=== PATIENT | female | born 1945 | race Caucasian/White ===

== ENCOUNTER → 2017-07-23 12:19 | Outpatient (CLI) | payer MEDICARE, SELFPAY ==
[2016-03-10 05:40] VITALS: BP 141/95
== END ==
PROVIDERS: Family Provider Internal Medicine; PCP Internal Medicine; Visit Provider Dermatology Pediatric Dermatology
DX: L80 Vitiligo (principal); L40.8 Other psoriasis; L85.3 Xerosis cutis; L29.8 Other pruritus; L91.8 Other hypertrophic disorders of the skin
CPT/HCPCS: 36415

== ENCOUNTER 2018-06-09 10:23 | Emergency (ER) | payer MEDICARE, SELFPAY ==
[2018-06-09 10:25] VITALS: BP 155/90; PULSE 71; RESP 17; TEMP 36.7; O2SAT 99; BMI 29.6
--- NOTE | 2018-06-09 10:54 | ED.DCSUM_ITS ---
- ER Visit Summary Date of Service: 06/09/18 Chief Complaint: Recent falls complaint lower back and left knee pain History of Present Illness: The patient is a 72 F no significant past medical history. Currently on no medications. Patient states the last 6-8 weeks he has had some falls one time she tripped and the other time she slipped in the mud. She is complaining of some back pain and left knee pain. This is been ongoing for weeks. She denies any prior back or knee surgery. No fever. She does get intermittent swelling to her left knee. Physical Examination: Very well-appearing older female. Looks younger than her stated age. Vital signs are stable and afebrile. H EENT exam unremarkable. Neck nontender full range of motion. Trachea midline. No lymphadenopathy. Lungs clear to auscultation bilaterally. Heart regular rate and rhythm no murmur. Abdomen soft and nontender. Normal bowel sounds no peritoneal signs. Chest wall nontender. Pelvic girdle intact. Patient moving all 4 extremities are neurovascular intact. She has mild swelling to her left knee. However she has full flexion-extension of her left knee. ACL PCL MCL and LCL all are intact. Quadriceps patellar tendon and infrapatellar tendon are intact. She can lift either leg off the bed. She has full range of motion to both shoulders, elbows and wrist. 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 Normal dorsi and plantar flexion. Back itself is nontender she complains of discomfort in the lower spine but is not reproducible. There is no ecchymosis or bruising. Neurologically she is awake alert with no focal motor deficits. Test Results: Left knee x-ray decreased joint space narrowing otherwise no acute abnormality. LS spine x-ray arthritic changes but otherwise no acute process. Both read by myself. Emergency Department Course and Treatment: Repeat exam patient doing well at 1150. Treatment Plan: Tylenol and Motrin for pain. Ice to her knee. Follow-up with Dr. Dinesh Harrison of orthopedics. Disposition: Discharge Impression: Recent falls Left knee pain secondary to degenerative joint disease Low back pain This note was generated with [employer] software. It may contain incorrect words, spelling, and punctuation that were not noted in review of the chart prior to signing ED Disposition - Plan for ED Patient: Chief Complaint: Fall Referrals: Shaun Busch MD [Primary Care Provider] -
--- NOTE | 2018-06-09 11:22 | RAD_ITS ---
STUDY: X-RAY - LEFT KNEE REASON FOR EXAM: Female, 72 years old. Pain following a recent fall. TECHNIQUE: 3 view(s) of the knee. COMPARISON: None. FINDINGS: Normal visualized distal femur. Normal visualized proximal tibia and fibula. Normal proximal tibiofibular articulation. There is moderate degenerative arthrosis of the medial femorotibial compartment with moderate joint space narrowing. Normal lateral femorotibial compartment. Normal patellofemoral articulation. The soft tissue structures are unremarkable. RAD/Knee 3 Views IMPRESSION: Degenerative arthrosis. Electronically Signed: Levy Martinez MD at 12:18 EST Tel [phone], Service support ,
--- NOTE | 2018-06-09 11:42 | RAD_ITS ---
STUDY: X-RAY - LUMBAR SPINE REASON FOR EXAM: Female, 72 years old. Low back pain following a recent fall. TECHNIQUE: 3 view(s) of the lumbar spine were obtained. COMPARISON: None FINDINGS: Normal lumbar lordosis. There is no substantial scoliosis. Minimal anterolisthesis of L4 on L5. There is multilevel endplate spondylosis of the lumbar vertebrae. There is multi-level degenerative disc disease with multi-level disc space narrowing. There is atherosclerotic calcification of the abdominal aorta without a demonstrated aneurysm. Moderate amount of fecal material is seen in the colon. RAD/Lumbar Spine 2 or 3 Views IMPRESSION: Degenerative changes of the spine, as detailed above. Minimal anterior listhesis of L4 on L5. Electronically Signed: Levy Martinez MD at 12:23 EST Tel [phone], Service support ,
--- NOTE | 2018-06-09 12:04 | ED.DEP ---
ED Disposition - Plan for ED Patient: Disposition: Home or Assisted Living Chief Complaint: Fall Instructions: ED Degenerative Joint Disease Referrals: Toan Harrison MD [STAFF PHYSICIAN] - As soon as possible Roland Greenberg MD [STAFF PHYSICIAN] - As soon as possible Additional Instructions: Ice and heat the knee and back. Ice primarily the knee to decrease swelling. Both the pain in her knee and back is most likely from arthritis. Call follow-up with orthopedic surgeon for further evaluation of your knee. Call and follow-up with a local primary care physician.
[2018-06-09 12:22] VITALS: PULSE 83; RESP 16
--- OUTSIDE RECORDS SUMMARY | 2018-09-10 15:28 | XMS RPT_ITS ---
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 VITILIGO [L80] Other specified hypoglycemia [E16.1] 02/01/2015 More... 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 ATRIAL FIBRILLATION [I48.91] Rheumatic fever without mention of heart involv* 02/01/2015 PAIN ABDOMEN GENERALIZED [R10.84] INVALID FOR*09/09/2012 ARTERIAL DISEASE NEC [I77.89] INVALID FOR* Screening for malignant neoplasm of the rectum *INVALID FOR*02/01/2015 Acute gastritis without mention of hemorrhage [*INVALID FOR*02/01/2015 IRRITABLE BOWEL [K58.9] INVALID FOR* Abdominal Pain, Other Specified Site [R10.9] INVALID FOR*09/09/2012 Unspecified Essential Hypertension [I10] INVALID FOR* Abdominal Pain, Unspecified Site [R10.9] INVALID FOR*09/09/2012 Disorder of bone and cartilage, unspecified [M8*INVALID FOR* Family history of malignant neoplasm of gastroi* More... 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 FOR CHEST PAIN. IF NO RELIEF CALL 911 LORAZEPAM 0.5 MG TABLET 30 t* 0 03/26/2018 04/25/2018 Class: Print RX Route: ORAL Sig: Take 1 tablet by mouth twice daily as needed (anxiety) for up to 30 days. Medications Discontinued During This Encounter cefdinir (OMNICEF) 300 mg capsule 10/09/2017 03/26/2018 Class: Historical Med Sig: Disc: Course of therapy completed cholecalciferol, vitamin D3, (VITAMI* 03/26/2018 Class: Historical Med Route: ORAL Sig: Take 1 capsule by mouth once daily. Disc: Discontinued by Patient COMPOUNDED PRESCRIPTION 03/26/2018 Class: Historical Med Route: ORAL Sig: Take 2 tablets by mouth twice daily. [facility] [place]- Clear skin vitamin Disc: Discontinued by Patient nitroglycerin sublingual (NITROQUICK* 25 t* 3 03/29/2014 03/26/2018 Route: SUBLINGUAL Sig: Dissolve 1 tablet under the tongue as needed. FOR CHEST PAIN. IF NO RELIEF CALL 911 Disc: Reason for discontinue is not on file. LORazepam (ATIVAN) 0.5 mg tab 30 t* 0 11/11/2016 03/26/2018 Class: Print RX Route: ORAL Sig: Take 1 tablet by mouth three times daily as needed (anxiety). Disc: Reason for discontinue is not on file. Encounter Status:Closed by GOPI CHILDRESS FORMER HAND on 03/26/18 CNCO Observed: 02/15/2018 Status: COMPLETED Source: [place] 11:30 AM [facility] REPOSITORY [facility] ID: [id number] Author: Mammography Coordinator Service: (none) Author Type: Physician Type: Letter Filed: 02/16/2018 11:33 PM Note Text: February 15, 2018 PID: [id number] Emma Hall [address] [place] [address] Dear Ms. Hall, We are pleased to inform you that the results of your recent breast imaging exam on 02/15/2018 are normal. Early detection of cancer is very important. We also understand recommendations regarding breast cancer screening are controversial. Please discuss with your primary care provider which strategy is best for you and whether a mammogram is right for you. Your imaging studies and report will be kept on file at [facility] as part of your permanent medical record and are available for your continuing care. Thank you for allowing us to help in meeting your health care needs. Sincerely, Dr. Martin Interpreting Radiologist (Normal over 40) [facility] SCREENING Observed: 02/15/2018 Status: F Source: [place] 9:47 AM [facility] REPOSITORY * * *Final Report* * * DATE OF EXAM: Feb 15 2018 9:47AM W 0581 - [facility] SCREENING / PROCEDURE REASON: Encounter for screening mammogram for malignant neoplasm of breast * * * * Physician Interpretation * * * * RESULT: #[id number] - BARBIE SCREENING BILATERAL DIGITAL SCREENING MAMMOGRAM WITH CAD: 02/15/2018 HISTORY: Encounter For Screening Mammogram For Malignant Neoplasm Of Breast. RESULT: TECHNIQUE: The study was acquired using full field digital technology and interpreted from soft copy. Current study was also evaluated with a Computer Aided Detection (CAD). Comparison is made to exams dated: 02/12/2017 mammogram - and 10/17/2015 mammogram - [facility]. There are scattered fibroglandular elements in both breasts. No significant masses, calcifications, or other findings are seen in either breast. There has been no significant interval change. IMPRESSION: NEGATIVE There is no mammographic evidence of malignancy.A 1 year screening mammogram is recommended. The exam was reviewed by a staff physician. Elsa Thomas M.D. pb,[facility]/elli:02/15/2018 11:30:18 Cutting Room Supervisor: Maria LUNA(R)(M), letter sent: Normal over 40 Mammogram BI-RADS: 1 Negative Trend Investigator: Elli Transcribe Date/Time: Feb 15 2018 9:30A Dictated by: AKIN THOMAS MD This examination was interpreted and the report reviewed and electronically signed by: ELSA MARTIN MD on Feb 15 2018 11:30AM EST [id number] PROGRESS Observed: 02/15/2018 Status: COMPLETED Source: [place] 8:59 AM [facility] REPOSITORY [facility] ID: [id number] Author: [place] Service: (none) Author Type: (none) Type: Progress Notes Filed: 02/15/2018 9:00 AM Note Text: Radiology Service Progress Note PATIENT NAME: Emma Hall DATE OF SERVICE: February 15, 2018 TIME: 8:59 AM PATIENT IDENTITY VERIFICATION COMPLETED USING TWO (2) METHODS: Patient confirmed name verbally and Date of . PATIENT GENDER DATA: Female. status: : No status: NO. PATIENT RELEVANT IMPLANT DATA REVIEWED: Not Applicable RADIOLOGY DEPARTMENT: [facility] IV DATA: Not applicable SIGNED BY: [place] February 15, 2018 8:59 AM ACTH STIMULATION, 3 Collected: 12/28/2017 Status: F Source: [facility] SAMPLE [QUEST] 9:00 AM [facility] REPOSITORY TYPE CODE TESTS RESULT OUT OF REFERENCE UNITS RANGE LAB ACTH STIMULATION, 3 SAMPLE [QUEST](LOINC ACTH ) STIMULATION, 3 SAMPLE [QUEST] Result Comment: _ACTH STIMULATION, 3 Specimen_ ACTH STIMULATION, 3 SPECIMENS Reported: 12/30/2017 14:04 Status=F TEST RESULT FLAG RANGE UNITS TIME 1 0900 12/30/17.141.rfl.COMPLETE.AMRR .67326-1 CORTISOL 1 15.8 mcg/dL 12/30/17.1414.rfl.COMPLETE.AMRR .42728-7 TIME 2 0930 12/30/17.141.rfl.COMPLETE.AMRR .51945-3 CORTISOL 2 21.9 >=20.0 mcg/dL 12/30/17.1415.rfl.COMPLETE.AMRR .51334-1 TIME 3 1000 12/30/17.1415.rfl.COMPLETE.AMRR .83677-7 CORTISOL 3 23.3 >=20.0 mcg/dL 12/30/17.1415.rfl.COMPLETE.AMRR .05608-7 Normal Response: Any value > or = 20.0 mcg/dL Test Performed by [facility], [facility], [address] [place] [address] Tye Woody M.D., Ph.D., Director of Laboratories , [place] [id number] Performed By: #### [id number] #### [facility],[address] [place] [address] CBC Collected: 12/17/2017 Status: F Source: [facility] 9:13 AM [facility] REPOSITORY TYPE CODE TESTS RESULT OUT OF RANGE REFERENCE UNITS LAB CBC(LOINC) CBC Result Comment: CBC-COMPLETE BLOOD COUNT LAB WBC(LOINC) 4.5 - 10.8 x 10EE3/UL WBC Low 4.0 LAB RBC(LOINC) 4.10 - x 10EE6/UL 5.30 RBC 4.29 LAB HEMOGLOBIN(LOINC) 12.0 - g/dl 16.0 HEMOGLOBIN 14.2 LAB HEMATOCRIT(LOINC) 34.0 - % 46.0 HEMATOCRIT 41.5 LAB MCV(LOINC) 80 - 99 fl MCV 97 LAB MCH(LOINC) 27 - 33 pg MCH 33 LAB MCHC(LOINC) 32 - 36 X10 3 MCHC 34 LAB RDW/CV(LOINC) 12.0 - % 15.6 RDW/CV 13.2 LAB PLATELET(LOINC) 150 - 450 x10EE3/UL PLATELET 193 LAB MPV(LOINC) 6.6 - 10.5 fl MPV 9.6 Result Comment: AUTOMATED DIFFERENTIAL LAB NEUT %(LOINC) 46.0 - 76.0 % NEUT % 50.0 LAB LYMPH %(LOINC) 20.0 - 45.0 % LYMPH % 36.1 LAB MONOS %(LOINC) 0.0 - 10.0 % MONOS % High 11.5 LAB EO %(LOINC) 0.0 - 7.0 % EO % 1.2 LAB BASO %(LOINC) 0.0 - 2.0 % BASO % 1.2 LAB Lymph #(LOINC) 0.80 - 2.80 x10EE3/U L Lymph # 1.40 LAB Neut #(LOINC) 1.50 - 7.10 x10EE3/U L Neut # 2.00 LAB Cedar #(LOINC) 0.20 - 1.00 x10EE3/U L Cedar # 0.50 LAB EO #(LOINC) 0.00 - 0.50 x10EE3/U L EO # 0.00 LAB Baso #(LOINC) 0.00 - 0.10 x10EE3/U L Baso # 0.00 LAB MANUAL DIFF(LOINC) MANUAL DIFF N/A LAB MORPHOLOGY(LOINC ) MORPHOLOGY N/A Result Comment: {CD] Performed By: #### [id number] #### [place] [id number] LIPID PROFILE Collected: 12/17/2017 Status: F Source: [facility] 9:[address] [facility]ORY TYPE CODE TESTS RESULT OUT OF REFERENCE UNITS RANGE LAB LIPID PROFILE(LOIN C) LIPID PROFILE Result Comment: LIPID PROFILE LAB TRIGLYCERIDE(LOINC) 0 - 150 mg/dl TRIGLYCERIDE 73 LAB CHOLESTEROL(LOINC) 0 - 200 mg/dl CHOLESTEROL High 217 LAB HDL(LOINC) 40 - 60 mg/dl HDL 57 LAB CHOL/HDL(LOINC) 0.0 - 5.0 CHOL/HDL 3.8 LAB LDL(LOINC) 0 - 129 mg/dl LDL High 145 Performed By: #### [id number] #### [place] [id number] CMP WITH EGFR Collected: 12/17/2017 Status: F Source: [facility] 9:[address] [facility] [place] REPOSITORY TYPE CODE TESTS RESULT OUT OF RANGE REFERENCE UNITS LAB CMP with eGFR(LOINC) CMP with eGFR Result Comment: COMPREHENSIVE METABOLIC PANEL LAB SODIUM(LOINC) 136 - 145 mmol/l SODIUM 137 LAB POTASSIUM(LOINC) 3.5 - 5.1 mmol/L POTASSIUM 3.7 LAB CHLORIDE(LOINC) 98 - 107 mmol/L CHLORIDE 107 LAB CO2(LOINC) 21.0 - mmol/L 31.0 CO2 28.9 LAB GLUCOSE(LOINC) 74 - 106 mg/dl GLUCOSE 100 LAB BUN(LOINC) 6 - 20 mg/dl BUN 13 LAB CREATININE(LOINC) 0.6 - 1.2 mg/dl CREATININE 0.7 LAB AST/SGOT(LOINC) 13 - 39 U/L AST/SGOT 18 LAB ALK PHOS(LOINC) 38 - 126 U/L ALK PHOS 57 LAB CALCIUM(LOINC) 8.6 - mg/dl 10.2 CALCIUM 9.2 LAB TOTAL 6.4 - 8.3 g/dl PROTEIN(LOINC) TOTAL PROTEIN 6.8 LAB ALBUMIN(LOINC) 3.4 - 4.8 g/dL ALBUMIN 4.3 LAB GLOBULIN(LOINC) 1.5 - 3.8 G/DL GLOBULIN 2.5 LAB A/G RATIO(LOINC) 0.9 - 1.6 A/G High RATIO 1.7 LAB TOTAL BILI(LOINC) 0.0 - 1.5 mg/dl TOTAL BILI 0.5 LAB B/C RATIO(LOINC) 0 - 30 ratio B/C RATIO 19 LAB ALT/SGPT(LOINC) 8 - 35 U/L ALT/SGPT 17 LAB ANION GAP(LOINC) 10 - 20 mmol/L ANION Low GAP 5 LAB AGE(LOINC) years AGE 72 LAB eGFR(LOINC) 60 - 999 ML/MINUTE eGFR >60 LAB eGFR(AA)(LOINC) 60 - 999 ML/MINUTE eGFR(AA) >60 Result Comment: ACCORDING TO THE NATIONAL KIDNEY DISEASE EDUCATION PROGRAM(NKDE), A NORMAL eGFR IS A VALUE GREATER THAN OR EQUAL TO 60 ML/MIN/1.73 SQ METERS. CHRONIC KIDNEY DISEASE: <60mL/MIN/1.73 SQ METERS KIDNEY FAILURE: <15mL/MIN/1.73 SQ METERS THIS TEST SHOULD ONLY BE USED FOR PATIENTS 18 YEARS OF AGE AND OLDER. Performed By: #### [id number] #### [facility],[address] [place] [address] T4 (THYROXINE) TOTAL Collected: 12/17/2017 Status: F Source: [facility] 9:13 AM [facility] REPOSITORY TYPE CODE TESTS RESULT OUT OF RANGE REFERENCE UNITS LAB T4 (THYROXINE) TOTAL(LOINC ) T4 (THYROXINE) TOTAL Result Comment: THYROXINE(T4) LAB T4(LOINC) 6.0 - 12.2 ug/dl T4 7.4 Performed By: #### [id number] #### [facility],[address] [place], [place] [id number] T3, FREE Collected: 12/17/2017 Status: F Source: [facility] 9:13 AM [facility] REPOSITORY TYPE CODE TESTS RESULT OUT OF RANGE REFERENCE UNITS LAB T3, FREE(LOINC) T3, FREE Result Comment: _T3, FREE_ T3, FREE Reported: 12/19/2017 20:31 Status=F TEST RESULT FLAG RANGE UNITS T3, FREE 3.3 2.3-4.2 pg/mL 12/19/17.2044.rfl.COMPLETE.AMRR .3051-0 Test Performed by [facility], [facility], [address] [place] [id number] Tye Woody M.D., Ph.D., Director of Laboratories , [place] [id number] Performed By: #### [id number] #### [facility],[address] [place] [address] CORTISOL, SERUM Collected: 12/17/2017 Status: F Source: [facility] [QUEST] 9:13 AM [facility] REPOSITORY TYPE CODE TESTS RESULT OUT OF REFERENCE UNITS RANGE LAB CORTISOL, SERUM [QUEST](LOIN C) CORTISOL, SERUM [QUEST] Result Comment: _CORTISOL, SERUM_ CORTISOL, A.M. Reported: 12/19/2017 21:00 Status=F TEST RESULT FLAG RANGE UNITS CORTISOL, A.M. 8.9 4.0-22.0 mcg/dL 12/19/17.2111.Librado.AMRR .9813-7 8 a.m. (7-9 a.m.) Specimen Test Performed by [facility], [facility], [address] [place] [id number] Tye Woody M.D., Ph.D., Director of Laboratories , [facility] [id number] Performed By: #### [id number] #### [facility],[address] [place] [address] PROGRESS Observed: 12/02/2017 Status: COMPLETED Source: [place] 10:01 AM [facility] REPOSITORY O ID: [id number] Author: Baylee Ahn Service: (none) Author Type: Nurse Practitioner Type: Progress Notes Filed: 12/02/2017 10:28 AM Note Text: 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 Emma Hall is a 72 year old female who presents for vaginal pruritis and burning for 1 month(s). Vaginal discharge: none. Itching: YES Dyspareunia: N/A Fever/chills: No Abdominal pain: No Bladder: dysuria Bowel: No blood in stool, pain with BM, tarry stool, persistent diarrhea or constipation Any new sexual partners or concern for STD exposure: No Any history of STDs: None Are you currently taking any medications to treat vaginitis: No Do you use feminine sprays, douches or deodorants: No Menstrual cycle: no menses - postmenopausal Past medical, surgical, social history, medications and allergies reviewed and updated. OBJECTIVE: BP 122/72 Wt 143 lb (64.9kg) GENERAL: Well developed, well nourished in no apparent distress PELVIC: external genitalia normal, normal Bartholin's glands, urethra, [place]'s glands, no vulvar lesions, no cervical lesions, physiologic discharge present, normal appearing perineal body and perianal region BIMANUAL: deferred. RECTOVAGINAL: deferred. ASSESSMENT/PLAN: irritant dermatitis Office Visit on 12/02/17 -UA DIP B/O -BACT/TRACI VAG GRAM STAIN STD screening: Declined STD check. BV and yeast culture sent- call with results. Vaginal Hygiene discussed. Baylee Ahn APRN.CNP CNOV Observed: 12/02/2017 Status: COMPLETED Source: [place] 10:00 AM [facility] REPOSITORY Office Visit (WOOB) EMMA HALL ([id number]) 1945 F NFR Date Time Provider Department 12/02/17 10:00 AM BAYLEE AHN (KATHRYN) WOOB During your visit today, we recorded the following information about you: Blood pressure Weight 122/72 64.9 kg Baylee Ahn APRN.CNP 12/02/2017 10:28 AM Signed 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 Emmasoren Hall is a 72 year old female who presents for vaginal pruritis and burning for 1 month(s). Vaginal discharge: none. Itching: YES Dyspareunia: N/A Fever/chills: No Abdominal pain: No Bladder: dysuria Bowel: No blood in stool, pain with BM, tarry stool, persistent diarrhea or constipation Any new sexual partners or concern for STD exposure: No Any history of STDs: None Are you currently taking any medications to treat vaginitis: No Do you use feminine sprays, douches or deodorants: No Menstrual cycle: no menses - postmenopausal Past medical, surgical, social history, medications and allergies reviewed and updated. OBJECTIVE: BP 122/72 Wt 143 lb (64.9kg) GENERAL: Well developed, well nourished in no apparent distress PELVIC: external genitalia normal, normal [place]tholin's glands, urethra, [place]'s glands, no vulvar lesions, no cervical lesions, physiologic discharge present, normal appearing perineal body and perianal region BIMANUAL: deferred. RECTOVAGINAL: deferred. ASSESSMENT/PLAN: irritant dermatitis Office Visit on 12/02/17 -UA DIP B/O -BACT/TRACI VAG GRAM STAIN STD screening: Declined STD check. BV and yeast culture sent- call with results. Vaginal Hygiene discussed. Baylee Ahn APRN.FORMER HAND Referring Provider: BAYLEE AHN ([facility]) [[id number]] Allergies As of Date: 12/02/2017 Noted Allergy Reaction DEMEROL (MEPERIDINE HCL) 12/26/2004 7 - Swelling 12 - Shortness of Breath IVP DYE (IODINE) 12/26/2004 9 - Itching Comments: itching, and faint PRIMATENE MIST (EPINEPHRINE BASE) 12/26/2004 7 - Swelling 12 - Shortness of Breath BIAXIN (CLARITHROMYCIN) 04/26/2016 2 - Rash CEFDINIR 03/09/2017 2 - Rash FOOD COLOR GREEN (GREEN FOOD COLO*10/26/2012 5 - Intolerance LEVAQUIN (LEVOFLOXACIN) 06/26/2005 7 - Swelling MAPLE TREES (TREES) 12/26/2004 Comments: sneezing, nasal congestion MOLD 12/26/2004 Comments: sneezing, nasal congestion PENICILLINS 12/26/2004 4 - Hives PREMARIN (CONJUGATED ESTROGENS) 12/26/2004 7 - Swelling RAGWEED 12/26/2004 Comments: sneezing, nasal congestion SULFA (SULFONAMIDE ANTIBIOTICS) 12/26/2004 4 - Hives Date Reviewed: 12/02/2017 Reviewed by: Baylee Sullivan) Anabelle - Fully Assessed Primary Visit Diagnosis:Vaginal irritation [N89.8] Other Visit Diagnosis:Dysuria [R30.0] Order(s):UA DIP B/O [[id number]] Order #: [id number] BACT/TRACI VAG GRAM STAIN [SQBVCNSM] Order #: [id number] FUTURE Prescriptions as of 12/02/2017 Sig: CLOBETASOL 0.05 % TOPICAL OIN* Apply 1 application to affect* CHOLECALCIFEROL (VITAMIN D3) * Take 1 capsule by mouth once * LORAZEPAM 0.5 MG TABLET Take 1 tablet by mouth three * CEFDINIR 300 MG CAPSULE COMPOUNDED PRESCRIPTION Take 2 tablets by mouth twice* NITROGLYCERIN 0.4 MG SUBLINGU* Dissolve 1 tablet under the t* Problem List As Of Date 12/02/2017 Noted Resolved Hyperlipidemia [E78.5] More... VITILIGO [L80] Other specified hypoglycemia [E16.1] 02/01/2015 More... 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 ATRIAL FIBRILLATION [I48.91] Rheumatic fever without mention of heart involv* 02/01/2015 PAIN ABDOMEN GENERALIZED [R10.84] INVALID FOR*09/09/2012 ARTERIAL DISEASE NEC [I77.89] INVALID FOR* Screening for malignant neoplasm of the rectum *INVALID FOR*02/01/2015 Acute gastritis without mention of hemorrhage [*INVALID FOR*02/01/2015 IRRITABLE BOWEL [K58.9] INVALID FOR* Abdominal Pain, Other Specified Site [R10.9] INVALID FOR*09/09/2012 Unspecified Essential Hypertension [I10] INVALID FOR* Abdominal Pain, Unspecified Site [R10.9] INVALID FOR*09/09/2012 Disorder of bone and cartilage, unspecified [M8*INVALID FOR* Family history of malignant neoplasm of gastroi* More... Diverticulosis of colon (without mention of hem* Unspecified constipation [K59.00] Vitamin D deficiency [E55.9] INVALID FOR* Urethral stenosis [N35.9] INVALID FOR* Occlusion of right carotid artery [I65.21] INVALID FOR* HTN (hypertension) [I10] INVALID FOR* Anxiety neurosis [F41.1] INVALID FOR* PAF (paroxysmal atrial fibrillation) (HCC) [I48*INVALID FOR* Encounter Status:Closed by BAYLEE AHN on 12/02/17 Observed: 12/02/2017 Status: F Source: [place] BACT/CAND VAG [facility] 10:00 AM [facility] REPOSITORY Smear Result - BACTERIAL VAGINOSIS RESULT: Stain results indicate mixed morphotypes consistent with transition from normal vaginal nemesio. No Yeast observed Rare Polymorphonuclear leukocytes Rare Mononuclear cells Many Epithelial cells Performed By: #### BVCNSM #### [facility] [address] [place], [place] [address] PROGRESS Observed: 11/30/2017 Status: COMPLETED Source: [place] 9:18 AM [facility] REPOSITORY HNO ID: [id number] Author: Renzo Alas Service: (none) Author Type: Physician Type: Progress Notes Filed: 11/30/2017 2:19 PM Note Text: PERTINENT CARDIAC HISTORY Atrial fib - declined AAD, coumadin HTN HL - declined statins Carotid disease ADHERENCE TO GUIDELINES GERALD-I or ARB for HF with prior LVEF<40 (NQF 0081) - N/A ASA or Plavix for ASHD (NQF 0067) - declines Beta stephen for ASHD with prior NC or prior LVEF<40 (NQF 0070) - N/A Beta stephen for HF with prior LVEF<40 (NQF 0083) - N/A GERALD-I or ARB for ASHD with DM or prior LVEF<40 (NQF 0066) - N/A Statin therapy for ASHD or FHL or DM - declines BMI documented and plan if >25 (NQF 0421) - lifestyle recommendation form Tobacco use screening and referral (NQF 0028) - lifestyle recommendation form Recommendation for whole food, plant based diet - lifestyle recommendation form CLINICAL IMPRESSION/PLAN: Emma Hall is doing reasonably well. She voices understanding that she is at risk of stroke by virtue of her atrial fibrillation and lack of anticoagulation. She also voices understanding that she is not taking best medical therapy as she continues to decline statins. I reminded her to have a carotid study done later this fall. At her request, her care will be transferred to the [facility]. I will be available to her until the time of her first visit there. Written and verbal health teaching given to patient, patient verbalizes understanding and agrees with treatment plan. DIAGNOSIS FOR VISIT: ASHD HISTORY OF PRESENT ILLNESS Emma Hall returns for follow-up of her atrial fibrillation, hypertension and chest pain syndrome. She reports stable exercise tolerance. She has used no nitroglycerin. She is now established in [place] with Dr. Ng. She would like a referral to the [facility] for ongoing care. She's had no orthopnea. She's had minimal edema. She denies syncope, TIAs, amaurosis and claudication. She's had no recent palpitations. She confirms that she is not interested in antiarrhythmic therapy, statins or warfarin. ALLERGIES: ALLERGIES Allergen Reactions - Demerol [Meperidine* Swelling, Shortness of Breath - Ivp Dye [Iodine] Itching itching, and faint - Primatene Mist [Epi* Swelling, Shortness of Breath - Biaxin [Clarithromy* Rash - Cefdinir Rash - Food Color Green [G* Intolerance - Levaquin [Levofloxa* Swelling - Maple Trees [Trees] sneezing, nasal congestion - Mold sneezing, nasal congestion - Penicillins Hives - Premarin [Conjugate* Swelling - Ragweed sneezing, nasal congestion - Sulfa (Sulfonamide * Hives CURRENT OUTPATIENT MEDICATIONS: clobetasol (TEMOVATE) 0.05 % ointment Apply 1 application to affected area twice daily. TO AFFECTED AREA. cholecalciferol, vitamin D3, (VITAMIN D3) 4,000 unit cap Take 1 capsule by mouth once daily. LORazepam (ATIVAN) 0.5 mg tab Take 1 tablet by mouth three times daily as needed (anxiety). nitroglycerin sublingual (NITROQUICK) 0.4 mg SL tablet Dissolve 1 tablet under the tongue as needed. FOR CHEST PAIN. IF NO RELIEF CALL 911 cefdinir (OMNICEF) 300 mg capsule COMPOUNDED PRESCRIPTION Take 2 tablets by mouth twice daily. [facility] [place]-Clear skin vitamin PHYSICAL EXAMINATION: VITAL SIGNS: BP 110/70 Pulse 70 Ht 4' 10.5 (1.49m) Wt 149 lb 3.2 oz (67.7kg) BMI 30.65 kg/(m2). Chest: Clear to percussion and auscultation. Trachea is midline. Air entry is equal. Cardiac: Regular rhythm. S1 and S2 are normal. PMI is nondisplaced. There is a soft systolic ejection murmur. Carotids are brisk soft bilateral bruits. JVP is less than 10 cm. Abdomen: Soft and nontender. There are no pulsatile masses or bruits. No liver enlargement. Bowel sounds are active. Extremities: No edema. Pulses are intact and symmetrical. Recent labs show normal renal function. LDL was 136. TSH is normal. Recent carotid examination shows stable bilateral disease. This is scheduled to be done again later this fall. Electronically Signed: Renzo Alas MD November 30, 2017 9:18 AM CC: Justin Zuniag Observed: 11/30/2017 Status: COMPLETED Source: [place] 9:00 AM [facility] REPOSITORY Office Visit (CAWSTR) MARIA ELENAEMMA BAIG ([id number]) 1945 F NFR Date Time Provider Department 11/30/17 9:00 AM RENZO ALAS CAWSTR During your visit today, we recorded the following information about you: Pulse Blood pressure Weight Height 70/minute 110/70 67.7 kg 1.486 m Renzo Alas MD 11/30/2017 2:19 PM Signed PERTINENT CARDIAC HISTORY Atrial fib - declined AAD, coumadin HTN HL - declined statins Carotid disease ADHERENCE TO GUIDELINES GERALD-I or ARB for HF with prior LVEF<40 (NQF 0081) - N/A ASA or Plavix for ASHD (NQF 0067) - declines Beta stephen for ASHD with prior NC or prior LVEF<40 (NQF 0070) - N/A Beta stephen for HF with prior LVEF<40 (NQF 0083) - N/A GERALD-I or ARB for ASHD with DM or prior LVEF<40 (NQF 0066) - N/A Statin therapy for ASHD or FHL or DM - declines BMI documented and plan if >25 (NQF 0421) - lifestyle recommendation form Tobacco use screening and referral (NQF 0028) - lifestyle recommendation form Recommendation for whole food, plant based diet - lifestyle recommendation form CLINICAL IMPRESSION/PLAN: Emma Griffithser is doing reasonably well. She voices understanding that she is at risk of stroke by virtue of her atrial fibrillation and lack of anticoagulation. She also voices understanding that she is not taking best medical therapy as she continues to decline statins. I reminded her to have a carotid study done later this fall. At her request, her care will be transferred to the [facility]. I will be available to her until the time of her first visit there. Written and verbal health teaching given to patient, patient verbalizes understanding and agrees with treatment plan. DIAGNOSIS FOR VISIT: ASHD HISTORY OF PRESENT ILLNESS Emma Hall returns for follow-up of her atrial fibrillation, hypertension and chest pain syndrome. She reports stable exercise tolerance. She has used no nitroglycerin. She is now established in [place] with Dr. Ng. She would like a referral to the [facility] for ongoing care.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 (irritable bowel syndrome) (Chronic) GERD (gastroesophageal reflux disease) (Chronic) Fibromyalgia (Chronic) Anxiety (Chronic) History of atrial fibrillation without current medication (Chronic) Surgical History H/O hernia repair (Acute) S/P hysterectomy (Acute) Social History Smoking Status: Never smoker alcohol intake: current HPI HPI HPI: EMMA HALL, is a 71 F who presents to the office today for for a second opinion. Patient was recently seen by my partner Dr. Segundo Frey and this was his assessment of her. EMMA HALL, is a 71 F who presents to the office today for a multitude of concerns and complaints. This is a patient who from past surgical treatment and postoperative concerns I know well. In 2001 I performed a ventral herniorrhaphy with mesh. Over the years ensuing she has had problems with abdominal pain. CT scan has demonstrated some curling of the edge of the mesh with some bowel involvement but no evidence of bowel and obstruction or fistulization. Multiple CTs have previously been obtained demonstrating no change. I have been asked by Dr. Vee Ng to the service with her surgical evaluation and a written copy of my surgical consult and recommendations will be returned to him The patient presents today with a rather scattered primary complaint. She initially stated that Dr. Monge 2 years prior had performed a colonoscopy and that she has had trouble ever since. My records demonstrate that February 08, 2014 Dr. Delroy Lou performed a upper endoscopy showing a normal esophagus slightly erythematous mucosa of the antrum. On that same day he performed a colonoscopy. That demonstrated diverticulosis the sigmoid colon and descending colon. No acute findings. It is of additional note that March 14, 2011 Dr. Tito Heck had performed a colonoscopy on the patient. A tortuous colon was identified. Diverticulosis of the descending colon. Hemorrhoids. No acute findings identified. I then further try to discuss with the patient why she was presenting to a surgeon today she then after initially stating that she has never felt well since her colonoscopy 2 years ago which actually ends up being 4 years ago she now states that she is having new onset constipation. This was not part of her original concern. She states that 2 weeks ago she had a dark stool On September 16, 2006 the patient had yet another colonoscopy. This demonstrated no acute abnormalities. It is of note that the patient was felt to have tolerated colonoscopy poorly secondary to hyper pain response. 1 of her current concerns is constipation. Ongoing apparently for 2 years but difficult to decipher. She times times uses magnesium citrate. Sometimes uses a suppository. She states that she feels very cold. She states that that has been ongoing for multiple years as well. She states that perhaps 2 weeks ago she had dark stool. She has not noticed it since. She has not had any weight loss. Or any weight loss that she may have has she rapidly regains. She is interested as to whether the mesh that had been placed in 2001 could be causing her current problems. I was able to obtain previous records from the [facility] and a note from Dr. De La Cruz.. The patient most recently has seen Dr. Ng in [place]. It is of note that the patient has a chronic anxiety syndrome as a diagnosis. Previous records demonstrate multiple various physician and extended caregiver appointments with a variety of concerns. There is previous documentation that the patient has a family history of colon cancer I believe in her mother. Her main concerns with me today were #1 feeling tired and cold, #2 her bowels have been having a coffee-ground appearance to them however her ability to have a bowel movement has improved since she has used magnesium citrate, #3 epigastric abdominal discomfort at times. The patient has undergone esophageal manometry which was completed at [facility] [place] [place] on July 28, 2016. This was read as an overall normal study with a sliding hiatal hernia. She states that she was told that she needed to take nitroglycerin if she has this type of pain in the past. I have instructed her that nitroglycerin may help with any chest related pressures but with regards to her esophagus is functioning entirely normally. And she has no esophageal spasms noted on her manometry study. Exam Const General: well developed, no acute distress, well hydrated Orientation: oriented to person, oriented to place, oriented to time [facility] Head: normocephalic, atraumatic Ears: external ears normal Mouth: moist mucous membranes Eyes Sclera: sclerae normal Pupils: normal by confrontation Neck Neck: no lymphadenopathy noted Neck mass: No Thyroid: symmetrical, thyroid normal Chest Chest palpation AND inspection: normal inspection of the chest Resp Effort AND Inspection: normal respiratory effort Auscultation: clear to auscultation bilaterally Percussion: percussion normal Cardio Rate: regular rate Rhythm: regular rhythm GI Palpation: soft, no masses, no hepatosplenomegaly, nontender Rectal Exam: other Other: Rectal exam deferred. Extrem General: no clubbing, cyanosis or edema, normal to inspection Assessment AND Plan Problems 1. Irritable bowel syndrome without diarrhea K58.9 2. Gastroesophageal reflux disease without esophagitis K21.9 3. Left lower quadrant abdominal pain of unknown etiology R10.32 Plan With regards to her problems that she presented with me today I told her that fluctuation in temperatures probably something that she is going to have to sit back down with her primary care physician to try to make some sort of assessment on whether medications could be actually causing this problem. I think her esophagus is functioning entirely normal. She has a normal manometry study and her upper scope really did not reveal anything it would make sense that she undergo another repeat upper endoscopy in 2019. I concur with the recommendations of Dr. Frey no colonoscopic intervention is needed at this time. Her next high-risk colonoscopy should be done in one year. In pursuing to a barium enema in concordance with Dr. Frey said I believe is appropriate. Coding Level of Care Code Off vis,est,level 3 Diagnoses Irritable bowel syndrome without diarrhea K58.9 Irritable bowel syndrome type: without diarrhea Gastroesophageal reflux disease without esophagitis K21.9 Esophagitis presence: without esophagitis Left lower quadrant abdominal pain of unknown etiology R10.32 10/16/17 1104 <Electronically signed by Taqueria Samson MD> Date Taqueria Arevalo Signature: Date (if applicable) CC: Vee Ng MD SURGERY VISIT REPORT Observed: 09/29/2017 Status: F Source: [place] 6:33 PM [facility] [address] [place] [address] OFFICE VISIT Date of Service: 09/29/17 MR#: [id number] Acct: [id number] Name: EMMA HALL Rep #: [id number] : 1945 Provider: Segundo Frey MD Age/Sex: 71/F Location: [facility] Status: Signed Intake Vital Signs09/29/17 Height 4 ft 11 in 09/29/17 Weight: 149 lb 09/29/17 Body Mass Index (BMI) 30.1 Intake Visit Reasons: EPIGASTRIC PAIN Otr Flatbed Driver Required: No Is patient in pain?: Yes (abdomen) Allergies epinephrine [From Primatene Mist] Allergy (Severe, Verified 09/29/17 15:18) Shortness of breath epinephrine bitartrate [From Primatene Mist] Allergy (Severe, Verified 09/29/17 15:18) Shortness of breath doxycycline Allergy (Intermediate, Verified 09/29/17 15:18) Swelling levofloxacin [From Levaquin] Allergy (Intermediate, Verified 09/29/17 15:18) Swelling estrogens, conjugated [From Premarin] Allergy (Mild, Verified 09/29/17 15:18) Swelling meperidine HCl [From Demerol] Allergy (Mild, Verified 09/29/17 15:18) Other Penicillins Allergy (Mild, Verified 09/29/17 15:18) Unknown Sulfa (Sulfonamide Antibiotics) Allergy (Mild, Verified 09/29/17 15:18) Unknown digoxin [From Digitek] Allergy (Verified 09/29/17 15:18) Swelling FOOD COLOR GREEN Allergy (Intermediate, Uncoded 03/10/16 03:57) Swelling IVP DYE Allergy (Intermediate, Uncoded 03/10/16 03:57) Other MAPLE TREE MOLD Allergy (Mild, Uncoded 03/10/16 03:57) Other RAGWEED Allergy (Mild, Uncoded 03/10/16 03:57) Other Medications Albuterol Inhaler [Ventolin Hfa] 1 - 2 puff INHALATION Q4H PRN PRN #1 inhaler 06/20/15 [Rx Confirmed 09/29/17] DiphenhydrAMINE [Benadryl] 25 mg PO QHS PRN PRN 03/10/16 [History Confirmed 09/29/17] clobetasol 0.025 % topical cream 1 applic TOPICAL BID 09/29/17 [History Confirmed 09/29/17] estradiol 1 mg tablet 1 mg PO QDAY 09/29/17 [History Confirmed 09/29/17] nitroglycerin 0.4 mg sublingual tablet 0.4 mg SUBLINGUAL Q5M PRN 09/29/17 [History Confirmed 09/29/17] PFSH Medical History Asthma (Chronic) IBS (irritable bowel syndrome) (Chronic) GERD (gastroesophageal reflux disease) (Chronic) Fibromyalgia (Chronic) Anxiety (Chronic) History of atrial fibrillation without current medication (Chronic) Surgical History H/O hernia repair (Acute) S/P hysterectomy (Acute) Social History Smoking Status: Never smoker alcohol intake: current HPI HPI HPI: EMMA HALL, is a 71 F who presents to the office today for a multitude of concerns and complaints. This is a patient who from past surgical treatment and postoperative concerns I know well. In 2001 I performed a ventral herniorrhaphy with mesh. Over the years ensuing she has had problems with abdominal pain. CT scan has demonstrated some curling of the edge of the mesh with some bowel involvement but no evidence of bowel and obstruction or fistulization. Multiple CTs have previously been obtained demonstrating no change. I have been asked by Dr. Vee Ng to the service with her surgical evaluation and a written copy of my surgical consult and recommendations will be returned to him The patient presents today with a rather scattered primary complaint. She initially stated that Dr. Monge 2 years prior had performed a colonoscopy and that she has had trouble ever since. My records demonstrate that February 08, 2014 Dr. Delroy Lou performed a upper endoscopy showing a normal esophagus slightly erythematous mucosa of the antrum. On that same day he performed a colonoscopy. That demonstrated diverticulosis the sigmoid colon and descending colon. No acute findings. It is of additional note that March 14, 2011 Dr. Tito Heck had performed a colonoscopy on the patient. A tortuous colon was identified. Diverticulosis of the descending colon. Hemorrhoids. No acute findings identified. I then further try to discuss with the patient why she was presenting to a surgeon today she then after initially stating that she has never felt well since her colonoscopy 2 years ago which actually ends up being 4 years ago she now states that she is having new onset constipation. This was not part of her original concern. She states that 2 weeks ago she had a dark stool On September 16, 2006 the patient had yet another colonoscopy. This demonstrated no acute abnormalities. It is of note that the patient was felt to have tolerated colonoscopy poorly secondary to hyper pain response. 1 of her current concerns is constipation. Ongoing apparently for 2 years but difficult to decipher. She times times uses magnesium citrate. Sometimes uses a suppository. She states that she feels very cold. She states that that has been ongoing for multiple years as well. She states that perhaps 2 weeks ago she had dark stool. She has not noticed it since. She has not had any weight loss. Or any weight loss that she may have has she rapidly regains. She is interested as to whether the mesh that had been placed in 2001 could be causing her current problems. I was able to obtain previous records from the [facility] and a note from Dr. De La Cruz.. The patient most recently has seen Dr. Ng in [place]. It is of note that the patient has a chronic anxiety syndrome as a diagnosis. Previous records demonstrate multiple various physician and extended caregiver appointments with a variety of concerns. There is previous documentation that the patient has a family history of colon cancer I believe in her mother. ROS General General: Yes weight change and appetite; no fatigue, colon cancer, breast cancer or weakness HEENT HEENT: Yes swollen glands; no difficulty swallowing, eye injury, eye surgery or hoarseness Endo Endocrine: No thyroid disease, diabetes mellitus, thyroid cancer, Hair loss, heat intolerance or cold intolerance Skin Skin: No rash or changing moles Breast Breast: No left breast lump, right breast lump, nipple discharge, breast pain, abnormal mammogram, abnormal US or breast enlargement Musc Musculoskeletal: Yes back problems and arthritis; no rheumatoid arthritis, gout or joint pain Cardio Cardiovascular: Yes atrial fibrillation; no murmur, pacemaker, heart disease, high blood pressure, heart attack, heart stent, palpitations, shortness of breat with exertion or chest pain Psych Psychiatric: No depression, anxiety or hearing voices Resp Respiratory: Yes asthma, No shortness of breath, No sleep apnea, No cough, No COPD, No emphysema, No wheezing Gastro Gastrointestinal: Yes abdominal pain, Yes constipation, Yes acid reflux, Yes hemorrhoids, Yes black,tarry stools, No nausea or vomiting, No diarrhea, No blood in stool, No ulcers, No gallbladder problem Joe Hematologic: No blood thinners, No blood disorders, No bleeding, No anemia, No blood clots Neuro Neurologic: No system reviewed and no additional complaints, except as docu, No as per HPI, No abnormal walking, No abnormal hearing, No abnormal movements, No abnormal speech, No behavioral changes, No burning sensations, No confusion, No seizure-like activity, No unsteadiness, No dizziness, No localized weakness, No frequent falls, No headache(s), No lack of coordination, No loss of vision, No memory loss, No numbness, No other visual disturbances, No radiating pain, No restless legs, No sensory deficit, No fainting, No tingling, No tremor(s), No weakness, No other Exam Const General: cooperative, anxious (The patient demonstrates almost a flight of concern) Nutritional Appearance: average body habitus Orientation: alert, awake [facility] Head: normal to inspection Chest Breast Palpation: No nipple discharge Resp Effort AND Inspection: normal respiratory effort Auscultation: clear to auscultation bilaterally Cardio Rate: regular rate Rhythm: regular rhythm Heart Sounds: no murmurs GI Inspection: normal to inspection Palpation: soft, no hepatosplenomegaly Auscultation: normal bowel sounds Rectal Exam: visual inspection normal, normal sphincter tone, hemorrhoids (Mild internal hemorrhoids) Other: Rectovaginal septum appears solid. No particular tenderness on digital examination. Normal brown stool no evidence of blood or mucus or melena Assessment AND Plan 1. Constipation, unspecified constipation type K59.00 Plan After careful clinical exam I am not detecting an acute surgical illness for this patient. The patient clearly demonstrated a severe anxiety complex with a multitude of concerns today. By the end of the appointment her primary concern was her feeling of coldness all over and particularly her cold hands. She states that when she takes her temperature it is 96.6 F As noted previously we have placed this patient through a multitude of investigations. Fortunately no account have we found active disease or findings. I have not proposing a surgical intervention for her at this time. She has 1 more additional year to go prior to her next high-risk screening colonoscopy. Certainly if she were to demonstrate recurrent symptoms or acute surgical findings I would be more than pleased to see her in return. I appreciate the opportunity of assisting with her surgical care. If she continues to complain of bowel type issues then perhaps it that might not be unreasonable to pursue a barium enema. She has had at least 3 previous colonoscopies with difficulty incurred in no acute findings identified. Cc: Dr. Vee Frey M.D., F.A.C.S. Coding Level of Care Code Detailed, Low Diagnoses Constipation, unspecified constipation type K59.00 Constipation type: unspecified constipation type 09/29/17 1833 <Electronically signed by Segundo Frey MD> Date Segundo Frey MD Cosign Signature: Date (if applicable) CC: Vee Ng MD MISCELLANEOUS LAB Collected: 07/23/2017 Status: F Source: MIIM PROCEDURE 2 12:31 PM [facility] REPOSITORY Order Comment: Comments: [id number] AND [id number] TIGER/RT List Test(s) Ordered by Physician: [id number] TIGER/ RT TYPE CODE TESTS RESULT OUT OF RANGE REFERENCE UNITS LAB L801.1543 Normal [facility] LAB TEST 2 Result Comment: TEST RESULT LIMITS Antiproteinase 3 (OK-3) Abs <3.5 U/mL 0.0 - 3.5 TESTING PERFORMED AT [facility]. ORIGINAL REPORT ON FILE IN LAB CONTAINS ADDITIONAL TEST SITE INFORMATION. Performed By: #### L801.1543 #### [facility] [address] [place], [address] MISCELLANEOUS LAB Collected: 07/23/2017 Status: F Source: [place] PROCEDURE 12:31 PM [facility] REPOSITORY Order Comment: Comments: [id number] AND [id number] TIGER/RT Test(s) Ordered: MPO [id number] TIGER/RT TYPE CODE TESTS RESULT OUT OF RANGE REFERENCE UNITS LAB L801.1541 Normal [facility] LAB TEST Result Comment: TEST RESULT LIMITS Antimyeloperoxidase (MPO) Abs <9.0 U/mL 0.0 - 9.0 TESTING PERFORMED AT [facility]. ORIGINAL REPORT ON FILE IN LAB CONTAINS ADDITIONAL TEST SITE INFORMATION. Performed By: #### L801.1541 #### [facility] [address] [place], [address] ALLERGIES ALLERGIES DATE TYPE / CODE NAME / CODE REACTION SEVERITY SOURCE Drug meperidine Other [place] [facility] 8 Allergy/328858801 HCl/[id number](RXN [facility] (SNOMED CT) ORM) Hospital Repository Drug epinephrine Shortness of SV [place] 8 Allergy/632035332 bitartrate/E815060 breath [facility] (SNOMED CT) 776(RXNORM) Hospital Repository Drug Penicillins/O39546 Unknown [place] Allergy/892412212 0476(RXNORM) [facility] (SNOMED CT) Hospital Repository Drug Sulfa (Sulfonamide Unknown [place] 8 Allergy/698076734 Antibiotics)/F0010 [facility] (SNOMED CT) [address]9628(RXNORM) Hospital Repository Drug digoxin/[id number] Swelling Unknown [place] 8 Allergy/658727898 (RXNORM) [facility] (SNOMED CT) Hospital Repository Drug estrogens, Swelling [place] 8 Allergy/153864663 conjugated/Z114853 [facility] (SNOMED CT) 272(RXNORM) Hospital Repository Drug epinephrine/C52997 Shortness of SV [place] 8 Allergy/714322836 1774(RXNORM) breath [facility] (SNOMED CT) Hospital Repository Drug doxycycline/B68422 Swelling [place] 8 Allergy/951324794 2748(RXNORM) [facility] (SNOMED CT) Hospital Repository Drug levofloxacin/F0060 Swelling [place] 8 Allergy/486572636 34372(RXNORM) [facility] (SNOMED CT) Hospital Repository Miscellaneous FOOD COLOR GREEN Swelling [place] 8 Allergy/139811484 [facility] (SNOMED CT) Hospital Repository Miscellaneous IVP DYE Other [place] 8 Allergy/314117940 [facility] (SNOMED CT) Hospital Repository Miscellaneous MAPLE TREE MOLD Other [place] 8 Allergy/963164397 [facility] (SNOMED CT) Hospital Repository Miscellaneous RAGWEED Other [place] 8 Allergy/910150364 [facility] (SNOMED CT) Hospital Repository DRUG CEFDINIR RASH [place] 7 INGREDI/064146515 [facility] (SNOMED CT) [place] Repository DRUG CLARITHROMYCIN RASH [place] 6 INGREDI/524604928 [facility] (SNOMED CT) [place] Rep[facility] DRUG/028050832(SN GREEN FOOD COLOR INTOLERANCE [place] [address]) (BULK) [facility] [place] Repository DRUG LEVOFLOXACIN SWELLING [place] INGREDI/036392119 [facility] (SNOMED CT) [place] Repository DRUG MEPERIDINE HCL SWELLING [place] 5 INGREDI/285574025 [facility] (SNOMED CT) [place] Repository DRUG IODINE ITCHING [place] 5 INGREDI/014326211 [facility] (SNOMED CT) [place] Repository DRUG/781141186(SN EPINEPHRINE BASE SWELLING [place] [address]) [facility] [place] Repository Environ/548903232 TREES [place] 5 (SNOM[address]) [facility] [place] Repository DRUG MOLD [place] 5 INGREDI/237886818 [facility] (SNOMED CT) [place] Repository Drug PENICILLINS HIVES [place] Class/670978003(S [facility] NOMED CT) [place] Repository DRUG/185928752(SN CONJUGATED SWELLING [place] [address]) ESTROGENS [facility] [place] Repository Environ/312832008 RAGWEED [place] 5 (SNOM[address] CT) [facility] [place] Repository Drug SULFA (SULFONAMIDE HIVES [place] 5 Class/631855864(S ANTIBIOTICS) [facility] NOMED CT) [place] Repository Drug SULFA Moderate [place] Allergy/258946948 (sulfonamide)/0000 ([facility] (SNOMED CT) 0022(RXNORM) Modifier) Hospital (Qualifier Repository Value) Drug CODEINE/40369965(R Moderate [place] Allergy/974850638 XNORM) ([facility] (SNOMED CT) Modifier) [facility] (Qualifier Repository Value) Drug DOXYCYCLINE/134284 Moderate [place] Allergy/733140158 40(RXNORM) ([facility] (SNOMED CT) Modifier) Hospital (Qualifier Repository Value) Drug CLARITHROMYCIN/000 Moderate [place] Allergy/857980955 11358(RXNORM) ([facility] (SNOMED [facility]) Modifier) Hospital (Qualifier Repository Value) Drug DEMEROL/92581101(R Moderate [facility] [place] Allergy/870571169 XNORM) ([facility] (SNOMED CT) Modifier) [facility] (Qualifier Repository Value) Drug PENICILLIN/8101033 Moderate [place] Allergy/650773128 3(RXNORM) ([facility] (SNOMED CT) Modifier) [facility] (Qualifier Repository Value) NG/447326270(SNOM MEPERIDINE HCL [facility] Repository NG/094176297(SNOM IODINE [facility] Repository NG/006686415(SNOM EPINEPHRINE BASE [facility] Repository NG/776044791(SNOM CLARITHROMYCIN [facility] Repository NG/091606732(SNOM CEFDINIR [facility] Repository NG/310789423(SNOM GREEN FOOD COLOR [facility]) (BULK) [facility] Repository NG/050687768(SNOM LEVOFLOXACIN [facility]) [facility] Repository NG/676092322(SNOM TREES [facility] Repository NG/936666809(SNOM MOLD [facility] Repository NG/766347078(SNOM PENICILLINS [facility]) [facility] Repository NG/599989059(SNOM CONJUGATED [facility]) ESTROGENS [facility] Repository NG/348777498(SNOM RAGWEED [facility]) [facility] Repository NG/062324649(SNOM SULFA (SULFONAMIDE [facility]) ANTIBIOTICS) [facility] System Repository ENCOUNTERS ENCOUNTERS ADMIT/DISCHARGE ACCOUNT NUMBER ADMITTING ENCOUNTER LOCATION SOURCE CLASS 07/06/2018 [id number] Ambulatory [facility] ding:CT Repository 06/18/2018/06/18/20 [id number] Ambulatory [address] Repository 06/09/2018/06/09/20 [id number] Emergency [address] ding:ED Repository 05/25/2018/05/26/20 [id number] Ambulatory [address] Repository 04/23/2018/04/23/20 [id number] Ambulatory [address] Repository 04/23/2018/04/26/20 [id number] Ambulatory [address] Repository 03/26/2018/03/29/20 [id number] Ambulatory [address] [place] Repository 02/15/2018/02/16/20 [id number] Ambulatory [address] Repository 12/28/2017/12/29/19 [id number] HAIDER, Daylin Buildin[address] [place] [address] WELLNESS Room: [address] Repository 12/17/2017/12/18/19 [id number] [place] NG [address] Repository 12/02/2017/12/08/19 [id number] Ambulatory [address] Repository 11/30/2017/12/01/19 [id number] Ambulatory [address] Repository 11/30/2017 [id number] Ambulatory [facility] MEDICAL Repository CENTERBuildi ng:CAGWS 10/19/2017/10/22/19 [id number] Ambulatory [address] Repository 10/16/2017/10/17/19 [id number] Ambulatory BMSBuilding: [place] [facility] Repository 09/29/2017/09/30/19 [id number] Ambulatory BMSBuilding: [place] [address] [facility] Repository 07/23/2017 [id number] Ambulatory [facility] ding:MTLAB Repository PAYERS PAYERS ENCOUNTER GUARANTOR PAYER SUBSCRIBER SOURCE 07/06/2018 EMMA L Primary EMMA L [place] [id number] TR Insurance:MEDICARE SPENCERDOB: [address] PART A BPolicy [id number] Hospital [address]Fls: (330) Number: Repository [phone] ) [id number] Date:2018-07-01 07/06/2018 Secondary EMMA L [place] Insurance:TRANSAMERIC SPENCERDOB: Community APolicy Number: [id number] Hospital [id number] Repository Date:6526-12-94ZY [address] [address]RK: 07/06/2018 Tertiary NOT GIVENUNK [place] Insurance:SELF PAY [facility] Number: Effective Repository Date:2018-07-01 06/09/2018 EMMA L Primary EMMA L [place] [id number] TR Insurance:ELISA SPENCERDOB: [address] [facility] 2011-04-[birth year]ALH Hospital [address]Yst: [phone]) [facility] Number: Repository [phone] () [id number] e Date:5623-82-64KX [address] [place] [address]VZ: 06/09/2018 Secondary NOT GIVENUNK [place] Insurance:SELF PAY [facility] Number: Effective Repository Date:2018-06-09 12/28/2017 EMMA L Primary EMMA L [place] [facility] SPENCERDOB: Insurance:AULTCARE - SPENCERDOB: [facility] [id number] [facility] [id number] Number: [address] [id number] [facility] [address]Vnl: [phone]) e Date:Plan Name:[facility] [phone] () 12/17/2017 EMMA L Primary EMMA L [place] Marinellierene SPENCERDOB: Insurance:AULTCARE - SPENCERDOB: [facility] [id number] [facility] [id number] Number: [address] [id number] [facility] [address]Xdn: [phone]) e Date:Plan Name:[facility] [phone] () 11/30/2017 EMMA L Primary EMMA L [facility] SPENCERDOB: Insurance:AULTCAREPol SPENCERDOB: Health System [id number] y Number: [id number] [address] [id number] [address] [place] [address] e Date: 285[address]Vqq: () 10/16/2017 EMMA L Primary EMMA L [place] [id number] TR Insurance:ELISA SPENCERDOB: [address] [id number] Hospital [address]Bqx: (330) OPolicy Number: Repository [phone] () [id number] e Date:8910-50-80RJ [facility] [address] [place] [address]PP: 10/16/2017 Secondary NOT GIVENUNK [place] Insurance:SELF PAY [facility] Number: Effective Repository Date:2017-10-13 09/29/2017 EMMA L Primary EMMA L [place] [id number] TR Insurance:ELISA SPENCERDOB: Community [address] [place] [address] [facility] [id number] Hospital [address]Zck: (330) [facility] [phone] () [id number] e Date:9830-30-40XE [facility] [address] [place] [address]VZ: 09/29/2017 Secondary NOT GIVENUNK [place] Insurance:SELF PAY [facility] Number: Effective Repository Date:2017-09-29 07/23/2017 MEMA L Primary EMMA L [place] [id number] TR Insurance:ELISA SPENCERDOB: [address] [facility] [id number] Hospital [address]Tuv: [phone]) [facility]ository [phone] () [id number] e Date:5259-71-85QP [facility] [place] [address]JD: 07/23/2017 Secondary NOT GIVENUNK [place] Insurance:SELF PAY [facility] Number: Effective Repository Date:2017-07-23
== END 2018-06-09 12:26 | disposition home or self-care (01) ==
PROVIDERS: Emergency Provider Emergency Medicine; Family Provider Family Medicine; PCP Family Medicine
DX: M54.5 Low back pain (principal); M25.562 Pain in left knee; M17.12 Unilateral primary osteoarthritis, left knee; R29.6 Repeated falls
CPT/HCPCS: 72100; 73562; 99282

== ENCOUNTER → 2018-07-06 13:28 | Outpatient (CLI) | payer MEDICARE, OTHER, SELFPAY ==
[2018-06-09 10:25] VITALS: BMI 29.6
--- NOTE | 2018-07-06 13:33 | CT_ITS ---
STUDY: CT MAXILLOFACIAL SINUSES REASON FOR EXAM: Female, 72 years old. Sinusitis RADIATION DOSAGE (If Supplied By Facility): CTDIvol = ( 33.06 ) mGy, DLP = ( 804.92 ) mGycm TECHNIQUE: The patient was scanned in a multi detector CT scanner. High resolution axial imaging was performed without the administration of intravenous contrast material. Sagittal and coronal images were reconstructed. Individualized dose optimization techniques were used for this CT. COMPARISON: None. FINDINGS: : NASAL SEPTUM: Mild S-shaped configuration. CRIBRIFORM PLATE AND FATOUMATA ISABELLE: The fovea ethmoidalis, lateral lamella and lamina cribrosa are normal. The anterior ethmoidal notch is normal with no supraorbital pneumatization. The olfactory fossa is symmetric with a Keros type II. No skull base dehiscence LAMINA PAPYRACEA: No remote orbital fracture and no orbital prolapse into the ethmoidal sinus . BONY SCHMIDT: No dehiscence, demineralization or thickness TURBINATES: Normal thickness and no paradoxical orientation. No esau bullosa . No turbinectomy OSTIOMEATAL UNITS: Patent with no ethmoidectomy, maxillary antrostomy, uncinectomy or turbinoplasty SPHENOETHMOIDAL RECESS: Patent FRONTAL SINUSES: Well developed and pneumatized with no abnormal soft tissue attenuations in them ETHMOID AIR CELLS: Aggar Nasi air cells are noted. No Deshaun air cells. Both the anterior and posterior ethmoidal air cells are clear of abnormal soft tissue attenuations MAXILLARY SINUSES: Normal with no arrested pneumatization or hyperpneumatization and no abnormal soft tissue attenuations SPHENOID SINUSES: Normal with conchal, presellar or sellar type pneumatization. No dehiscence into carotid canal and no optic nerve dehiscence within the sphenoid sinus. No Onodi air cells ORBITS: Negative SKULL BASE/CRANIOVERTEBRAL JUNCTION/UPPER CERVICAL SPINE.: Normal IMPRESSION: Negative examination with no maxillo-infundibular, nasofrontal, ostiomeatal unit or sphenoethmoidal pattern of obstructive disease. There is also no evidence of sinonasal polyposis. . Electronically Signed: Isai Vergara MD at 7:39 EST Tel , Service support , CT/Sinus/Facial Bone
== END ==
PROVIDERS: Family Provider Family Medicine; PCP Family Medicine; Referring Provider Otolaryngology; Visit Provider Otolaryngology
DX: J32.9 Chronic sinusitis, unspecified (principal)
CPT/HCPCS: 70486

== ENCOUNTER → 2018-10-08 09:26 | Outpatient (CLI) | payer MEDICARE, OTHER, SELFPAY ==
[2018-09-15 08:18] VITALS: BMI 30.2
--- NOTE | 2018-10-08 10:00 | ECHOD_ITS ---
Reason For Study: AFIB Procedure This was a 2D Doppler, Color Flow transthoracic echocardiogram. Exam performed in department. Left Ventricle Normal LV size. Left ventricular systolic function is normal. The estimated ejection fraction is 63 %. Stage 2 diastolic dysfunction. No regional wall motion abnormalities noted. Right Ventricle Normal RV size. Normal systolic function. Atria Normal left atrium. Normal right atrium. Mitral Valve Normal mitral valve. Mild (1+) eccentric mitral valve insufficiency. Tricuspid Valve Normal tricuspid valve. Mild tricuspid valve insufficiency. Pulmonary artery systolic pressure is 30 mmHg. Aortic Valve Normal aortic valve. Trisinus/trileaflet aortic valve. Pulmonic Valve Normal pulmonic valve. Great Vessels Normal aortic root. The pulmonary artery is normal size. Normal inferior vena cava. Pericardium/Pleural No pericardial effusion. MMode/2D Measurements & Calculations LVIDd: 4.1 cm IVSd: 0.75 cm Ao root diam: 2.5 cm LVIDs: 2.5 cm LVPWd: 0.82 cm RVDd: 3.1 cm FS: 39.0 % LAV(MOD-bp): 48.1 ml LA A4 area: 17.2 cm2 LA dimension(2D): 3.4 cm LAV(MOD-bp) Indexed: 30.2 ml/m2 LAV(MOD-sp2): 49.4 ml LAV(MOD-sp4): 46.5 ml RA A4 area: 14.3 cm2 Time Measurements MV dec time: 0.21 sec Doppler Measurements & Calculations MV E max biju: 77.5 cm/sec Lat Peak E' Biju: 8.4 cm/sec Med Peak E' Biju: 6.3 cm/sec MV A max biju: 95.6 cm/sec E/E' lat: 9.2 E/E' med: 12.4 MV E/A: 0.81 Ao V2 max: 164.9 cm/sec LV V1 max: 102.0 cm/sec TR max biju: 250.7 cm/sec Ao max P.9 mmHg LV V1 max P.2 mmHg TR max P.2 mmHg Interpretation Summary Normal LV size. Left ventricular systolic function is normal. The estimated ejection fraction is 63 %. Stage 2 diastolic dysfunction. Mild (1+) eccentric mitral valve insufficiency. Pulmonary artery systolic pressure is 30 mmHg. Ordering Physician: Saturnino Deng Referring Physician: PAUL DE LA CRUZ Performed By: Char Xavier, SANAMCS, RVT
== END ==
PROVIDERS: Family Provider Family Medicine; PCP Family Medicine; Referring Provider Internal Medicine Cardiovascular Disease; Visit Provider Internal Medicine Cardiovascular Disease
DX: Z98.890 Other specified postprocedural states (principal); Z87.19 Personal history of other diseases of the digestive system
CPT/HCPCS: 93306

== ENCOUNTER → 2018-11-08 | Outpatient (CLI) | payer MEDICARE, OTHER, SELFPAY ==
[2018-09-15 08:18] VITALS: BMI 30.2
== END | disposition home or self-care (01) ==
PROVIDERS: Family Provider Family Medicine; PCP Family Medicine; Referring Provider Nurse Practitioner Adult Health; Visit Provider Nurse Practitioner Adult Health
DX: R30.0 Dysuria (principal)
CPT/HCPCS: 87086; 87088

== ENCOUNTER → 2018-12-03 | Outpatient (CLI) | payer MEDICARE, OTHER, SELFPAY ==
[2018-11-26 14:09] VITALS: BMI 30.1
[2018-12-03 10:14] LABS: Absolute Lymphocyte Count 1.54 X10^3/ul (0.83-4.51); Absolute Neutrophil Count 1.2 X10^3/uL (2.0-7.7); Basophil# 0.03 X10^3/uL; Basophil% 0.9 % (0-1); Eosinophil# 0.06 X10^3/uL; Eosinophils% 1.8 % (0-5); Hemoglobin 14.1 g/dl (12.0-15.0); Lymphocyte # 1.54 X10^3/ul (4.0); Lymphocyte % 47.1 % (19-41); Mean Corp Hgb Conc 33.6 g/gl (32-36); Mean Corpuscular Volume 95.2 fL (81-99); Mean Platelet Vol. 11.4 fl (6.2-12.0); Monocyte# 0.42 X10^3/uL; Monocyte% 12.8 % (0-10); Neutrophil # 1.22 X10^3/uL (2.7-7.7); Neutrophil % 37.4 % (47-70); Platelet Count 173 K/mm3 (150-450); RBC Distribution Width CV 13.2 % (11.6-14.6); RBC Distribution Width SD 45.9 fl (35.1-43.9); Red Blood Count 4.41 M/mm3 (4.2-5.4); White Blood Count 3.3 K/mm3 (4.4-11.0)
[2018-12-03 10:15] LABS: POSITIVE COUNT NO; POSITIVE DIFFERENTIAL NO; POSITIVE MORPHOLOGY NO
[2018-12-03 10:35] LABS: Anion Gap 6 (5-15); BUN 14 mg/dL (7-18); BUN/Creat Ratio 20.1 RATIO (10-20); Calcium,Total 9.1 mg/dL (8.5-10.1); Chloride 107 mmol/L (98-107); Cholesterol 189 mg/dL (200); EST Glomerular Filtration Rate 88 mL/min (>60); Est Glom Filt Rate - Afr Amer 106 mL/min (>60); Glucose 95 mg/dL (74-106); High Density Lipoprotein 54 mg/dL; Potassium 4.1 mmol/L (3.5-5.1); Sodium Level 143 mmol/L (136-145); Thyroid Stim Hormone (TSH) 1.48 uIU/mL (0.358-3.74); Triglycerides 72 mg/dL; Very Low Density Lipoprotein 14 mg/dL (5-40)
== END | disposition home or self-care (01) ==
LOC: MTLAB 08:38
PROVIDERS: Family Provider Internal Medicine; PCP Internal Medicine; Referring Provider Internal Medicine; Visit Provider Internal Medicine
DX: K21.9 Gastro-esophageal reflux disease without esophagitis (principal); E03.9 Hypothyroidism, unspecified; Z13.29 Encounter for screening for other suspected endocrine disorder; E78.00 Pure hypercholesterolemia, unspecified
CPT/HCPCS: 80048; 80061; 84439; 84443; 85025

== ENCOUNTER → 2019-02-19 | Outpatient (CLI) | payer MEDICARE, OTHER, SELFPAY ==
[2019-02-11 11:22] VITALS: BMI 28.0
--- NOTE | 2019-02-19 07:43 | US_ITS ---
HISTORY: abd pain TECHNIQUE: Ultrasound of the abdomen was performed with grayscale and color Doppler imaging. Number of images including paperwork: 170 COMPARISON: CT 02/06/2016 FINDINGS: LIVER: Unremarkable. Right lobe 12.6 cm. GALLBLADDER: No gallstones, significant wall thickening, or pericholecystic fluid. SONOGRAPHIC BOOKER'S SIGN: Not elicited per the pole tester. BILE DUCTS: No significant biliary dilatation. CBD 4.6 mm. PANCREAS: Unremarkable imaged portions. Tail obscured by bowel gas. RIGHT KIDNEY: Unremarkable measuring 9.7 cm LEFT KIDNEY: Unremarkable measuring 9.9 cm SPLEEN: Unremarkable measuring 8 cm IVC: Unremarkable imaged portions. AORTA: Unremarkable imaged portions. FREE FLUID: None. US/Abdomen Complete IMPRESSION: No acute abdominal abnormality is sonographically apparent. at 0249 Reported and signed by: Odalis Beltre MD Electronically Signed: Odalis Beltre MD at 2:49 EDT Tel , Service support ,
== END | disposition home or self-care (01) ==
LOC: US 07:40
PROVIDERS: Family Provider Internal Medicine; PCP Internal Medicine; Referring Provider Internal Medicine; Visit Provider Internal Medicine
DX: R10.9 Unspecified abdominal pain (principal)
CPT/HCPCS: 76700

== ENCOUNTER → 2019-05-10 16:30 | Outpatient (CLI) | payer MEDICARE, OTHER, SELFPAY ==
[2019-04-29 12:46] VITALS: BMI 28.0
== END ==
PROVIDERS: Family Provider Internal Medicine; PCP Internal Medicine; Referring Provider Urology; Visit Provider Urology
DX: R82.998 Other abnormal findings in urine (principal)
CPT/HCPCS: 87086

== ENCOUNTER → 2019-06-08 14:52 | Outpatient (CLI) | payer MEDICARE, OTHER, SELFPAY ==
[2019-05-17 10:02] VITALS: BMI 28.0
--- NOTE | 2019-06-08 15:00 | RAD_ITS ---
STUDY: X-RAY - CERVICAL SPINE REASON FOR EXAM: Female, 73 years old. Chronic pain TECHNIQUE: 7 view(s) of the cervical spine were obtained. COMPARISON: 03/10/2016 FINDINGS: Normal anterior atlantoaxial articulation. Normal odontoid process. Normal cervical lordosis. There is multi-level endplate spondylosis. There is multi-level degenerative disc disease with multilevel disc space narrowing. No subluxation on flexion, extension or neutral views. There is foraminal narrowing at multiple bilateral levels including bilateral C3-C4, C4 and C5 and right C5-C6, C6-C7. The soft tissue structures are unremarkable. RAD/Cerv Spine Obl/Flex/Ext Comp IMPRESSION: Degenerative disc disease, spondylosis and foraminal stenosis, as above. Similar since 2015. Electronically Signed: Darryl Raza MD ([place]) at 20:26 EST , Service support ,
[2019-06-10 12:07] LABS: Anti-Scleroderma-70 AB <0.2 AI (0.0-0.9); SJOGREN'S Anti-SS-A test < 0.2 AI (0.0-0.9); SJOGREN'S Anti-SS-B test < 0.2 AI (0.0-0.9)
[2019-06-10 16:31] LABS: ANTINUCLEAR ANTIBODIES DIRECT Negative (Negative); Anti-dsDNA Ab <1 IU/mL (0-9)
== END ==
PROVIDERS: Family Provider Internal Medicine; PCP Internal Medicine; Referring Provider Psychiatry & Neurology Neurology; Visit Provider Psychiatry & Neurology Neurology
DX: M54.2 Cervicalgia (principal); H16.223 Keratoconjunctivitis sicca, not specified as Sjogren's, bilateral
CPT/HCPCS: 36415; 72052; 86038; 86225; 86235

== ENCOUNTER 2019-08-26 12:30 | Outpatient (RCR) | payer MEDICARE, OTHER, SELFPAY ==
[2019-06-24 09:52] VITALS: BMI 28.2
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
--- NOTE | 2019-08-26 13:24 | HP.PTREVAL_ITS ---
Ramez Monson MD, It has been my pleasure to treat UMBERTO ARREDONDO over the last 10 visits for CERVICALALGIA. Please see the progress note below for an update on the physical therapy plan of care! Subjective: Occiput pain ,burning Sinus pressure inttermitant Objective/Function: POSTURE: rounded shoulders head foward. PALPATION: tender occiput paraspinals. NEURO: denies parathesia/tingling ,burning pain head. CERVICAL ROM: flexion min loss ,,lateral flexion/rotation min/mod loss,ext mod loss. MMT: grossly 4/5 shoulder 4-/5 Plan Plan: cont with poc 2xweek for 4weksPT INTERVENTION WITH MNAUAL THERAPY- STM/MYOFASCIAL TRACTION,MODLATIES , Goals Goal 1:: Independant with HEP Goal Time Frame: 4-6 Weeks Goal Progress: Progressing Goal 2:: Improve cervical ROM for function of recovery Goal Time Frame: 4-6 Weeks Goal Progress: Progressing Goal 3:: Decrease pain by 50% or > to improve function and QOL. Goal Time Frame: 4-6 Weeks Goal Progress: Progressing Goal 4:: Patient to improve ability with ADLS' and housework tasks with less symptomolgy Goal Time Frame: 4-6 Weeks Goal Progress: Progressing Goal 5:: Patient to improve neck owstrey by 5 points or > to improve QOL. Goal Time Frame: 4-6 Weeks Goal Progress: Progressing Anticipated Interventions Patient/Client Instruction: Educate patient on: Condition, Plan of Care For the Purpose of:: To decrease pain, To increase ROM, To improve muscle performance and motor function, To improve ability to perform ADL's, To increase tolerance to activity/condition/position, To improve performance and independence with ADL's, To improve ability of physical actions for home/ community/work/leisure, To improve health of tissue, To decrease soft tissue restriction, To increase flexibility/ROM, To improve ability to perform tasks related to life management Therapeutic Exercise to Include: Strength training, Postural training, Flexibilty training, Active ROM For the Purpose of:: To decrease pain, To increase ROM, To improve nutrient delivery to tissue, To increase oxygenation perfusion, To improve muscle performance and motor function, To improve ability to perform ADL's, To improve ability of physical actions for home/community/work/leisure, To improve health of tissue, To decrease soft tissue restriction, To increase flexibility/ROM, To improve ability to perform tasks related to life management Manual Therapy Techniques to Include: Mobilization, Soft tissue mobilization Comment: CERVICAL TRACTION For the Purpose of:: To decrease pain, To increase ROM, To improve nutrient delivery to tissue, To increase oxygenation perfusion, To improve health of tissue, To decrease soft tissue restriction TENS: Yes IF ES: Yes Cryotherapy (ice pack, ice massage): Yes Thermo therapy (hot pack): Yes Ultrasound (thermal/non thermal): Yes For the Purpose of:: To decrease pain, To increase ROM, To improve nutrient delivery to tissue, To increase oxygenation perfusion, To improve health of tissue, To decrease soft tissue restriction Please do not hesitate to contact me at [phone] by phone or if you have questions or concerns regarding this new plan of care! Sincerely, Ramez Asif, PT, Cert MDT, OCS
--- NOTE | 2019-09-20 10:50 | HP.PT.NRP ---
UMBERTO ARREDONDO was seen in my office for initial evaluation on 06/28/19. The following Plan of Care was established for this patient: Initial Frequency: 2x /Week Initial Duration: 4 Weeks Patient/Client Instruction: Educate patient on: Condition, Plan of Care For the Purpose of:: To decrease pain, To increase ROM, To improve muscle performance and motor function, To improve ability to perform ADL's, To increase tolerance to activity/condition/position, To improve performance and independence with ADL's, To improve ability of physical actions for home/community/work/leisure, To improve health of tissue, To decrease soft tissue restriction, To increase flexibility/ROM, To improve ability to perform tasks related to life management Therapeutic Exercise to Include: Strength training, Postural training, Flexibilty training, Active ROM For the Purpose of:: To decrease pain, To increase ROM, To improve nutrient delivery to tissue, To increase oxygenation perfusion, To improve muscle performance and motor function, To improve ability to perform ADL's, To improve ability of physical actions for home/community/work/leisure, To improve health of tissue, To decrease soft tissue restriction, To increase flexibility/ROM, To improve ability to perform tasks related to life management Manual Therapy Techniques to Include: Mobilization, Soft tissue mobilization Comment: CERVICAL TRACTION For the Purpose of:: To decrease pain, To increase ROM, To improve nutrient delivery to tissue, To increase oxygenation perfusion, To improve health of tissue, To decrease soft tissue restriction TENS: Yes IF ES: Yes Cryotherapy (ice pack, ice massage): Yes Thermo therapy (hot pack): Yes Ultrasound (thermal/non thermal): Yes For the Purpose of:: To decrease pain, To increase ROM, To improve nutrient delivery to tissue, To increase oxygenation perfusion, To improve health of tissue, To decrease soft tissue restriction This patient was last seen in our office 07/20/19. Pertinent comments regarding their Physical therapy will appear below: Patient was seen for PT focusing on manual therapy ,modalities but patient d/c due to corovirus concerns. At this point I will be discontinuing this patient from physical therapy. I would be happy to see this patient again in the future if found appropriate by the physician. Thank you! Ramez Asif, PT, Cert MDT, OCS
== END 2019-08-26 19:00 | disposition home or self-care (01) ==
LOC: PT 12:30
PROVIDERS: Family Provider Internal Medicine; PCP Internal Medicine; Referring Provider Psychiatry & Neurology Neurology; Visit Provider Psychiatry & Neurology Neurology
DX: M54.2 Cervicalgia (principal)
CPT/HCPCS: 97014; 97035; 97140; 97162; G0283

== ENCOUNTER → 2020-01-20 08:35 | Outpatient (CLI) | payer MEDICARE, OTHER, SELFPAY ==
[2020-01-20 08:11] VITALS: BMI 28.3
[2020-01-20 12:14] LABS: Absolute Lymphocyte Count 1.73 X10^3/uL (0.83-4.51); Absolute Neutrophil Count 1.4 X10^3/uL (2.0-7.7); Basophil# 0.05 X10^3/uL; Basophil% 1.3 % (0-1); Eosinophil# 0.11 X10^3/uL; Eosinophils% 2.9 % (0-5); Hematocrit 43.1 % (37-47); Hemoglobin 13.8 g/dL (12.0-15.0); Lymphocyte # 1.73 X10^3/ul (4.0); Mean Corpuscular Hgb 31.9 pg (27.0-32.0); Mean Corpuscular Volume 99.8 fL (81-99); Mean Platelet Vol. 10.8 fl (6.2-12.0); Monocyte# 0.47 X10^3/uL; Monocyte% 12.5 % (0-10); NRBC Flagged by Analyzer 0 % (0-5); Neutrophil % 37.3 % (47-70); Platelet Count 193 K/mm3 (150-450); RBC Distribution Width CV 13.2 % (11.6-14.6); RBC Distribution Width SD 48.4 fl (35.1-43.9); Red Blood Count 4.32 M/mm3 (4.2-5.4); White Blood Count 3.8 K/mm3 (4.4-11.0)
[2020-01-20 12:30] LABS: Vitamin B12 1046 pg/mL (211-911); Vitamin D,25 Hydroxy 65.4 ng/mL
[2020-01-20 12:50] LABS: ALB/GLOB Ratio 1.1 RATIO (0.9-2.4); AST(SGOT) 21 U/L (15-37); Alanine Aminotransfer ALT/SGPT 28 U/L (13-56); Albumin, Serum 3.9 g/dL (3.2-5.0); Alkaline Phosphatase 76 U/L (45-117); Anion Gap 3 (5-15); BUN 17 mg/dL (7-18); BUN/Creat Ratio 26.2 RATIO (10-20); Chloride 106 mmol/L (98-107); Cholesterol 254 mg/dL (200); Creatinine, Serum 0.65 mg/dL (0.55-1.02); EST Glomerular Filtration Rate 95 mL/min (>60); Est Glom Filt Rate - Afr Amer 114 mL/min (>60); Globulin 3.4 g/dL (2.2-4.2); Glucose 90 mg/dL (74-106); High Density Lipoprotein 59 mg/dL; Potassium 3.6 mmol/L (3.5-5.1); Protein, Total 7.3 g/dL (6.4-8.2); Sodium Level 139 mmol/L (136-145); Thyroid Stim Hormone (TSH) 1.92 uIU/mL (0.358-3.74); Triglycerides 78 mg/dL; Very Low Density Lipoprotein 16 mg/dL (5-40)
== END ==
PROVIDERS: PCP Internal Medicine; Referring Provider Nurse Practitioner Family; Visit Provider Nurse Practitioner Family
DX: R07.9 Chest pain, unspecified (principal); I48.0 Paroxysmal atrial fibrillation; I10 Essential (primary) hypertension; E78.5 Hyperlipidemia, unspecified; R53.83 Other fatigue; E55.9 Vitamin D deficiency, unspecified; E53.8 Deficiency of other specified B group vitamins
CPT/HCPCS: 36415; 80053; 80061; 82306; 82607; 84443; 85025

== ENCOUNTER 2020-04-13 09:52 | Emergency (ER) | payer MEDICARE, OTHER, SELFPAY ==
[2020-03-27 09:04] VITALS: BMI 28.8
[2020-04-13 09:53] VITALS: BP 105/69; PULSE 89; RESP 18; TEMP 36.1; O2SAT 100; BMI 28.1
--- NOTE | 2020-04-13 10:11 | EKG12_ITS ---
Test Reason : CP Blood Pressure : / mmHG Vent. Rate : 076 BPM Atrial Rate : 076 BPM P-R Int : 160 ms QRS Dur : 084 ms QT Int : 390 ms P-R-T Axes : 058 035 039 degrees QTc Int : 438 ms Normal sinus rhythm Nonspecific ST abnormality Abnormal ECG Confirmed by CADEN BHATTI, TRISHA ([id number]), health editor SMITHA JACKSON ([id number]) on 04/16/2020 11:29:17 AM Referred By: ROCIO Confirmed By:TRISHA NEGRETE MD
--- NOTE | 2020-04-13 10:11 | RAD_ITS ---
STUDY: X-RAY CHEST REASON FOR EXAM: Female, 74 years old. CHEST DISCOMFORT TECHNIQUE: Single AP portable view of the chest. COMPARISON: Comparison is made with prior study dated 03/10/2016. FINDINGS: EKG electrodes are seen. The lungs are clear and expanded. There is no demonstrated pleural abnormality. Normal size heart. Normal mediastinum and mono. Normal visualized pulmonary arteries. There is atherosclerotic calcification of the aortic arch with tortuosity. There are diffuse degenerative changes of the visualized thoracic spine. Normal visualized ribs, clavicles, and shoulders. There is no demonstrated abnormality of the visualized soft tissue structures of the upper abdomen. RAD/Chest 1 View (Portable) IMPRESSION: No acute abnormality is present. Electronically Signed: Levy Martinez, at 11:25 EDT , Service support ,
[2020-04-13 10:33] VITALS: BP 119/76; PULSE 70; RESP 14; O2SAT 95
[2020-04-13 10:43] LABS: Absolute Lymphocyte Count 0.88 X10^3/uL (0.83-4.51); Absolute Neutrophil Count 1.4 X10^3/uL (2.0-7.7); Basophil# 0.02 X10^3/uL; Basophil% 0.7 % (0-1); Eosinophil# 0.01 X10^3/uL; Eosinophils% 0.3 % (0-5); Hematocrit 43.6 % (37-47); Hemoglobin 14.6 g/dL (12.0-15.0); Lymphocyte # 0.88 X10^3/ul (4.0); Lymphocyte % 29.2 % (19-41); Mean Corp Hgb Conc 33.5 g/dL (32-36); Mean Corpuscular Hgb 32.3 pg (27.0-32.0); Mean Corpuscular Volume 96.5 fL (81-99); Mean Platelet Vol. 10.4 fl (6.2-12.0); Monocyte# 0.73 X10^3/uL; Monocyte% 24.3 % (0-10); NRBC Flagged by Analyzer 0 % (0-5); Neutrophil # 1.37 X10^3/uL (2.7-7.7); Neutrophil % 45.5 % (47-70); Platelet Count 157 K/mm3 (150-450); RBC Distribution Width CV 12.7 % (11.6-14.6); RBC Distribution Width SD 45.6 fl (35.1-43.9); Red Blood Count 4.52 M/mm3 (4.2-5.4)
[2020-04-13 11:01] LABS: Anion Gap 6 (5-15); BUN 10 mg/dL (7-18); BUN/Creat Ratio 13.5 RATIO (10-20); Calcium,Total 8.8 mg/dL (8.5-10.1); Chloride 103 mmol/L (98-107); Creatinine, Serum 0.74 mg/dL (0.55-1.02); EST Glomerular Filtration Rate 81 mL/min (>60); Est Glom Filt Rate - Afr Amer 98 mL/min (>60); Estimated Creatinine Clearance 48.57 ml/min; Glucose 103 mg/dL (74-106); Potassium 3.6 mmol/L (3.5-5.1); Sodium Level 137 mmol/L (136-145)
[2020-04-13 11:15] VITALS: BP 118/71; PULSE 64; RESP 25; O2SAT 96
--- NOTE | 2020-04-13 12:35 | ED.VIS.GEN ---
History of Present Illness Chief Complaint: Chest Pain Informant: Patient Narrative: 74-year-old female presents with concerns for myalgias flulike illness over the past 2 to 3 days. States she has had a slight cough. Denies any nausea, vomiting, chest pain, dyspnea, urinary symptoms. Patient states that she was seen here 3 weeks ago for chest pain. States that the pain is more in her back. Denies any headache, numbness or tingling, vision change. Denies any sick contacts. Past Medical History - Allergies and Home Meds Allergies/Adverse Reactions: Allergies epinephrine [From Primatene Mist] Allergy (Severe, Verified 04/13/20 09:56) Shortness of breath epinephrine bitartrate [From Primatene Mist] Allergy (Severe, Verified 04/13/20 09:56) Shortness of breath levofloxacin [From Levaquin] Allergy (Intermediate, Verified 04/13/20 09:56) Swelling estrogens, conjugated [From Premarin] Allergy (Mild, Verified 04/13/20 09:56) Swelling meperidine HCl [From Demerol] Allergy (Mild, Verified 04/13/20 09:56) Other Penicillins Allergy (Mild, Verified 04/13/20 09:56) Unknown Sulfa (Sulfonamide Antibiotics) Allergy (Mild, Verified 04/13/20 09:56) Unknown clarithromycin [From Biaxin] Allergy (Unknown, Verified 04/13/20 09:56) Rash digoxin [From Digitek] Allergy (Verified 04/13/20 09:56) Swelling FOOD COLOR GREEN Allergy (Intermediate, Uncoded 04/13/20 09:56) Swelling IVP DYE Allergy (Intermediate, Uncoded 04/13/20 09:56) Other Iodine dyes [place] MOLD Allergy (Mild, Uncoded 04/13/20 09:56) Other RAGWEED Allergy (Mild, Uncoded 04/13/20 09:56) Other Primary Care Physician: Sandy Acevedo MD [Primary Care Provider] - Prior records reviewed: Yes Past Medical History: - - HTN, PAF Surgical History: appendectomy, hysterectomy, - - BL carpal tunnel surgery Lives: Spouse/ Significant Other Smoking Status: Never smoker Alcohol: None Drugs: None Review of Systems General: Reports: Malaise. Denies: Chills, Fever, Sweats Eyes: Denies: Visual changes - bilaterally, Diplopia ENT: Denies: Rhinorrhea, Sore throat Cardiovascular: Denies: Chest pain, Palpitations Respiratory: Denies: Dyspnea, Cough, Dyspnea on exertion Gastrointestinal: Denies: Abdominal pain, Nausea, Vomiting, Diarrhea, Melena, Hematochezia Genitourinary: Denies: Dysuria, Hematuria, Frequency Musculoskeletal: Reports: Myalgias. Denies: Back pain, Extremity Pain Skin: Denies: Rash, Wounds Neurological: Denies: Headache, Weakness, Numbness Physical Exam Vital Signs/Narrative: Vital Signs Temp Pulse Resp BP Pulse Ox 04/13/20 11:15 64 25 H 118/71 96 04/13/20 10:33 70 14 119/76 95 04/13/20 09:53 97 F L 89 18 105/69 100 Inital Vital Signs reviewed: Yes General: Well nourished, Well developed, No Acute Distress Head: Normocephalic, Atraumatic Eyes: Perrl, EOMI ENT: Moist mucous membranes, No rhinorrhea Neck: Supple, Nontender Cardiovascular: Regular rate, Regular rhythm, No murmurs Respiratory: No distress, CTA bilaterally, Chest nontender Abdomen: Soft, Nontender, Nondistended, Normal bowel sounds Back: Nontender, Normal Inspection Extremities: Nontender, No edema Skin: Normal color, No rash Neurological: Alert, Oriented x3, Cranial nerves II-XII grossly intact, Normal Strength, Normal Sensation Psychological: Normal affect, Normal Mood Diagnostic/Tx/Re-eval Chest X-Ray - ED: 1 View, Normal Clinical Impression(s) from Imaging Studies Chest X-Ray 04/13/20 10:11 IMPRESSION: No acute abnormality is present. Electronically Signed: Levy Martinez, at 11:25 EDT , Service support , Laboratory Data 04/13/20 04/13/20 10:30 10:30 WBC 3.0 L RBC 4.52 Hgb 14.6 Hct 43.6 MCV 96.5 MCH 32.3 H MCHC 33.5 RDW Std Deviation 45.6 H RDW Coeff of Nay 12.7 Plt Count 157 MPV 10.4 Immature Gran % (Auto) 0.000 Neut % (Auto) 45.5 L Lymph % (Auto) 29.2 [place] % (Auto) 24.3 H Eos % (Auto) 0.3 Baso % (Auto) 0.7 Absolute Neuts (auto) 1.4 L Absolute Lymphs (auto) 0.88 Nucleated RBC % 0 Sodium 137 Potassium 3.6 Chloride 103 Carbon Dioxide 28.0 Anion Gap 6 BUN 10 Creatinine 0.74 Estim Creat Clear Calc 48.57 Est GFR (MDRD) Af Amer 98 Est GFR (MDRD) Non-Af 81 BUN/Creatinine Ratio 13.5 Glucose 103 Calcium 8.8 Troponin I < 0.015 - Rhythm Strip Rhythm Strip: Sinus Rhythm Rate: 76 Ectopy: None - EKG Initial EKG Interpretation: Sinus Rhythm - Normal sinus rhythm at 76 bpm. MD interval 160 ms. QTC of 438 ms. Unchanged from previous EKG done on 03/07/2019. - Medical Decision Making Appears well nontoxic. Vital signs within normal limits. Lungs clear. Chest x-ray negative. Troponin EKG negative. Other lab work within normal limits other than a chronic leukopenia. Rapid influenza negative. Patient will receive coronavirus testing and advised to return for increasing shortness of breath. Patient agreeable and discharged home in stable condition. Impression: 1. URI ED Disposition - Plan for ED Patient: Disposition: Home or Assisted Living Instructions: ED Upper Resp Infec No Abx Tx Referrals: Sandy Acevedo MD [Primary Care Provider] - 2 Days
[2020-04-13 13:05] VITALS: BP 117/84; PULSE 68; RESP 21; O2SAT 98
== END 2020-04-13 13:10 | disposition home or self-care (01) ==
PROVIDERS: Emergency Provider Emergency Medicine; PCP Internal Medicine
DX: U07.1 COVID-19 (principal); I48.0 Paroxysmal atrial fibrillation; I10 Essential (primary) hypertension
CPT/HCPCS: 71045; 80048; 84484; 85025; 87635; 87804; 93005; 99283; U0003

== ENCOUNTER → 2020-06-07 11:03 | Outpatient (CLI) | payer MEDICARE, OTHER, SELFPAY ==
--- NOTE | 2020-06-07 11:14 | RAD_ITS ---
STUDY: X-RAY CHEST REASON FOR EXAM: Female, 74 years old. Recent chest pain x 2 months -- cough, bronchitis and flu recently also, per pt TECHNIQUE: PA and lateral views of the chest. COMPARISON: Comparison is made with prior study dated 04/13/2020. FINDINGS: Hyperinflation. Scattered calcified granulomas. The lungs are clear. There is no demonstrated pleural abnormality. Normal size heart. Normal mediastinum and mono. Normal visualized pulmonary arteries. There is atherosclerotic calcification of the aortic arch with tortuosity. There are diffuse degenerative changes of the visualized thoracic spine. Normal visualized ribs, clavicles, and shoulders. There is no demonstrated abnormality of the visualized soft tissue structures of the upper abdomen. RAD/Chest PA and Lateral IMPRESSION: Hyperinflation. The lungs are clear. Electronically Signed: Levy Martinez, at 12:44 EST , Service support ,
== END ==
PROVIDERS: PCP Internal Medicine; Referring Provider Otolaryngology; Visit Provider Otolaryngology
DX: R05 Cough (principal)
CPT/HCPCS: 71046

== ENCOUNTER → 2020-07-16 08:11 | Outpatient (CLI) | payer MEDICARE, OTHER, SELFPAY ==
[2020-06-29 13:41] VITALS: BMI 29.5
--- NOTE | 2020-07-16 08:17 | RAD_ITS ---
REASON FOR EXAM: Female, 74 years old. DYSPHAGIA OCCASIONALLY, PAIN W/SWALLOWING MID ESOPHAGUS TECHNIQUE: 16 view(s) of the esophagus were obtained following swallowing of barium. FLUOROSCOPY TIME (if supplied): (0:34) minutes/seconds COMPARISON: None. FINDINGS: There is no demonstrated esophageal foreign body. There is no demonstrated stricture or mucosal abnormality. Normal gastroesophageal junction, without a demonstrated hiatal hernia. The patient ingested a 12 mm tablet of barium without any difficulty. There is atherosclerotic calcification of the aortic arch with tortuosity of the descending aorta. Normal visualized pulmonary parenchyma. Normal visualized osseous structures of the thorax. RAD/Esophagus Dual Contrast IMPRESSION: Normal plain film x-ray examination (barium swallow) of the esophagus. Electronically Signed: Levy Martinez MD at 11:48 EST , Service support ,
== END ==
PROVIDERS: PCP Internal Medicine; Referring Provider Internal Medicine Gastroenterology; Visit Provider Internal Medicine Gastroenterology
DX: R13.10 Dysphagia, unspecified (principal)
CPT/HCPCS: 74221

== ENCOUNTER → 2020-08-02 13:51 | Outpatient (CLI) | payer MEDICARE, OTHER, SELFPAY ==
[2020-06-29 13:41] VITALS: BMI 29.5
--- NOTE | 2020-08-02 13:54 | RAD_ITS ---
STUDY: X-RAY - ABDOMEN/PELVIS REASON FOR EXAM: Female, 74 years old. constipation since having Covid-19 in April TECHNIQUE: 2 views COMPARISON: None. FINDINGS: Nondistended stomach. Increased intestinal bowel gas which is primarily present in the colon with diffuse short fluid levels. Negative for a substantial amount of well-formed stool. Grossly negative for organomegaly, abdominal or pelvic calcifications. Phleboliths of the pelvis. Mild degenerative changes of the hips and lumbar spine. RAD/Abd Inc Decub and/or Erect IMPRESSION: Diffuse increase intestinal bowel gas mostly in the colon with liquid stool. Negative for a substantial amount of solid well-formed stool. Negative for evidence of bowel obstruction or perforation. Negative for gross organomegaly, free air or significant abdominal or pelvic calcifications. Electronically Signed: Isabel Renee MD at 19:32 EST , Service support ,
== END ==
PROVIDERS: PCP Internal Medicine; Referring Provider Internal Medicine Gastroenterology; Visit Provider Internal Medicine Gastroenterology
DX: K59.00 Constipation, unspecified (principal)
CPT/HCPCS: 74019

== ENCOUNTER → 2020-08-09 12:37 | Outpatient (CLI) | payer MEDICARE, OTHER, SELFPAY ==
[2020-06-29 13:41] VITALS: BMI 29.5
--- NOTE | 2020-08-09 13:44 | SP.MBSS_ITS ---
Modified Barium Swallow - Patient Information Study Date: 08/09/20 Study Time: 13:00 Direct Billable Minutes: 105 Total Minutes procedure & reportin Diagnosis: dysphagia, unspecified (R13.10) Referring Physician: Jose Price Reason for Referral: The patient reported that pills and solids get stuck on back of tongue when attempting to swallow. Medical History: The patient is a 74/F with past medical history including paroxysmal atrial fibrillation, essential (primary) hypertension, hyperlipidemia, Sinusitis, Vitamin D deficiency, Chronic bronchitis, Seasonal allergies, Asthma, GERD (gastroesophageal reflux disease), Fibromyalgia, Anxiety, Arthritis, Carpal tunnel syndrome, Cataracts, both eyes, Hemorrhoids, Hormone deficiency, IBS (irritable bowel syndrome), and Vitiligo. Current Diet Ordered: regular textures/thin liquids Dentition: Upper Dentures, Lower Dentures Mental Status: WNL Respiratory Status: Oxygenating on Room Air - Study Findings Consistencies: Thin Liquid, [place] Thick Liquid, Honey Thick Liquid, Pudding, Cookie, Barium Tablet - Penetration-Aspiration Scale Penetration-Aspiration Scale: OBJECTIVE ASSESSMENT OF SWALLOW FUNCTION (QUANTITATIVE ? PER TRIAL): PENETRATION / ASPIRATION SCALE (MCADAMS): 1 = does not enter airway 2 = enters airway/above vocal folds/ejected 3 = enters airway/above vocal folds/not ejected 4 = enters airway/contacts vocal folds/ejected 5 = enters airway/contacts vocal folds/not ejected 6 = enters airway/below vocal folds/ejected 7 = enters airway/below vocal folds/not ejected despite effort 8 = enters airway/below vocal folds/no effort - Penetration-Aspiration Scale Score Thin Liquid Result: 1= does not enter airway Thin Liquid via teaspoon Trial 2 Result: 1= does not enter airway Thin Liquid via small single sip from cup Result: 1= does not enter airway Barium Tablet via sequential sips from cup Comment: Patient able to clear barium tablet with second swallow and then took several other swallows of thin liquid to clear residue. Thin Liquid via sequential sips from cup Result: 1= does not enter airway [place] Thick Liquid via large single sip from cup Result: 1= does not enter airway Honey Thick Liquid via large single sip from cup Result: 1= does not enter airway Pudding Result: 1= does not enter airway Cookie Result: 1= does not enter airway Thin Liquid via sequential sips from straw Result: 1= does not enter airway Other Result: 1= does not enter airway - clear water to clear residue in vallecula effective - Oral Phase Labial Seal: No Labial Escape Tongue Control During Bolus Hold: Posterior escape of less than half of bolus Bolus Preparation/Mastication: Slow prolonged chewing/mashing with complete recollection Bolus Transport/Lingual Motion: Delayed initiation of tongue motion Oral Residue: Trace residue lining oral structures - Pharyngeal Phase Initiation of Pharyngeal Swallow: Bolus head in valleculae Soft Palate Elevation: No bolus between soft palate and pharyngeal wall Laryngeal Elevation: Partial superior movement thyroid cart/partial apprx aryt- epig petiole Anterior Hyoid Excursion: Partial anterior movement Epiglottic Movement: Partial inversion Laryngeal Vestibule Closure at Height of Swallow: Incomplete; narrow column of air/contrast in laryngeal vestibule Pharyngeal Stripping Wave: Present - diminished Pharyngoesophageal Segment Opening: Complete distension and complete duration; no obstruction of flow Tongue Base Retraction: Trace column of contrast between tongue base & post. pharyngeal wall Pharyngeal Residue: Trace residue within or on pharyngeal structures - Diagnosis/Impression Diagnosis: mild oropharyngeal dysphagia (R13.12) Impression: Patient trialed thin liquid via cup and via straw with no aspiration present. Patient has reported particular difficulty with with pills getting stuck on back of tongue. Patient trialed barium tablet with the tablet getting stuck in valleculae upon initial swallow with second swallow and liquid chaser patient able to clear tablet. Liquid or tablet never entered airway. The patient presented with delayed initiation of tongue movement and partial epiglottic inversion likely contributing to patients frequent feeling of bolus getting stuck on back of tongue. Aspiration and penetration were not found with any consistencies trialed this date. - Recommendations Diet: Regular Textures, Thin Liquids Compensatory Strategies: Small Bites, Small Sips, Alternate bites/solids and sips/liquids - Pt to take several sips of liquids following each bite; meds to be taken with several sips of liquids or purees, Sitting upright, Remain sitting upright for 30 minutes after PO intake Recommend Repeat Modified Barium Swallow: No Need for Skilled Speech Therapy Services: No Education Completed: 1. Described result of evaluation., 2. Pt understands evaluation & agrees with goals and treatment plan. - Status Active ST Patient: Active - Contact Information [facility]:: Demetria Walden MA, CCC-MICROPHONE BOOM OPERATOR [address] [address] [email or web address]
== END ==
PROVIDERS: PCP Internal Medicine; Referring Provider Internal Medicine Gastroenterology; Visit Provider Internal Medicine Gastroenterology
DX: R13.10 Dysphagia, unspecified (principal)
CPT/HCPCS: 74230; 92611

== ENCOUNTER → 2020-08-27 07:30 | Outpatient (CLI) | payer MEDICARE, OTHER, SELFPAY ==
[2020-06-29 13:41] VITALS: BMI 29.5
--- NOTE | 2020-08-27 16:32 | STRESSREP ---
Stress Test Report Exercise myocardial perfusion stress test. 74-year-old lady with a history of chest pain. Stress protocol: Resting EKG demonstrates sinus bradycardia with a rate of 55 bpm normal intervals are noted resting blood pressure is 122/72 mmHg. The patient exercised according to regular Emanuel protocol for a total duration of 7 minutes. The maximum heart rate attained was 137 bpm which was 94% of maximum predicted heart rate the maximum workload was 8.5 metabolic equivalents. At rest there were no ST or T wave changes noted suggest ischemia at peak exercise upsloping ST changes only were noted with no meet the criteria for ischemia. The peak blood pressure was 150/78 mmHg which was a good blood pressure response to exercise. No clinical angina was noted the test was terminated due to the target heart rate being achieved. Myocardial perfusion protocol. 12.0 mCi of technetium 99m sestamibi was injected at rest. Patient exercised according to regular Emanuel protocol for total duration of 7 minutes and at peak exercise 33.4 mCi of technetium 99m sestamibi was injected stress images were obtained stress and rest images were reconstructed and compared in the short axis vertical and horizontal long axis. Gated images were also obtained Perfusion SPECT analysis: Review of the stress images demonstrate normal uptake of tracer noted in all areas of myocardium the resting images similar demonstrated normal uptake of tracer noted in all areas of the myocardium. The resting images similar demonstrate normal uptake of tracer noted in all areas of the myocardium. No reversibility is noted suggest ischemia no previous infarct is noted. Gated SPECT analysis: The gated ejection fraction is 79%. Conclusion: Normal exercise myocardial perfusion stress test at a moderate workload. Preserved ejection fraction.
== END ==
PROVIDERS: PCP Internal Medicine; Referring Provider Physician Assistant Medical; Visit Provider Physician Assistant Medical
DX: R07.9 Chest pain, unspecified (principal)
CPT/HCPCS: 78452; 93017; A9500; A4216

== ENCOUNTER 2020-09-12 00:57 | Emergency (ER) | payer MEDICARE, OTHER, SELFPAY ==
[2020-06-29 13:41] VITALS: BMI 29.5
[2020-09-12 00:59] VITALS: BP 125/88; PULSE 61; RESP 16; TEMP 36.6; O2SAT 98; BMI 29.4
--- NOTE | 2020-09-12 01:25 | CT_ITS ---
STUDY: CT ABDOMEN AND PELVIS WITHOUT CONTRAST REASON FOR EXAM: Female, 74 years old. Pain RADIATION DOSAGE (If Supplied By Facility): CTDIvol = ( 9.17 ) mGy, DLP = ( 439.73 ) mGycm TECHNIQUE: Transaxial images were obtained from the dome of the diaphragm to the symphysis pubis without oral contrast, and without intravenous contrast. Sagittal and coronal images were reconstructed. Individualized dose optimization techniques were used for this CT. COMPARISON: None. FINDINGS: The visualized lung bases are unremarkable. : Cardiomegaly with coronary artery calcifications. Normal liver. Normal gallbladder and extrahepatic biliary system. Normal spleen. Normal pancreas. Normal bilateral adrenal glands. Normal right kidney. Normal left kidney. Normal visualized stomach. Normal small intestine. Nonspecific fecal debris within the colon. Distinct appendix not seen with no inflammation in the region of the cecum. Mild diverticulosis of the sigmoid with no signs of diverticulitis. There is diffuse atherosclerotic calcification of the abdominal aorta, without a demonstrated aneurysm. Normal inferior vena cava. Normal retroperitoneum. Normal urinary bladder. Nonvisualized uterus suggestive of previous hysterectomy. Sequela of lower abdominal anterior hernia repair. The location is unchanged compared to previous exam. There are diffuse degenerative changes of the visualized lumbar spine. Mild anterolisthesis of L4 on L5 with no pars defect. CT/Abdomen/Pelvis without Cont IMPRESSION: Mild diverticulosis with no signs of diverticulitis. Moderate fecal debris within the colon otherwise no focal inflammatory process throughout the gastrointestinal tract. No bowel obstruction. Unremarkable abdominal viscera. Electronically Signed: Zoila Rodriguez MD at 1:59 EDT , Service support ,
--- NOTE | 2020-09-12 01:26 | ED.VIS.GEN ---
History of Present Illness Chief Complaint: Constipation Informant: Patient Narrative: She stated she has difficulties with constipation since March. She did move her bowels some yesterday after taking a laxative rectal. She has a hernia repair with screen that she is concerned about. She was told 6 years ago that the screen seem to have wrapped around her colon. She is concerned this may be causing her constipation. She had abdominal x-ray last month as she had been having constipation. She had been taking MiraLAX. She sees Dr. Price. Comes in for further evaluation of her abdomen. Denies any abdominal pain nausea vomiting or diarrhea at this time. - Past Medical History (1) Acute bronchitis Status: Acute (2) Chest pain Status: Acute (3) Fatigue Status: Acute (4) Anxiety Status: Chronic (5) Asthma Status: Chronic (6) Chronic bronchitis Status: Chronic (7) Essential (primary) hypertension Status: Chronic (8) Fibromyalgia Status: Chronic (9) GERD (gastroesophageal reflux disease) Status: Chronic (10) Hyperlipidemia Status: Chronic (11) Paroxysmal atrial fibrillation Status: Chronic (12) Seasonal allergies Status: Chronic (13) Sinusitis Status: Chronic (14) Vitamin D deficiency Status: Chronic Past Medical History - Allergies and Home Meds Allergies/Adverse Reactions: Allergies epinephrine [From Primatene Mist] Allergy (Severe, Verified 09/12/20 00:58) Shortness of breath epinephrine bitartrate [From Primatene Mist] Allergy (Severe, Verified 09/12/20 00:58) Shortness of breath levofloxacin [From Levaquin] Allergy (Intermediate, Verified 09/12/20 00:58) Swelling estrogens, conjugated [From Premarin] Allergy (Mild, Verified 09/12/20 00:58) Swelling meperidine HCl [From Demerol] Allergy (Mild, Verified 09/12/20 00:58) Other Penicillins Allergy (Mild, Verified 09/12/20 00:58) Unknown Sulfa (Sulfonamide Antibiotics) Allergy (Mild, Verified 09/12/20 00:58) Unknown clarithromycin [From Biaxin] Allergy (Unknown, Verified 09/12/20 00:58) Rash digoxin [From Digitek] Allergy (Verified 09/12/20 00:58) Swelling FOOD COLOR GREEN Allergy (Intermediate, Uncoded 09/12/20 00:58) Swelling IVP DYE Allergy (Intermediate, Uncoded 09/12/20 00:58) Other Iodine dyes MAPLE TREE MOLD Allergy (Mild, Uncoded 09/12/20 00:58) Other RAGWEED Allergy (Mild, Uncoded 09/12/20 00:58) Other Primary Care Physician: Sandy Acevedo MD [Primary Care Provider] - Prior records reviewed: Yes Past Medical History: - - See problem list Surgical History: appendectomy, hysterectomy, - - BL carpal tunnel surgery Lives: With Family Smoking Status: Never smoker Alcohol: None Drugs: None Review of Systems General: Denies: Chills, Fever, Sweats Eyes: Denies: Visual changes - bilaterally, Diplopia ENT: Denies: Rhinorrhea, Sore throat Cardiovascular: Denies: Chest pain, Palpitations Respiratory: Denies: Dyspnea, Cough, Dyspnea on exertion Gastrointestinal: Reports: Constipation. Denies: Abdominal pain, Nausea, Vomiting, Diarrhea, Melena, Hematochezia Genitourinary: Denies: Dysuria, Hematuria, Frequency Musculoskeletal: Denies: Back pain, Extremity Pain Skin: Denies: Rash, Wounds Neurological: Denies: Headache, Weakness, Numbness Physical Exam Vital Signs/Narrative: Vital Signs Temp Pulse Resp BP Pulse Ox 09/12/20 00:59 98 F 61 16 125/88 H 98 General: Well nourished, Well developed, No Acute Distress Head: Normocephalic, Atraumatic Eyes: Perrl, EOMI ENT: Moist mucous membranes, No rhinorrhea Neck: Supple, Nontender Cardiovascular: Regular rate, Regular rhythm, No murmurs Respiratory: No distress, CTA bilaterally, Chest nontender Abdomen: Soft, Nontender, Nondistended, Normal bowel sounds Back: Nontender, Normal Inspection Extremities: Nontender, No edema Skin: Normal color, No rash Neurological: Alert, Oriented x3, Cranial nerves II-XII grossly intact, Normal Strength, Normal Sensation Psychological: Normal affect, Normal Mood Diagnostic/Tx/Re-eval - Medical Decision Making Discussed imaging with the patient. She is requesting a CT abdomen pelvis to evaluate her screening colon. CT abdomen pelvis was obtained. CT abdomen pelvis shows nothing acute. Moderate moderate feces in the colon otherwise nothing acute. Surgical site appears normal. Patient reassured. We will follow-up as an outpatient continue [id number] stool softeners ED Disposition - Plan for ED Patient: Disposition: Home or Assisted Living Diagnosis: Constipation Instructions: ED Constipation (Adult) Referrals: Sandy Aceveod MD [Primary Care Provider] -
== END 2020-09-12 02:15 | disposition home or self-care (01) ==
PROVIDERS: Emergency Provider Emergency Medicine; PCP Internal Medicine
DX: K59.00 Constipation, unspecified (principal); I48.0 Paroxysmal atrial fibrillation; I10 Essential (primary) hypertension; J45.909 Unspecified asthma, uncomplicated; E78.5 Hyperlipidemia, unspecified; M79.7 Fibromyalgia; E55.9 Vitamin D deficiency, unspecified; K21.9 Gastro-esophageal reflux disease without esophagitis; Z79.899 Other long term (current) drug therapy
CPT/HCPCS: 74176; 99282

== ENCOUNTER → 2020-10-23 07:22 | Outpatient (CLI) | payer MEDICARE, OTHER, SELFPAY ==
[2020-10-22 15:19] VITALS: BMI 30.7
[2020-10-23 10:03] LABS: Absolute Lymphocyte Count 1.57 X10^3/uL (0.83-4.51); Absolute Neutrophil Count 1.4 X10^3/uL (2.0-7.7); Basophil# 0.05 X10^3/uL; Basophil% 1.4 % (0-1); Eosinophil# 0.07 X10^3/uL; Hematocrit 40.3 % (37-47); Hemoglobin 13.4 g/dL (12.0-15.0); Lymphocyte # 1.57 X10^3/ul (0.83-4.51); Mean Corp Hgb Conc 33.3 g/dL (32-36); Mean Corpuscular Hgb 32.2 pg (27.0-32.0); Mean Corpuscular Volume 96.9 fL (81-99); Mean Platelet Vol. 10.8 fl (6.2-12.0); Monocyte# 0.44 X10^3/uL; Monocyte% 12.6 % (0-10); NRBC Flagged by Analyzer 0 % (0-5); Neutrophil # 1.36 X10^3/uL (2.7-7.7); Platelet Count 193 K/mm3 (150-450); RBC Distribution Width CV 13.1 % (11.6-14.6); RBC Distribution Width SD 46.9 fl (35.1-43.9); Red Blood Count 4.16 M/mm3 (4.2-5.4); White Blood Count 3.5 K/mm3 (4.4-11.0)
[2020-10-23 10:16] LABS: Erythrocyte Sedimentation Rate 6 mm/hr (0-30)
[2020-10-23 10:43] LABS: ALB/GLOB Ratio 1.2 RATIO (0.9-2.4); AST(SGOT) 17 U/L (15-37); Alanine Aminotransfer ALT/SGPT 24 U/L (13-56); Albumin, Serum 3.7 g/dL (3.2-5.0); Alkaline Phosphatase 79 U/L (45-117); Anion Gap 4 (5-15); BUN 15 mg/dL (7-18); BUN/Creat Ratio 21.6 RATIO (10-20); Calcium,Total 8.9 mg/dL (8.5-10.1); Chloride 107 mmol/L (98-107); EST Glomerular Filtration Rate 87 mL/min (>60); Est Glom Filt Rate - Afr Amer 106 mL/min (>60); Globulin 3.1 g/dL (2.2-4.2); Glucose 88 mg/dL (74-106); Potassium 3.7 mmol/L (3.5-5.1); Protein, Total 6.8 g/dL (6.4-8.2); Sodium Level 141 mmol/L (136-145)
[2020-10-23 10:50] LABS: T4 Free Direct 1.05 ng/dL (0.76-1.46); Thyroid Stim Hormone (TSH) 1.59 uIU/mL (0.358-3.74)
[2020-10-23 11:59] LABS: Vitamin D,25 Hydroxy 63.8 ng/mL
[2020-10-24 09:56] LABS: Thyroid Peroxidase AB < 9 IU/mL (0-34)
== END ==
PROVIDERS: Nurse Practitioner Family; Psychiatry & Neurology Neurology; PCP Internal Medicine; Referring Provider Internal Medicine Endocrinology, Diabetes & Metabolism; Visit Provider Internal Medicine Endocrinology, Diabetes & Metabolism
DX: R07.9 Chest pain, unspecified (principal); R05 Cough; R51.9 Headache, unspecified; E04.9 Nontoxic goiter, unspecified; R53.83 Other fatigue; F41.9 Anxiety disorder, unspecified; E55.9 Vitamin D deficiency, unspecified
CPT/HCPCS: 36415; 80053; 82306; 84439; 84443; 85025; 85652; 86376

== ENCOUNTER 2021-01-17 13:30 | Outpatient (RCR) | payer MEDICARE, OTHER, SELFPAY ==
[2020-10-22 15:19] VITALS: BMI 30.7
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
[2020-12-20 12:43] VITALS: BMI 29.0
== END 2021-01-17 19:00 | disposition home or self-care (01) ==
LOC: PT 13:30
PROVIDERS: PCP Internal Medicine; Referring Provider Psychiatry & Neurology Neurology; Visit Provider Psychiatry & Neurology Neurology
DX: M54.81 Occipital neuralgia (principal); M54.2 Cervicalgia
CPT/HCPCS: 97110; 97140; 97161; 97164

== ENCOUNTER → 2021-01-23 13:55 | Outpatient (CLI) | payer MEDICARE, OTHER, SELFPAY ==
[2020-12-20 12:43] VITALS: BMI 29.0
[2021-01-23 09:29] VITALS: BMI 29.2
--- NOTE | 2021-01-23 13:58 | MRI_ITS ---
STUDY: MRI CERVICAL SPINE WITHOUT CONTRAST REASON FOR EXAM: Female, 75 years old. Occipital Neuralgia, Neck Pain TECHNIQUE: Standardized fat and water weighted pulse sequences were obtained in the sagittal and axial planes. COMPARISON: 06/29/2007 FINDINGS: Normal foramen magnum and brainstem-cervical cord junction. Normal craniovertebral junction. Normal anterior atlantoaxial articulation. Normal odontoid process. Normal cervical lordosis. Normal vertebral bodies and posterior osseous elements. C2-3: Normal endplates. Normal disc height, signal and morphology. Normal central canal and intervertebral neural foramina. C3-4: Moderate left facet hypertrophy. Interval of a mild broad disc osteophyte complex produces mild spinal stenosis and mild bilateral neural foraminal stenosis. C4-5: Moderate left facet hypertrophy. No change in the mild broad disc osteophyte complex which produces mild spinal stenosis and mild bilateral neural foraminal stenosis. C5-6: No change in the moderate broad disc osteophyte complex asymmetric to the left produces moderate spinal stenosis with effacement of the left hemicord and mild bilateral neural foraminal stenosis. C6-7: No change in the mild broad disc osteophyte complex which produces mild spinal stenosis and mild bilateral neural foraminal stenosis. C7-T1: Normal endplates. Normal disc height, signal and morphology. Normal central canal and intervertebral neural foramina. Normal cervical cord. Normal visualized soft tissue structures. MRI/Spine Cervical (Routine) IMPRESSION: Worsening degenerative disc disease as described above. Electronically Signed: Nolan Lundberg MD at 10:43 EDT Tel , Service support ,
== END ==
PROVIDERS: PCP Internal Medicine; Referring Provider Psychiatry & Neurology Neurology; Visit Provider Psychiatry & Neurology Neurology
DX: M54.81 Occipital neuralgia (principal); M54.2 Cervicalgia
CPT/HCPCS: 72141

== ENCOUNTER → 2021-03-20 10:56 | Outpatient (CLI) | payer MEDICARE, OTHER, SELFPAY ==
--- NOTE | 2021-03-20 10:58 | EKG12_ITS ---
Test Reason : CP Blood Pressure : / mmHG Vent. Rate : 059 BPM Atrial Rate : 059 BPM P-R Int : 170 ms QRS Dur : 082 ms QT Int : 428 ms P-R-T Axes : 063 038 037 degrees QTc Int : 423 ms Sinus bradycardia Otherwise normal ECG Confirmed by SHAMA BHATTI, KITA ([id number]), research editor SMITHA JACKSON ([id number]) on 03/21/2021 12:35:49 PM Referred By: LEIGH ANN Confirmed By:KITA SESAY MD
== END ==
PROVIDERS: PCP Internal Medicine; Visit Provider Psychiatry & Neurology Neurology
DX: R07.89 Other chest pain (principal)
CPT/HCPCS: 93005

== ENCOUNTER → 2021-03-21 15:32 | Outpatient (CLI) | payer MEDICARE, OTHER, SELFPAY ==
[2021-03-21 17:31] LABS: Absolute Lymphocyte Count 1.73 X10^3/uL (0.83-4.51); Absolute Neutrophil Count 2.5 X10^3/uL (2.0-7.7); Basophil# 0.04 X10^3/uL; Basophil% 0.8 % (0-1); Eosinophil# 0.06 X10^3/uL; Eosinophils% 1.2 % (0-5); Hematocrit 40.6 % (37-47); Hemoglobin 13.7 g/dL (12.0-15.0); Lymphocyte # 1.73 X10^3/ul (0.83-4.51); Lymphocyte % 35.4 % (19-41); Mean Corp Hgb Conc 33.7 g/dL (32-36); Mean Corpuscular Hgb 32.7 pg (27.0-32.0); Mean Corpuscular Volume 96.9 fL (81-99); Mean Platelet Vol. 11.5 fl (6.2-12.0); Monocyte# 0.55 X10^3/uL; Monocyte% 11.2 % (0-10); NRBC Flagged by Analyzer 0 % (0-5); Neutrophil # 2.51 X10^3/uL (2.7-7.7); Neutrophil % 51.4 % (47-70); Platelet Count 200 K/mm3 (150-450); RBC Distribution Width SD 46.3 fl (35.1-43.9); Red Blood Count 4.19 M/mm3 (4.2-5.4); White Blood Count 4.9 K/mm3 (4.4-11.0)
[2021-03-21 17:46] LABS: Erythrocyte Sedimentation Rate 6 mm/hr (0-30)
[2021-03-21 17:51] LABS: CRP < 2.90 mg/L (0.0-3.0)
== END ==
PROVIDERS: PCP Internal Medicine; Referring Provider Ophthalmology; Visit Provider Ophthalmology
DX: H53.121 Transient visual loss, right eye (principal)
CPT/HCPCS: 36415; 85025; 85652; 86140

== ENCOUNTER → 2021-03-28 09:54 | Outpatient (CLI) | payer MEDICARE, OTHER, SELFPAY ==
--- NOTE | 2021-03-28 09:55 | CDU_ITS ---
Reason For Study: Amaurosis fugax Rt. Velocities/BP Lt. Velocities/BP Prox CCA 107.3/16 cm/sec. Prox CCA 111.1/26.3 cm/sec. Mid CCA 93/16 cm/sec. Mid CCA 79.7/16 cm/sec. Dist CCA 85.2/17.3 cm/sec. Dist CCA 97.2/20.4 cm/sec. Prox ICA 240.1/68.8 cm/sec. Prox ICA 102.3/26.2 cm/sec. Mid ICA 86.4/17 cm/sec. Mid ICA 71.6/23.7 cm/sec. Dist ICA 46.5/16.8 cm/sec. Dist ICA 60.5/20 cm/sec. Rt. ICA/CCA = 2.58. Lt. ICA/CCA = 1.05. Prox ECA 96.9/10.8 cm/sec. Prox ECA 87.6/9 cm/sec. Rt. Vert. 42.1/11.3 cm/sec. Lt. Vert. 38.1/12.6 cm/sec. Right Extracranial There is intimal thickening but no significant atherosclerotic plaque noted in the right common carotid artery. There is heterogeneous, irregular atherosclerotic plaque noted in the right internal carotid artery. There is intimal thickening but no significant atherosclerotic plaque noted in the right external carotid artery. Antegrade flow is noted in the right vertebral artery. Left Extracranial There is homogeneous, smooth atherosclerotic plaque noted in the left common carotid artery. There is heterogeneous, irregular atherosclerotic plaque noted in the left internal carotid artery. There is heterogeneous, irregular atherosclerotic plaque noted in the left external carotid artery. Antegrade flow is noted in the left vertebral artery. Procedure Carotid Duplex 39161. This is a Carotid Duplex examination using B-mode, color flow and specral Doppler. Exam performed in department. VL/Carotid Duplex Ultrasound Interpretation Summary Irregular calcific plaque at the proximal right internal carotid artery with gr eater than 70% stenosis. Less than 50% stenosis right external carotid artery Irregular calcific plaque in the proximal left internal carotid artery with les s than 50% stenosis Less than 50% stenosis left external carotid artery Patent and antegrade vertebral arteries bilaterally Mild progression of disease involving the right internal carotid artery from a previous screening examination of December 18, 2009 Ordering Physician: Rosendo Pathak Referring Physician: Sandy Acevedo Performed By: Purvi Brooks RVT
[2021-03-28 18:18] LABS: Rheumatoid Factor < 10.0 IU/mL (<15)
[2021-04-01 14:09] LABS: SJOGREN'S Anti-SS-A test < 0.2 AI (0.0-0.9); SJOGREN'S Anti-SS-B test < 0.2 AI (0.0-0.9)
[2021-04-01 14:18] LABS: Anti-Nuclear Antibody Test Negative (.)
== END ==
PROVIDERS: Otolaryngology; PCP Internal Medicine; Referring Provider Psychiatry & Neurology Neurology; Visit Provider Psychiatry & Neurology Neurology
DX: G45.3 Amaurosis fugax (principal); K11.7 Disturbances of salivary secretion
CPT/HCPCS: 36415; 86038; 86235; 86431; 93880

== ENCOUNTER → 2021-04-12 14:48 | Outpatient (CLI) | payer MEDICARE, OTHER, SELFPAY ==
--- NOTE | 2021-04-12 14:50 | CT_ITS ---
STUDY: CTA NECK WITH CONTRAST REASON FOR EXAM: Female, 75 years old. bilateral carotid stenosis RADIATION DOSAGE (If Supplied By Facility): CTDIvol = ( 18.85 ) mGy, DLP = ( 469.27 ) mGycm TECHNIQUE: CT angiography with multi-detector data acquisition was performed from the aortic arch to the skull base following intravenous administration of IV 100mL Isovue-370. MIP images were reconstructed from the axial data set. Post-processing of the angiographic images was performed, with multiplanar reformation and 3D reconstruction. Degree of stenosis (when present) measured utilizing NASCET criteria. Individualized dose optimization techniques were used for this CT. COMPARISON: None. FINDINGS: AORTIC ARCH: There is atherosclerotic calcific plaque formation of the aortic arch and great vessels arising from the aortic arch, without a hemodynamically significant stenosis. There is a bovine origin of the great vessels with a common origin of the brachiocephalic and left common carotid artery. Normal origin of the left subclavian artery. Normal origins of the brachiocephalic, left common carotid, and left subclavian arteries. RIGHT CAROTID ARTERIES: There is atherosclerotic tortuous elongation of the right common carotid artery. Short segment atherosclerosis of the proximal ICA causing 65% stenosis. There is atherosclerotic tortuous elongation of the cervical portion of the right internal carotid artery. Normal origin of the right external carotid artery (ECA). LEFT CAROTID ARTERIES: There is atherosclerotic tortuous elongation of the left common carotid artery. There is mild atherosclerotic plaque formation of the origin of the left internal carotid artery with less than 50% cross sectional diameter stenosis. There is atherosclerotic tortuous elongation of the cervical portion of the left internal carotid artery. There is moderate atherosclerotic plaque formation of the origin of the left external carotid artery with an estimated stenosis of 50-69% stenosis. VERTEBRAL ARTERIES: Normal bilateral vertebral arteries. Degenerative changes of the cervical spine with acquired canal stenosis most noted at C5-C6. Degenerative anterolisthesis of C3-C4 and C4-C5 due to facet arthropathy. Multilevel foraminal stenosis, most evident at C5-C6. CT/CTA Neck W/WO Contrast IMPRESSION: 1. Right worse than left carotid atherosclerosis. 2. 65% stenosis of the proximal right ICA. 3. Less than 50% stenosis of left ICA. 4. Moderate stenosis of the left external carotid artery. 5. Multilevel degenerative disc disease with canal and foraminal stenosis. Electronically Signed: Darryl Raza MD (Brooks) at 20:18 EDT , Service support ,
[2021-04-12 16:11] LABS: CREATININE FINGERSTICK 0.7 mg/dL (0.55-1.02); EGFR FINGERSTICK > 60.0000 mL/min (>60)
== END ==
PROVIDERS: PCP Internal Medicine; Referring Provider Surgery; Visit Provider Surgery
DX: I65.23 Occlusion and stenosis of bilateral carotid arteries (principal)
CPT/HCPCS: 70498; Q9967

== ENCOUNTER → 2021-04-15 10:54 | Outpatient (CLI) | payer MEDICARE, OTHER, SELFPAY ==
[2021-04-15 12:08] LABS: Absolute Lymphocyte Count 1.95 X10^3/uL (0.83-4.51); Absolute Neutrophil Count 2.2 X10^3/uL (2.0-7.7); Basophil# 0.06 X10^3/uL; Basophil% 1.3 % (0-1); Eosinophil# 0.08 X10^3/uL; Eosinophils% 1.7 % (0-5); Hematocrit 41.1 % (37-47); Hemoglobin 13.6 g/dL (12.0-15.0); Lymphocyte # 1.95 X10^3/ul (0.83-4.51); Mean Corp Hgb Conc 33.1 g/dL (32-36); Mean Corpuscular Hgb 32.6 pg (27.0-32.0); Mean Corpuscular Volume 98.6 fL (81-99); Monocyte# 0.49 X10^3/uL; Monocyte% 10.3 % (0-10); NRBC Flagged by Analyzer 0 % (0-5); Neutrophil # 2.18 X10^3/uL (2.7-7.7); Neutrophil % 45.7 % (47-70); Platelet Count 184 K/mm3 (150-450); RBC Distribution Width CV 13.1 % (11.6-14.6); RBC Distribution Width SD 47.1 fl (35.1-43.9); Red Blood Count 4.17 M/mm3 (4.2-5.4); White Blood Count 4.8 K/mm3 (4.4-11.0)
[2021-04-15 12:43] LABS: ALB/GLOB Ratio 1.1 RATIO (0.9-2.4); AST(SGOT) 17 U/L (15-37); Alanine Aminotransfer ALT/SGPT 25 U/L (13-56); Albumin, Serum 3.6 g/dL (3.2-5.0); Alkaline Phosphatase 75 U/L (45-117); Anion Gap 4 (5-15); BUN 18 mg/dL (7-18); BUN/Creat Ratio 25.1 RATIO (10-20); Chloride 106 mmol/L (98-107); Creatinine, Serum 0.72 mg/dL (0.55-1.02); EST Glomerular Filtration Rate 84 mL/min (>60); Est Glom Filt Rate - Afr Amer 102 mL/min (>60); Globulin 3.3 g/dL (2.2-4.2); Glucose 93 mg/dL (74-106); Protein, Total 6.9 g/dL (6.4-8.2); Sodium Level 141 mmol/L (136-145)
== END ==
PROVIDERS: PCP Internal Medicine; Visit Provider Internal Medicine
DX: T78.40XA Allergy, unspecified, initial encounter (principal); T50.8X5A Adverse effect of diagnostic agents, initial encounter; Y92.9 Unspecified place or not applicable
CPT/HCPCS: 80053; 85025

== ENCOUNTER → 2021-04-17 09:44 | Outpatient (CLI) | payer MEDICARE, OTHER, SELFPAY ==
[2020-10-22 15:19] VITALS: BMI 30.7
--- NOTE | 2021-04-17 10:02 | MRI_ITS ---
STUDY: MRI BRAIN WITH AND WITHOUT CONTRAST REASON FOR EXAM: Female, 75 years old. Occipital Neuralgia TECHNIQUE: Standardized multiplanar fat and water weighted pulse sequences were obtained. IV 13mL Dotarem was administered for the contrast portion of the examination. COMPARISON: CT of the head dated 02/10/2012 FINDINGS: Normal size of the ventricles and extra-axial spaces for the patient''s age. There are multiple white matter hyperintensities, distributed throughout the deep white matter tracts of the cerebral hemispheres, consistent with moderate chronic white matter ischemic changes. Normal bilateral basal ganglia. Normal thalami. There is no extra-axial fluid accumulation. There is no enhancing intra-axial or extra-axial abnormality. There is enlargement of the sella turcica with increased CSF within the sella and flattening of the pituitary gland consistent with an empty sellar syndrome. Normal infundibular stalk, hypothalamus, and optic chiasm. Normal tectal plate and pineal gland. There are chronic white matter ischemic changes of the lisseth. The midbrain and medulla are otherwise normal. Normal cerebellum. MRI/Brain W/WO Contrast IMPRESSION: No acute intracranial abnormality or masses. Moderate chronic microvascular ischemic changes. Electronically Signed: Sue Castillo MD at 9:04 EDT Tel , Service support ,
== END ==
PROVIDERS: PCP Internal Medicine; Referring Provider Psychiatry & Neurology Neurology; Visit Provider Psychiatry & Neurology Neurology
DX: M54.81 Occipital neuralgia (principal)
CPT/HCPCS: 70553; A9575

== ENCOUNTER 2021-04-21 09:09 | Emergency (ER) | payer MEDICARE, OTHER, SELFPAY ==
[2021-04-21 09:10] VITALS: BP 143/97; PULSE 71; RESP 16; TEMP 35.8; O2SAT 98; BMI 26.9
--- NOTE | 2021-04-21 09:40 | EDS_ITS ---
HPI History of Present Illness Chief Complaint: Abd Pain Informant: patient Narrative Narrative: 75-year-old female presenting to the emergency department with left back and abdominal pain. Patient states that on she had significant amount of diarrhea in the evening hours. She developed some pain over the left side of her abdomen and also in the left back. She states her bowel movements are soft but she is not having the diarrhea. She notes her back pain is worse with movements and bending over seems to radiate down her leg and makes her knee swell. She states that she has a screen in her abdomen and I believe by this she is talking about a mesh repair for a prior hernia. She states she supposed to have a colonoscopy soon because she has had bowel changes in the past 6 years. She denies any fever. She took Aleve p.m. last night but tries not to take anything during the day because I do not do well with medicine. Patient is concerned that her?is causing a pouch to build up and store a gallon or more fluid because she has been experiencing some bloating and that went down after she had her diarrhea [facility] Medical History Acute bronchitis, unspecified Acute maxillary sinusitis, unspecified Acute otitis media, left Allergic reaction to contrast dye Amaurosis fugax, right eye Anxiety Arthritis Asthma Carotid stenosis, right Carpal tunnel syndrome Cataracts, both eyes Chronic bronchitis Constant exophthalmos Constipation Dysphagia Essential (primary) hypertension Fatigue Fibromyalgia GERD (gastroesophageal reflux disease) Hay fever Hemorrhoids History of COVID-19 Hormone deficiency Hyperlipidemia Hypoglycemia IBS (irritable bowel syndrome) Knee pain Paroxysmal atrial fibrillation Pneumonia Seasonal allergies Sinusitis UTI (urinary tract infection) Vitamin D deficiency Vitiligo Home Medications B-complex with vitamin C 1 cap PO DAILY 11/18/19 [History Last Taken Unknown] cholecalciferol (vitamin D3) 350 mcg (14,000 unit) capsule 350 mcg PO ONCE 01/20/20 [History Last Taken Unknown] hydrocortisone 2.5 % topical cream 1 applic TOPICAL TID PRN #30 g 01/20/20 [Rx Last Taken Unknown] niacin 250 mg tablet 250 mg PO DAILY 01/20/20 [History Last Taken Unknown] psyllium husk 0.4 gram capsule 0.4 g PO DAILY 01/20/20 [History Last Taken Unknown] meloxicam 7.5 mg tablet 7.5 mg PO BID PRN #60 tab 01/10/21 [Rx Last Taken Unknown] tizanidine 4 mg tablet 4 mg PO QHS PRN #30 tab 01/10/21 [Rx Last Taken Unknown] folic acid 1 mg tablet 1 mg PO DAILY #30 tab 03/18/21 [Rx Last Taken Unknown] omeprazole 20 mg capsule,delayed release 20 mg PO DAILY #30 cap 03/18/21 [Rx Last Taken Unknown] apixaban 5 mg tablet 5 mg PO BID #60 tab 03/22/21 [Rx Last Taken Unknown] aspirin 81 mg tablet,delayed release 81 mg PO DAILY 03/22/21 [History Last Taken Unknown] rosuvastatin 5 mg tablet 5 mg PO DAILY #30 tab 03/28/21 [Rx Last Taken Unknown] diphenhydramine HCl 25 mg capsule 50 mg PO DIRECTED #1 cap 04/10/21 [Rx Last Taken Unknown] prednisone 50 mg tablet 50 mg PO DIRECTED #3 tab 04/10/21 [Rx Last Taken Unknown] Allergy/AdvReac Type Severity Reaction Status Date / Time doxycycline Allergy Severe Chest Verified 04/21/21 09:13 Congestion/Couldn't Breathe epinephrine Allergy Severe Shortness Verified 04/21/21 09:13 [From Primatene Mist] of breath epinephrine bitartrate Allergy Severe Shortness Verified 04/21/21 09:13 [From Primatene Mist] of breath iodine Allergy Severe rash, Verified 04/21/21 09:13 swelling levofloxacin [From Levaquin] Allergy Intermediate Swelling Verified 04/21/21 09:13 estrogens, conjugated Allergy Mild Swelling Verified 04/21/21 09:13 [From Premarin] meperidine HCl [From Demerol] Allergy Mild Other Verified 04/21/21 09:13 Penicillins Allergy Mild Unknown Verified 04/21/21 09:13 Sulfa (Sulfonamide Allergy Mild Unknown Verified 04/21/21 09:13 Antibiotics) clarithromycin [From Biaxin] Allergy Unknown Rash Verified 04/21/21 09:13 digoxin [From Digitek] Allergy Swelling Verified 04/21/21 09:13 FOOD COLOR GREEN Allergy Intermediate Swelling Uncoded 04/21/21 09:13 IVP DYE Allergy Intermediate Swelling Uncoded 04/21/21 09:13 MAPLE TREE MOLD Allergy Mild Other Uncoded 04/21/21 09:13 RAGWEED Allergy Mild Other Uncoded 04/21/21 09:13 Family History Mother Cancer Aunt Cancer Brother Cancer Father Vitiligo Surgical History H/O hernia repair History of colonoscopy History of tonsillectomy S/P hysterectomy Social History Smoking Status: Never smoker Electronic Cigarette Use: not used second hand exposure: No alcohol intake: current alcohol intake frequency: holidays/special occasions only substance use type: does not use what type of physical activity do you participate in: walking ROS ROS ED Constitutional Constitutional ED: Denies chills or weight loss Eyes Eyes: Denies change in vision or diplopia ENT ENT ED: Denies ear pain, rhinorrhea or sore throat Cardiovascular Cardiovascular: Denies chest pain, orthopnea, palpitations or racing heartbeat Respiratory/Chest Respiratory/Chest: Denies cough, dyspnea or orthopnea Gastrointestinal Gastrointestinal: Reports abdominal pain and diarrhea; Denies nausea or vomiting Genitourinary Genitourinary ED: Denies dysuria, hematuria or urinary frequency Musculoskeletal Musculoskeletal: Reports back pain; Denies arthralgias or myalgias Integumentary Denies abscess or rash Neurologic Neurologic: Denies headache(s) or weakness Psychiatric Psychiatric: Denies anxiety, depression, suicidal ideation or suicidal thoughts Endocrine Endocrinology: Denies polydipsia, polyphagia or polyuria Allergic/Immunologic Allergic/Immunologic ED: Denies mouth swelling, tongue swelling or urticaria EXAM Physical Exam Const Vital Signs: 04/21/21 09:10 Temperature 96.4 F L Temperature Source Temporal Pulse Rate 71 Respiratory Rate 16 Blood Pressure 143/97 H Blood Pressure Mean 112 Pulse Ox 98 Oxygen Delivery Method Room Air Positive well nourished and well developed General Appearance ED: well developed HEENT Reports normocephalic, head/scalp atraumatic, TM's clear and moist mucous membranes Negative for trauma Tympanic Membrane ED: Yes TM's clear Eyes PERRL and EOMs intact bilaterally Neck no lymphadenopathy, supple and no JVD Resp normal respiratory effort and clear to auscultation bilaterally Cardio regular rate, regular rhythm and no murmurs GI non-tender and non-distended Auscultation: normoactive bowel sounds Palpation: soft and tender LLQ Back/Spine no CVA tenderness and normal ROM Thoracic Spine / Upper Back: Negative for paraspinal muscle tenderness Lumbar Spine / Lower Back: Negative for lumbar spinal tenderness Extremity normal to inspection General Extremety ED: Negative for edema General Extremity: Negative for edema Neuro oriented x3 and CN's II-XII intact bilaterally Sensorium / Orientation: alert Motor Exam: strength 5/5 throughout Psych mental status grossly normal Mood & Affect: Negative for depressed or tearful Skin no rashes or lesions noted and no wounds MDM MDM MDM Narrative Medical decision making narrative: Patient expressed some concern and had actually talked to her urologist recently because her urine has been brunner. Urinalysis here is negative. CBC negative and a BMP negative. CT of the abdomen pelvis was obtained without contrast due to allergy and is essentially negative. Patient states she does not understand how her body can store all t his fluid in a pouch and then release it. I tried to explain to her that there is no pouch full of fluid inside her abdomen other than her colon and that she probably just had diarrhea. Patient seems very focused on her hernia mesh. I explained to her I do not see an obstructive pattern. She may have scar tissue but I do not see that this is causing an emergent issue for her. Lab Data Attestation: I reviewed the patient's lab results. Labs: Laboratory Results - last 24 hr 04/21/21 04/21/21 04/21/21 09:14 09:50 09:50 WBC 4.7 RBC 4.53 Hgb 14.7 Hct 44.1 MCV 97.4 MCH 32.5 H MCHC 33.3 RDW Std Deviation 46.4 H RDW Coeff of Nay 12.8 Plt Count 187 MPV 10.3 Immature Gran % (Auto) 0.200 Neut % (Auto) 57.9 Lymph % (Auto) 28.4 [place] % (Auto) 10.7 H Eos % (Auto) 1.7 Baso % (Auto) 1.1 H Absolute Neuts (auto) 2.7 Absolute Lymphs (auto) 1.33 Nucleated RBC % 0 Sodium 141 Potassium 4.0 Chloride 108 H Carbon Dioxide 28.0 Anion Gap 5 BUN 13 Creatinine 0.74 Estim Creat Clear Calc 45.58 Est GFR (MDRD) Af Amer 98 Est GFR (MDRD) Non-Af 81 BUN/Creatinine Ratio 17.6 Glucose 103 Calcium 9.1 Urine Color Yellow Urine Clarity Clear Urine pH 7.0 Ur Specific [place] 1.010 Urine Protein Negative Urine Glucose (UA) Normal Urine Ketones Negative Urine Occult Blood Negative Urine Nitrite Negative Urine Bilirubin Negative Urine Urobilinogen Normal Ur Leukocyte Esterase 25 H Urine RBC 0 SEEN Urine WBC 0-5 SEEN Ur Squamous Epith Cells 0-5 SEEN Urine Bacteria 0 SEEN Urine Mucus 0 SEEN Radiography Diagnostic Testing: Clinical Impression(s) from Imaging Studies Abdomen/Pelvis CT 04/21/21 09:40 IMPRESSION: No renal or ureteral stone. Electronically Signed: Nolan Lundberg MD at 10:41 EDT Tel , Service support , Discharge Plan Triage Chief Complaint: Abd Pain ED Provider: Taqueria Gibson Dx/Rx/DC Orders Clinical Impression: Back pain, Diarrhea Prescriptions: No Action B-complex with vitamin C Capsule 1 cap PO DAILY RF: 0 niacin 250 mg tablet 250 mg PO DAILY RF: 0 cholecalciferol (vitamin D3) 350 mcg (14,000 unit) capsule 350 mcg PO ONCE RF: 0 psyllium husk [Fiber (psyllium husk)] 0.4 gram capsule 0.4 g PO DAILY RF: 0 hydrocortisone 2.5 % cream 1 applic TOPICAL TID PRN (Reason: rash) Qty: 30 RF: 2 tizanidine 4 mg tablet 4 mg PO QHS PRN (Reason: muscle pain) Qty: 30 RF: 2 meloxicam 7.5 mg tablet 7.5 mg PO BID PRN (Reason: pain or headache) Qty: 60 RF: 2 folic acid 1 mg tablet 1 mg PO DAILY Qty: 30 RF: 3 omeprazole 20 mg capsule,delayed release(DR/EC) 20 mg PO DAILY Qty: 30 RF: 0 rosuvastatin [Crestor] 5 mg tablet 5 mg PO DAILY Qty: 30 RF: 11 aspirin [Adult Low Dose Aspirin] 81 mg tablet,delayed release (DR/EC) 81 mg PO DAILY RF: 0 Eliquis 5 mg tablet 5 mg PO BID Qty: 60 RF: 11 prednisone 50 mg tablet 50 mg PO DIRECTED Qty: 3 RF: 0 diphenhydramine HCl [Benadryl] 25 mg capsule 50 mg PO DIRECTED Qty: 1 RF: 0 Primary Care Provider: Sandy Acevedo Referrals: Sandy Acevedo MD [Primary Care Provider] - As Needed Disposition Disposition: Home, Self Care
--- NOTE | 2021-04-21 09:40 | CT_ITS ---
STUDY: CT ABDOMEN AND PELVIS WITHOUT CONTRAST REASON FOR EXAM: Female, 75 years old. flank pain RADIATION DOSAGE (If Supplied By Facility): CTDIvol = ( 8.41 ) mGy, DLP = ( 390.59 ) mGycm TECHNIQUE: Transaxial images were obtained from the dome of the diaphragm to the symphysis pubis without oral contrast, and without intravenous contrast. Sagittal and coronal images were reconstructed. Individualized dose optimization techniques were used for this CT. COMPARISON: 09/12/2020 FINDINGS: The visualized lung bases are unremarkable. The visualized portions of the heart are within normal limits. Normal liver. Normal gallbladder and extrahepatic biliary system. Normal spleen. Normal pancreas. Normal bilateral adrenal glands. Normal right kidney. Normal left kidney. Normal visualized stomach. Normal small intestine. Normal colon. There is non-visualization of the appendix. Normal abdominal aorta. Normal inferior vena cava. Normal retroperitoneum. Normal urinary bladder. Status post repair of hernia the midline in the anterior abdominal wall in the pelvis with mesh. No residual recurrent hernia Mild levoscoliosis of the thoracic lumbar spine with degenerative disc disease. CT/Abdomen/Pelvis without Cont IMPRESSION: No renal or ureteral stone. Electronically Signed: Nolan Lundberg MD at 10:41 EDT Tel , Service support ,
[2021-04-21 09:52] LABS: Bacteria 0 SEEN /hpf (None Seen); Mucous, Urine 0 SEEN /hpf (<or=2+); Red Blood Cells-Urine 0 SEEN /hpf (0-5)
[2021-04-21 10:05] LABS: Absolute Lymphocyte Count 1.33 X10^3/uL (0.83-4.51); Absolute Neutrophil Count 2.7 X10^3/uL (2.0-7.7); Basophil# 0.05 X10^3/uL; Basophil% 1.1 % (0-1); Eosinophil# 0.08 X10^3/uL; Eosinophils% 1.7 % (0-5); Hematocrit 44.1 % (37-47); Hemoglobin 14.7 g/dL (12.0-15.0); Lymphocyte # 1.33 X10^3/ul (0.83-4.51); Lymphocyte % 28.4 % (19-41); Mean Corp Hgb Conc 33.3 g/dL (32-36); Mean Corpuscular Hgb 32.5 pg (27.0-32.0); Mean Corpuscular Volume 97.4 fL (81-99); Mean Platelet Vol. 10.3 fl (6.2-12.0); Monocyte% 10.7 % (0-10); NRBC Flagged by Analyzer 0 % (0-5); Neutrophil # 2.72 X10^3/uL (2.7-7.7); Neutrophil % 57.9 % (47-70); Platelet Count 187 K/mm3 (150-450); RBC Distribution Width CV 12.8 % (11.6-14.6); RBC Distribution Width SD 46.4 fl (35.1-43.9); Red Blood Count 4.53 M/mm3 (4.2-5.4); White Blood Count 4.7 K/mm3 (4.4-11.0)
[2021-04-21 10:09] LABS: Anion Gap 5 (5-15); BUN 13 mg/dL (7-18); BUN/Creat Ratio 17.6 RATIO (10-20); Calcium,Total 9.1 mg/dL (8.5-10.1); Chloride 108 mmol/L (98-107); Creatinine, Serum 0.74 mg/dL (0.55-1.02); EST Glomerular Filtration Rate 81 mL/min (>60); Est Glom Filt Rate - Afr Amer 98 mL/min (>60); Estimated Creatinine Clearance 45.58 ml/min; Glucose 103 mg/dL (74-106); Sodium Level 141 mmol/L (136-145)
[2021-04-21 10:11] LABS: Color, Urine Yellow (Yellow); Glucose, Dipstick Normal (Normal); Ketone-Dipstick Negative (Negative); Leukocyte Esterase-Dipstick 25 /ul (Negative); Nitrite-Dipstick Negative (Negative); Occult Blood-Urine Negative /ul (Negative); Protein-Dipstick Negative (Negative); Urine Bilirubin Dipstick Negative (Negative); Urine Clarity Clear (Clear); Urine Urobilinogen Normal (Normal)
[2021-04-21 10:24] LABS: Squamous Epithelial Cells - UA 0-5 SEEN /hpf (5-10); White Blood Cells 0-5 SEEN /hpf (0-5)
[2021-04-21 11:13] VITALS: BP 140/67; PULSE 57
== END 2021-04-21 11:14 | disposition home or self-care (01) ==
PROVIDERS: Emergency Provider Emergency Medicine; PCP Internal Medicine
DX: M54.9 Dorsalgia, unspecified (principal); R19.7 Diarrhea, unspecified; I48.0 Paroxysmal atrial fibrillation; J44.9 Chronic obstructive pulmonary disease, unspecified; I10 Essential (primary) hypertension; E78.5 Hyperlipidemia, unspecified; R13.10 Dysphagia, unspecified; M19.90 Unspecified osteoarthritis, unspecified site; M79.7 Fibromyalgia; K58.9 Irritable bowel syndrome, unspecified; K21.9 Gastro-esophageal reflux disease without esophagitis; F41.9 Anxiety disorder, unspecified; Z79.52 Long term (current) use of systemic steroids; Z79.899 Other long term (current) drug therapy; Z79.01 Long term (current) use of anticoagulants; Z79.82 Long term (current) use of aspirin; Z86.16 Personal history of COVID-19
CPT/HCPCS: 74176; 80048; 81001; 85025; 99283; A4216

== ENCOUNTER 2021-06-04 05:02 | Inpatient (IN) | payer MEDICARE, OTHER, SELFPAY ==
--- NOTE | 2021-05-28 12:35 | EKG12_ITS ---
Test Reason : PRE OP Blood Pressure : / mmHG Vent. Rate : 073 BPM Atrial Rate : 073 BPM P-R Int : 160 ms QRS Dur : 074 ms QT Int : 382 ms P-R-T Axes : 046 023 028 degrees QTc Int : 420 ms Normal sinus rhythm Normal ECG Confirmed by CADEN BHATTI, TRISHA ([id number]), loan expeditor SMITHA JACKSON ([id number]) on 05/29/2021 10:58:44 AM Referred By: SHUKRI Confirmed By:TRISHA NEGRETE MD
[2021-05-29 11:34] LABS: Hemoglobin 13.8 g/dL (12.0-15.0); Mean Corp Hgb Conc 33.7 g/dL (32-36); Mean Corpuscular Hgb 32.5 pg (27.0-32.0); Mean Corpuscular Volume 96.5 fL (81-99); Mean Platelet Vol. 10.6 fl (6.2-12.0); Platelet Count 175 K/mm3 (150-450); RBC Distribution Width CV 12.7 % (11.6-14.6); RBC Distribution Width SD 45.8 fl (35.1-43.9); Red Blood Count 4.25 M/mm3 (4.2-5.4); White Blood Count 3.5 K/mm3 (4.4-11.0)
[2021-05-29 11:49] LABS: International Normalized Ratio 1.4
[2021-05-29 11:50] LABS: Partial Thromboplast Time 34.4 Seconds (24.1-36.2)
[2021-05-29 12:01] LABS: AST(SGOT) 15 U/L (15-37); Alanine Aminotransfer ALT/SGPT 25 U/L (13-56); Albumin, Serum 3.8 g/dL (3.2-5.0); Alkaline Phosphatase 72 U/L (45-117); Bilirubin, Direct 0.09 mg/dL (0.00-0.30); Globulin 3.3 g/dL (2.2-4.2); Protein, Total 7.1 g/dL (6.4-8.2)
[2021-05-29 12:03] LABS: Anion Gap 7 (5-15); BUN 13 mg/dL (7-18); Calcium,Total 9.3 mg/dL (8.5-10.1); Chloride 105 mmol/L (98-107); Creatinine, Serum 0.76 mg/dL (0.55-1.02); EST Glomerular Filtration Rate 78 mL/min (>60); Est Glom Filt Rate - Afr Amer 94 mL/min (>60); Glucose 104 mg/dL (74-106); Potassium 3.7 mmol/L (3.5-5.1); Sodium Level 142 mmol/L (136-145)
[2021-06-04] VITALS (20 sets, daily range): BP systolic 92–157; BP diastolic 42–87; PULSE 49–75; RESP 12–16; TEMP 35.7–36.8; O2SAT 92–100; BMI 29.4
--- NOTE | 2021-06-04 | PLAQ_PTH ---
PATIENT: UMBERTO ARREDONDO LOC: [facility] U#:[id number] AGE/SX: 75/F ROOM: [facility] RE06/04/[address]: Dr. Segundo Frey MD : 1945 BED: 5 DIS: 06/05/2021 SPEC #: [id number] RECD: 06/04/21 13:07 STATUS: DYLAN DEAN #: [id number] JOHN: 06/04/21 00:[address]: Segundo Frey DEPT: SURGICAL PATHOLOGY RECD BY: Tyler Gastelum ENTERED: 06/04/21 13:07 SP TYPE: PLAQUE OTHR DR: MD Dr. Sandy Engel MD Tissues: PLAQUE Procedures: Decalcification bone/plaque Surgery Specimen Level III HEADER OPERATION: Carotid endarterectomy with patch angioplasty PRE-OP DIAGNOSIS: Acute carotid stenosis, right; acute amaurosis fugax, right eye TISSUE SUBMITTED: Right carotid plaque MICROSCOPIC DIAGNOSIS Right carotid plaque, endarterectomy: Calcified atheromatous plaque consistent with moderate to severe stenosis. AM:ghulam 06/07/2021 GROSS DESCRIPTION Received in fixative is one container labeled with the patient's name and designated right carotid plaque. The specimen consists of an irregular fragment of yellow-ayala plaque material measuring 1.5 x 1 x 1 cm. The specimen is serially sectioned totally submitted in one cassette after decalcification. / AM:ghulam 06/04/21 TC:5 CPT: 36454, 33293
[2021-06-04] MEDS: Lactated Ringers 1,000 ML 15 ML IV ×2 (05:30→12:11)
--- NOTE | 2021-06-04 06:32 | HP.PCM_ITS ---
History and Physical Date of Admission: 06/04/21 Intake Visit Reasons: F/U Testing R Carotid Stenosis Chief Complaint: discuss CTA Maori Liaison Adviser Required: No Is patient in pain?: No Allergies doxycycline Allergy (Severe, Verified 04/24/21 14:41) Chest Congestion/Couldn't Breathe epinephrine [From Primatene Mist] Allergy (Severe, Verified 04/24/21 14:41) Shortness of breath epinephrine bitartrate [From Primatene Mist] Allergy (Severe, Verified 04/24/21 14:41) Shortness of breath iodine Allergy (Severe, Verified 04/24/21 14:41) rash, swelling levofloxacin [From Levaquin] Allergy (Intermediate, Verified 04/24/21 14:41) Swelling estrogens, conjugated [From Premarin] Allergy (Mild, Verified 04/24/21 14:41) Swelling meperidine HCl [From Demerol] Allergy (Mild, Verified 04/24/21 14:41) Other Penicillins Allergy (Mild, Verified 04/24/21 14:41) Unknown Sulfa (Sulfonamide Antibiotics) Allergy (Mild, Verified 04/24/21 14:41) Unknown clarithromycin [From Biaxin] Allergy (Unknown, Verified 04/24/21 14:41) Rash digoxin [From Digitek] Allergy (Verified 04/24/21 14:41) Swelling FOOD COLOR GREEN Allergy (Intermediate, Uncoded 04/21/21 09:13) Swelling IVP DYE Allergy (Intermediate, Uncoded 04/21/21 09:13) Swelling MAPLE TREE MOLD Allergy (Mild, Uncoded 04/21/21 09:13) Other RAGWEED Allergy (Mild, Uncoded 04/21/21 09:13) Other Is last menstrual period known: No Post menopausal: Yes Patient : No PFSH Medical History Acute bronchitis, unspecified Acute maxillary sinusitis, unspecified Acute otitis media, left Allergic reaction to contrast dye Amaurosis fugax, right eye Anxiety Arthritis Asthma Carotid stenosis, right Carpal tunnel syndrome Cataracts, both eyes Chronic bronchitis Constant exophthalmos Constipation Dysphagia Essential (primary) hypertension Fatigue Fibromyalgia GERD (gastroesophageal reflux disease) Hay fever Hemorrhoids History of COVID-19 Hormone deficiency Hyperlipidemia Hypoglycemia IBS (irritable bowel syndrome) Knee pain Paroxysmal atrial fibrillation Pneumonia Seasonal allergies Sinusitis UTI (urinary tract infection) Vitamin D deficiency Vitiligo Surgical History H/O hernia repair History of colonoscopy History of tonsillectomy S/P hysterectomy Family History Mother Cancer Aunt Cancer Brother Cancer Father Vitiligo Social History Smoking Status: Never smoker Electronic Cigarette Use: not used second hand exposure: No alcohol intake: current alcohol intake frequency: holidays/special occasions only substance use type: does not use what type of physical activity do you participate in: walking HPI HPI HPI: UMBERTO ARREDONDO, is a 75 F who presents to the office today for surgical follow-up of 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 It is pertinent that on April 21, 2020 when she presented to the emergency room with complaint of abdominal pain. White blood cell count was 4.7 with a hemoglobin 14.7 hematocrit 44.1 platelet count 187,000. No shift. BUN is 13 creatinine 0.74. Urinalysis had 25 leukocyte Estrace with 0-5 white cells no bacteria. A CT was obtained of the abdomen and pelvis and is noted below. There are no acute findings. The patient was scheduled return today to follow-up regarding CTA of her carotids which were obtained April 12, 2021. There is a focal area of 65% stenosis of the origin of the right internal carotid artery. This would correlate with her carotid duplex imaging. It is possible that it could correlate with her amaurosis fugax on the right. Per Dr. Pathak on April 17, 2021 she had a brain MRI with and without contrast. No acute intracranial abnormality or masses. Moderate chronic microvascular ischemic changes. Empty sella syndrome It is of note that the patient presented to Dr. Sandy Acevedo complaining of an IV contrast reactions subsequent to her CTA of the carotids. She was premedicated with prednisone and Benadryl. The patient suggested that she felt swollen. However on clinical examination there is no edema noted of her face or peripheral exam. She was instructed to cease taking Benadryl and was permitted to take nondrowsy antihistamines. No clinical concerns were felt to be present at that evaluation. She has had only one vision episode on the right like a blind coming down in front of her right eye which then resolved. She complains of some funny tingling sensations of the apex of the scalp. She states that after eating some different foods she has urgency of the bowels and that is in part why she went to the emergency room. April 12, 2021 [facility] Imaging Services [address] [place] [address] CTA Neck W/WO Contrast MR#: [id number] Acct: [id number] Name: UMBERTO ARREDONDO Rep #: [id number] : 1945 F 75 From: Darryl Raza MD PCP: Dr. Sandy Acevedo MD Status: REG CLI Study: CTA Neck W/WO Contrast Date of Exam: 04/12/21 Exam# [id number] Ordering Dr: Segundo Frey MD STUDY: CTA NECK WITH CONTRAST REASON FOR EXAM: Female, 75 years old. bilateral carotid stenosis RADIATION DOSAGE (If Supplied By Facility): CTDIvol = ( 18.85 ) mGy, DLP = ( 469.27 ) mGycm TECHNIQUE: CT angiography with multi-detector data acquisition was performed from the aortic arch to the skull base following intravenous administration of IV 100mL [id number]-370. MIP images were reconstructed from the axial data set. Post-processing of the angiographic images was performed, with multiplanar reformation and 3D reconstruction. Degree of stenosis (when present) measured utilizing NASCET criteria. Individualized dose optimization techniques were used for this CT. COMPARISON: None. FINDINGS: AORTIC ARCH: There is atherosclerotic calcific plaque formation of the aortic arch and great vessels arising from the aortic arch, without a hemodynamically significant stenosis. There is a bovine origin of the great vessels with a common origin of the brachiocephalic and left common carotid artery. Normal origin of the left subclavian artery. Normal origins of the brachiocephalic, left common carotid, and left subclavian arteries. RIGHT CAROTID ARTERIES: There is atherosclerotic tortuous elongation of the right common carotid artery. Short segment atherosclerosis of the proximal ICA causing 65% stenosis. There is atherosclerotic tortuous elongation of the cervical portion of the right internal carotid artery. Normal origin of the right external carotid artery (ECA). LEFT CAROTID ARTERIES: There is atherosclerotic tortuous elongation of the left common carotid artery. There is mild atherosclerotic plaque formation of the origin of the left internal carotid artery with less than 50% cross sectional diameter stenosis. There is atherosclerotic tortuous elongation of the cervical portion of the left internal carotid artery. There is moderate atherosclerotic plaque formation of the origin of the left external carotid artery with an estimated stenosis of 50-69% stenosis. VERTEBRAL ARTERIES: Normal bilateral vertebral arteries. Degenerative changes of the cervical spine with acquired canal stenosis most noted at C5-C6. Degenerative anterolisthesis of C3-C4 and C4-C5 due to facet arthropathy. Multilevel foraminal stenosis, most evident at C5-C6. CT/CTA Neck W/WO Contrast IMPRESSION: 1. Right worse than left carotid atherosclerosis. 2. 65% stenosis of the proximal right ICA. 3. Less than 50% stenosis of left ICA. 4. Moderate stenosis of the left external carotid artery. 5. Multilevel degenerative disc disease with canal and foraminal stenosis. Electronically Signed: Darryl Raza MD (Brooks) at 20:18 EDT , Service support , April 21, 2021 emergency room visit STUDY: CT ABDOMEN AND PELVIS WITHOUT CONTRAST REASON FOR EXAM: Female, 75 years old. flank pain RADIATION DOSAGE (If Supplied By Facility): CTDIvol = ( 8.41 ) mGy, DLP = ( 390.59 ) mGycm TECHNIQUE: Transaxial images were obtained from the dome of the diaphragm to the symphysis pubis without oral contrast, and without intravenous contrast. Sagittal and coronal images were reconstructed. Individualized dose optimization techniques were used for this CT. COMPARISON: 09/12/2020 FINDINGS: The visualized lung bases are unremarkable. The visualized portions of the heart are within normal limits. Normal liver. Normal gallbladder and extrahepatic biliary system. Normal spleen. Normal pancreas. Normal bilateral adrenal glands. Normal right kidney. Normal left kidney. Normal visualized stomach. Normal small intestine. Normal colon. There is non-visualization of the appendix. Normal abdominal aorta. Normal inferior vena cava. Normal retroperitoneum. Normal urinary bladder. Status post repair of hernia the midline in the anterior abdominal wall in the pelvis with mesh. No residual recurrent hernia Mild levoscoliosis of the thoracic lumbar spine with degenerative disc disease. CT/Abdomen/Pelvis without Cont IMPRESSION: No renal or ureteral stone. Electronically Signed: Nolan Lundberg MD at 10:41 EDT Tel , Service support , My recent office notes of April 09 reflect the following Intake Visit Reasons: CAROTID US Chief Complaint: carotid US f/u Maori Liaison Adviser Required: No Is patient in pain?: No Allergies doxycycline Allergy (Severe, Verified 04/09/21 14:39) Chest Congestion/Couldn't Breathe epinephrine [From Primatene Mist] Allergy (Severe, Verified 04/09/21 14:39) Shortness of breath epinephrine bitartrate [From Primatene Mist] Allergy (Severe, Verified 04/09/21 14:39) Shortness of breath iodine Allergy (Severe, Verified 04/09/21 14:39) PASS OUT levofloxacin [From Levaquin] Allergy (Intermediate, Verified 04/09/21 14:39) Swelling estrogens, conjugated [From Premarin] Allergy (Mild, Verified 04/09/21 14:39) Swelling meperidine HCl [From Demerol] Allergy (Mild, Verified 04/09/21 14:39) Other Penicillins Allergy (Mild, Verified 04/09/21 14:39) Unknown Sulfa (Sulfonamide Antibiotics) Allergy (Mild, Verified 04/09/21 14:39) Unknown clarithromycin [From Biaxin] Allergy (Unknown, Verified 04/09/21 14:39) Rash digoxin [From Digitek] Allergy (Verified 04/09/21 14:39) Swelling FOOD COLOR GREEN Allergy (Intermediate, Uncoded 04/09/21 14:39) Swelling IVP DYE Allergy (Intermediate, Uncoded 04/09/21 14:39) Other MAPLE TREE MOLD Allergy (Mild, Uncoded 04/09/21 14:39) Other RAGWEED Allergy (Mild, Uncoded 04/09/21 14:39) Other Medications B-complex with vitamin C 1 cap PO DAILY 11/18/19 [History Confirmed 04/09/21] cholecalciferol (vitamin D3) 350 mcg (14,000 unit) capsule 350 mcg PO ONCE 01/20/20 [History Confirmed 04/09/21] hydrocortisone 2.5 % topical cream 1 applic TOPICAL TID PRN #30 g 01/20/20 [Rx Confirmed 04/09/21] niacin 250 mg tablet 250 mg PO DAILY 01/20/20 [History Confirmed 04/09/21] psyllium husk 0.4 gram capsule 0.4 g PO DAILY 01/20/20 [History Confirmed 04/09/21] meloxicam 7.5 mg tablet 7.5 mg PO BID PRN #60 tab 01/10/21 [Rx Confirmed 04/09/21] tizanidine 4 mg tablet 4 mg PO QHS PRN #30 tab 01/10/21 [Rx Confirmed 04/09/21] folic acid 1 mg tablet 1 mg PO DAILY #30 tab 03/18/21 [Rx Confirmed 04/09/21] omeprazole 20 mg capsule,delayed release 20 mg PO DAILY #30 cap 03/18/21 [Rx Confirmed 04/09/21] apixaban 5 mg tablet 5 mg PO BID #60 tab 03/22/21 [Rx Confirmed 04/09/21] aspirin 81 mg tablet,delayed release 81 mg PO DAILY 03/22/21 [History Confirmed 04/09/21] rosuvastatin 5 mg tablet 5 mg PO DAILY #30 tab 03/28/21 [Rx Confirmed 04/09/21] [facility] Medical History Acute bronchitis, unspecified Acute maxillary sinusitis, unspecified Acute otitis media, left Amaurosis fugax, right eye Anxiety Arthritis Asthma Carotid stenosis, right Carpal tunnel syndrome Cataracts, both eyes Chronic bronchitis Essential (primary) hypertension Fatigue Fibromyalgia GERD (gastroesophageal reflux disease) Hay fever Hemorrhoids History of COVID-19 Hormone deficiency Hyperlipidemia Hypoglycemia IBS (irritable bowel syndrome) Knee pain Paroxysmal atrial fibrillation Pneumonia Seasonal allergies Sinusitis UTI (urinary tract infection) Vitamin D deficiency Vitiligo Surgical History H/O hernia repair History of colonoscopy History of tonsillectomy S/P hysterectomy Family History Mother Cancer Aunt Cancer Brother Cancer Father Vitiligo Social History Smoking Status: Never smoker Electronic Cigarette Use: not used second hand exposure: No alcohol intake: current alcohol intake frequency: holidays/special occasions only substance use type: does not use what type of physical activity do you participate in: walking HPI HPI HPI: UMBERTO ARREDONDO, is a 75 F who presents to the office today for surgical consultation regarding extracranial carotid artery occlusion to disease. The patient is referred by Roland Marin CNP and a written copy of my surgical consult will be returned to him. The patient apparently contacted her neurology office complaining of a vision change. They were concerned it might be related to atrial fibrillation. A 30-day Holter monitor was recommended. She has been placed on Eliquis therapy. Her blood pressure is felt to be well controlled. She has hyperlipidemia with abnormal laboratory dating back to December 2019. She had a previous carotid duplex exam March 2017 suggesting 60 to 79% stenosis of her right internal carotid and 20 to 39% stenosis of the left. As of March 28, 2021 peak systolic velocity within the right internal carotid artery is 240 cm/s flow with end-diastolic velocity of 66. This is felt to be consistent with greater than 70% stenosis. The left internal carotid artery has a peak systolic velocity of 102 cm second peak static flow consistent with a less than 50% stenosis. The patient states that she had an episode when she was sitting of a vision cely ud in her right eye that seem to move from the top to the bottom of the vision then from the bottom of the vision up to the top. She [facility] and subsequently was referred to cardiology. She has been placed on apixaban therapy. She has not had any recurrence. A previous office note of October 16, 2017 reflects the following for Dr. Mali ARREDONDO, is a 71 F who presents to the office today for a multitude of concerns and complaints. This is a patient who from past surgical treatment and postoperative concerns I know well. In 2001 I performed a ventral herniorrhaphy with mesh. Over the years ensuing she has had problems with abdominal pain. CT scan has demonstrated some curling of the edge of the mesh with some bowel involvement but no evidence of bowel and obstruction or fistulization. Multiple CTs have previously been obtained demonstrating no change. I have been asked by Dr. Mercedes Maloney to the service with her surgical evaluation and a written copy of my surgical consult and recommendations will be returned to him The patient presents today with a rather scattered primary complaint. She initially stated that Dr. Monge 2 years prior had performed a colonoscopy and that she has had trouble ever since. My records demonstrate that February 08, 2014 Dr. Delroy Lou performed a upper endoscopy showing a normal esophagus slightly erythematous mucosa of the antrum. On that same day he performed a colonoscopy. That demonstrated diverticulosis the sigmoid colon and descending colon. No acute findings. It is of additional note that March 14, 2011 Dr. Tito Heck had performed a colonoscopy on the patient. A tortuous colon was identified. Diverticulosis of the descending colon. Hemorrhoids. No acute findings identified. I then further try to discuss with the patient why she was presenting to a surgeon today she then after initially stating that she has never felt well since her colonoscopy 2 years ago which actually ends up being 4 years ago she now states that she is having new onset constipation. This was not part of her original concern. She states that 2 weeks ago she had a dark stool On September 16, 2006 the patient had yet another colonoscopy. This demonstrated no acute abnormalities. It is of note that the patient was felt to have tolerated colonoscopy poorly secondary to hyper pain response. 1 of her current concerns is constipation. Ongoing apparently for 2 years but difficult to decipher. She times times uses magnesium citrate. Sometimes uses a suppository. She states that she feels very cold. She states that that has been ongoing for multiple years as well. She states that perhaps 2 weeks ago she had dark stool. She has not noticed it since. She has not had any weight loss. Or any weight loss that she may have has she rapidly regains. She is interested as to whether the mesh that had been placed in 2001 could be causing her current problems. I was able to obtain previous records from the [facility] and a note from Dr. Busch.. The patient most recently has seen Dr. Maloney in [place]. It is of note that the patient has a chronic anxiety syndrome as a diagnosis. Previous records demonstrate multiple various physician and extended caregiver appointments with a variety of concerns. There is previous documentation that the patient has a family history of colon cancer I believe in her mother. Her main concerns with me today were #1 feeling tired and cold, #2 her bowels have been having a coffee-ground appearance to them however her ability to have a bowel movement has improved since she has used magnesium citrate, #3 epigastric abdominal discomfort at times. The patient has undergone esophageal manometry which was completed at [facility] on July 28, 2016. This was read as an overall normal study with a sliding hiatal hernia. She states that she was told that she needed to take nitroglycerin if she has this type of pain in the past. I have instructed her that nitroglycerin may help with any chest related pressures but with regards to her esophagus is functioning entirely normally. And she has no esophageal spasms noted on her manometry study. My previous note of September 29, 2017 reflects the following and actually included the above summary. My conclusion was the following. 1. Constipation, unspecified constipation type K59.00 Plan After careful clinical exam I am not detecting an acute surgical illness for this patient. The patient clearly demonstrated a severe anxiety complex with a multitude of concerns today. By the end of the appointment her primary concern was her feeling of coldness all over and particularly her cold hands. She states that when she takes her temperature it is 96.6?F As noted previously we have placed this patient through a multitude of investigations. Fortunately no account have we found active disease or findings. I have not proposing a surgical intervention for her at this time. She has 1 more additional year to go prior to her next high-risk screening colonoscopy. Certainly if she were to demonstrate recurrent symptoms or acute surgical findings I would be more than pleased to see her in return. I appreciate the opportunity of assisting with her surgical care. If she continues to complain of bowel type issues then perhaps it that might not be unreasonable to pursue a barium enema. She has had at least 3 previous colonoscopies with difficulty incurred in no acute findings identified. Cc: Dr. Mercedes Frey M.D., F.A.C.S. March 28, 2021 Reason For Study: Amaurosis fugax Rt. Velocities/BP Lt. Velocities/BP Prox CCA 107.3/16 cm/sec. Prox CCA 111.1/26.3 cm/sec. Mid CCA 93/16 cm/sec. Mid CCA 79.7/16 cm/sec. Dist CCA 85.2/17.3 cm/sec. Dist CCA 97.2/20.4 cm/sec. Prox ICA 240.1/68.8 cm/sec. Prox ICA 102.3/26.2 cm/sec. Mid ICA 86.4/17 cm/sec. Mid ICA 71.6/23.7 cm/sec. Dist ICA 46.5/16.8 cm/sec. Dist ICA 60.5/20 cm/sec. Rt. ICA/CCA = 2.58. Lt. ICA/CCA = 1.05. Prox ECA 96.9/10.8 cm/sec. Prox ECA 87.6/9 cm/sec. Rt. Vert. 42.1/11.3 cm/sec. Lt. Vert. 38.1/12.6 cm/sec. Right Extracranial There is intimal thickening but no significant atherosclerotic plaque noted in the right common carotid artery. There is heterogeneous, irregular atherosclerotic plaque noted in the right internal carotid artery. There is intimal thickening but no significant atherosclerotic plaque noted in the right external carotid artery. Antegrade flow is noted in the right vertebral artery. Left Extracranial There is homogeneous, smooth atherosclerotic plaque noted in the left common carotid artery. There is heterogeneous, irregular atherosclerotic plaque noted in the left internal carotid artery. There is heterogeneous, irregular atherosclerotic plaque noted in the left external carotid artery. Antegrade flow is noted in the left vertebral artery. Procedure Carotid Duplex 46521. This is a Carotid Duplex examination using B-mode, color flow and specral Doppler. Exam performed in department. VL/Carotid Duplex Ultrasound Interpretation Summary Irregular calcific plaque at the proximal right internal carotid artery with greater than 70% stenosis. Less than 50% stenosis right external carotid artery Irregular calcific plaque in the proximal left internal carotid artery with less than 50% stenosis Less than 50% stenosis left external carotid artery Patent and antegrade vertebral arteries bilaterally Mild progression of disease involving the right internal carotid artery from a previous screening examination of December 18, 2009 Ordering Physician: Rosendo Pathak Referring Physician: Sandy Acevedo Performed By: Purvi Brooks RVT General General: Yes weight change and fatigue; No appetite, colon cancer, breast cancer or weakness HEENT HEENT: Yes swollen glands; No difficulty swallowing, eye injury, eye surgery or hoarseness Endo Endocrine: No thyroid disease, diabetes mellitus, thyroid cancer, Hair loss, heat intolerance or cold intolerance Skin Skin: No rash or changing moles Breast Breast: No left breast lump, right breast lump, nipple discharge, breast pain, abnormal mammogram, abnormal US or breast enlargement Musc Musculoskeletal: Yes back problems and arthritis; No rheumatoid arthritis, gout or joint pain Cardio Cardiovascular: Yes heart disease, atrial fibrillation and high blood pressure; No murmur, pacemaker, heart attack, heart stent, palpitations, shortness of breat with exertion or chest pain Psych Psychiatric: No depression, anxiety or hearing voices Resp Respiratory: Yes shortness of breath, No sleep apnea, No cough, No COPD, Yes asthma, No emphysema and No wheezing Gastro Gastrointestinal: Yes abdominal pain, No nausea or vomiting, No diarrhea, Yes constipation, No blood in stool, Yes acid reflux, No hemorrhoids, No ulcers, No gallbladder problem and No black,tarry stools Joe Hematologic: Yes blood thinners, No blood disorders, No bleeding and Yes anemia Neuro Neurologic: No system reviewed and no additional complaints, except as documented, No as per HPI, No abnormal gait, No abnormal hearing, No abnormal movements, No abnormal speech, No behavioral changes, No burning sensations, No confusion, No convulsions, No disequilibrium, No dizziness, No localized weakness, No frequent falls, No headache(s), No lack of coordination, No loss of vision, No memory loss, Yes numbness, No other visual disturbances, No radicular pain, No restless legs, No sensory deficit, No syncope, Yes tingling, No tremor(s), No weakness and No other Exam Const General: cooperative, comfortable and no acute distress Nutritional Appearance: average body habitus Orientation: awake [facility] Head: normal to inspection Eyes General: appearance normal, both eyes and all related structures Neck Other: Neck is supple, nontender, no masses, carotid pulses difficult to feel it 2+, no bruits noted Resp Effort & Inspection: normal respiratory effort Auscultation: clear to auscultation bilaterally Cardio Rate: regular rate Rhythm: regular rhythm GI Palpation: soft Neuro General: patient alert, patient awake and patient oriented x3 Extrem General: no calf tenderness Psych Appearance: grossly normal Assessment and Plan Assessment and Plan (1) Amaurosis fugax, right eye: Status: Acute (2) Bilateral carotid artery stenosis: Status: Acute Orders: Orders: CTA Neck W/WO Contrast Today I65.23 Plan - Dr. Segundo Frey MD: The patient notes that she is scheduled to have a brain MRI ordered by Dr. Zapien. I recommend that we obtain a carotid CTA and have her return after both studies. I do not recommend any other medical changes at this time. I cannot exclude the right carotid is etiologic to her amaurosis fugax right eye. Her right eye symptoms certainly sound suspicious. We will also get copies of information from her ophthalmologic examination. She is a highly complex patient with multifocal symptomatology. This may be difficult to decipher her symptoms and etiology. I will try to assist with her surgical care. Appreciate the opportunity of assisting with the surgical management Copy: Dr. Roland Marin and Dr. Sandy Frey M.D., F.A.C.S. The patient saw expansion envelope maker hand Dr. Cody Orozco on March 21, 2021. Impression was transient visual loss right eye. Laboratory was requested to exclude giant cell arteritis. It was noted that Dr. Chaparro had already ordered a carotid duplex exam. Segundo Frey M.D., F.A.C.S. ROS General General: Yes weight change and fatigue; No appetite, colon cancer, breast cancer or weakness HEENT HEENT: Yes swollen glands; No difficulty swallowing, eye injury, eye surgery or hoarseness Endo Endocrine: No thyroid disease, diabetes mellitus, thyroid cancer, Hair loss, heat intolerance or cold intolerance Skin Skin: No rash or changing moles Breast Breast: No left breast lump, right breast lump, nipple discharge, breast pain, abnormal mammogram, abnormal US or breast enlargement Musc Musculoskeletal: Yes back problems and arthritis; No rheumatoid arthritis, gout or joint pain Cardio Cardiovascular: Yes heart disease, atrial fibrillation and high blood pressure; No murmur, pacemaker, heart attack, heart stent, palpitations, shortness of breat with exertion or chest pain Psych Psychiatric: No depression, anxiety or hearing voices Resp Respiratory: Yes shortness of breath, No sleep apnea, No cough, No COPD, Yes asthma, No emphysema and No wheezing Gastro Gastrointestinal: Yes abdominal pain, No nausea or vomiting, No diarrhea, Yes constipation, No blood in stool, Yes acid reflux, No hemorrhoids, No ulcers, No gallbladder problem and No black,tarry stools Joe Hematologic: Yes blood thinners, No blood disorders, No bleeding and Yes anemia Neuro Neurologic: No system reviewed and no additional complaints, except as documented, No as per HPI, No abnormal gait, No abnormal hearing, No abnormal movements, No abnormal speech, No behavioral changes, No burning sensations, No confusion, No convulsions, No disequilibrium, No dizziness, No localized weakness, No frequent falls, No headache(s), No lack of coordination, No loss of vision, No memory loss, Yes numbness, No other visual disturbances, No radicular pain, No restless legs, No sensory deficit, No syncope, Yes tingling, No tremor(s), No weakness and No other Assessment and Plan Assessment and Plan (1) Carotid stenosis, right: Status: Acute (2) Amaurosis fugax, right eye: Status: Acute Plan - Dr. Segundo Frey MD: I have been very straightforward with this patient. I have suggested to her that I am suspicious that the right carotid stenosis is etiologic to her symptoms which appear to correlate with amaurosis fugax right eye. In extensive detail I have discussed with her benefits risk complications and alternatives of a right carotid enterectomy with bovine patch angioplasty and carotid shunting compared and contrasted to carotid artery stenting. I have made her very aware that I do not perform carotid artery stenting. I have offered her referral to a tertiary institution for second opinion consultation. I have explained to her the risk of surgical intervention and I have also explained to her the risk of nonintervention. Her medication list has her both on apixaban and aspirin but she states she is only taking the apixaban. I will recommend that she hold the apixaban 2 days preoperatively and that she initiate low-dose aspirin 81 mg 5 days preoperatively. I propose for her right carotid enterectomy with bovine patch angioplasty and arterial line monitoring. Benefits risk complications alternatives have been discussed. No guarantees of success have been offered. I have explained to her that this will not resolve her funny feeling in her head. This is an attempt to stop an additional episode of suspected embolization to her right eye. Regarding her abdominal complaints. These abdominal complaints have been ongoing for many many years. I do not recommend that any additional testing or interventions regarding her colon be pursued until she decides whether she wants her carotid treated and has that accomplished. She has had an opportunity to ask and have questions answered. At this point she clearly states that she would like to stay locally and have me perform right carotid enterectomy. She declines tertiary referral. She declines consideration for carotid artery stenting. Please note that after her CTA of her carotid she complained of facial swelling and that she was evaluated by Dr. Sandy Acevedo and no acute clinical findings were confirmed at that time. Copy: Dr. Sandy Acevedo and Dr. Rosendo Pathak and Dr. Watson Friend Segundo Frey M.D., F.A.C.S. The patient states that she is not had any further episodes of amaurosis fugax right eye. She has no specific complaints or concerns today. Although she states that she previously had COVID-19 she has not been vaccinated. She denies any acute shortness of breath or chest pain. She had some concerns previously that aspirin might cause tachycardia but we obtained a preoperative EKG with rhythm strip demonstrating a normal sinus rhythm and no tachycardia. She stopped her Xarelto 48 hours ago. She continued her low-dose aspirin yesterday. Propose for her a right carotid endarterectomy with bovine patch angioplasty. I have reinspected her CTA and there clearly is proximal internal carotid artery stenosis with post stenotic dilatation. I believe that this is a likely source for her on embolization. We we will place an arterial line to assist with monitoring. She has had an opportunity to ask and have questions answered. We will proceed as noted. Her history and physical has been reviewed Segundo Frey M.D., F.A.C.S.
--- NOTE | 2021-06-04 06:34 | PCM.DC ---
Discharge Instructions Diet Discharge Diet: Light diet - advance as tolerated Activity Discharge Activity: May Not Drive (For 5 to 7 days), May Not Shower (For 3 days) and May Take a Tub Bath Weight Bearing Status: Full weight bearing Additional Activity Instructions:: May shower on Thursday Dressing / Incision Call your doctor if your incision/area has: Continuous Slow Oozing, Sudden Increased Bleeding and Increased Pain/ Swelling Call your doctor if you observe: Fever of 101 or Higher Suture Line Care: Avoid Pulling/Pushing Change Dressing in: 1 day (You may apply a dry gauze cover dressing to your incision as needed to protect from clothing irritation. Change as needed) Remove Dressing in: 1 week (Leave your Steri-Strips in place for 1 week then you may remove) Follow Up Care Please Follow Up With: Segundo Frey MD When: Approximately 10 days. Please call [phone] to arrange for an appointment Test Results: Continue yearly low-dose 81 mg aspirin starting now. You may resume Xarelto on 06/06/2021 barring any difficulties prior to that Discharge Plan Admission Admit Date/Time: 06/04/21 05:02 Attending Provider: Segundo Frey Primary Care Provider: Sandy Acevedo Consulting Providers: Jr Tobias Discharge Orders/Prescriptions Prescriptions: No Action B-complex with vitamin C Capsule 1 cap PO DAILY RF: 0 cholecalciferol (vitamin D3) 350 mcg (14,000 unit) capsule 10,000 unit PO DAILY RF: 0 psyllium husk [Fiber (psyllium husk)] 0.4 gram capsule 0.4 g PO DAILY RF: 0 diphenhydramine HCl [Benadryl] 25 mg capsule 50 mg PO PRN PRN (Reason: ALLERGIES) RF: 0 Xarelto 20 mg tablet 20 mg PO DAILY RF: 0 rosuvastatin [Crestor] 5 mg tablet 5 mg PO DAILY RF: 0 Probiotic 3 billion cell Capsule 3,000 mmu cells PO DAILY RF: 0
--- NOTE | 2021-06-04 06:36 | OP.PCM_ITS ---
Problems Associated Problem List Diagnoses (1) Amaurosis fugax: (2) Carotid stenosis, right: Report of Operation Date of Procedure: 06/04/21 Pre-Operative Diagnosis: Amaurosis fugax, symptomatic right internal carotid artery stenosis Post-Operative Diagnosis: Same Surgery/Procedure Performed:: Left radial arterial line placement Right carotid endarterectomy with bovine patch angioplasty [facility] reference [id number], PN #[id number], lot number [id number] Description of Surgical Findings:: At the bedside timeout informed consent was obtained. Gio test performed demonstrating adequate left ulnar flow. The left wrist was gently extended prepped with chlorhexidine. Under ultrasound guidance 1% lidocaine was instilled as local anesthetic. 1 cc was used. Under ultrasound guidance a 20-gauge Angiocath was advanced into the radial artery and with Seldinger wire technique was easily advanced. It was secured the skin with 3-0 silk. Was connected to pressure tubing OpSite dressing applied followed by Key wrap. Patient tolerated procedure well no apparent complication blood loss was minimal and viable at the completion. She was subsequently taken to the operating room. She was placed supine on the table and underwent general endotracheal intubation anesthesia. Clindamycin 900 g were given intravenously preoperatively. The right neck was sterilely prepped and draped. An oblique incision was made along the border of the anterior sternocleidomastoid. Sharp dissection was carried down through the subcutaneous tissue. The platysma was incised. The sternocleidomastoid was reflected laterally. Crossing facial vein secured with hemoclips and 3-0 Vicryl ligatures were indicated. Sharp and blunt dissection performed directly down upon the carotid bulb common carotid internal and external carotid. Sequentially the internal carotid common carotid and external carotid arteries were dissected free. Dacron tape and Pranav tourniquet placed on the internal carotid with which was quite tortuous. Vesseloops placed around the external carotid and the proximal Dacron tape around the common carotid. The patient received 6000 units of heparin after adequate circulating time peripheral vascular clamps were placed on the internal carotid common carotid and external carotid. 11 blade was used to make an arteriotomy which was extended with Barker scissors. The plaque appeared to be more fibrotic was not ulcerated but was stenotic at the origin of the internal carotid artery. The plaque was sharply transected to the common carotid and then carefully elevated with a Victor. A inversion endarterectomy was performed of the external carotid. The plaque was carefully feathered at the internal carotid and then sharply transected using Barker s cissors. Further debris was carefully removed. A single apical tacking suture of 7-0 Prolene was placed at the internal carotid. The 8 cm x 0.8 cm bovine patch was shaped to form and a patch angioplasty was created with a running 6-0 Prolene. Prior to completion there was good retrograde and antegrade flow. It is of note that I did not utilize a shunt during the procedure because of the tortuosity of the vessel and the good maintenance of the cerebral oximeter flow and the good retrograde flow from the internal carotid. Hemostasis was intact. The patient did receive 20 mg of protamine as reversal. To help undo some of the kinking I did place a retaining suture into the internal carotid artery of 6-0 Prolene and attached that to the posterior aspect of the sternocleidomastoid and attempt to help straighten that vessel to a degree. It actually worked quite well. Patient had remained stable throughout. The platysma was approximated running 3-0 Vicryl. Skin edges proximal and r unning subicular 5-0 Vicryl. The periincisional was incised with 10 cc of 0.5% Marcaine. Steri-Strips Telfa tape dressings applied. Sponge and instrument and needle counts were reported the surgeon to be correct. Specimen plaque. Drains none. Blood loss 100 cc. The patient was taken to the recovery area in satisfactory addition without apparent complication Segundo Frey M.D., F.A.C.S. Surgeon: Segundo Frey Type of Anesthesia: General and Local Anesthesiologist: Artie Reed
[2021-06-04] MEDS: Heparin Injection (Vial) 5,000 UNIT/ML VIAL 5000 UNIT (09:01)
[2021-06-04] MEDS: Bupivacaine Mpf 0.5% 30 ML VIAL (09:04)
[2021-06-04] MEDS: Nitro/D5w 25MG/250ML Bottle 25 MG (09:18)
[2021-06-04 11:35] LABS: ACT Activated Clotting Time 124 sec (74-137)
[2021-06-04 11:36] LABS: ACT Activated Clotting Time 238 sec (74-137)
--- NOTE | 2021-06-04 19:50 | PCS.PANDOC ---
PANDEMIC DOCUMENTATION INITIATED: Date: 02/04/2021 Time: 1900 Patient brought to [place] [id number] for overflow admission. please refer to shrimp pond laborer end of case report for vitals and assement info.
[2021-06-04] MEDS: Aspirin 81 MG TAB.CHEW PO (20:44)
[2021-06-04] MEDS: HYDROcodone Bitartrate/Apap 5/325 Tablet PO (20:44)
[2021-06-05 05:30] VITALS: O2SAT 96
--- NOTE | 2021-06-05 05:57 | PCM.PN.SRG ---
Subjective Subjective Patient has been stable postoperatively. Neurologic status is remained intact. She has a very slightly sore throat. Objective Data Objective Data Vital Signs: Vital Signs Temp Pulse Resp BP Pulse Ox 98.3 F 57 L 16 135/87 H 96 06/04/21 16:40 06/04/21 16:40 06/04/21 16:40 06/04/21 16:40 06/05/21 05:30 Oxygen Flow Rate (L/min) 2 Oxygen Delivery Method Room Air Weight: 145 lb 11.609 oz Body Mass Index (BMI) 29.4 Intake & Output: Intake and Output for Last 24 Hours 06/03/21 06/04/21 06/05/21 23:59 23:59 23:59 Intake Total 1106 / 1106 Output Total 300 / 300 Balance 806 / 806 Lab / Micro Data Result Diagrams: 05/29/21 10:39 05/29/21 10:39 Labs: Laboratory Results - last 24 hr 06/04/21 07:00: Activated Clotting Time 124 06/04/21 08:51: Activated Clotting Time 238 H Micro: Microbiology 06/03/21 09:37 Interface Orders SARS-CoV-2 Antigen (Rapid) - Final Physical Exam Narrative Right neck is supple, dressing removed, incision clean and dry, minimal swelling, Const no apparent distress Resp normal respiratory effort Cardio regular rate and regular rhythm Extremity Extremity Narrative: Neurologic status grossly intact Assessment & Plan Assessment/Plan (1) Amaurosis fugax: (2) Carotid stenosis, right: PLAN: Right carotid stenosis resolved. Good postoperative course. Plan discharge. Plan follow-up carotid duplex as a outpatient. The patient has been given explicit instructions regarding her medications. Hopefully this will resolve any further episodes of amaurosis fugax right eye. Segundo Frey M.D., F.A.C.S.
[2021-06-05] MEDS: Aspirin 81 MG TAB.CHEW PO (08:19)
--- NOTE | 2021-06-05 09:35 | CASEMGMT ---
RNCM Progress Note This technical document writer went to patient bedside to complete initial RNCM assessment and patient was DC'd home prior to completion. Admitted 06/04/2021 for Symptomatic severe stenosis Rt Carotid artery. LW on file, completed 08/11/1995, GAGE Hall. Per [facility]- continue Kranthi. MITCHELL Pryor
== END 2021-06-05 09:28 | disposition home or self-care (01) | DRG 38 ==
LOC: ACINP 09:12 → PCU 06-05 06:04
PROVIDERS: Anesthesiology; Admitting Provider Surgery; PCP Internal Medicine; Referring Provider Surgery; Visit Provider Surgery
PROC: 03CH0ZZ Extirpation of Matter from Right Common Carotid Artery, Open Approach (ICD-10-PCS; CPT 35301; principal; 2021-06-04 07:10)
DX: I65.23 Occlusion and stenosis of bilateral carotid arteries (principal); G45.3 Amaurosis fugax; Z20.822 Contact with and (suspected) exposure to COVID-19; I48.0 Paroxysmal atrial fibrillation; I10 Essential (primary) hypertension; E78.5 Hyperlipidemia, unspecified; K58.9 Irritable bowel syndrome, unspecified; M79.7 Fibromyalgia; J45.909 Unspecified asthma, uncomplicated; M19.90 Unspecified osteoarthritis, unspecified site; F41.9 Anxiety disorder, unspecified; K21.9 Gastro-esophageal reflux disease without esophagitis; Z78.0 Asymptomatic menopausal state; Z79.01 Long term (current) use of anticoagulants; Z79.899 Other long term (current) drug therapy; Z86.16 Personal history of COVID-19
CPT/HCPCS: 36415; 80048; 80076; 85027; 85347; 85610; 85730; 87426; 88304; 88311; 93005; 99251; C9803; J7030; J7040; J7120; A4216; G0463; J2405

== ENCOUNTER → 2021-06-19 09:39 | Outpatient (CLI) | payer MEDICARE, OTHER, SELFPAY ==
[2021-06-19 10:33] LABS: AST(SGOT) 15 U/L (15-37); Alanine Aminotransfer ALT/SGPT 29 U/L (13-56); Albumin, Serum 3.5 g/dL (3.2-5.0); Alkaline Phosphatase 69 U/L (45-117); Bilirubin, Direct 0.12 mg/dL (0.00-0.30); Cholesterol 193 mg/dL (200); Globulin 3.4 g/dL (2.2-4.2); High Density Lipoprotein 60 mg/dL; Protein, Total 6.9 g/dL (6.4-8.2); Triglycerides 132 mg/dL; Very Low Density Lipoprotein 26 mg/dL (5-40)
== END ==
PROVIDERS: PCP Internal Medicine; Referring Provider Nurse Practitioner Family; Visit Provider Nurse Practitioner Family
DX: E78.5 Hyperlipidemia, unspecified (principal)
CPT/HCPCS: 36415; 80061; 80076

== ENCOUNTER 2021-06-28 09:26 | Outpatient (CLI) | payer MEDICARE, OTHER, SELFPAY ==
--- NOTE | 2021-06-28 09:29 | CDUL_ITS ---
Reason For Study: STENOSIS Rt. Velocities/BP Prox CCA 120.4/33.0 cm/sec. Mid CCA 104.7/20.0 cm/sec. Dist CCA 124.3/18.6 cm/sec. Prox ICA 90.4/33.3 cm/sec. Mid ICA 71.8/28.9 cm/sec. Dist ICA 67.4/25.6 cm/sec. Prox ECA 122.9/17.0 cm/sec. Rt. Vert. 45.7/17.1 cm/sec. Right Extracranial There is intimal thickening but no significant atherosclerotic plaque noted in the right common carotid artery. There is heterogeneous, irregular atherosclerotic plaque noted in the right internal carotid artery. S/P ENDARTERECTOMY. There is intimal thickening but no significant atherosclerotic plaque noted in the right external carotid artery. Antegrade flow is noted in the right vertebral artery. Procedure Carotid Duplex 02024. UNILATERAL ONLY-S/P RCE. Exam performed in department. VL/Carotid Unilateral Interpretation Summary Postoperative changes of the right carotid bulb and proximal internal carotid a rtery with less than 50% stenosis of the right internal carotid artery Less than 50% stenosis right external carotid artery Patent antegrade right vertebral Ordering Physician: Rosita Odom Referring Physician: Sandy Acevedo Performed By: Char Xavier, RDCS, RVT
== END 2021-06-28 23:59 | disposition short-term general hospital (02) ==
LOC: CVS 09:28
PROVIDERS: PCP Internal Medicine; Referring Provider Physician Assistant; Visit Provider Physician Assistant
DX: G45.3 Amaurosis fugax (principal)
CPT/HCPCS: 93882

== ENCOUNTER 2021-07-01 12:10 | Outpatient (CLI) | payer MEDICARE, OTHER, SELFPAY ==
[2021-07-01 13:03] LABS: Absolute Lymphocyte Count 1.39 X10^3/uL (0.83-4.51); Absolute Neutrophil Count 2.5 X10^3/uL (2.0-7.7); Basophil# 0.05 X10^3/uL; Basophil% 1.1 % (0-1); Eosinophil# 0.06 X10^3/uL; Eosinophils% 1.3 % (0-5); Hematocrit 44.6 % (37-47); Hemoglobin 14.5 g/dL (12.0-15.0); Lymphocyte # 1.39 X10^3/ul (0.83-4.51); Mean Corp Hgb Conc 32.5 g/dL (32-36); Mean Corpuscular Volume 98.5 fL (81-99); Mean Platelet Vol. 10.8 fl (6.2-12.0); Monocyte# 0.43 X10^3/uL; Monocyte% 9.6 % (0-10); NRBC Flagged by Analyzer 0 % (0-5); Neutrophil # 2.54 X10^3/uL (2.7-7.7); Neutrophil % 56.8 % (47-70); Platelet Count 202 K/mm3 (150-450); RBC Distribution Width CV 13.1 % (11.6-14.6); RBC Distribution Width SD 47.8 fl (35.1-43.9); Red Blood Count 4.53 M/mm3 (4.2-5.4); White Blood Count 4.5 K/mm3 (4.4-11.0)
[2021-07-01 13:23] LABS: International Normalized Ratio 1.1; Prothrombin Time (Protime)PT. 13.3 SECONDS (11.7-14.9)
[2021-07-01 13:57] LABS: ALB/GLOB Ratio 1.1 RATIO (0.9-2.4); AST(SGOT) 15 U/L (15-37); Alanine Aminotransfer ALT/SGPT 24 U/L (13-56); Albumin, Serum 3.9 g/dL (3.2-5.0); Alkaline Phosphatase 79 U/L (45-117); Anion Gap 6 (5-15); BUN 12 mg/dL (7-18); BUN/Creat Ratio 17.2 RATIO (10-20); Calcium,Total 9.5 mg/dL (8.5-10.1); Chloride 105 mmol/L (98-107); EST Glomerular Filtration Rate 87 mL/min (>60); Est Glom Filt Rate - Afr Amer 105 mL/min (>60); Globulin 3.7 g/dL (2.2-4.2); Glucose 128 mg/dL (74-106); Potassium 3.6 mmol/L (3.5-5.1); Protein, Total 7.6 g/dL (6.4-8.2); Sodium Level 141 mmol/L (136-145)
== END 2021-07-01 23:59 | disposition short-term general hospital (02) ==
LOC: LAB 12:12
PROVIDERS: PCP Internal Medicine; Referring Provider Nurse Practitioner Family; Visit Provider Nurse Practitioner Family
DX: R53.83 Other fatigue (principal); I48.0 Paroxysmal atrial fibrillation; Z79.01 Long term (current) use of anticoagulants
CPT/HCPCS: 36415; 80053; 85025; 85610; 93271

== ENCOUNTER 2021-07-18 13:43 | Outpatient (RCR) | payer MEDICARE, OTHER, SELFPAY ==
[2021-07-03 09:55] LABS: INR Fingerstick 1.1; Prothrombin Time Fingerstick 14.1 SEC (11.9-14.4)
[2021-07-11 12:40] LABS: International Normalized Ratio 1.8; Prothrombin Time (Protime)PT. 19.8 SECONDS (11.7-14.9)
[2021-07-18 13:56] LABS: INR Fingerstick 1.9; Prothrombin Time Fingerstick 22.1 SEC (11.9-14.4)
[2021-07-29 18:10] LABS: International Normalized Ratio 1.8; Prothrombin Time (Protime)PT. 20.2 SECONDS (11.7-14.9)
== END 2021-07-22 18:00 | disposition home or self-care (01) ==
LOC: MTLAB 13:43
PROVIDERS: PCP Internal Medicine; Referring Provider Nurse Practitioner Family; Visit Provider Nurse Practitioner Family
DX: I48.0 Paroxysmal atrial fibrillation (principal); Z79.01 Long term (current) use of anticoagulants
CPT/HCPCS: 36415; 36416; 85610

== ENCOUNTER 2021-08-07 17:15 | Emergency (ER) | payer MEDICARE, OTHER, SELFPAY ==
[2021-08-07 17:16] VITALS: BP 175/100; PULSE 74; RESP 18; TEMP 36.1; O2SAT 100; BMI 28.6
--- NOTE | 2021-08-07 17:22 | EKG12_ITS ---
Test Reason : CP Blood Pressure : / mmHG Vent. Rate : 148 BPM Atrial Rate : 277 BPM P-R Int : 000 ms QRS Dur : 082 ms QT Int : 268 ms P-R-T Axes : 000 015 -61 degrees QTc Int : 420 ms Atrial fibrillation Marked ST abnormality, possible inferior subendocardial injury Abnormal ECG Confirmed by CANDELARIO BHATTI, SARAH ([id number]), story editor SMITHA JACKSON ([id number]) on 08/08/2021 10:23:35 A M Referred By: CHAZ Confirmed By:ROSALINDA PALOMINO MD
--- NOTE | 2021-08-07 17:38 | RAD_ITS ---
STUDY: X-RAY CHEST REASON FOR EXAM: Female, 75 years old. chest pain TECHNIQUE: AP portable COMPARISON: 11/20/2020 FINDINGS: The lungs are clear and expanded. Tiny spiculated density in the right upper lobe measuring approximately 3 to 4 mm in size unchanged since previous exam There is no demonstrated pleural abnormality. Normal size heart. Normal mediastinum and mono. Normal visualized pulmonary arteries. Mildly calcified aortic arch and descending thoracic aorta. Dorsal spine demonstrates mild degenerative change. Normal visualized ribs, clavicles, and shoulders. There is no demonstrated abnormality of the visualized soft tissue structures of the upper abdomen. RAD/Chest 1 View (Portable) IMPRESSION: Stable appearance to right upper lobe spiculated density. Recommend follow-up imaging utilizing FLEISCHNER Society criteria if clinically warranted No acute cardiopulmonary pathology Electronically Signed: Je Almonte MD at 18:30 EST ,
[2021-08-07 17:43] LABS: Absolute Lymphocyte Count 2.23 X10^3/uL (0.83-4.51); Absolute Neutrophil Count 3.4 X10^3/uL (2.0-7.7); Basophil# 0.04 X10^3/uL; Basophil% 0.6 % (0-1); Eosinophil# 0.09 X10^3/uL; Eosinophils% 1.4 % (0-5); Hematocrit 40.8 % (37-47); Hemoglobin 13.8 g/dL (12.0-15.0); Lymphocyte # 2.23 X10^3/ul (0.83-4.51); Lymphocyte % 35.3 % (19-41); Mean Corp Hgb Conc 33.8 g/dL (32-36); Mean Corpuscular Hgb 32.7 pg (27.0-32.0); Mean Corpuscular Volume 96.7 fL (81-99); Mean Platelet Vol. 11.1 fl (6.2-12.0); Monocyte# 0.59 X10^3/uL; Monocyte% 9.3 % (0-10); NRBC Flagged by Analyzer 0 % (0-5); Neutrophil # 3.35 X10^3/uL (2.7-7.7); Neutrophil % 53.1 % (47-70); Platelet Count 183 K/mm3 (150-450); RBC Distribution Width CV 12.8 % (11.6-14.6); RBC Distribution Width SD 45.6 fl (35.1-43.9); Red Blood Count 4.22 M/mm3 (4.2-5.4); White Blood Count 6.3 K/mm3 (4.4-11.0)
[2021-08-07 18:02] LABS: Anion Gap 6 (5-15); BUN 11 mg/dL (7-18); BUN/Creat Ratio 15.1 RATIO (10-20); Calcium,Total 8.7 mg/dL (8.5-10.1); Chloride 106 mmol/L (98-107); Creatinine, Serum 0.73 mg/dL (0.55-1.02); EST Glomerular Filtration Rate 83 mL/min (>60); Est Glom Filt Rate - Afr Amer 100 mL/min (>60); Estimated Creatinine Clearance 48.67 ml/min; Glucose 155 mg/dL (74-106); Potassium 3.4 mmol/L (3.5-5.1); Sodium Level 144 mmol/L (136-145); Troponin-I HS 6 pg/mL (3.0-54.0)
--- NOTE | 2021-08-07 18:33 | EDS_ITS ---
HPI History of Present Illness Chief Complaint: Chest Pain Detail of Chief Complaint: Accelerated heart rate. Informant: patient Onset/Context/Timing Onset: Weeks Activity at onset: gradual Timing: Intermittent Quality: Positive for Dull Location: Substernal Current Severity: Mild Maximum Severity: Mild Worsened By: Nothing Relieved By: Nothing Associated Symptoms: Positive for Palpitations; Negative for Nausea, Diaphoresis, Dyspnea, Cough, Fever, Lightheadedness and Acid Reflux Narrative Narrative: 75-year-old female history of prior A. fib she was taken off her medication in the past. Has been having palpitations and saw a heart rate for a month. 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 Sees cardiology. And today came in because she had accelerated heart rate. She also gets intermittent chest pain with currently she is on metoprolol for A. fib and Coumadin. She denies any vomiting or diarrhea. No fever. No significant shortness of breath. Prior Similar Symptoms: Yes Recent Illness/Hospitalization: No CVD Risk Factors: Negative for Hypertension, Diabetes and Hypercholesterolemia PE Risk Factors: Negative for Recent Travel/Surgery, Recent Immobilization, Prior DVT or PE, Cancer and OCP + Smoking + >/=35 TAD Risk Factors: Negative for Marfan's Syndrome and Hypertension [facility] Medical History Abdominal distension, gaseous Acute bronchitis, unspecified Acute maxillary sinusitis, unspecified Acute otitis media, left Allergic reaction to contrast dye Amaurosis fugax, right eye Anxiety Arthritis Asthma Back pain Carotid stenosis, right Carpal tunnel syndrome Cataracts, both eyes Chronic bronchitis Constant exophthalmos Constipation Dysphagia Easy bruising Essential (primary) hypertension Fibromyalgia GERD (gastroesophageal reflux disease) Hay fever Heartburn Hemorrhoids History of atrial fibrillation History of COVID-19 History of COVID-19 History of echocardiogram History of IBS History of rheumatic fever History of stress test Hormone deficiency Hyperlipidemia Hypoglycemia IBS (irritable bowel syndrome) Injury of head and neck Knee pain Low iron Neck pain Non-smoker Paroxysmal atrial fibrillation Pneumonia Seasonal allergies Shortness of breath on exertion Sinusitis Syncope UTI (urinary tract infection) Vitamin D deficiency Vitiligo Wears dentures Home Medications B-complex with vitamin C 1 cap PO DAILY 11/18/19 [History Last Taken 3 Days Ago ~08/04/21] cholecalciferol (vitamin D3) 350 mcg (14,000 unit) capsule 10,000 unit PO DAILY 01/20/20 [History Last Taken 08/07/21] psyllium husk 0.4 gram capsule 0.4 g PO DAILY 01/20/20 [History Last Taken 08/06/21] Probiotic 3,000 mmu cells PO DAILY 05/29/21 [History Last Taken 1 Week Ago ~07/31/21] diphenhydramine HCl [Benadryl] 50 mg PO PRN PRN 05/29/21 [History Last Taken 08/03/21] rosuvastatin [Crestor] 5 mg PO DAILY 05/29/21 [History Last Taken 08/06/21] warfarin 4 mg tablet 4 mg PO DAILY #90 tab 07/01/21 [Rx Last Taken 08/06/21] metoprolol succinate 50 mg tablet,extended release 24 hr 50 mg PO DAILY #90 tab 07/29/21 [Rx Last Taken 08/04/21] Allergy/AdvReac Type Severity Reaction Status Date / Time doxycycline Allergy Severe Chest Verified 08/07/21 17:16 Congestion/Couldn't Breathe epinephrine Allergy Severe Shortness Verified 08/07/21 17:16 [From Primatene Mist] of breath epinephrine bitartrate Allergy Severe Shortness Verified 08/07/21 17:16 [From Primatene Mist] of breath iodine Allergy Severe rash, Verified 08/07/21 17:16 swelling levofloxacin [From Levaquin] Allergy Intermediate Swelling Verified 08/07/21 17:16 estrogens, conjugated Allergy Mild Swelling Verified 08/07/21 17:16 [From Premarin] Iodine and Iodide Containing Allergy Mild Other Verified 08/07/21 17:16 Produc meperidine HCl [From Demerol] Allergy Mild Other Verified 08/07/21 17:16 Penicillins Allergy Mild Unknown Verified 08/07/21 17:16 Sulfa (Sulfonamide Allergy Mild Unknown Verified 08/07/21 17:16 Antibiotics) clarithromycin [From Biaxin] Allergy Unknown Rash Verified 08/07/21 17:16 digoxin [From Digitek] Allergy Swelling Verified 08/07/21 17:16 aspirin AdvReac Intermediate makes my Verified 08/07/21 17:16 heart race FOOD COLOR GREEN Allergy Intermediate Swelling Uncoded 08/07/21 17:16 IVP DYE Allergy Intermediate Swelling Uncoded 08/07/21 17:16 MAPLE TREE MOLD Allergy Mild Other Uncoded 08/07/21 17:16 RAGWEED Allergy Mild Other Uncoded 08/07/21 17:16 Family History Mother Cancer Aunt Cancer Brother Cancer Father Vitiligo Surgical History H/O hernia repair History of angioplasty History of colonoscopy History of endarterectomy History of hysterectomy History of tonsillectomy Social History Smoking Status: Never smoker Electronic Cigarette Use: not used second hand exposure: No alcohol intake: current alcohol intake frequency: holidays/special occasions only substance use type: does not use what type of physical activity do you participate in: walking ROS ROS ED ROS Narrative Palpitations. I saw her heart rate. Chest pain. Review of Systems ROS Unobtainable: Denies due to encephalopathy Constitutional Constitutional ED: Denies fever(s) Eyes Eyes: Denies none or change in vision ENT ENT ED: Denies ear pain Cardiovascular Cardiovascular: Reports as per HPI, chest pain, palpitations and racing heartbeat Respiratory/Chest Respiratory/Chest: Denies cough or dyspnea Gastrointestinal Gastrointestinal: Denies abdominal pain, diarrhea, nausea or vomiting Genitourinary Genitourinary ED: Denies dysuria Integumentary Denies rash Neurologic Neurologic: Denies headache(s) Psychiatric Psychiatric: Denies depression Endocrine Endocrinology: Denies polyuria Hematologic/Lymphatic Hematologic/Lymphatic: Denies easy bruising Allergic/Immunologic Allergic/Immunologic ED: Denies urticaria EXAM Physical Exam Narrative Exam Narrative: 75-year-old female vital signs stable blood pressure 175/100 she is tachycardic at 148 on my exam. H EENT exam unremarkable neck nontender. Recent right carotid endarterectomy. Well-healing. Heart A. fib rate 140s. Irregular. No murmur. Chest wall nontender. Lungs clear to auscultation. Abdomen soft nontender. Moving all 4 extremities. Calves nontender without edema. Neurologically awake and alert with no focal motor deficits. Const Vital Signs: 08/07/21 17:16 08/07/21 18:49 08/07/21 18:51 Temperature 96.9 F L Temperature Source Temporal Pulse Rate 74 120 H Respiratory Rate 18 18 Blood Pressure 175/100 H 137/118 H Blood Pressure Mean 125 124 Pulse Ox 100 92 Oxygen Delivery Method Room Air Nasal Cannula Nasal Cannula Oxygen Flow Rate (L/min) 2 2 08/07/21 19:09 08/07/21 20:11 Temperature Temperature Source Pulse Rate 71 91 Respiratory Rate 19 H 21 H Blood Pressure 103/77 Blood Pressure Mean 85 Pulse Ox 100 96 Oxygen Delivery Method Room Air Room Air Oxygen Flow Rate (L/min) Positive well nourished and well developed; Negative for obese, cachectic, contractures or unkempt General Appearance ED: well developed and NAD; Negative for unkempt, cachectic, contractures or pallor Nutritional Appearance: Negative for cachectic or obese HEENT Reports moist mucous membranes normocephalic and atraumatic; Negative for trauma or tenderness Eyes PERRL and EOMs intact bilaterally General Eye ED: Negative for pale conjunctiva or scleral icterus Neck no lymphadenopathy, supple and no JVD General: Negative for tenderness Chest Wall inspection of chest normal and palpation of chest normal Chest: Negative for tenderness Resp normal respiratory effort and clear to auscultation bilaterally Effort and Inspection: respiratory distress Auscultation: Negative for rales or rhonchi Cardio S1 normal heart sound, S2 normal heart sound and no murmurs; Negative for regular rate or regular rhythm Rate: tachycardic GI normal to inspection, nondistended, normoactive bowel sounds, soft to palpation, non-tender, non-distended and no masses; Negative for hepatosplenomegaly Auscultation: Negative for hyperactive bowel sounds Palpation: Negative for splenomegaly or mass Back/Spine no CVA tenderness and no thoracic nor lumbar tenderness General Back: Negative for CVA tenderness Cervical Spine: Negative for cervical spine tenderness Extremity normal to inspection General Extremety ED: Negative for edema or tenderness General Extremity: Negative for edema Neuro oriented x3 Sensorium / Orientation: awake, alert, oriented to person, oriented to place and oriented to time Motor Exam: strength 5/5 throughout Psych mental status grossly normal Appearance: Negative for unkempt Attitude: No agitated Mood & Affect: Negative for depressed or tearful Skin no rashes or lesions noted and no wounds General Skin Exam: Negative for jaundice or pallor MDM MDM MDM Narrative Medical decision making narrative: 75-year-old female prior history of A. fib currently in A. fib RVR. She is anticoagulated on Coumadin and she is on metoprolol at home. She undergo cardiac work-up due to her chest pain. She will be given Cardizem to try to control her heart rate currently slowing down. Repeat exam patient is doing well at 8 PM. She was given 1 dose of Cardizem her heart rates between 80 and 100 currently she remains in A. fib but is comfortable her other labs are unremarkable. She will be giving a dose of her metoprolol watch for now or if her heart rate stays controlled she is comfortable being discharged home. Repeat exam patient is doing well at 9:10 PM. She was given a dose of oral metoprolol. Her heart rates been between 80 and 100. She feels comfortable being discharged home with outpatient follow-up with her herbarium curator. She will keep taking her beta-stephen. Continue her Coumadin. And call and follow-up with her herbarium curator. She knows return if she is feeling worse or if her heart rate continues to be elevated. Lab Data Attestation: I reviewed the patient's lab results. Lab results narrative: CBC shows a white count 6. H&H 13 and 40. Platelets 183. Electrolytes shows a potassium of 3.4 gap is 6 normal BUN and creatinine. Glucose 155 troponin 6. Chest x-ray unremarkable except a spiculated density that is stable in appearance per the radiologist. INR is 1.9. Labs: Laboratory Results - last 24 hr 08/07/21 08/07/21 08/07/21 17:30 17:30 17:30 WBC 6.3 RBC 4.22 Hgb 13.8 Hct 40.8 MCV 96.7 MCH 32.7 H MCHC 33.8 RDW Std Deviation 45.6 H RDW Coeff of Nay 12.8 Plt Count 183 MPV 11.1 Immature Gran % (Auto) 0.300 Neut % (Auto) 53.1 Lymph % (Auto) 35.3 Archer % (Auto) 9.3 Eos % (Auto) 1.4 Baso % (Auto) 0.6 Absolute Neuts (auto) 3.4 Absolute Lymphs (auto) 2.23 Nucleated RBC % 0 PT 21.4 H INR 1.9 Sodium 144 Potassium 3.4 L Chloride 106 Carbon Dioxide 32.0 Anion Gap 6 BUN 11 Creatinine 0.73 Estim Creat Clear Calc 48.67 Est GFR (MDRD) Af Amer 100 Est GFR (MDRD) Non-Af 83 BUN/Creatinine Ratio 15.1 Glucose 155 H Calcium 8.7 Troponin I High Sens 6 Radiography Chest X-Ray - ED: 1 View, Read by ED Physician, Read by Radiologist, Heart, Mediastinum, Bony Structures, No Acute Disease and Chronic Changes Diagnostic Testing: Clinical Impression(s) from Imaging Studies Chest X-Ray 08/07/21 17:38 IMPRESSION: Stable appearance to right upper lobe spiculated density. Recommend follow-up imaging utilizing FLEISCHNER Society criteria if clinically warranted No acute cardiopulmonary pathology Electronically Signed: Je Almonte MD at 18:30 EST Reading Location ID and State: [address] [place] [address] , Service support , Rhythm Strip Rhythm Strip: A-fib Rate: 148 Ectopy: None EKG Initial EKG: Attestation: I personally reviewed and interpreted this EKG as follows: Interpretation: Atrial Fibrillation Comments: Atrial fibrillation rate of 148. Prior EKG tracings: not available for review Discharge Plan Triage Chief Complaint: Chest Pain ED Provider: Riky Zarate Dx/Rx/DC Orders Clinical Impression: Atrial fibrillation with rapid ventricular response, Chronic anticoagulation, History of atrial fibrillation Instructions: ED AFIB Prescriptions: No Action B-complex with vitamin C Capsule 1 cap PO DAILY RF: 0 cholecalciferol (vitamin D3) 350 mcg (14,000 unit) capsule 10,000 unit PO DAILY RF: 0 psyllium husk [Fiber (psyllium husk)] 0.4 gram capsule 0.4 g PO DAILY RF: 0 diphenhydramine HCl [Benadryl] 25 mg capsule 50 mg PO PRN PRN (Reason: ALLERGIES) RF: 0 rosuvastatin [Crestor] 5 mg tablet 5 mg PO DAILY RF: 0 Probiotic 3 billion cell Capsule 3,000 mmu cells PO DAILY RF: 0 warfarin 4 mg tablet 4 mg PO DAILY Qty: 90 RF: 3 metoprolol succinate 50 mg tablet extended release 24 hr 50 mg PO DAILY Qty: 90 RF: 3 Primary Care Provider: Sandy Acevedo Referrals: Saturnino Deng MD [STAFF PHYSICIAN] - As soon as possible Sandy Acevedo MD [Primary Care Provider] - Activity Restrictions/Additional Instructions: Continue normal medications as prescribed. Call and follow-up with Dr. Deng's office to be re-evaluated. If your heart rate is consistently 110 or higher you need to return to the emergency department to possibly be admitted. Disposition Disposition: Home, Self Care
[2021-08-07 18:49] VITALS: BP 137/118; PULSE 120; RESP 18; O2SAT 92
[2021-08-07] MEDS: dilTIAZem 25 MG/5 ML Vial IV BOLUS (18:54)
[2021-08-07 18:59] LABS: International Normalized Ratio 1.9; Prothrombin Time (Protime)PT. 21.4 SECONDS (11.7-14.9)
[2021-08-07 19:09] VITALS: BP 103/77; PULSE 71; RESP 19; O2SAT 100
[2021-08-07 20:11] VITALS: PULSE 91; RESP 21; O2SAT 96
[2021-08-07] MEDS: Metoprolol Tartrate 25 MG Tablet PO (20:33)
[2021-08-07 21:21] VITALS: PULSE 89; RESP 18; O2SAT 98
== END 2021-08-07 23:59 | disposition home or self-care (01) ==
PROVIDERS: Emergency Provider Emergency Medicine; PCP Internal Medicine; Visit Provider Emergency Medicine
DX: I48.0 Paroxysmal atrial fibrillation (principal); J42 Unspecified chronic bronchitis; R00.2 Palpitations; R00.0 Tachycardia, unspecified; I10 Essential (primary) hypertension; E78.5 Hyperlipidemia, unspecified; M19.90 Unspecified osteoarthritis, unspecified site; J45.909 Unspecified asthma, uncomplicated; M79.7 Fibromyalgia; K21.9 Gastro-esophageal reflux disease without esophagitis; F41.9 Anxiety disorder, unspecified; Z79.01 Long term (current) use of anticoagulants
CPT/HCPCS: 71045; 80048; 84484; 85025; 85610; 93005; 96374; 99285; A4216

== ENCOUNTER 2021-08-13 13:28 | Outpatient (RCR) | payer MEDICARE, OTHER, SELFPAY ==
[2021-08-05 09:56] LABS: INR Fingerstick 1.6; Prothrombin Time Fingerstick 19.6 SEC (11.9-14.4)
[2021-08-13 18:07] LABS: INR Fingerstick 2.4; Prothrombin Time Fingerstick 27.5 SEC (11.9-14.4)
== END 2021-08-13 18:00 | disposition home or self-care (01) ==
LOC: MTLAB 13:28
PROVIDERS: PCP Internal Medicine; Referring Provider Nurse Practitioner Family; Visit Provider Nurse Practitioner Family
DX: I48.0 Paroxysmal atrial fibrillation (principal); Z79.01 Long term (current) use of anticoagulants
CPT/HCPCS: 36416; 85610

== ENCOUNTER 2021-08-21 10:19 | Outpatient (RCR) | payer MEDICARE, OTHER, SELFPAY ==
[2021-08-21 10:31] LABS: INR Fingerstick 1.9; Prothrombin Time Fingerstick 22.3 SEC (11.7-14.9)
[2021-08-21 13:33] LABS: Anion Gap 4 (5-15); BUN 9 mg/dL (7-18); BUN/Creat Ratio 12.3 RATIO (10-20); Calcium,Total 9.5 mg/dL (8.5-10.1); Chloride 106 mmol/L (98-107); Creatinine, Serum 0.73 mg/dL (0.55-1.02); EST Glomerular Filtration Rate 82 mL/min (>60); Est Glom Filt Rate - Afr Amer 99 mL/min (>60); Glucose 104 mg/dL (74-106); Potassium 4.4 mmol/L (3.5-5.1); Sodium Level 142 mmol/L (136-145)
== END 2021-09-19 18:00 | disposition home or self-care (01) ==
LOC: LAB 10:19
PROVIDERS: Physician Assistant Medical; PCP Internal Medicine; Referring Provider Nurse Practitioner Family; Visit Provider Nurse Practitioner Family
DX: I48.0 Paroxysmal atrial fibrillation (principal); Z79.01 Long term (current) use of anticoagulants
CPT/HCPCS: 36415; 36416; 80048; 85610

== ENCOUNTER 2021-08-23 04:50 | Emergency (ER) | payer MEDICARE, OTHER, SELFPAY ==
[2021-08-23 04:50] VITALS: BP 157/76; PULSE 74; RESP 18; TEMP 36.5; O2SAT 100; BMI 30.5
--- NOTE | 2021-08-23 04:59 | EKG12_ITS ---
Test Reason : ALLERGIC REACTION Blood Pressure : / mmHG Vent. Rate : 057 BPM Atrial Rate : 057 BPM P-R Int : 178 ms QRS Dur : 084 ms QT Int : 472 ms P-R-T Axes : 059 011 008 degrees QTc Int : 459 ms Sinus bradycardia Otherwise normal ECG Confirmed by SHAMA BHATTI, KITA ([id number]), editorial intern SMITHA JACKSON ([id number]) on 08/23/2021 9:27:15 AM Referred By: PALMER Confirmed By:KITA SESAY MD
--- NOTE | 2021-08-23 05:00 | EX.ED.DYSGE1 ---
HPI History of Present Illness Chief Complaint: Allergic Reaction Narrative Narrative: Patient presents with what she thinks is an allergic reaction to diltiazem. She states that she was supposed to be on metoprolol for atrial fibrillation. However, she was here Thursday and her medication was changed to diltiazem. She took her second dose of it yesterday at 1 PM. She then took her warfarin at 5 PM. She states that she did not feel right and she felt shaky. She has been able to sleep. She thinks her lips were swollen. She denies any chest pain or shortness of breath. She does state that she has multiple allergies to various medications. She does not like the way that the diltiazem is making her feel. She states her lips feel swollen to her. [facility] Medical History Abdominal distension, gaseous Acute bronchitis, unspecified Acute maxillary sinusitis, unspecified Acute otitis media, left Allergic reaction to contrast dye Amaurosis fugax, right eye Anxiety Arthritis Asthma Back pain Carotid stenosis, right Carpal tunnel syndrome Cataracts, both eyes Chronic bronchitis Constant exophthalmos Constipation Dysphagia Easy bruising Essential (primary) hypertension Fibromyalgia GERD (gastroesophageal reflux disease) Hay fever Heartburn Hemorrhoids History of atrial fibrillation History of COVID-19 History of COVID-19 History of echocardiogram History of IBS History of rheumatic fever History of stress test Hormone deficiency Hyperlipidemia Hypoglycemia IBS (irritable bowel syndrome) Injury of head and neck Knee pain Low iron Neck pain Non-smoker Paroxysmal atrial fibrillation Pneumonia Seasonal allergies Shortness of breath on exertion Sinusitis Syncope UTI (urinary tract infection) Vitamin D deficiency Vitiligo Wears dentures Home Medications B-complex with vitamin C 1 cap PO DAILY 11/18/19 [History Last Taken 3 Days Ago ~08/04/21] cholecalciferol (vitamin D3) 350 mcg (14,000 unit) capsule 10,000 unit PO DAILY 01/20/20 [History Last Taken 08/07/21] psyllium husk 0.4 gram capsule 0.4 g PO DAILY 01/20/20 [History Last Taken 08/06/21] Probiotic 3,000 mmu cells PO DAILY 05/29/21 [History Last Taken 1 Week Ago ~07/31/21] diphenhydramine HCl [Benadryl] 50 mg PO PRN PRN 05/29/21 [History Last Taken 08/03/21] rosuvastatin [Crestor] 5 mg PO DAILY 05/29/21 [History Last Taken 08/06/21] warfarin 4 mg tablet 4 mg PO DAILY #90 tab 07/01/21 [Rx Last Taken 08/06/21] metoprolol succinate 50 mg tablet,extended release 24 hr 50 mg PO DAILY #90 tab 07/29/21 [Rx Last Taken 08/04/21] diltiazem HCl 120 mg capsule,extended release 24 hr 120 mg PO DAILY #30 cap 08/21/21 [Rx Last Taken Unknown] Allergy/AdvReac Type Severity Reaction Status Date / Time doxycycline Allergy Severe Chest Verified 08/23/21 04:55 Congestion/Couldn't Breathe epinephrine Allergy Severe Shortness Verified 08/23/21 04:55 [From Primatene Mist] of breath epinephrine bitartrate Allergy Severe Shortness Verified 08/23/21 04:55 [From Primatene Mist] of breath iodine Allergy Severe rash, Verified 08/23/21 04:55 swelling levofloxacin [From Levaquin] Allergy Intermediate Swelling Verified 08/23/21 04:55 estrogens, conjugated Allergy Mild Swelling Verified 08/23/21 04:55 [From Premarin] Iodine and Iodide Containing Allergy Mild Other Verified 08/23/21 04:55 Produc meperidine HCl [From Demerol] Allergy Mild Other Verified 08/23/21 04:55 Penicillins Allergy Mild Unknown Verified 08/23/21 04:55 Sulfa (Sulfonamide Allergy Mild Unknown Verified 08/23/21 04:55 Antibiotics) clarithromycin [From Biaxin] Allergy Unknown Rash Verified 08/23/21 04:55 digoxin [From Digitek] Allergy Swelling Verified 08/23/21 04:55 aspirin AdvReac Intermediate makes my Verified 08/23/21 04:55 heart race FOOD COLOR GREEN Allergy Intermediate Swelling Uncoded 08/23/21 04:55 IVP DYE Allergy Intermediate Swelling Uncoded 08/23/21 04:55 MAPLE TREE MOLD Allergy Mild Other Uncoded 08/23/21 04:55 RAGWEED Allergy Mild Other Uncoded 08/23/21 04:55 Family History Mother Cancer Aunt Cancer Brother Cancer Father Vitiligo Surgical History H/O hernia repair History of angioplasty History of colonoscopy History of endarterectomy History of hysterectomy History of tonsillectomy Social History Smoking Status: Never smoker Electronic Cigarette Use: not used second hand exposure: No alcohol intake: current alcohol intake frequency: holidays/special occasions only substance use type: does not use what type of physical activity do you participate in: walking ROS ROS ED ROS Narrative Constitutional: No fever, no chills. HEENT: No sore throat. No neck pain. No loss of vision. No rhinorrhea. Swollen lips. No difficulty swallowing. States throat felt thick earlier last evening. Cardiovascular: No chest pain. No palpitations. No pedal edema. Respiratory: No cough, no shortness of breath. Abdominal: No abdominal pain. No nausea. No vomiting. Genitourinary: No dysuria. No hematuria. Musculoskeletal: No myalgias. No arthralgias. Neurologic: No headaches. No dizziness. No lightheadedness. Shaky Skin: No rash. No change in color. Psychiatric: No depression. No anxiety. EXAM Physical Exam Narrative Exam Narrative: Afebrile. Vital signs noted. HEENT: Normocephalic. Atraumatic. PERRL, EOMI. Neck soft and supple. No point tenderness or step off. No obvious swelling of lips. No angioedema of tongue. Airway patent. No drooling or trismus. Cardiovascular: Regular rate and rhythm. No murmurs, rubs, or gallops appreciated. Respiratory: No tachypnea. Lungs clear to auscultation bilaterally. Gastrointestinal: Abdomen soft, nontender, with normoactive bowel sounds. No rebound or guarding. Neurological: Awake. Alert. Nonfocal, nonlateralizing. Skin: No rash. Normal color. No pallor. Musculoskeletal: No pedal edema. Full range of motion extremities. Const Vital Signs: 08/23/21 04:50 Temperature 97.7 F L Temperature Source Temporal Pulse Rate 74 Respiratory Rate 18 Blood Pressure 157/76 H Blood Pressure Mean 103 Pulse Ox 100 Oxygen Delivery Method Room Air MDM MDM MDM Narrative Medical decision making narrative: Patient states that she did not want to take her metoprolol and was changed because it was making her tired all the time. We will check an EKG and her CBC and basic electrolyte panel. I will also check her INR. 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 I do not feel that she is having an allergic reaction. She may be having more of a side effect of the diltiazem. CBC is grossly normal with a normal white count and a hemoglobin normal at 13.8. Her electrolyte panel/basic metabolic panel is grossly normal. EKG demonstrates sinus bradycardia at 57 bpm. No ectopy or acute ST changes/no STEMI. No evidence of atrial fibrillation. INR is therapeutic at 2.1. She states when she was here the other day it was 1.9. She will continue her warfarin. She feels as though she is having side effects from the diltiazem. While she was told that she could change back to her metoprolol, she was told to be wary of bradycardia with this as her heart rate is in the 50s here. At this point in time, she states she is feeling better. I feel she be discharged safely home with follow-up. Return instructions were reviewed. Disposition is discharged home in stable condition. Lab Data Labs: Laboratory Results - last 24 hr 08/23/21 08/23/21 08/23/21 05:07 05:07 05:07 WBC 4.6 RBC 4.25 Hgb 13.8 Hct 40.8 MCV 96.0 MCH 32.5 H MCHC 33.8 RDW Std Deviation 46.8 H RDW Coeff of Nay 13.2 Plt Count 171 MPV 10.8 PT 23.0 H INR 2.1 Sodium 140 Potassium 3.7 Chloride 106 Carbon Dioxide 29.0 Anion Gap 5 BUN 12 Creatinine 0.64 Estim Creat Clear Calc 51.83 Est GFR (MDRD) Af Amer 116 Est GFR (MDRD) Non-Af 96 BUN/Creatinine Ratio 18.8 Glucose 101 Calcium 9.4 Discharge Plan Triage Chief Complaint: Allergic Reaction ED Provider: Reji Mai Dx/Rx/DC Orders Clinical Impression: Shakiness, Paroxysmal atrial fibrillation, Drug reaction Instructions: Calcium Channel Blockers Dc, ED Drug Reaction, Other Prescriptions: No Action B-complex with vitamin C Capsule 1 cap PO DAILY RF: 0 cholecalciferol (vitamin D3) 350 mcg (14,000 unit) capsule 10,000 unit PO DAILY RF: 0 psyllium husk [Fiber (psyllium husk)] 0.4 gram capsule 0.4 g PO DAILY RF: 0 diltiazem HCl [Cardizem CD] 120 mg capsule,extended release 24hr 120 mg PO DAILY Qty: 30 RF: 3 diphenhydramine HCl [Benadryl] 25 mg capsule 50 mg PO PRN PRN (Reason: ALLERGIES) RF: 0 rosuvastatin [Crestor] 5 mg tablet 5 mg PO DAILY RF: 0 Probiotic 3 billion cell Capsule 3,000 mmu cells PO DAILY RF: 0 warfarin 4 mg tablet 4 mg PO DAILY Qty: 90 RF: 3 metoprolol succinate 50 mg tablet extended release 24 hr 50 mg PO DAILY Qty: 90 RF: 3 Hold Instructions: fatigue Primary Care Provider: Sandy Acevedo Referrals: Sandy Acevedo MD [Primary Care Provider] - As soon as possible Disposition Disposition: Home, Self Care
[2021-08-23 05:15] LABS: Hematocrit 40.8 % (37-47); Hemoglobin 13.8 g/dL (12.0-15.0); Mean Corp Hgb Conc 33.8 g/dL (32-36); Mean Corpuscular Hgb 32.5 pg (27.0-32.0); Mean Platelet Vol. 10.8 fl (6.2-12.0); Platelet Count 171 K/mm3 (150-450); RBC Distribution Width CV 13.2 % (11.6-14.6); RBC Distribution Width SD 46.8 fl (35.1-43.9); Red Blood Count 4.25 M/mm3 (4.2-5.4); White Blood Count 4.6 K/mm3 (4.4-11.0)
[2021-08-23 05:27] LABS: Anion Gap 5 (5-15); BUN 12 mg/dL (7-18); BUN/Creat Ratio 18.8 RATIO (10-20); Calcium,Total 9.4 mg/dL (8.5-10.1); Chloride 106 mmol/L (98-107); Creatinine, Serum 0.64 mg/dL (0.55-1.02); EST Glomerular Filtration Rate 96 mL/min (>60); Est Glom Filt Rate - Afr Amer 116 mL/min (>60); Estimated Creatinine Clearance 51.83 ml/min; Glucose 101 mg/dL (74-106); Potassium 3.7 mmol/L (3.5-5.1); Sodium Level 140 mmol/L (136-145)
[2021-08-23 05:31] LABS: International Normalized Ratio 2.1
[2021-08-23 05:46] VITALS: BP 156/70; PULSE 79; RESP 16
== END 2021-08-23 05:47 | disposition home or self-care (01) ==
PROVIDERS: Emergency Provider Emergency Medicine; PCP Internal Medicine; Visit Provider Emergency Medicine
DX: I48.0 Paroxysmal atrial fibrillation (principal); R00.1 Bradycardia, unspecified; T46.1X5A Adverse effect of calcium-channel blockers, initial encounter; I10 Essential (primary) hypertension; E78.5 Hyperlipidemia, unspecified; M79.7 Fibromyalgia; M19.90 Unspecified osteoarthritis, unspecified site; K21.9 Gastro-esophageal reflux disease without esophagitis; Z79.01 Long term (current) use of anticoagulants; Z79.899 Other long term (current) drug therapy
CPT/HCPCS: 80048; 85027; 85610; 93005; 99282; A4216

== ENCOUNTER 2021-09-10 10:30 | Day surgery (SDC) | payer MEDICARE, OTHER, SELFPAY ==
[2021-09-10] VITALS (7 sets, daily range): BP systolic 129–148; BP diastolic 67–84; PULSE 50–62; RESP 14–16; TEMP 36–36.8; O2SAT 96–100; BMI 29.6
[2021-09-10 10:55] LABS: INR Fingerstick 1.2; Prothrombin Time Fingerstick 15.2 SEC (11.7-14.9)
[2021-09-10 11:06] LABS: Bedside Glucose 103 mg/dL (74-106)
[2021-09-10] MEDS: Lactated Ringers 1,000 ML 15 ML IV (11:13)
--- NOTE | 2021-09-10 12:00 | COLBX_PTH ---
PATIENT: UMBERTO ARREDONDO LOC: EN U#:[id number] AGE/SX: 75/F ROOM: RE09/10/[address]: Dr. Walter Cavanaugh DO : 1945 BED: DIS: 09/10/2021 SPEC #: [id number] RECD: 09/10/21 15:54 STATUS: DYLAN REMarty #: [id number] JOHN: 09/10/21 12:[address]: Walter Cavanaugh DEPT: SURGICAL PATHOLOGY RECD BY: Chetna Richmond ENTERED: 09/11/21 09:46 SP TYPE: COLON BX OTHR DR: Dr. Sandy Acevedo MD Tissues: A - Duodenum, NOS B - Esophagus, NOS C - Ileum, NOS D - COLON BIOPSY Procedures: Special Stain Group II Surgery Specimen Level IV Alcian Blue/PAS (control) HEADER OPERATION: Colonoscopy, EGD with dilation, biopsies ([facility]) PRE-OP DIAGNOSIS: GERD, dysphagia, constipation TISSUE SUBMITTED: A ? Duodenum biopsy, B ? Distal esophagus biopsy, C ? Terminal ileum biopsy, D ? Random colon biopsy MICROSCOPIC DIAGNOSIS A. Duodenum, biopsy: A fragment of duodenal mucosa with mild Mike gland hyperplasia. B. Distal esophagus, biopsy: Fragments of gastroesophageal mucosa with mild chronic inflammation. Intestinal metaplasia (goblet cell metaplasia) not identified. See comment. C. Terminal ileum, biopsy: Fragments of small intestinal mucosa, no pathologic diagnosis. D. Colon, random biopsy: Fragments of colonic mucosa with pigment laden macrophages, consistent with melanosis coli. SJ:rg 09/12/2021 COMMENT B. Alcian blue/PAS stain with matched control is used in the evaluation of the specimen. MICROSCOPIC DESCRIPTION Slides are reviewed. GROSS DESCRIPTION A - Received in fixative is one container labeled with the patient's name and designated duodenum biopsy. The specimen consists of one irregular fragment of light ayala soft tissue that measures 0.3 x 0.3 x 0.1 cm. The specimen is totally submitted in one cassette. B - Received in fixative is one container labeled with the patient's name and designated distal esophagus biopsy. The specimen consists of two irregular fragments of light ayala soft tissue that in aggregate measure 1 x 0.4 x 0.1 cm. The specimen is totally submitted in one cassette. C - Received in fixative is one container labeled with the patient's name and designated terminal ileum biopsy. The specimen consists of two irregular fragments of light ayala soft tissue that in aggregate measure 0.6 x 0.3 x 0.1 cm. The specimen is totally submitted in one cassette. D - Received in fixative is one container labeled with the patient's name and designated random colon biopsy. The specimen consists of multiple irregular fragments of light ayala soft tissue that in aggregate measure 2.5 x 0.6 x 0.1 cm. The specimen is totally submitted in one cassette. / SJ:rg 09/11/2021 TC:3 CPT: 24912 x4, 37625
--- NOTE | 2021-09-10 12:15 | PCM.HP.BLA ---
History and Physical Date of Admission: 09/10/21 UMBERTO ARREDONDO, is a 75 F who presents to the office today for the evaluation of esophageal dysphagia and constipation. She did undergo barium esophagram that showed decreased motility with gastroesophageal reflux. She does not take any medicines for reflux disease but she does not like the side effect profile. She denies any chest pain or shortness of breath. She has struggled with constipation recently. She can go to the bathroom if she uses rectal suppositories. Otherwise it is very difficult for her to go to the bathroom. States she had COVID in 2019 and due to being in and out of the hospital she was constipated and trying to pass something of a large diameter. States there is something has moved and feels there is something 4-5 inches into her rectum. Last EGD 3-[address] Tanner. Colonoscopy performed ambulatory surgery center at an unknown time. ROS Const Constitutional: Positive for fatigue Eyes Eyes: Positive for blurry vision, irritation and vision loss ENT ENT: Positive for difficulty swallowing Gastro GI: Positive for abdominal pain, bloating, change in bowel habits, constipation, heartburn and difficulty swallowing Genitourinary-Female: Positive for urinary frequency and urinary urgency Skin Skin: Positive for dry skin Endo Endocrine: Positive for cold intolerance, fatigue and heat intolerance Joe/Lymp Hematologic/Lymphatic: Positive for easy bleeding and easy bruising Exam Const General: cooperative and comfortable Nutritional Appearance: average body habitus and well nourished [facility] Head: normal to inspection Ears: hearing grossly normal bilaterally Nose: external nose normal Face and sinus: normal facial exam Mouth: oral mucosae normal Throat: posterior oropharynx normal Eyes General: appearance normal, both eyes and all related structures Neck Neck: normal visual inspection Chest Chest palpation & inspection: normal inspection of the chest and normal palpation of entire chest wall Resp Effort & Inspection: normal respiratory effort Auscultation: Bilateral: Clear to Auscultation Cardio Palpation: normal PMI Rate: regular rate Rhythm: regular rhythm GI Inspection: normal to inspection Auscultation: normal bowel sounds Percussion: normal to percussion Palpation: no hepatosplenomegaly Skin General: no rashes or lesions noted Neuro General: patient alert Extrem General: normal to inspection Psych Affect: normal affect Quality Reporting Tobacco Screening ([facility] 138) Smoking Status: Never smoker Assessment and Plan Assessment and Plan (1) GERD (gastroesophageal reflux disease): Status: Acute Qualifiers: Esophagitis presence: without esophagitis Qualified Code(s): K21.9 - Gastro-esophageal reflux disease without esophagitis Plan - Dr. Watson Friend, DO: We will perform upper endoscopy to evaluate her upper GI tract. She was explained alternatives, risk, medicines including not withstanding bleeding, infection, sepsis, perforation, need for emergency or . She will have an ASA 1. (2) Dysphagia: Status: Acute Plan - Dr. Watson Friend, DO: We will evaluate her upper esophagus for esophageal ring, esophageal stricture, erosive esophagitis and eosinophilic. (3) Constipation: Status: Acute Plan - Dr. Watson Friend, DO: We will evaluate her lower GI tract including her rectum. If this study is negative she may need a double contrast barium enema or anorectal manometry. I have re-examined the patient. There are no clinical changes since date of exam.
--- NOTE | 2021-09-10 13:11 | OP.EGD_ITS ---
Patient Name: Emma Hall Procedure Date: 09/10/2021 12:15 PM Date of : 1945 Age: 75 Procedure: Upper GI endoscopy Indications: Dysphagia Providers: Walter Cavanaugh DO Medicines: See the Anesthesia note for documentation of the administered medications Patient Profile: This is a 75 year old female. Refer to note in patient chart for documentation of history and physical. Patient has symptoms of acute epigastric abdominal pain and dysphagia with solids. Complications: No immediate complications. Procedure: Pre-Anesthesia Assessment: - Prior to the procedure, a History and Physical was performed, and patient medications and allergies were reviewed. The risks and benefits of the procedure and the sedation options and risks were discussed with the patient. All questions were answered and informed consent was obtained. Patient identification and proposed procedure were verified by the physician in the pre-procedure area. Mental Status Examination: alert and oriented. Airway Examination: normal oropharyngeal airway and neck mobility. Respiratory Examination: clear to auscultation. CV Examination: normal. Prophylactic Antibiotics: The patient does not require prophylactic antibiotics. Prior Anticoagulants: The patient has taken no previous anticoagulant or antiplatelet agents. ASA Grade Assessment: II - A patient with mild systemic disease. After reviewing the risks and benefits, the patient was deemed in satisfactory condition to undergo the procedure. The anesthesia plan was to use moderate sedation / analgesia (conscious sedation). Immediately prior to administration of medications, the patient was re-assessed for adequacy to receive sedatives. The heart rate, respiratory rate, oxygen saturations, blood pressure, adequacy of pulmonary ventilation, and response to care were monitored throughout the procedure. The physical status of the patient was re-assessed after the procedure. After obtaining informed consent, the endoscope was passed under direct vision. Throughout the procedure, the patient's blood pressure, pulse, and oxygen saturations were monitored continuously. The colonoscope was introduced through the mouth, and advanced to the second part of duodenum. The upper GI endoscopy was accomplished without difficulty. The patient tolerated the procedure well. Moderate Sedation: Moderate (conscious) sedation was administered by the endoscopy nurse and supervised by the endoscopist. The patient's oxygen saturation, heart rate, blood pressure and response to care were monitored. Total physician intraservice time was 15 minutes. Scope In: 12:27:39 PM Scope Out: 12:35:54 PM Total Procedure Duration Time 0 hours 8 minutes 15 seconds Findings: LA Grade A (one or more mucosal breaks less than 5 mm, not extending between tops of 2 mucosal folds) esophagitis with no bleeding was found 37 to 39 cm from the incisors. Biopsies were taken with a cold forceps for histology. Verification of patient identification for the specimen was done. Estimated blood loss was minimal. Two benign-appearing, intrinsic stenoses were found 34 to 37 cm from the incisors. These stenoses were moderately severe and the narrowest stenosis measured 1 mm (inner diameter) x 3 cm (in length). The stenoses were traversed. A guidewire was placed and the scope was withdrawn. Dilation was performed with a Savary dilator with no resistance at 54 Fr. The dilation site was examined and showed moderate improvement in luminal narrowing. Estimated blood loss was minimal. The gastric body was normal. The entire examined stomach was normal. Three localized erosions without bleeding were found in the duodenal bulb. Biopsies were taken with a cold forceps for histology. Verification of patient identification for the specimen was done. Estimated blood loss was minimal. Impression: - LA Grade A reflux esophagitis. Biopsied. - Benign-appearing esophageal stenoses. Dilated. - Normal gastric body. - Normal stomach. - Duodenal erosions without bleeding. Biopsied. Recommendation: - Written discharge instructions were provided to the patient. - The signs and symptoms of potential delayed complications were discussed with the patient. - Patient has a contact number available for emergencies. - Return to normal activities tomorrow. - Resume previous diet. - Continue present medications. - Await pathology results. Procedure Code(s): --- Professional --- 35088, Esophagogastroduodenoscopy, flexible, transoral; with insertion of guide wire followed by passage of dilator(s) through esophagus over guide wire 59505, 59, Esophagogastroduodenoscopy, flexible, transoral; with biopsy, single or multiple 69170, 59, Moderate sedation services provided by the same physician or other qualified health direct care provider performing the diagnostic or therapeutic service that the sedation supports, requiring the presence of an independent trained observer to assist in the monitoring of the patient's level of consciousness and physiological status; initial 15 minutes of intraservice time, patient age 5 years or older CPT copyright 2017 [employer]. All rights reserved. The codes documented in this report are preliminary and upon careers counsellor review may be revised to meet current compliance requirements. Walter Cavanaugh DO 09/10/2021 1:10:57 PM This report has been signed electronically. Number of Addenda: 1 Note Initiated On: 09/10/2021 12:15 PM Addendum Number: 1 Addendum Date: 03/19/2022 6:22:23 AM MAC was used as sedation for this procedure. Walter Cavanaugh DO 03/19/2022 6:22:29 AM This report has been signed electronically.
--- NOTE | 2021-09-10 13:12 | OP.CCLET_ITS ---
03/19/2022 Sandy Acevedo MD [address] [place] [address] [place] [address] Re : Upper GI endoscopy procedure for Emma Hall Dear Dr. Acevedo This procedure was performed on Friday, September 10, 2021. My impressions and recommendations are as follows: Impressions : - LA Grade A reflux esophagitis. Biopsied. - Benign-appearing esophageal stenoses. Dilated. - Normal gastric body. - Normal stomach. - Duodenal erosions without bleeding. Biopsied. Recommendations : - Written discharge instructions were provided to the patient. - The signs and symptoms of potential delayed complications were discussed with the patient. - Patient has a contact number available for emergencies. - Return to normal activities tomorrow. - Resume previous diet. - Continue present medications. - Await pathology results. My findings are described in the full procedure note, which is enclosed. If I can be of further assistance, please feel free to contact me at . Sincerely, Walter Cavanaugh DO 09/10/2021 1:10:57 PM This report has been signed electronically.
--- NOTE | 2021-09-10 13:18 | OP.COLON_ITS ---
Patient Name: Emma Hall Procedure Date: 09/10/2021 12:37 PM Date of : 1945 Age: 75 Procedure: Colonoscopy Indications: Abdominal pain in the left lower quadrant Providers: Walter Cavanaugh DO Medicines: See the Anesthesia note for documentation of the administered medications Patient Profile: This is a 75 year old female. Refer to note in patient chart for documentation of history and physical. Patient has symptoms of acute epigastric abdominal pain and dysphagia with solids. Last Colonoscopy: 5 years ago. Complications: No immediate complications. Procedure: Pre-Anesthesia Assessment: - Prior to the procedure, a History and Physical was performed, and patient medications and allergies were reviewed. The risks and benefits of the procedure and the sedation options and risks were discussed with the patient. All questions were answered and informed consent was obtained. Patient identification and proposed procedure were verified by the physician in the pre-procedure area. Mental Status Examination: alert and oriented. Airway Examination: normal oropharyngeal airway and neck mobility. Respiratory Examination: clear to auscultation. CV Examination: normal. Prophylactic Antibiotics: The patient does not require prophylactic antibiotics. Prior Anticoagulants: The patient has taken no previous anticoagulant or antiplatelet agents. ASA Grade Assessment: II - A patient with mild systemic disease. After reviewing the risks and benefits, the patient was deemed in satisfactory condition to undergo the procedure. The anesthesia plan was to use moderate sedation / analgesia (conscious sedation). Immediately prior to administration of medications, the patient was re-assessed for adequacy to receive sedatives. The heart rate, respiratory rate, oxygen saturations, blood pressure, adequacy of pulmonary ventilation, and response to care were monitored throughout the procedure. The physical status of the patient was re-assessed after the procedure. After I obtained informed consent, the scope was passed under direct vision. Throughout the procedure, the patient's blood pressure, pulse, and oxygen saturations were monitored continuously. The colonoscope was introduced through the anus and advanced to the terminal ileum. The colonoscopy was performed without difficulty. The patient tolerated the procedure well. The quality of the bowel preparation was good. Moderate Sedation: Moderate (conscious) sedation was administered by the endoscopy nurse and supervised by the endoscopist. The patient's oxygen saturation, heart rate, blood pressure and response to care were monitored. Total physician intraservice time was 15 minutes. Scope In: 12:40:31 PM Scope Withdrawal Time 0 hours 9 minutes 22 seconds Scope Out: 1:03:06 PM Total Procedure Duration Time 0 hours 22 minutes 35 seconds Findings: Hemorrhoids were found on perianal exam. Non-bleeding hemorrhoids were found during retroflexion. The hemorrhoids were Grade I (internal hemorrhoids that do not prolapse). A benign-appearing, intrinsic moderate stenosis measuring 2 cm (in length) x 3 mm (inner diameter) was found in the sigmoid colon and was traversed. A diffuse area of severe melanosis was found in the entire colon. Biopsies were taken with a cold forceps for histology. Verification of patient identification for the specimen was done. Estimated blood loss was minimal. A patchy area of the terminal ileum was congested. Biopsies were taken with a cold forceps for histology. Verification of patient identification for the specimen was done. Estimated blood loss was minimal. Impression: - Hemorrhoids found on perianal exam. - Non-bleeding hemorrhoids. - Stricture in the sigmoid colon. - Melanosis in the colon. Biopsied. - Congested mucosa in the terminal ileum. Biopsied. Recommendation: - Discharge patient to home. - Resume previous diet. - Continue present medications. - Await pathology results. - No repeat colonoscopy due to age. Procedure Code(s): --- Professional --- 14626, Colonoscopy, flexible; with biopsy, single or multiple 14946, 59, Moderate sedation services provided by the same physician or other qualified health primary care nurse practitioner performing the diagnostic or therapeutic service that the sedation supports, requiring the presence of an independent trained observer to assist in the monitoring of the patient's level of consciousness and physiological status; initial 15 minutes of intraservice time, patient age 5 years or older CPT copyright 2017 [employer]. All rights reserved. The codes documented in this report are preliminary and upon gas pumping station helper review may be revised to meet current compliance requirements. Walter Cavanaugh DO 09/10/2021 1:17:12 PM This report has been signed electronically. Number of Addenda: 1 Note Initiated On: 09/10/2021 12:37 PM Addendum Number: 1 Addendum Date: 03/19/2022 6:22:37 AM MAC was used as sedation for this procedure. Walter Cavanaugh DO 03/19/2022 6:22:41 AM This report has been signed electronically.
--- NOTE | 2021-09-10 13:18 | OP.CCLET_ITS ---
03/19/2022 Sandy Acevedo MD [address] [place] [address] [place] [address] Re : Colonoscopy procedure for Emma Hall Dear Dr. Acevedo This procedure was performed on Friday, September 10, 2021. My impressions and recommendations are as follows: Impressions : - Hemorrhoids found on perianal exam. - Non-bleeding hemorrhoids. - Stricture in the sigmoid colon. - Melanosis in the colon. Biopsied. - Congested mucosa in the terminal ileum. Biopsied. Recommendations : - Discharge patient to home. - Resume previous diet. - Continue present medications. - Await pathology results. - No repeat colonoscopy due to age. My findings are described in the full procedure note, which is enclosed. If I can be of further assistance, please feel free to contact me at . Sincerely, Walter Cavanaugh, 09/10/2021 1:17:12 PM This report has been signed electronically.
== END 2021-09-10 23:59 | disposition home or self-care (01) ==
LOC: EN 10:33 → AC 10:34
PROVIDERS: PCP Internal Medicine; Referring Provider Internal Medicine; Visit Provider Internal Medicine Gastroenterology
PROC: 0DJD8ZZ Inspection of Lower Intestinal Tract, Via Natural or Artificial Opening Endoscopic (ICD-10-PCS; CPT 45378; principal; 2021-09-10 11:55)
DX: K63.89 Other specified diseases of intestine (principal); I48.0 Paroxysmal atrial fibrillation; K56.699 Other intestinal obstruction unspecified as to partial versus complete obstruction; K22.2 Esophageal obstruction; K64.0 First degree hemorrhoids; K21.00 Gastro-esophageal reflux disease with esophagitis, without bleeding; R13.19 Other dysphagia; K59.00 Constipation, unspecified; I10 Essential (primary) hypertension; E78.5 Hyperlipidemia, unspecified; Z79.01 Long term (current) use of anticoagulants; Z79.899 Other long term (current) drug therapy; Z86.16 Personal history of COVID-19
CPT/HCPCS: 45380; 43248; 43239; 36416; 82962; 85610; 88305; 88313; J7120; C1769; J2405

== ENCOUNTER 2021-10-16 10:11 | Outpatient (RCR) | payer MEDICARE, OTHER, SELFPAY ==
[2021-09-24 12:50] LABS: INR Fingerstick 1.1; Prothrombin Time Fingerstick 14.1 SEC (11.7-14.9)
[2021-10-16 16:45] LABS: INR Fingerstick 1.3; Prothrombin Time Fingerstick 16.4 SEC (11.7-14.9)
== END 2021-10-16 18:00 | disposition home or self-care (01) ==
LOC: LAB 10:11
PROVIDERS: PCP Internal Medicine; Referring Provider Nurse Practitioner Family; Visit Provider Nurse Practitioner Family
DX: I48.0 Paroxysmal atrial fibrillation (principal); Z79.01 Long term (current) use of anticoagulants
CPT/HCPCS: 36416; 85610

== ENCOUNTER → 2021-10-18 | Outpatient (CLI) | payer MEDICARE, OTHER, SELFPAY ==
--- NOTE | 2021-10-18 14:22 | CT_ITS ---
STUDY: CT CHEST CONTRAST REASON FOR EXAM: Female, 75 years old. Nodule on CXR RADIATION DOSAGE (If Supplied By Facility): CTDIvol = ( 9.39 ) mGy, DLP = ( 279.81 ) mGycm TECHNIQUE: Transaxial imaging was performed without the administration of intravenous contrast material. Individualized dose optimization techniques were used for this CT. COMPARISON: Comparison is made with prior chest radiograph dated 08/07/2021. FINDINGS: CHEST There is prominence of the right first costochondral junction. No pulmonary nodule is seen. There is no demonstrated pleural abnormality. There are calcifications of the coronary arteries. There are multiple small lymph nodes within the mediastinum, which are normal in size and morphology most compatible with reactive lymph hyperplasia. Normal hilar regions. Normal unenhanced pulmonary arteries. There is atherosclerotic calcification of the aortic arch with tortuosity and elongation of the aortic arch and descending thoracic aorta. There are multi-level degenerative changes of the thoracic spine. There is no demonstrated abnormality of the visualized upper abdomen. CT/Chest without Contrast IMPRESSION: Promise of the first right costochondral junction. No nodular density is seen. Electronically Signed: Levy Martinez MD at 15:35 EDT ,
== END | disposition home or self-care (01) ==
LOC: CT 14:20
PROVIDERS: PCP Internal Medicine; Referring Provider Internal Medicine Critical Care Medicine; Visit Provider Internal Medicine Critical Care Medicine
DX: R93.89 Abnormal findings on diagnostic imaging of other specified body structures (principal); R91.1 Solitary pulmonary nodule
CPT/HCPCS: 71250

== ENCOUNTER 2021-11-19 14:18 | Outpatient (RCR) | payer MEDICARE, OTHER, SELFPAY ==
[2021-11-21 13:40] LABS: INR Fingerstick 1.5
== END 2021-11-19 18:00 | disposition home or self-care (01) ==
LOC: LAB 14:18
PROVIDERS: PCP Internal Medicine; Referring Provider Nurse Practitioner Family; Visit Provider Nurse Practitioner Family
DX: I48.0 Paroxysmal atrial fibrillation (principal); Z79.01 Long term (current) use of anticoagulants
CPT/HCPCS: 36416; 85610

== ENCOUNTER 2022-04-01 09:31 | Outpatient (CLI) | payer MEDICARE, OTHER, SELFPAY ==
[2022-04-01 12:25] LABS: Absolute Neutrophil Count 1.6 X10^3/uL (2.0-7.7); Basophil# 0.03 X10^3/uL; Basophil% 0.9 % (0-1); Eosinophil# 0.06 X10^3/uL; Eosinophils% 1.7 % (0-5); Hematocrit 42.2 % (37-47); Hemoglobin 14.4 g/dL (12.0-15.0); Lymphocyte % 40.6 % (19-41); Mean Corp Hgb Conc 34.1 g/dL (32-36); Mean Corpuscular Hgb 33.4 pg (27.0-32.0); Mean Corpuscular Volume 97.9 fL (81-99); Mean Platelet Vol. 10.7 fl (6.2-12.0); Monocyte% 11.6 % (0-10); NRBC Flagged by Analyzer 0 % (0-5); Neutrophil # 1.56 X10^3/uL (2.7-7.7); Neutrophil % 45.2 % (47-70); Platelet Count 192 K/mm3 (150-450); RBC Distribution Width SD 47.1 fl (35.1-43.9); Red Blood Count 4.31 M/mm3 (4.2-5.4); White Blood Count 3.5 K/mm3 (4.4-11.0)
[2022-04-01 12:44] LABS: Vitamin D,25 Hydroxy 41.4 ng/mL
[2022-04-01 13:18] LABS: AST(SGOT) 19 U/L (15-37); Alanine Aminotransfer ALT/SGPT 26 U/L (13-56); Albumin, Serum 3.6 g/dL (3.2-5.0); Alkaline Phosphatase 69 U/L (45-117); Anion Gap 6 (5-15); BUN 11 mg/dL (7-18); BUN/Creat Ratio 15.4 RATIO (10-20); Calcium,Total 8.9 mg/dL (8.5-10.1); Chloride 104 mmol/L (98-107); Creatinine, Serum 0.71 mg/dL (0.55-1.02); EST Glomerular Filtration Rate 85 mL/min (>60); Est Glom Filt Rate - Afr Amer 102 mL/min (>60); Globulin 3.5 g/dL (2.2-4.2); Glucose 97 mg/dL (74-106); Protein, Total 7.1 g/dL (6.4-8.2); Sodium Level 138 mmol/L (136-145); T4 Free Direct 0.98 ng/dL (0.76-1.46); Thyroid Stim Hormone (TSH) 2.02 uIU/mL (0.358-3.74)
== END 2022-04-01 23:59 | disposition home or self-care (01) ==
LOC: EPLAB 09:34 → BIMLAB 09:44
PROVIDERS: PCP Internal Medicine; Visit Provider Internal Medicine
DX: I10 Essential (primary) hypertension (principal); I48.0 Paroxysmal atrial fibrillation; E21.3 Hyperparathyroidism, unspecified; E78.5 Hyperlipidemia, unspecified; E55.9 Vitamin D deficiency, unspecified; Z13.29 Encounter for screening for other suspected endocrine disorder
CPT/HCPCS: 36415; 80053; 82306; 84439; 84443; 85025; 85610

== ENCOUNTER → 2022-04-15 | Outpatient (CLI) | payer MEDICARE, OTHER, SELFPAY ==
--- NOTE | 2022-04-15 08:59 | BD_ITS ---
STUDY: DUAL ENERGY X-RAY ABSORPTIOMETRY / DXA REASON FOR EXAM: Female, 76 years old. Post - Menopausal TECHNIQUE: Bone Mineral Density (BMD) measurements of lumbar spine and bilateral hips were obtained. COMPARISON: None. FINDINGS: Lumbar Spine (L1-L4): g/cm2 (0.939) / T-score (-1.0) / Z-score (1.6) Findings are suggestive of normal bone density with a low fracture risk. Left Femur Total: g/cm2 (0.616) / T-score (-2.7) / Z-score (-0.8) Left Femoral Neck: g/cm2 (0.536) / T-score (-2.8) / Z-score (-0.6) Right Femur Total: g/cm2 (0.694) / T-score (-2.0) / Z-score (-0.1) Right Femoral Neck: g/cm2 (0.673) / T-score (-1.6) / Z-score (0.6) BD/Dexa Bone Density Study IMPRESSION: The patient is considered osteoporotic as outlined below according to World N[employer]di Organization (WHO) criteria with a high fracture risk. Reference Information: The T-score is the number of standard deviations above or below the standard which is normal for young adults at their peak bone mineral density. The World Health Organization (WHO) interprets the T-scores as follows: Above -1 Normal bone density Between -1 and -2.5 Osteopenia Equal to / or below -2.5 Osteoporosis As a practical clinical guideline, osteopenia may be graded as follows: Mild -1 through -1.5 Moderate -1.6 through -2.0 Severe -2.1 through -2.4 The Z-score is the number of standard deviations above or below age-matched controls. A Z-score of less than -1.5 would be considered abnormal. References: 1. NIH Osteoporosis and Related Bone Diseases www osteo.org 2. International Society for Clinical Densitometry www iscd.org 3. National Osteoporosis Foundation www nof.org Electronically Signed: Levy Martinez MD at 8:14 EDT ,
== END | disposition home or self-care (01) ==
LOC: OPBD 08:46
PROVIDERS: PCP Internal Medicine; Referring Provider Internal Medicine; Visit Provider Internal Medicine
DX: M81.0 Age-related osteoporosis without current pathological fracture (principal); M85.80 Other specified disorders of bone density and structure, unspecified site; Z78.0 Asymptomatic menopausal state
CPT/HCPCS: 77080

== ENCOUNTER → 2022-04-28 | Outpatient (CLI) | payer MEDICARE, OTHER, SELFPAY ==
--- NOTE | 2022-04-28 11:06 | VDLE_ITS ---
Reason For Study: BLE swelling/pain RIGHT LEFT GSV is normal. GSV is normal. CFV is compressible, spontaneous, phasic, CFV is compressible, spontaneous, phasic, competent and demonstrates normal competent, and demonstrates normal augmentation. augmentation. FV is compressible, spontaneous, phasic, FV is compressible, spontaneous, phasic, competent and demonstrates normal competent and demonstrates normal augmentation. augmentation. POP V is compressible, spontaneous, phasic, POP V is compressible, spontaneous, phasic, competent and demonstrates normal competent and demonstrates normal augmentation. augmentation. T/P Trunk is compressible. T/P Trunk is compressible. PTV is compressible. PTV is compressible. RT PerV is compressible. LT PerV is compressible. Procedure This is a venous duplex using B-mode, color flow and spectral Doppler. Exam performed in department. The exam was diagnostic. Zhane MORTON @ [facility] @ 11:30 am. VL/Venous Duplex US - [place] Extrem Interpretation Summary Deep veins of the bilateral lower extremities are patent and compressible segme ntally. There is no evidence of bilateral lower extremity deep vein thrombosis. The bilateral great saphenous veins appear patent and compressible segmentally. Ordering Physician: Saturnino Deng Referring Physician: Sandy Acevedo Performed By: Giovana Hurley, SAÚL, RVT
== END | disposition home or self-care (01) ==
LOC: CVS 11:05
PROVIDERS: PCP Internal Medicine; Referring Provider Internal Medicine Cardiovascular Disease; Visit Provider Internal Medicine Cardiovascular Disease
DX: I48.0 Paroxysmal atrial fibrillation (principal); Z79.01 Long term (current) use of anticoagulants; R60.0 Localized edema; M79.89 Other specified soft tissue disorders; M79.661 Pain in right lower leg; M79.662 Pain in left lower leg
CPT/HCPCS: 36416; 85610; 93970

== ENCOUNTER 2022-05-19 10:35 | Outpatient (RCR) | payer MEDICARE, OTHER, SELFPAY ==
[2022-04-28 11:40] LABS: Prothrombin Time Fingerstick 13.1 SEC (11.7-14.9)
[2022-05-05 10:30] LABS: INR Fingerstick 1.2; Prothrombin Time Fingerstick 14.7 SEC (11.7-14.9)
[2022-05-19 11:31] LABS: INR Fingerstick 1.2; Prothrombin Time Fingerstick 14.9 SEC (11.7-14.9)
== END 2022-05-21 18:00 | disposition home or self-care (01) ==
LOC: LAB 10:35
PROVIDERS: PCP Internal Medicine; Referring Provider Nurse Practitioner Family; Visit Provider Nurse Practitioner Family
DX: I48.0 Paroxysmal atrial fibrillation (principal); Z79.01 Long term (current) use of anticoagulants
CPT/HCPCS: 36416; 85610

== ENCOUNTER 2022-06-05 09:51 | Outpatient (RCR) | payer MEDICARE, OTHER, SELFPAY ==
[2022-06-05 10:05] LABS: INR Fingerstick 1.2; Prothrombin Time Fingerstick 14.8 SEC (11.7-14.9)
== END 2022-06-05 18:00 | disposition home or self-care (01) ==
LOC: LAB 09:51
PROVIDERS: PCP Internal Medicine; Referring Provider Nurse Practitioner Family; Visit Provider Nurse Practitioner Family
DX: I48.0 Paroxysmal atrial fibrillation (principal); Z79.01 Long term (current) use of anticoagulants; R31.9 Hematuria, unspecified
CPT/HCPCS: 36416; 85610; 87086; 87088; 87186

== ENCOUNTER → 2022-06-12 | Outpatient (CLI) | payer MEDICARE, OTHER, SELFPAY ==
--- NOTE | 2022-06-12 10:57 | US_ITS ---
STUDY: RENAL ULTRASOUND - COMPLETE REASON FOR EXAM: Female, 76 years old. Microscopic hematuria. TECHNIQUE: Ultrasound evaluation of the kidneys was performed with real-time and static oneal-scale imaging. COMPARISON: None. FINDINGS: RIGHT KIDNEY: Normal location of the right kidney, which is normal in size. The right kidney measures 9.4 cm x 5.2 cm x 4.8 cm. There is a normal cortex of the right kidney. The renal cortex measures 1.1 cm. There is no right renal mass or cyst. There are no right renal calculi. There is no right hydronephrosis. DISTAL RIGHT URETER: There is non-visualization of the distal right ureter. There is no demonstrated right ureterovesical junction calculus. There is a visualized right ureteral jet. LEFT KIDNEY: Normal location of the left kidney, which is normal in size. The left kidney measures 9.3 cm x 4.5 cm x 5.1 cm. There is a normal cortex of the left kidney. The renal cortex measures 1.2 cm. There is no left renal mass or cyst. There are no left renal calculi. There is no left hydronephrosis. DISTAL LEFT URETER: There is non-visualization of the distal left ureter. There is no demonstrated left ureterovesical junction calculus. There is a visualized left ureteral jet. BLADDER: The distended urinary bladder has a volume of 232 ml. The empty urinary bladder has a volume of 73.5 ml. There is a normal wall thickness of the distended urinary bladder. There is no demonstrated mass within the urinary bladder. There are no demonstrated bladder calculi. US/Kidney and Bladder IMPRESSION: Normal ultrasound of the kidneys and urinary bladder. Electronically Signed: Levy Martinez MD at 15:02 EST ,
== END | disposition home or self-care (01) ==
LOC: US 10:55
PROVIDERS: PCP Internal Medicine; Referring Provider Urology; Visit Provider Urology
DX: R31.21 Asymptomatic microscopic hematuria (principal); M54.50 Low back pain, unspecified
CPT/HCPCS: 76770

== ENCOUNTER → 2022-06-18 | Outpatient (CLI) | payer MEDICARE, OTHER, SELFPAY ==
--- NOTE | 2022-06-18 09:46 | CDU_ITS ---
Reason For Study: Carotid Stenosis Rt. Velocities/BP Lt. Velocities/BP Prox CCA 114/21 cm/sec. Prox CCA 73/13 cm/sec. Mid CCA 99/12 cm/sec. Mid CCA 86/16 cm/sec. Dist CCA 86/15 cm/sec. Dist CCA 77/17 cm/sec. Prox ICA 57/12 cm/sec. Prox ICA 76/19 cm/sec. Mid ICA 71/19 cm/sec. Mid ICA 73/22 cm/sec. Dist ICA 45/17 cm/sec. Dist ICA 73/25 cm/sec. Rt. ICA/CCA = 0.7. Lt. ICA/CCA = 0.84. Prox ECA 89/10 cm/sec. Prox ECA 88/7 cm/sec. Rt. Vert. 35/11 cm/sec. Lt. Vert. 43/10 cm/sec. Right Extracranial There is heterogeneous, irregular atherosclerotic plaque noted in the right common carotid artery. There is heterogeneous, smooth atherosclerotic plaque noted in the right internal carotid artery. There is intimal thickening but no significant atherosclerotic plaque noted in the right external carotid artery. Antegrade flow is noted in the right vertebral artery. Left Extracranial There is heterogeneous, smooth atherosclerotic plaque noted in the left common carotid artery. There is heterogeneous, irregular atherosclerotic plaque noted in the left internal carotid artery. There is heterogeneous, smooth atherosclerotic plaque noted in the left external carotid artery. Antegrade flow is noted in the left vertebral artery. Procedure Carotid Duplex [id number]. This is a Carotid Duplex examination using B-mode, color flow and specral Doppler. Exam performed in department. VL/Carotid Duplex Ultrasound Interpretation Summary Post operative changes of the right carotid bulb and proximal internal carotid artery with less than 50% stenosis of the internal carotid artery Less than 50% stenosis right external carotid artery Irregular plaque at the proximal left internal carotid artery with a less than 50% stenosis Less than 50% stenosis left external carotid artery Patent and antegrade vertebral arteries bilaterally Ordering Physician: Segundo Frey Referring Physician: Sandy Acevedo Performed By: Libby Marin, SAÚL, RVT
[2022-06-18 15:18] LABS: Mucous, Urine 0 SEEN /hpf (<or=2+); Red Blood Cells-Urine 0 SEEN /hpf (0-5)
[2022-06-18 15:25] LABS: Color, Urine Yellow (Yellow); Glucose, Dipstick Normal (Normal); Ketone-Dipstick 5 mg/dl (Negative); Leukocyte Esterase-Dipstick 25 /ul (Negative); Nitrite-Dipstick Negative (Negative); Occult Blood-Urine Negative /ul (Negative); Protein-Dipstick 15 mg/dl (Negative); Urine Bilirubin Dipstick Negative (Negative); Urine Clarity Sl. Cloudy (Clear); Urine Urobilinogen Normal (Normal)
[2022-06-18 16:29] LABS: Amorphous Sediment 3+; Squamous Epithelial Cells - UA 0-5 SEEN /hpf (5-10); White Blood Cells 0-5 SEEN /hpf (0-5)
[2022-06-18 16:30] LABS: Bacteria 1+ /hpf (None Seen)
== END | disposition home or self-care (01) ==
PROVIDERS: Physician Assistant Surgical; PCP Internal Medicine; Referring Provider Surgery; Visit Provider Surgery
DX: I65.23 Occlusion and stenosis of bilateral carotid arteries (principal); N39.0 Urinary tract infection, site not specified
CPT/HCPCS: 81001; 87086; 87088; 93880

== ENCOUNTER → 2022-06-26 | Outpatient (CLI) | payer MEDICARE, OTHER, SELFPAY | END | disposition home or self-care (01) | PROVIDERS: PCP Internal Medicine; Referring Provider Urology; Visit Provider Urology | DX: M54.50 Low back pain, unspecified (principal) | CPT/HCPCS: 87086; 87088 ==

== ENCOUNTER 2022-10-12 06:41 | Emergency (ER) | payer MEDICARE, OTHER, SELFPAY ==
[2022-10-12 06:43] VITALS: BP 158/85; PULSE 77; RESP 16; TEMP 36.6; O2SAT 95; BMI 29.0
--- NOTE | 2022-10-12 07:01 | CT_ITS ---
INDICATION: flank pain, hematuria EXAMINATION: CT ABDOMEN AND PELVIS WITHOUT CONTRAST - CT Abdomen And Pelvis W/O Contrast Injection TECHNIQUE: Helically acquired images were obtained of the abdomen and pelvis without oral or IV contrast. A radiation dose optimization technique was used for this scan. IV Contrast dosage and agent: None. Oral contrast: None. RADIATION DOSAGE (If Supplied By Facility): CTDIvol = ( 8.62 ) mGy, DLP = ( 363.71 ) mGycm COMPARISON: July 22, 2020 FINDINGS: LOWER CHEST: Lung bases are clear. No cardiomegaly or pericardial effusion. The lack of intravenous contrast limits evaluation of solid visceral organs. LIVER: Homogeneous. No focal mass. GALLBLADDER AND BILIARY TREE: No calcified gallstones. No gallbladder distension or wall edema. No intra- or extrahepatic biliary ductal dilation. PANCREAS: No focal cystic or solid mass. SPLEEN: Normal size without focal cystic or solid mass. ADRENAL GLANDS: No nodules. KIDNEYS AND URETERS: Normal renal size and position. No hydronephrosis. PERITONEUM: No ascites or free air. No other fluid collection. BOWEL: No evidence of acute appendicitis. No stomach or bowel distension. There are diverticula arising from the colon. There is a moderate amount of stool throughout the colon No focal inflammatory change. LYMPH NODES: No enlarged mesenteric or retroperitoneal lymph nodes. VESSELS: Aorta is non-dilated. There are peripheral calcifications of the abdominal aorta. URINARY BLADDER: Unremarkable. REPRODUCTIVE ORGANS: No pelvic masses. ABDOMINAL WALL: No discrete abdominal or pelvic wall hernia. There are postsurgical changes of the anterior abdominal wall. BONES: No there are degenerative changes of the visualized thoracic and lumbar spine. There is a stable grade 1 anterior spondylolisthesis of L4 on L5. CT/Abdomen/Pelvis without Cont IMPRESSION: Moderate amount of stool throughout the colon. Colonic diverticulosis. Atherosclerosis. Electronically Signed: Nieves Willams MD at 8:16 EDT ,
--- NOTE | 2022-10-12 07:02 | EDS_ITS ---
HPI History of Present Illness Chief Complaint: Complaint Detail of Chief Complaint: Hematuria Informant: patient Narrative Narrative: Patient presents secondary to hematuria. She noted her around 5 PM last evening. She has been having urinary frequency and mild dysuria. She was on Keflex earlier this month for presumed UTI. She states her symptoms improved somewhat while she was on the antibiotic but then worsened after stopping it. No fever or chills in the last 2 to 3 days. She does report one night of fever earlier this month. [facility] Medical History Abdominal distension, gaseous Acute bronchitis, unspecified Acute maxillary sinusitis, unspecified Acute otitis media, left Allergic reaction to contrast dye Amaurosis fugax, right eye Anxiety Arthritis Asthma Back pain Carotid stenosis, right Carpal tunnel syndrome Cataracts, both eyes Chronic bronchitis Constant exophthalmos Constipation Diabetes Dysphagia Easy bruising Esophageal stenosis Essential (primary) hypertension Fibromyalgia GERD (gastroesophageal reflux disease) Hay fever Heartburn Hemorrhoids History of atrial fibrillation History of COVID-19 History of echocardiogram History of edema History of IBS History of pain when walking History of rheumatic fever History of stress test Hormone deficiency Hyperlipidemia Hypoglycemia IBS (irritable bowel syndrome) Immunization declined Injury of head and neck Knee pain Low iron Neck pain Non-smoker Osteoporosis Paroxysmal atrial fibrillation Post-menopausal Screening for thyroid disorder Seasonal allergies Shortness of breath on exertion Sinusitis Syncope UTI (urinary tract infection) Vitamin D deficiency Vitiligo Wears dentures Home Medications B-complex with vitamin C 1 cap PO DAILY SUPPLEMENT 11/18/19 [History Last Taken 3 Days Ago ~08/04/21] diphenhydramine HCl 25 mg capsule (Benadryl) 50 mg PO PRN PRN ALLERGIES 05/29/21 [History Last Taken 08/03/21] lactobacillus combination no.4 3 billion cell capsule (Probiotic) 3,000 mmu cells PO QODAY SUPPLEMENT 05/29/21 [History Last Taken 1 Week Ago ~07/31/21] benzonatate 100 mg capsule 200 mg PO TID PRN cough #30 caps 12/16/21 [Rx Last Taken Unknown] verapamil 120 mg 24 hr capsule,extended release 120 mg PO DAILY #90 caps 04/15/22 [Rx Last Taken Unknown] cholecalciferol (vitamin D3) 50 mcg (2,000 unit) capsule 50 mcg PO DAILY #90 caps 04/23/22 [Rx Last Taken Unknown] denosumab 60 mg/mL subcutaneous syringe (Prolia) 60 mg subcut [id number] #1 mL 07/15/22 [Rx Last Taken Unknown] rivaroxaban 20 mg tablet (Xarelto) 20 mg PO QPM #30 tabs 10/01/22 [Rx Last Taken Unknown] nitrofurantoin monohydrate/macrocrystals 100 mg capsule (Macrobid) 100 mg PO Q12H 7 days #14 caps 10/12/22 [Rx Last Taken Unknown] omeprazole 40 mg capsule,delayed release 40 mg PO DAILY 10/12/22 [History Last Taken Unknown] Allergy/AdvReac Type Severity Reaction Status Date / Time doxycycline Allergy Severe Chest Verified 09/15/22 12:55 Congestion/Couldn't Breathe epinephrine Allergy Severe Shortness Verified 09/15/22 12:55 [From Primatene Mist] of breath epinephrine bitartrate Allergy Severe Shortness Verified 09/15/22 12:55 [From Primatene Mist] of breath iodine Allergy Severe rash, Verified 09/15/22 12:55 swelling rosuvastatin Allergy Severe Eyes and Verified 09/15/22 12:55 face swelled Iodinated Contrast Media Allergy Intermediate Swelling Verified 09/15/22 12:55 levofloxacin [From Levaquin] Allergy Intermediate Swelling Verified 09/15/22 12:55 metoprolol Allergy Intermediate Nasal Verified 09/15/22 12:55 congestion, throat congestion estrogens, conjugated Allergy Mild Swelling Verified 09/15/22 12:55 [From Premarin] Iodine and Iodide Containing Allergy Mild Other Verified 09/15/22 12:55 Produc meperidine HCl [From Demerol] Allergy Mild Other Verified 09/15/22 12:55 mold Allergy Mild Other Verified 09/15/22 12:55 Penicillins Allergy Mild Unknown Verified 09/15/22 12:55 Sulfa (Sulfonamide Allergy Mild Unknown Verified 09/15/22 12:55 Antibiotics) clarithromycin [From Biaxin] Allergy Unknown Rash Verified 09/15/22 12:55 digoxin [From Digitek] Allergy Swelling Verified 09/15/22 12:55 Food Allergies: Uncoded Allergy Swelling Verified 10/06/22 11:46 ragweed pollen Allergy NEEDS Verified 09/15/22 12:55 FOLLOW-UP aspirin AdvReac Intermediate makes my Verified 09/15/22 12:55 heart race Family History Mother Cancer Aunt Cancer Brother Cancer Father Vitiligo Surgical History H/O hernia repair History of angioplasty History of colonoscopy History of hysterectomy History of right-sided carotid endarterectomy (05/2021) History of tonsillectomy Social History Smoking Status: Never smoker Electronic Cigarette Use: not used second hand exposure: No alcohol intake: current alcohol intake frequency: holidays/special occasions only substance use type: does not use what type of physical activity do you participate in: walking myron/sikhism: Denominational seatbelt use: always ROS ROS ED Constitutional Constitutional ED: Denies chills or fever(s) Eyes Eyes: Denies change in vision or discharge from eye(s) ENT ENT ED: Denies discharge from eye(s), rhinorrhea or sore throat Cardiovascular Cardiovascular: Denies chest pain or palpitations Respiratory/Chest Respiratory/Chest: Denies cough or dyspnea Gastrointestinal Gastrointestinal: Denies abdominal pain, diarrhea, nausea or vomiting Genitourinary Genitourinary ED: Reports dysuria, hematuria and urinary frequency Musculoskeletal Musculoskeletal: Denies back pain or extremity pain Integumentary Denies Abrasions or rash Neurologic Neurologic: Denies headache(s) or weakness Psychiatric Psychiatric: Denies anxiety or depression Allergic/Immunologic Allergic/Immunologic ED: Denies lip swelling or urticaria EXAM Physical Exam Const Vital Signs: 10/12/22 06:43 Temperature 97.9 F Temperature Source Oral Pulse Rate 77 Respiratory Rate 16 Blood Pressure 158/85 H Blood Pressure Mean 109 Pulse Ox 95 Oxygen Delivery Method Room Air Positive well nourished and well developed General Appearance ED: well developed HEENT Reports normocephalic and head/scalp atraumatic Eyes PERRL and EOMs intact bilaterally Neck supple Chest Wall inspection of chest normal and palpation of chest normal Resp normal respiratory effort and clear to auscultation bilaterally Cardio regular rate and regular rhythm GI normal to inspection, nondistended, normoactive bowel sounds Palpation: soft Back/Spine no CVA tenderness Extremity normal to inspection Neuro oriented x3 and no sensory deficits noted Sensorium / Orientation: alert Motor Exam: strength 5/5 throughout Psych mental status grossly normal Skin no rashes or lesions noted MDM MDM MDM Narrative Medical decision making narrative: Urinalysis obtained to evaluate for infection/hematuria. CT flank obtained to evaluate for possible kidney stone given that she does report increased left- sided pain. Lab Data Attestation: I reviewed the patient's lab results. Labs: Laboratory Results - last 24 hr 10/12/22 06:50 Urine Color Brown Urine Clarity Turbid Urine pH 8.0 Ur Specific [place] 1.015 Urine Protein 100 H Urine Glucose (UA) Normal Urine Ketones Negative Urine Occult Blood 250 H Urine Nitrite Negative Urine Bilirubin Negative Urine Urobilinogen Normal Ur Leukocyte Esterase 500 H Urine RBC > 100 SEEN Urine WBC 10-25 SEEN Ur Squamous Epith Cells 0 SEEN Urine Bacteria 1+ Urine Mucus 0 SEEN Treatment and Re-Evaluation :: Urinalysis does reveal infection with 1+ bacteria, 10-25 white cells, 500 leukocyte esterase. Greater than 100 RBCs are noted. This is likely because the patient is on Xarelto. I did review the patient's CT images. Do not see any obvious renal stones. Patient does have oral contrast noted on her scan. In light of this I pulled her chart up on [employer] and she did have a CT scan with oral contrast on the of this month. At that time there was no evidence of renal stone or ureteral stone. Patient be discharged to home at this time with Macrobid. Urine culture has been sent and she was advised that she will be called if we need to change her antibiotic. Discharge Plan Triage Chief Complaint: Complaint ED Provider: Debby Figueroa Dx/Rx/DC Orders Clinical Impression: Cystitis Instructions: ED Cystitis Female Adult Prescriptions: New nitrofurantoin monohyd/m-cryst [Macrobid] 100 mg capsule 100 mg PO Q12H 7 Days Qty: 14 0RF Rx Instructions: must administer with a meal/food No Action B-complex with vitamin C Capsule 1 cap PO DAILY benzonatate 100 mg capsule 200 mg PO TID PRN (Reason: cough) Qty: 30 0RF verapamil 120 mg capsule,ext rel. pellets 24 hr 120 mg PO DAILY Qty: 90 3RF cholecalciferol (vitamin D3) 50 mcg (2,000 unit) capsule 50 mcg PO DAILY Qty: 90 3RF diphenhydramine HCl [Benadryl] 25 mg capsule 50 mg PO PRN PRN (Reason: ALLERGIES) Rx Instructions: Take 1 cap PO [address] scan Probiotic 3 billion cell Capsule 3,000 mmu cells PO QODAY omeprazole 40 mg capsule,delayed release(DR/EC) 40 mg PO DAILY Label Comments: TAKE 1 CAPSULE BY MOUTH ONCE DAILY Prolia 60 mg/mL syringe 60 mg subcut [id number] Qty: 1 2RF Xarelto 20 mg tablet 20 mg PO QPM Qty: 30 11RF Rx Instructions: must administer with evening meal Primary Care Provider: Ana Paula Lorenzana Referrals: Sandy Acevedo MD [Med Staff - Active Staff] - Galen Gomez MD [Med Staff - Active Staff] - 1-2 Weeks Disposition Disposition: Home, Self Care
[2022-10-12 07:11] LABS: Mucous, Urine 0 SEEN /hpf (<or=2+); Squamous Epithelial Cells - UA 0 SEEN /hpf (5-10)
[2022-10-12 07:14] LABS: Color, Urine Brown (Yellow); Glucose, Dipstick Normal (Normal); Ketone-Dipstick Negative (Negative); Leukocyte Esterase-Dipstick 500 /ul (Negative); Nitrite-Dipstick Negative (Negative); Occult Blood-Urine 250 /ul (Negative); Protein-Dipstick 100 mg/dl (Negative); Specific Gravity, Urine 1.015 (1.002-1.030); Urine Bilirubin Dipstick Negative (Negative); Urine Clarity Turbid (Clear); Urine Urobilinogen Normal (Normal)
[2022-10-12 07:37] LABS: Bacteria 1+ /hpf (None Seen); Red Blood Cells-Urine > 100 SEEN /hpf (0-5); White Blood Cells 10-25 SEEN /hpf (0-5)
[2022-10-12] MEDS: Nitrofurantoin Macrocrystals 100 MG Capsule PO (08:05)
[2022-10-12] MEDS: Fluconazole 100 MG Tablet PO (08:16)
== END 2022-10-12 08:18 | disposition home or self-care (01) ==
PROVIDERS: Emergency Provider Emergency Medicine; PCP Internal Medicine; Visit Provider Emergency Medicine
DX: N30.91 Cystitis, unspecified with hematuria (principal); E11.9 Type 2 diabetes mellitus without complications; I10 Essential (primary) hypertension; E78.5 Hyperlipidemia, unspecified; R30.0 Dysuria; R35.0 Frequency of micturition
CPT/HCPCS: 74176; 81001; 87086; 87088; 87186; 99283

== ENCOUNTER → 2022-10-16 | Outpatient (CLI) | payer MEDICARE, OTHER, SELFPAY ==
[2022-10-16 10:41] LABS: AST(SGOT) 19 U/L (15-37); Alanine Aminotransfer ALT/SGPT 29 U/L (13-56); Albumin, Serum 3.7 g/dL (3.2-5.0); Alkaline Phosphatase 72 U/L (45-117); Bilirubin, Direct 0.13 mg/dL (0.00-0.30); Cholesterol 235 mg/dL (200); Globulin 3.2 g/dL (2.2-4.2); High Density Lipoprotein 67 mg/dL; Protein, Total 6.9 g/dL (6.4-8.2); Triglycerides 108 mg/dL; Very Low Density Lipoprotein 22 mg/dL (5-40)
== END | disposition home or self-care (01) ==
LOC: LAB 09:17
PROVIDERS: Nurse Practitioner Family; PCP Internal Medicine; Referring Provider Nurse Practitioner Gerontology; Visit Provider Nurse Practitioner Gerontology
DX: E78.00 Pure hypercholesterolemia, unspecified (principal)
CPT/HCPCS: 36415; 80061; 80076

== ENCOUNTER → 2022-11-03 | Outpatient (CLI) | payer MEDICARE, OTHER, SELFPAY | END | disposition home or self-care (01) | LOC: PSN 07:46 | PROVIDERS: PCP Internal Medicine; Referring Provider Nurse Practitioner Family; Visit Provider Nurse Practitioner Family | DX: I48.0 Paroxysmal atrial fibrillation (principal) | CPT/HCPCS: 93225; 93226 ==

== ENCOUNTER 2023-04-17 06:39 | Emergency (ER) | payer MEDICARE, OTHER, SELFPAY ==
[2023-04-17 06:42] VITALS: BP 146/125; PULSE 73; RESP 18; TEMP 37.1; O2SAT 98; BMI 30.4
--- NOTE | 2023-04-17 06:50 | RAD_ITS ---
STUDY: X-RAY - SOFT TISSUE NECK REASON FOR EXAM: Female, 77 years old. Pain and swelling TECHNIQUE: 2 view(s) of the neck were obtained. COMPARISON: None. FINDINGS: Normal visualized nasopharynx, oropharynx, hypopharynx. Normal epiglottis. Normal visualized subglottic tracheal air column. There are no radiodense foreign bodies. The visualized soft tissues are unremarkable. There are degenerative changes noted in the spine. RAD/Neck for Soft Tissue IMPRESSION: Normal x-ray soft tissue neck. Electronically Signed: Toan Prescott MD at 8:01 EDT ,
--- NOTE | 2023-04-17 06:50 | EX.ED.DYSGE1 ---
HPI History of Present Illness Chief Complaint: Edema Detail of Chief Complaint: Problems with the left side of her face and neck Informant: patient Onset/Context/Timing Onset: Month(s) (Initial symptom started approximately 1 month ago) Context: Sudden Onset Timing: Intermittent Quality: Left ear itching, left-sided facial pain, vertigo, now complaining of left- Location: Left side of face and neck Current Severity: Mild Maximum Severity: Moderate Worsened by: Palpation Relieved by: Uncertain Associated Symptoms Associated Symptoms: No constitutional symptoms, reports change in voice, denies drooling or dif Narrative Narrative: Patient is a 77-year-old woman who presents because of problems involving the left side of her head, face and neck that started approximately 1 month ago. She states she initially had itching of her ear. She was told she had dry skin. She was told the apply oil to the area. She then developed intermittent vertigo. She states the vertigo got better with Benadryl. She had no visual symptoms and specifically diplopia. She now reports change in voice, swelling left side of her neck with sensitivity. She denies recent fever, chills night sweats. She denies rhinorrhea, congestion or sore throat. She denies drooling. She is able to swallow liquids and solids. She has not noted a rash other than the dry skin left ear. She was recently admitted for burning in her forearms and gross hematuria. She apparently stopped all her medication. She states her doctor is Dr. Lorenzana. She has not seen her in a while. She is normally seen by a nurse practitioner. As well as walking around of the room she informed that she has a lot of allergies. Prior similar symptoms: Yes Recent Illness/Hospitalization: Yes [facility] Medical History Abdominal distension, gaseous Acute bronchitis, unspecified Acute maxillary sinusitis, unspecified Acute otitis media, left Allergic reaction to contrast dye Amaurosis fugax, right eye Anxiety Arthritis Asthma Back pain Carotid stenosis, right Carpal tunnel syndrome Cataracts, both eyes Chronic bronchitis Constant exophthalmos Constipation Diabetes Dysphagia Easy bruising Esophageal stenosis Essential (primary) hypertension Fibromyalgia GERD (gastroesophageal reflux disease) Hay fever Heartburn Hemorrhoids History of atrial fibrillation History of COVID-19 History of echocardiogram History of edema History of IBS History of pain when walking History of rheumatic fever History of stress test Hormone deficiency Hyperlipidemia Hypoglycemia IBS (irritable bowel syndrome) Immunization declined Injury of head and neck Knee pain Low iron Neck pain Non-smoker Osteoporosis Paroxysmal atrial fibrillation Post-menopausal Screening for thyroid disorder Seasonal allergies Shortness of breath on exertion Sinusitis Syncope UTI (urinary tract infection) Vitamin D deficiency Vitiligo Wears dentures Home Medications diphenhydramine HCl 25 mg capsule (Benadryl) 50 mg PO PRN PRN ALLERGIES 05/29/21 [History Last Taken 08/03/21] benzonatate 100 mg capsule 200 mg (2 x 100 mg) PO TID PRN cough #30 caps 12/16/21 [Rx Last Taken Unknown] verapamil 120 mg 24 hr capsule,extended release 120 mg PO DAILY #90 caps 04/15/22 [Rx Last Taken Unknown] rivaroxaban 20 mg tablet (Xarelto) 20 mg PO QPM #30 tabs 10/01/22 [Rx Last Taken Unknown] nitrofurantoin monohydrate/macrocrystals 100 mg capsule (Macrobid) 100 mg PO Q12H 7 days #14 caps 10/12/22 [Rx Last Taken Unknown] omeprazole 40 mg capsule,delayed release 40 mg PO DAILY 10/12/22 [History Last Taken Unknown] B-complex with vitamin C 1 cap PO DAILY PRN SUPPLEMENT 10/16/22 [History Last Taken Unknown] cholecalciferol (vitamin D3) 50 mcg (2,000 unit) capsule 50 mcg PO DAILY PRN 10/16/22 [History Last Taken Unknown] lactobacillus combination no.4 3 billion cell capsule (Probiotic) 3,000 mmu cells PO QODAY PRN SUPPLEMENT 10/16/22 [History Last Taken Unknown] denosumab 60 mg/mL subcutaneous syringe (Prolia) 60 mg subcut [id number] #1 mL 10/23/22 [Rx Last Taken Unknown] Allergy/AdvReac Type Severity Reaction Status Date / Time epinephrine Allergy Severe Shortness Verified 04/17/23 06:42 [From Primatene Mist] of breath epinephrine bitartrate Allergy Severe Shortness Verified 04/17/23 06:42 [From Primatene Mist] of breath iodine Allergy Severe rash, Verified 04/17/23 06:42 swelling rosuvastatin Allergy Severe Eyes and Verified 04/17/23 06:42 face swelled Iodinated Contrast Media Allergy Intermediate Swelling Verified 04/17/23 06:42 levofloxacin [From Levaquin] Allergy Intermediate Swelling Verified 04/17/23 06:42 metoprolol Allergy Intermediate Nasal Verified 04/17/23 06:42 congestion, throat congestion estrogens, conjugated Allergy Mild Swelling Verified 04/17/23 06:42 [From Premarin] Iodine and Iodide Containing Allergy Mild Other Verified 04/17/23 06:42 Produc meperidine HCl [From Demerol] Allergy Mild Other Verified 04/17/23 06:42 mold Allergy Mild Other Verified 04/17/23 06:42 Penicillins Allergy Mild Unknown Verified 04/17/23 06:42 Sulfa (Sulfonamide Allergy Mild Unknown Verified 04/17/23 06:42 Antibiotics) clarithromycin [From Biaxin] Allergy Unknown Rash Verified 04/17/23 06:42 digoxin [From Digitek] Allergy Swelling Verified 04/17/23 06:42 Food Allergies: Uncoded Allergy Swelling Verified 04/17/23 06:42 ragweed pollen Allergy NEEDS Verified 04/17/23 06:42 FOLLOW-UP aspirin AdvReac Intermediate makes my Verified 04/17/23 06:42 heart race rivaroxaban [From Xarelto] AdvReac Intermediate Blood in Verified 04/17/23 06:42 urine, dry skin, dry mouth, can't sleep, petecchiae Family History Mother Cancer Aunt Cancer Brother Cancer Father Vitiligo Surgical History H/O hernia repair History of angioplasty History of colonoscopy History of hysterectomy History of right-sided carotid endarterectomy (05/2021) History of tonsillectomy Social History (Updated 04/17/23 @ 06:[address] 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 use: always ROS ROS ED Constitutional Constitutional ED: Denies chills, fever(s), subjective, sweats or weight loss Eyes Eyes: Denies blurry vision, change in vision or diplopia ENT ENT ED: Reports ear pain left (Itching and soreness) Cardiovascular Cardiovascular: Denies chest pain or palpitations Respiratory/Chest Respiratory/Chest: Denies cough, dyspnea or dyspnea on exertion Gastrointestinal Gastrointestinal: Denies nausea or vomiting Musculoskeletal Musculoskeletal: Reports neck pain Integumentary Reports rash; Denies abscess or Abrasions Neurologic Neurologic: Denies headache(s), paresthesias or weakness Allergic/Immunologic Allergic/Immunologic ED: Denies mouth swelling or tongue swelling EXAM Physical Exam Const Vital Signs: 04/17/23 06:42 04/17/23 06:45 Temperature 98.8 F Temperature Source Temporal Pulse Rate 73 Respiratory Rate 18 Respiratory Effort Normal Non-Labored Respiratory Pattern Normal Blood Pressure 146/125 H Blood Pressure Mean 132 Pulse Ox 98 Oxygen Delivery Method Room Air Positive well nourished and well developed Constitutional Narrative: Vital signs are remarkable for elevated systolic and diastolic. Blood pressure does not make sense. We will have nurse repeat. General Appearance ED: well developed and NAD; Negative for cyanotic, diaphoretic or pallor HEENT Reports moist mucous membranes HEENT Narrative: Uvula is midline. There is no deviation of the tongue with protrusion. There is no dysphonia. There is no drooling. Trachea is midline. There is no discomfort with movement of the trachea. There is no anterior or posterior cervical lymphadenopathy. There is no inspiratory or expiratory stridor. Patient reported sensitivity and discomfort with light palpation to the neck and with auscultation to assess for stridor and bruits. There were no bruits. There is no change in the color of the skin. There is no evidence of edema. And specifically there is no evidence of angioedema. Patient does have dry skin involving the left ear. The external auditory canal is normal. The TM is normal. The ear exam on the right is normal. There are no facial lesions to suggest herpes varicella-zoster. Eyes PERRL and EOMs intact bilaterally General Eye ED: Negative for pale conjunctiva or scleral icterus Neck no lymphadenopathy, supple and no JVD Resp normal respiratory effort Cardio regular rate and regular rhythm Extremity normal to inspection Extremity Narrative: Upper extremity reveals no swelling, asymmetry, discoloration. Radial pulses palpable. Neuro oriented x3, CN's II-XII intact bilaterally and no sensory deficits noted Sensorium / Orientation: alert Motor Exam: strength 5/5 throughout Psych Mood & Affect: anxious Skin no rashes or lesions noted, no wounds and skin turgor normal General Skin Exam: Negative for jaundice or pallor MDM MDM MDM Narrative Medical decision making narrative: Patient with a constellation of symptoms over period of 1 month. No objective abnormality noted. However in light of patient's complaints will obtain soft tissue of the neck to see if there is any evidence of narrowing of the airway, epiglottitis, retropharyngeal abscess, parapharyngeal edema/abscess. CBC was obtained to assess white count differential. History & Record Review Additional record(s) reviewed:: Prior outpatient record (Patient had work-up for dysphagia with negative work-up in October. Patient had urgency and was seen by Dr. Gomez. He placed her on oxybutynin. She also is referred to GI.) and Prior ED visit (Records indicate patient was seen for hemorrhagic cystitis in September. There is no evidence of recent admission as she reported.) Lab Data Attestation: I reviewed the patient's lab results. Lab results narrative: CBC is essentially patient's baseline. She is neutropenic. She has a predominance of lymphocytes. Labs: Laboratory Results - last 24 hr 04/17/23 07:20 WBC 3.5 L RBC 4.05 L Hgb 13.1 Hct 39.7 MCV 98.0 MCH 32.3 H MCHC 33.0 RDW Std Deviation 45.2 H RDW Coeff of Nay 12.5 Plt Count 162 MPV 10.7 Immature Gran % (Auto) 0.000 Neut % (Auto) 41.2 L Lymph % (Auto) 42.6 H [place] % (Auto) 13.1 H Eos % (Auto) 2.0 Baso % (Auto) 1.1 H Absolute Neuts (auto) 1.5 L Absolute Lymphs (auto) 1.50 Nucleated RBC % 0 Radiography Chest X-Ray - ED: 2 View (2 view soft tissue x-ray reveals degenerative changes of the cervical spine with asymmetric disc space. The epiglottis is normal. Retropharyngeal space is normal. Patient is noted to have dental implants. There is no acute abnormality noted.) Treatment and Re-Evaluation :: Patient was informed of her laboratory results and x-rays. She was discharged home to follow-up with her doctor as needed. Discharge Plan Triage Chief Complaint: Edema ED Provider: Moura,Brad Dx/Rx/DC Orders Clinical Impression: Anterior neck pain, Eczema of left external ear Instructions: ED Atopic Dermatitis (Adult), ED Pain, Acute, Uncertain Cause Prescriptions: No Action B-complex with vitamin C Capsule 1 cap PO DAILY PRN (Reason: SUPPLEMENT) benzonatate 100 mg capsule 200 mg PO TID PRN (Reason: cough) Qty: 30 0RF verapamil 120 mg capsule,ext rel. pellets 24 hr 120 mg PO DAILY Qty: 90 3RF Hold Instructions: ? side effects cholecalciferol (vitamin D3) 50 mcg (2,000 unit) capsule 50 mcg PO DAILY PRN diphenhydramine HCl [Benadryl] 25 mg capsule 50 mg PO PRN PRN (Reason: ALLERGIES) Rx Instructions: Take 1 cap PO [address] scan Probiotic 3 billion cell capsule 3,000 mmu cells PO QODAY PRN (Reason: SUPPLEMENT) omeprazole 40 mg capsule,delayed release(DR/EC) 40 mg PO DAILY Patient Comments: TAKE 1 CAPSULE BY MOUTH ONCE DAILY nitrofurantoin monohyd/m-cryst [Macrobid] 100 mg capsule 100 mg PO Q12H 7 Days Qty: 14 0RF Rx Instructions: must administer with a meal/food Xarelto 20 mg tablet 20 mg PO QPM Qty: 30 11RF Hold Instructions: ? side effects Rx Instructions: must administer with evening meal Prolia 60 mg/mL syringe 60 mg subcut [id number] Qty: 1 0RF Primary Care Provider: Ana Paula Lorenzana Referrals: Ana Paula Lorenzana MD [Primary Care Provider] - 1 Week if not improving Activity Restrictions/Additional Instructions: You can take either Tylenol or ibuprofen for your pain. Recommend applying Eucerin cream to your left ear 2-3 times a day. Disposition Disposition: Home, Self Care
[2023-04-17 07:42] LABS: Absolute Neutrophil Count 1.5 X10^3/uL (2.0-7.7); Basophil# 0.04 X10^3/uL; Basophil% 1.1 % (0-1); Eosinophil# 0.07 X10^3/uL; Hematocrit 39.7 % (37-47); Hemoglobin 13.1 g/dL (12.0-15.0); Lymphocyte % 42.6 % (19-41); Mean Corpuscular Hgb 32.3 pg (27.0-32.0); Mean Platelet Vol. 10.7 fl (6.2-12.0); Monocyte# 0.46 X10^3/uL; Monocyte% 13.1 % (0-10); NRBC Flagged by Analyzer 0 % (0-5); Neutrophil # 1.45 X10^3/uL (2.7-7.7); Neutrophil % 41.2 % (47-70); Platelet Count 162 K/mm3 (150-450); RBC Distribution Width CV 12.5 % (11.6-14.6); RBC Distribution Width SD 45.2 fl (35.1-43.9); Red Blood Count 4.05 M/mm3 (4.2-5.4); White Blood Count 3.5 K/mm3 (4.4-11.0)
[2023-04-17 08:11] VITALS: BP 140/72; RESP 16
== END 2023-04-17 08:12 | disposition home or self-care (01) ==
PROVIDERS: Emergency Provider Emergency Medicine; PCP Internal Medicine; Visit Provider Emergency Medicine
DX: M54.2 Cervicalgia (principal); I48.0 Paroxysmal atrial fibrillation; I10 Essential (primary) hypertension; E78.5 Hyperlipidemia, unspecified; H60.542 Acute eczematoid otitis externa, left ear; Z79.899 Other long term (current) drug therapy; Z79.01 Long term (current) use of anticoagulants; J45.909 Unspecified asthma, uncomplicated; M79.7 Fibromyalgia; K21.9 Gastro-esophageal reflux disease without esophagitis
CPT/HCPCS: 70360; 85025; 99282

== ENCOUNTER → 2023-05-22 | Outpatient (CLI) | payer MEDICARE, OTHER, SELFPAY ==
--- NOTE | 2023-05-22 09:29 | CDU_ITS ---
Reason For Study: BILATERAL CAROTID STENOSIS Rt. Velocities/BP Lt. Velocities/BP Prox CCA 83.4/9.7 cm/sec. Prox CCA 139.4/37.1 cm/sec. Mid CCA 83.4/14.6 cm/sec. Mid CCA 72.9/16.2 cm/sec. Dist CCA 80.9/14.6 cm/sec. Dist CCA 70.3/17.1 cm/sec. Prox ICA 72.3/24.4 cm/sec. Prox ICA 87.1/23.2 cm/sec. Mid ICA 65.0/19.5 cm/sec. Mid ICA 78.5/26.9 cm/sec. Dist ICA 65.0/23.2 cm/sec. Dist ICA 53.9/12.2 cm/sec. Rt. ICA/CCA = 72.3/83.4=0.9. Lt. ICA/CCA = 87.1/72.9=1.2. Prox ECA 78.5/9.7 cm/sec. Prox ECA 105.5/14.6 cm/sec. Rt. Vert. 36.2/12.0 cm/sec. Lt. Vert. 39.1/13.5 cm/sec. Right Extracranial There is heterogeneous, irregular atherosclerotic plaque noted in the right common carotid artery. There is heterogeneous, irregular atherosclerotic plaque noted in the right internal carotid artery. There is intimal thickening but no significant atherosclerotic plaque noted in the right external carotid artery. Antegrade flow is noted in the right vertebral artery. Left Extracranial There is heterogeneous, irregular atherosclerotic plaque noted in the left common carotid artery. There is heterogeneous, irregular atherosclerotic plaque noted in the left internal carotid artery. There is heterogeneous, irregular atherosclerotic plaque noted in the left external carotid artery. Antegrade flow is noted in the left vertebral artery. Procedure Carotid Duplex 15381. This is a Carotid Duplex examination using B-mode, color flow and specral Doppler. Exam performed in department. VL/Carotid Duplex Ultrasound Interpretation Summary Postoperative changes of the right carotid bulb and proximal internal carotid a rtery with less than 50% stenosis Less than 50% stenosis right external carotid artery Irregular calcific plaque with shadowing at the proximal left internal carotid artery with less than 50% stenosis Less than 50% stenosis left external carotid artery Patent antegrade vertebral arteries bilaterally No change from the previous examination of June 18, 2022 Ordering Physician: Segundo Frey Referring Physician: Ana Paula Lorenzana Performed By: Giovana Hurley, SAÚL, RVT
== END | disposition home or self-care (01) ==
PROVIDERS: PCP Internal Medicine; Referring Provider Surgery; Visit Provider Surgery
DX: I65.23 Occlusion and stenosis of bilateral carotid arteries (principal)
CPT/HCPCS: 93880

== ENCOUNTER 2023-06-07 09:43 | Emergency (ER) | payer MEDICARE, OTHER, SELFPAY ==
[2023-06-07] VITALS (7 sets, daily range): BP systolic 75–136; BP diastolic 49–102; PULSE 76–117; RESP 16–23; TEMP 35.9; O2SAT 93–99; BMI 33.6
--- NOTE | 2023-06-07 10:11 | ED.VIS.CHEST ---
HPI History of Present Illness Chief Complaint: Chest Pain Informant: patient Onset/Context/Timing Onset: Today Activity at onset: sudden Timing: Continuous Quality: Positive for Burning and Sharp Location: Substernal Worsened By: Nothing Relieved By: Nothing Associated Symptoms: Positive for Cough, Lightheadedness and Palpitations; Negative for Nausea, Vomiting, Diaphoresis, Dyspnea, Fever or Acid Reflux Narrative Narrative: Patient presents with chest pain that began today. Patient states it began rather suddenly. Patient states she ate breakfast and drank some coffee when the pain began. Patient describes it as sharp. Patient states it feels like somebody took something sharp and scraped the inside of her sternum. Patient states her pain has been constant. Patient states nothing makes it better nothing makes it worse. Patient states she has had a cough and upper respiratory infection for the past couple weeks. Patient states she has been coughing up some white and clear sputum. Patient admits to some lightheadedness. Patient states she also has had some palpitations today. Patient states she has been on a medication for an irregular heartbeat in the past but is not currently taking any medications. Patient states that the medication caused her to have some hematuria and that is why the medication was stopped. CVD Risk Factors: Positive for Hypertension, Diabetes, Hypercholesterolemia and Family History 1' </=55; Negative for Smoking PE Risk Factors: Negative for Recent Travel/Surgery, Recent Immobilization, Prior DVT or PE, Cancer or OCP + Smoking + >/=35 PFSH PFSH Medical History Abdominal distension, gaseous Acute bronchitis, unspecified Acute maxillary sinusitis, unspecified Acute otitis media, left Allergic reaction to contrast dye Amaurosis fugax, right eye Anxiety Arthritis Asthma Back pain Carotid stenosis, right Carpal tunnel syndrome Cataracts, both eyes Chronic bronchitis Constant exophthalmos Constipation Diabetes Dysphagia Easy bruising Esophageal stenosis Essential (primary) hypertension Fibromyalgia GERD (gastroesophageal reflux disease) Hay fever Heartburn Hemorrhoids History of atrial fibrillation History of COVID-19 History of echocardiogram History of edema History of IBS History of pain when walking History of rheumatic fever History of stress test Hormone deficiency Hyperlipidemia Hypoglycemia IBS (irritable bowel syndrome) Immunization declined Injury of head and neck Knee pain Low iron Neck pain Non-smoker Osteoporosis Paroxysmal atrial fibrillation Post-menopausal Screening for thyroid disorder Seasonal allergies Shortness of breath on exertion Sinusitis Syncope UTI (urinary tract infection) Vitamin D deficiency Vitiligo Wears dentures Home Medications diphenhydramine HCl 25 mg capsule (Benadryl) 50 mg PO PRN PRN ALLERGIES 05/29/21 [History Last Taken 08/03/21] B-complex with vitamin C 1 cap PO DAILY PRN SUPPLEMENT 10/16/22 [History Last Taken Unknown] cholecalciferol (vitamin D3) 50 mcg (2,000 unit) capsule 50 mcg PO DAILY 10/16/22 [History Last Taken Unknown] calcium carbonate 600 mg calcium (1,500 mg) tablet 600 mg PO DAILY 06/07/23 [History Last Taken Unknown] diltiazem HCl 180 mg capsule,extended release 24 hr (Cardizem CD) 180 mg PO DAILY #30 caps 06/07/23 [Rx Last Taken Unknown] rosuvastatin 10 mg tablet 10 mg PO QHS 06/07/23 [History Last Taken Unknown] Allergy/AdvReac Type Severity Reaction Status Date / Time epinephrine Allergy Severe Shortness Verified 06/07/23 09:50 [From Primatene Mist] of breath epinephrine bitartrate Allergy Severe Shortness Verified 06/07/23 09:50 [From Primatene Mist] of breath iodine Allergy Severe rash, Verified 06/07/23 09:50 swelling rosuvastatin Allergy Severe Eyes and Verified 06/07/23 09:50 face swelled Iodinated Contrast Media Allergy Intermediate Swelling Verified 06/07/23 09:50 levofloxacin [From Levaquin] Allergy Intermediate Swelling Verified 06/07/23 09:50 metoprolol Allergy Intermediate Nasal Verified 06/07/23 09:50 congestion, throat congestion estrogens, conjugated Allergy Mild Swelling Verified 06/07/23 09:50 [From Premarin] Iodine and Iodide Containing Allergy Mild Other Verified 06/07/23 09:50 Produc meperidine HCl [From Demerol] Allergy Mild Other Verified 06/07/23 09:50 mold Allergy Mild Other Verified 06/07/23 09:50 Penicillins Allergy Mild Unknown Verified 06/07/23 09:50 Sulfa (Sulfonamide Allergy Mild Unknown Verified 06/07/23 09:50 Antibiotics) clarithromycin [From Biaxin] Allergy Unknown Rash Verified 06/07/23 09:50 digoxin [From Digitek] Allergy Swelling Verified 06/07/23 09:50 Food Allergies: Uncoded Allergy Swelling Verified 06/07/23 09:50 ragweed pollen Allergy NEEDS Verified 06/07/23 09:50 FOLLOW-UP aspirin AdvReac Intermediate makes my Verified 06/07/23 09:50 heart race rivaroxaban [From Xarelto] AdvReac Intermediate Blood in Verified 06/07/23 09:50 urine, dry skin, dry mouth, can't sleep, petecchiae Family History Mother Cancer Aunt Cancer Brother Cancer Father Vitiligo Surgical History H/O hernia repair History of angioplasty History of colonoscopy History of hysterectomy History of right-sided carotid endarterectomy (05/2021) History of tonsillectomy Social History household members: none Smoking Status: Never smoker Electronic Cigarette Use: not used second hand exposure: No alcohol intake: current alcohol intake frequency: holidays/special occasions only substance use type: does not use what type of physical activity do you participate in: walking myron/buddhist: Sabianism seatbelt use: always ROS ROS ED Constitutional Constitutional ED: Denies chills or fever(s) Eyes Eyes: Denies blurry vision or change in vision ENT ENT ED: Denies rhinorrhea or sore throat Cardiovascular Cardiovascular: Reports chest pain and palpitations Respiratory/Chest Respiratory/Chest: Reports cough; Denies dyspnea Gastrointestinal Gastrointestinal: Denies nausea or vomiting Genitourinary Genitourinary ED: Denies dysuria or hematuria Musculoskeletal Musculoskeletal: Denies back pain or neck pain Integumentary Denies abscess or rash Neurologic Neurologic: Reports headache(s); Denies weakness Allergic/Immunologic Allergic/Immunologic ED: Denies mouth swelling or urticaria EXAM Physical Exam Const Vital Signs: 06/07/23 09:44 06/07/23 09:50 06/07/23 10:37 Temperature 96.6 F L Temperature Source Temporal Pulse Rate 94 Respiratory Rate 16 Respiratory Effort Normal Non-Labored Normal Non-Labored Respiratory Pattern Normal Blood Pressure 136/100 H Blood Pressure Mean 112 Pulse Ox 99 Oxygen Delivery Method Room Air 06/07/23 10:39 06/07/23 10:40 06/07/23 12:18 Temperature Temperature Source Pulse Rate 89 90 104 H Respiratory Rate 18 23 H Respiratory Effort Respiratory Pattern Blood Pressure 75/49 L 90/73 119/102 H Blood Pressure Mean 57 78 107 Pulse Ox 99 99 Oxygen Delivery Method Room Air Room Air 06/07/23 13:51 Temperature Temperature Source Pulse Rate 117 H Respiratory Rate 22 H Respiratory Effort Respiratory Pattern Blood Pressure 125/80 H Blood Pressure Mean 95 Pulse Ox 93 Oxygen Delivery Method Room Air Positive well nourished and well developed General Appearance ED: well developed and NAD HEENT Reports moist mucous membranes Neck supple and no JVD Resp normal respiratory effort and clear to auscultation bilaterally Cardio Rate: tachycardic Rhythm: abnormal rhythm irregularly irregular GI soft to palpation, non-tender and non-distended Extremity normal to inspection General Extremety ED: Negative for edema or tenderness General Extremity: Negative for edema Neuro oriented x3, CN's II-XII intact bilaterally and no sensory deficits noted Sensorium / Orientation: awake and alert Motor Exam: strength 5/5 throughout Psych mental status grossly normal MDM MDM MDM Narrative Medical decision making narrative: Differential diagnosis includes cardiac dysrhythmia, cardiac ischemia, pneumonia, pneumothorax, pulmonary embolism, gastroesophageal reflux disease, and anxiety. EKG will be obtained to assess for cardiac dysrhythmia and cardiac ischemia. Chest x-ray will be obtained to assess for pneumonia and pneumothorax. CBC will be obtained to assess for leukocytosis and anemia. Basic metabolic profile will be obtained to assess for electrolyte abnormality and renal function. High-sensitivity troponin will be obtained to assess for cardiac ischemia. 2-hour repeat high-sensitivity troponin will be obtained to assess for ongoing cardiac ischemia. D-dimer will be obtained to assess for pulmonary embolism. Lab Data Attestation: I reviewed the patient's lab results. Lab results narrative: CBC was reviewed and was essentially within normal limits. Basic metabolic profile was reviewed and was within normal limits. D-dimer was reviewed and was elevated at 1.08. Initial high-sensitivity troponin was reviewed and was normal at 8. 2-hour repeat high-sensitivity troponin was reviewed and was also normal at 8. Labs: Laboratory Results - last 24 hr 06/07/23 06/07/23 09:50 12:45 WBC 5.8 RBC 5.02 Hgb 16.1 H Hct 48.8 H MCV 97.2 MCH 32.1 H MCHC 33.0 RDW Std Deviation 45.6 H RDW Coeff of Nay 12.7 Plt Count 218 MPV 10.6 Immature Gran % (Auto) 0.200 Neut % (Auto) 54.4 Lymph % (Auto) 34.4 [place] % (Auto) 9.3 Eos % (Auto) 1.0 Baso % (Auto) 0.7 Absolute Neuts (auto) 3.1 Absolute Lymphs (auto) 1.99 Nucleated RBC % 0 D-Dimer Quant (PE/DVT) 1.08 H* Sodium 139 Potassium 3.8 Chloride 103 Carbon Dioxide 31.0 Anion Gap 5 BUN 12 Creatinine 0.97 Estim Creat Clear Calc 57.05 Est GFR (MDRD) Af Amer 71 Est GFR (MDRD) Non-Af 59 L BUN/Creatinine Ratio 12.3 Glucose 165 H Calcium 9.8 Troponin I High Sens 8 8 Radiography Diagnostic Testing: Clinical Impression(s) from Imaging Studies Chest X-Ray 06/07/23 10:20 IMPRESSION: No radiographic evidence of acute cardiopulmonary disease and unchanged when compared to 08/07/2021. Electronically Signed: Reji Molina MD at 12:13 EST , Chest CTA 06/07/23 11:26 IMPRESSION: 1. No CTA evidence of pulmonary thromboemboli, thoracic aortic aneurysm or dissection. 2. No CT evidence of pneumonia. 3. Prominent calcified plaques in the proximal LAD branch of the left coronary artery but unchanged when compared to 10/18/2021. 4. No significant interval change when compared to CT chest without contrast 10/18/2021. Electronically Signed: Reji Molina MD at 13:08 EST , Portable 1 view chest x-ray was obtained. On my independent interpretation, lung vu are clear. There is normal cardiac silhouette. Bony thorax is normal. There is no acute process noted. Radiologist also interpreted the x-ray and agrees. Because of the elevated D-dimer, CTA of the chest was obtained. There is no pulmonary embolus or aortic dissection. There is no pneumonia. There is no acute changes noted. This was interpreted by the radiologist and was also independently reviewed by myself. EKG Initial EKG: Attestation: I personally reviewed and interpreted this EKG as follows: Interpretation: Atrial Flutter (150) and Non-Specific ST Changes Comments: EKG was obtained. On my independent interpretation, it shows atrial flutter with variable block with a rate of 150. QRS interval was normal at 68 ms. QTc interval is normal at 420 ms. [place] was normal at 25. There are nonspecific ST-T wave changes. Prior EKG tracings: available for review Prior: Changed (Compared to EKG dated 08/23/2021, atrial flutter is new along with the nonspecific ST-T wave changes. These may be rate related.) Treatment and Re-Evaluation :: Patient was given a dose of IV Cardizem here. Patient's heart rate improved. Patient's blood pressure did drop to 75/49. Patient was given IV fluids. Patient blood pressure improved after this. Patient's heart rate remained in the 90s to 100s. Patient is feeling better. Patient wants to go home. Case was discussed with Dr. Reid, microarray specialist on-call. He recommended starting the patient on Cardizem CD 180 mg daily. Patient was given her first dose here. Patient was instructed to follow-up with her primary care physician in 3 to 5 days. Patient was also instructed to follow-up with cardiology. Patient understood and was agreeable with the plan. All questions were answered. Discharge Plan Triage Chief Complaint: Chest Pain Other Complaint: Cold Sx ED Provider: Jr Guardado Dx/Rx/DC Orders Clinical Impression: Essential (primary) hypertension, Paroxysmal atrial fibrillation Instructions: ED AFIB Prescriptions: New diltiazem HCl [Cardizem CD] 180 mg capsule,extended release 24hr 180 mg PO DAILY Qty: 30 0RF No Action B-complex with vitamin C Capsule 1 cap PO DAILY PRN (Reason: SUPPLEMENT) cholecalciferol (vitamin D3) 50 mcg (2,000 unit) capsule 50 mcg PO DAILY diphenhydramine HCl [Benadryl] 25 mg capsule 50 mg PO PRN PRN (Reason: ALLERGIES) Rx Instructions: Take 1 cap PO [address] scan calcium carbonate 600 mg calcium (1,500 mg) tablet 600 mg PO DAILY Patient Comments: TAKE 1 TABLET BY MOUTH TWICE DAILY rosuvastatin 10 mg tablet 10 mg PO QHS Primary Care Provider: Ana Paula Lorenzana Referrals: Saturnino Deng MD [Med Staff - Active Staff] - 5-7 Days Ana Paula Lorenzana MD [Primary Care Provider] - 3-5 Days Disposition Disposition: Home, Self Care
--- NOTE | 2023-06-07 10:20 | EKG12_ITS ---
Test Reason : Blood Pressure : / mmHG Vent. Rate : 150 BPM Atrial Rate : 312 BPM P-R Int : 000 ms QRS Dur : 068 ms QT Int : 266 ms P-R-T Axes : 000 025 -77 degrees QTc Int : 420 ms Critical Test Result: High HR Atrial flutter with variable A-V block with premature ventricular or aberrantly conducted complexes Nonspecific ST and T wave abnormality Abnormal ECG Confirmed by SHAMA BHATTI, KITA ([id number]), production editor SMITHA JACKSON ([id number]) on 06/08/2023 1:05:26 PM Referred By: DOMINGO Confirmed By:KITA SESYA MD
--- NOTE | 2023-06-07 10:20 | RAD_ITS ---
EXAM: XR CHEST, 1 VIEW CLINICAL INDICATION: chest pain TECHNIQUE: Frontal view of the chest. COMPARISON: 08/07/2021. FINDINGS: LUNGS AND PLEURAL SPACES: Unremarkable. No consolidation or edema. No pneumothorax. No effusion. HEART: Borderline cardiomegaly is unchanged. MEDIASTINUM: Central airways and mediastinal contour are unremarkable. BONES/JOINTS: Unremarkable. No acute fracture. SOFT TISSUES: Unremarkable. RAD/Chest 1 View (Portable) IMPRESSION: No radiographic evidence of acute cardiopulmonary disease and unchanged when compared to 08/07/2021. Electronically Signed: Reji Molina MD at 12:13 EST ,
[2023-06-07 10:27] LABS: Absolute Lymphocyte Count 1.99 X10^3/uL (0.83-4.51); Absolute Neutrophil Count 3.1 X10^3/uL (2.0-7.7); Basophil# 0.04 X10^3/uL; Basophil% 0.7 % (0-1); Eosinophil# 0.06 X10^3/uL; Hematocrit 48.8 % (37-47); Hemoglobin 16.1 g/dL (12.0-15.0); Lymphocyte # 1.99 X10^3/ul (0.83-4.51); Lymphocyte % 34.4 % (19-41); Mean Corpuscular Hgb 32.1 pg (27.0-32.0); Mean Corpuscular Volume 97.2 fL (81-99); Mean Platelet Vol. 10.6 fl (6.2-12.0); Monocyte# 0.54 X10^3/uL; Monocyte% 9.3 % (0-10); NRBC Flagged by Analyzer 0 % (0-5); Neutrophil # 3.14 X10^3/uL (2.7-7.7); Neutrophil % 54.4 % (47-70); Platelet Count 218 K/mm3 (150-450); RBC Distribution Width CV 12.7 % (11.6-14.6); RBC Distribution Width SD 45.6 fl (35.1-43.9); Red Blood Count 5.02 M/mm3 (4.2-5.4); White Blood Count 5.8 K/mm3 (4.4-11.0)
[2023-06-07] MEDS: dilTIAZem 25 MG/5 ML Vial IV BOLUS (10:33)
[2023-06-07 10:42] LABS: Anion Gap 5 (5-15); BUN 12 mg/dL (7-18); BUN/Creat Ratio 12.3 RATIO (10-20); Calcium,Total 9.8 mg/dL (8.5-10.1); Chloride 103 mmol/L (98-107); Creatinine, Serum 0.97 mg/dL (0.55-1.02); EST Glomerular Filtration Rate 59 mL/min (>60); Est Glom Filt Rate - Afr Amer 71 mL/min (>60); Estimated Creatinine Clearance 57.05 ml/min; Glucose 165 mg/dL (74-106); Potassium 3.8 mmol/L (3.5-5.1); Sodium Level 139 mmol/L (136-145); Troponin-I HS (w/2H Reflex) 8 pg/mL (3.0-54.0)
[2023-06-07] MEDS: 0.9% Normal Saline (1000mL) 1,000 ML 999 ML IV (10:45)
[2023-06-07 11:11] LABS: D-Dimer Quantitative (DVT/PE) 1.08 FEU/ug/m (0.27-0.49)
--- NOTE | 2023-06-07 11:26 | CT_ITS ---
EXAM: CT ANGIOGRAPHY CHEST WITHOUT AND WITH INTRAVENOUS CONTRAST CLINICAL INDICATION: Elevated D-dimer TECHNIQUE: Helically acquired angiography images were obtained of the chest without and with intravenous contrast. This CT exam was performed using one or more of the following dose reduction techniques: automated exposure control, adjustment of the mA and/or kV according to patient size, and/or use of iterative reconstruction technique. MIP reconstructed images were created and reviewed. CONTRAST: IV 100mL [id number] RADIATION DOSE: CTDIvol = 9.6 mGy, DLP = 269.06 mGy-cm COMPARISON: CT chest without contrast 10/18/2021. FINDINGS: PULMONARY ARTERIES: Unremarkable. Normal in caliber. No evidence of pulmonary embolism. AORTA: No thoracic aortic aneurysm or dissection. Minimal calcified plaques in the transverse thoracic aorta. GREAT VESSELS OF AORTIC ARCH: Unremarkable. Normal in caliber. No evidence of dissection. LUNGS AND PLEURAL SPACES: Unremarkable. No pleural effusion or thickening. No pneumothorax. No suspicious pulmonary nodules or infiltrates. HEART: Prominent calcified plaques in the proximal LAD branch of the left coronary artery. No other coronary artery calcifications. Normal cardiac size. Normal pericardium. Heart size is normal. MEDIASTINUM: Unremarkable. No mediastinal or hilar adenopathy. Esophagus is unremarkable. No hiatal hernia. THYROID: Unremarkable. No thyroid lesions. BONES/JOINTS: Mild pectus excavatum deformity of the chest. No suspicious lytic or blastic abnormality. CT/CTA Chest W/WO Contrast IMPRESSION: 1. No CTA evidence of pulmonary thromboemboli, thoracic aortic aneurysm or dissection. 2. No CT evidence of pneumonia. 3. Prominent calcified plaques in the proximal LAD branch of the left coronary artery but unchanged when compared to 10/18/2021. 4. No significant interval change when compared to CT chest without contrast 10/18/2021. Electronically Signed: Reji Molina MD at 13:08 EST ,
[2023-06-07] MEDS: DiphenhydrAMINE 50 MG/ML Syringe 25 MG IV (11:37)
[2023-06-07] MEDS: MethylPREDNISolone 125 MG/2 ML Vial 60 MG IV (11:38)
[2023-06-07 12:23] LABS: Reflex Troponin-HS? (from REC) Y
[2023-06-07 13:08] LABS: Troponin-I HS 8 pg/mL (3.0-54.0)
[2023-06-07] MEDS: dilTIAZem CD 180 MG Capsule PO (14:31)
== END 2023-06-07 14:32 | disposition home or self-care (01) ==
PROVIDERS: Emergency Provider Emergency Medicine; PCP Internal Medicine; Visit Provider Emergency Medicine
DX: I10 Essential (primary) hypertension (principal); I48.0 Paroxysmal atrial fibrillation; E11.9 Type 2 diabetes mellitus without complications; E78.00 Pure hypercholesterolemia, unspecified; Z79.899 Other long term (current) drug therapy; R51.9 Headache, unspecified; J45.909 Unspecified asthma, uncomplicated
CPT/HCPCS: 71045; 71275; 80048; 84484; 85025; 85379; 93005; 96361; 96374; 96375; 99285; J7030; Q9967; A4216

== ENCOUNTER → 2023-09-03 | Outpatient (CLI) | payer MEDICARE, OTHER, SELFPAY ==
--- NOTE | 2023-09-02 08:35 | RAD_ITS ---
STUDY: X-RAY - ABDOMEN/PELVIS REASON FOR EXAM: Female, 77 years old. 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 TECHNIQUE: Single AP view of the abdomen / pelvis. COMPARISON: None. FINDINGS: Residual fecal material is seen in the right hemicolon. Further preparation recommended. RAD/Abdomen Single View IMPRESSION: Residual fecal material is seen in the right hemicolon. Further prep for barium enema recommended. Electronically Signed: Levy Martinez MD at 9:39 EDT ,
--- NOTE | 2023-09-03 08:04 | RAD_ITS ---
STUDY: BARIUM ENEMA. REASON FOR EXAM: Female, 77 years old. Constipation FLUOROSCOPY TIME (if supplied): ( 44 seconds ) minutes/seconds. 34.33 mGy. 12 images were obtained. TECHNIQUE: Barium enema was introduced retrograde into the rectum. The entire colon was opacified. COMPARISON: None. FINDINGS: There is redundancy of the sigmoid colon with diffuse diverticulosis with no radiographic evidence of diverticulitis. No evidence of antegrade or retrograde obstruction to the flow of contrast. RAD/Barium Enema w/Air Contrast IMPRESSION: Sigmoid diverticulosis without evidence of diverticulitis. Electronically Signed: Levy Martinez MD at 15:12 EDT ,
== END | disposition home or self-care (01) ==
LOC: RAD 07:59
PROVIDERS: PCP Internal Medicine; Referring Provider Internal Medicine Gastroenterology; Visit Provider Internal Medicine Gastroenterology
DX: N81.6 Rectocele (principal); K59.00 Constipation, unspecified
CPT/HCPCS: 74018; 74280

== ENCOUNTER → 2023-09-07 | Outpatient (CLI) | payer MEDICARE, OTHER, SELFPAY ==
--- NOTE | 2023-09-07 11:55 | US_ITS ---
STUDY: ULTRASOUND OF THE FEMALE PELVIS - LIMITED REASON FOR EXAM: Female, 77 years old rectocele and bladder prolapse TECHNIQUE: TECHNICAL QUALITY: Adequate. COMPARISON: None. FINDINGS: Uterus and ovaries nonvisualized status post KISHORE/BSO.. There is no fluid in the cul-de-sac. US/Pelvic (Non ) IMPRESSION: Unremarkable pelvis status post KISHORE/BSO Electronically Signed: Je Almonte MD at 22:48 EDT Reading Location ID and State: [facility] / [place] Tel , Service support ,
--- OUTSIDE RECORDS SUMMARY | 2023-09-07 20:01 | XMS RPT_ITS | CCD ---
Author Name Unknown Address [address] [facility] [address] [place] [address] Organization [facility] Care Team Providers Care Health Safety Manager Name Role Phone JANINE ALAS Unavailable Unavailable JANINE ALAS Unavailable Unavailable JANINE ALAS Unavailable Unavailable JANINE ALAS Unavailable Unavailable Shaun Busch Unavailable Unavailable Shaun Busch MD Primary Care Provider Shaun Busch MD Primary Care Provider Ace Lorenzana MD Primary Care Provider ELIZABETH MUSA DR Admitting Unavailable ELIZABETH MUSA DR Primary Care Unavailable ELIZABETH MUSA DR Attending Unavailable VEE NG MD Consulting Unavailable PROVIDER, UNKNOWN Consulting Unavailable PROVIDER, UNKNOWN Consulting Unavailable PROVIDER, UNKNOWN Consulting Unavailable ELIZABETH MUSA DR Admitting Unavailable ELIZABETH MUSA DR Primary Care Unavailable ELIZABETH MUSA DR Attending Unavailable VEE NG MD Consulting Unavailable PROVIDER, UNKNOWN Consulting Unavailable PROVIDER, UNKNOWN Consulting Unavailable PROVIDER, UNKNOWN Consulting Unavailable MORALES, CHRISTOPHER D Primary Care Unavailable MORALES, CHRISTOPHER D Primary Care Unavailable FLORINDA ALEX Referring Unavailable MORALES, CHRISTOPHER D Primary Care Unavailable MORALES, CHRISTOPHER D Primary Care Unavailable FLORINDA ALEX Referring Unavailable MORALES, CHRISTOPHER D Primary Care Unavailable FLORINDA ALEXKE Referring Unavailable MORALES, CHRISTOPHER D Primary Care Unavailable TAQUERIA ZALDIVAR Attending Unavailable MORRIS ALEXREY [place] Referring Unavailable MORALES, CHRISTOPHER D Primary Care Unavailable TAQUERIA ZALDIVAR Attending Unavailable MORRIS ALEXREY MACKKE Referring Unavailable ALEX, FLORINDA MACKKE Referring Unavailable ALEX, FLORINDA MACKKE Referring Unavailable ALEX FLORINDA MACKKE Referring Unavailable MORALES, CHRISTOPHER D Primary Care Unavailable FLORINDA ALEX Referring Unavailable MORALES, CHRISTOPHER D Primary Care Unavailable FLORINDA ALEX Referring Unavailable MORALES, CHRISTOPHER D Primary Care Unavailable TAQUERIA ZALDIVAR Attending Unavailable FLORINDA ALEX Referring Unavailable MORALES, CHRISTOPHER D Primary Care Unavailable TALAMPAS, ACE D Primary Care Unavailable TAQUERIA VELEZ Attending Unavailable TALAMPAS, ACE D Primary Care Unavailable SLEIK, KHALED MELOUD Referring Unavailable TALAMPAS, ACE D Primary Care Unavailable SLEIK, KHALED MELOUD Attending Unavailable TALAMPAS, ACE D Primary Care Unavailable NIKKI, VANESSA Referring Unavailable TALAMPAS, ACE D Primary Care Unavailable NIKKI, VANESSA Referring Unavailable TALAMPAS, ACE D Primary Care Unavailable NIKKIVANESSA Referring Unavailable TALAMPAS, ACE D Primary Care Unavailable VANESSA ORTEGA Attending Unavailable TALAMPAS, ACE D Primary Care Unavailable NIKKI, VANESSA Referring Unavailable NIKKI, VANESSA Referring Unavailable TALAMPAS, ACE D Primary Care Unavailable TALAMPAS, ACE D Primary Care Unavailable JUANITA CAO Attending Unavailable TALAMPAS, ACE D Primary Care Unavailable DARI LAI Attending Unavailable TALAMPAS, ACE D Primary Care Unavailable NIKKIVANESSA Attending Unavailable TALAMPAS, ACE D Primary Care Unavailable DHEERAJ CLARK Attending Unavailable TALAMPAS, ACE D Primary Care Unavailable LILLIANA DELANEY Referring Unavail able AMY SOSA Referring Unavail able TALAMPAS, ACE D Primary Care Unavailable BAYLEE LOPEZ Attending Unavailable TALAMPAS, ACE D Primary Care Unavailable TALAMPAS, ACE D Primary Care Unavailable NIKKIVANESSA Referring Unavailable JUANITA CAO Referring Unavailable TALAMPAS, ACE D Primary Care Unavailable TALAMPAS, ACE D Primary Care Unavailable TAQUERIA VELEZ Referring Unavailable TALAMPAS, ACE D Primary Care Unavailable NIKKIVANESSA Attending Unavailable TALAMPAS, ACE D Primary Care Unavailable NIKKIVANESSA Referring Unavailable TALAMPAS, ACE D Primary Care Unavailable TAQUERIA VELEZ Attending Unavailable TALAMPAS, ACE D Primary Care Unavailable VANESSA ORTEGA Attending Unavailable TALAMPAS, ACE D Primary Care Unavailable TALAMPAS, ACE D Primary Care Unavailable DENBOW, JUANITA Attending Unavailable TALAMPAS, ACE D Primary Care Unavailable DENBOW, JUANITA Referring Unavailable TALAMPAS, ACE D Primary Care Unavailable DENBOW, JUANITA Referring Unavailable TALAMPAS, ACE D Primary Care Unavailable NIKKI, VANESSA Attending Unavailable TALAMPAS, ACE D Attending Unavailable TALAMPAS, ACE D Primary Care Unavailable TALAMPAS, ACE D Referring Unavailable TALAMPAS, ACE D Primary Care Unavailable TALAMPAS, ACE D Primary Care Unavailable AGUSTIN, TAQUERIA P Referring Unavailable TALAMPAS, ACE D Primary Care Unavailable NIKKI, VANESSA Referring Unavailable TALAMPAS, ACE D Primary Care Unavailable AGUSTIN, TAQUERIA P Attending Unavailable TALAMPAS, ACE D Primary Care Unavailable PRAISLER-WOOD, ROBERTA Referring Unavailable TALAMPAS, ACE D Primary Care Unavailable PRAISLER-WOOD, ROBERTA Referring Unavailable TALAMPAS, ACE D Primary Care Unavailable NIKKI, VANESSA Attending Unavailable TALAMPAS, ACE D Primary Care Unavailable Allergies Allergy Classification Reported Allergen(s) Allergy Type Date of Onset Reaction(s) Facility (20 sources) cefdinir; Translations: [CEFDINIR] Drug Allergy [address] [facility] Repository (20 sources) clarithromycin; Translations: [CLARITHROMYCIN] Drug Allergy [address] [facility] Repository (20 sources) iodine; Translations: [IODINE] Drug Allergy [address] [facility] Repository (20 sources) levoFLOXacin; Translations: [LEVOFLOXACIN] Drug Allergy [address] [facility] Repository (20 sources) meperidine; Translations: [MEPERIDINE HCL] Drug Allergy 5 Swelling, Shortness of Breath [facility] Repository (20 sources) mold extract; Translations: [MOLD] Drug Allergy [address] [facility] Repository (20 sources) Penicillins; Translations: [PENICILLINS] Propensity to adverse reactions (disorder) 5 [facility] Repository (20 sources) Sulfonamides (Antibiotic); Translations: [SULFA (SULFONAMIDE ANTIBIOTICS)] Propensity to adverse reactions (disorder) 5 [facility] Repository (20 sources) Tree; Translations: [TREES] Propensity to adverse reactions (disorder) [address] [facility] Repository (20 sources) GREEN FOOD COLOR (BULK); Translations: [GREEN FOOD COLOR (BULK)] Propensity to adverse reactions (disorder) [address] [facility] Repository (20 sources) EPINEPHRINE BASE; Translations: [EPINEPHRINE BASE] Propensity to adverse reactions (disorder) 5 Swelling, Shortness of Breath [facility] Repository (20 sources) CONJUGATED ESTROGENS; Translations: [CONJUGATED ESTROGENS] Propensity to adverse reactions (disorder) [address] [facility] Repository (20 sources) RAGWEED; Translations: [RAGWEED] Propensity to adverse reactions (disorder) [address] [facility] Repository (1 source) Codeine Drug Allergy [facility] Repository (2 sources) Doxycycline; Translations: [DOXYCYCLINE] Drug Allergy 5 [facility] Repository (1 source) Meperidine Drug Allergy [facility] Repository (1 source) Penicillin Drug Allergy [facility] Repository (1 source) Sulfonamides (Antibiotic) Drug allergy (disorder) [facility] Repository (9 sources) Doxycycline Drug Allergy 5 Rash, Swelling [facility] Work Phone: (9 sources) Clindamycin; Translations: [CLINDAMYCIN] Drug Allergy 3 Itching, Other: See Comments [facility] Work Phone: (1 source) ALLERGIES NOT ON FILE; Translations: [ALLERGIES NOT ON FILE] Propensity to adverse reactions (disorder) [facility] 2 Repository Medications Current Medications Medication Drug Class(es) Dates Sig (Normalized) Sig (Original) clindamycin 300 mg oral capsule (1 source) Lincosamide Antibacterial Start: 03-10-2023 End: 03-15-2023 take 1 capsule by mouth three times daily clindamycin (CLEOCIN) 300 mg capsule Take 1 capsule by mouth three times daily for 5 days. 15 capsule 0 03/10/2023 03/15/2023 Active Completed/Discontinued Medications Medication Drug Class(es) Dates Sig (Normalized) Sig (Original) biotin 10 mg oral capsule (3 sources) Biotin 10,000 mc g cap Take by mouth once daily. 0 Active Problems Active Problems Problem Classification Problem Date Documented Da te Episodic/Chronic Administrative/social admission (1 source) Financial problem; Translations: [Problem related to housing and economic circumstances, unspecified] Episodic Anxiety disorders (20 sources) Anxiety neurosis ; Translations: [Generalized anxiety disorder] Onset: 5 06-05-2015 Chronic Asthma (2 sources) Mild intermittent asthma; Translations: [Mild intermittent asthma, uncomplicated] Chronic Cardiac dysrhythmias (20 sources) Paroxysmal atrial fibrillation; Translations: [Atrial fibrillation] Onset: 6 07-10-2006 Chronic Chronic obstructive pulmonary disease and bronchiectasis (20 sources) Chronic bronchitis; Translations: [Unspecified chronic bronchitis] Onset: 3 Chronic Deficiency and other anemia (1 source) Nutritional anemia; Translations: [Vitamin B12 deficiency anemia, unspecified] 12-29-2022 Episodic Deficiency and other anemia (1 source) Anemia; Translations: [Anemia, unspecified] 04-01-2023 Episodic Diseases of mouth; excluding dental (1 source) Xerostomia; Translations: [Dry mouth, unspecified] Episodic Diseases of white blood cells (2 sources) Leukopenia; Translations: [Decreased white blood cell count, unspecified] Onset: 3 03-11-2023 Chronic Disorders of lipid metabolism (20 sources) Hyperlipidemia; Translations: [Hyperlipidemia, unspecified] Onset: 1 06-17-2021 Chronic Diverticulosis and diverticulitis (20 sources) Diverticulosis of colon; Translations: [Diverticulosis of large intestine without perforation or abscess without bleeding] 09-23-2011 Chronic Esophageal disorders (1 source) Laryngopharyngeal reflux; Translations: [Gastro-esophageal reflux disease without esophagitis] Chronic Essential hypertension (20 sources) Essential hypertension; Translations: [Essential (primary) hypertension] Onset: 9 04-13-2009 Chronic Malaise and fatigue (20 sources) Fatigue; Translations: [Other fatigue] Onset: 3 Episodic Nutritional deficiencies (20 sources) Vitamin D deficiency; Translations: [Vitamin D deficiency, unspecified] Onset: 4 06-09-2014 Chronic Occlusion or stenosis of precerebral arteries (20 sources) Right carotid artery occlusion; Translations: [Occlusion and stenosis of right carotid artery] Onset: 5 05-10-2015 Chronic Osteoarthritis (1 source) Bilateral primary osteoarthritis of knee; Translations: [Bilateral primary osteoarthritis of knee] Onset: 2 Chronic Osteoporosis (20 sources) Osteoporosis; Translations: [Age-related osteoporosis without current pathological fracture] Onset: 3 07-28-2022 Chronic Other acquired deformities (2 sources) Spondylolisthesis, lumbar region; Translations: [Spondylolisthesis, lumbar region] Onset: 3 Episodic Other aftercare (4 sources) Long-term current use of anticoagulant; Translations: [MCFP (current) use of anticoagulants] Episodic Other aftercare (1 source) Encounter for therapeutic drug level monitoring; Translations: [Encounter for therapeutic drug monitoring] Onset: 4 Episodic Other circulatory disease (3 sources) Disorder of artery; Translations: [Other specified disorders of arteries and arterioles] Onset: 6 07-10-2006 Chronic Other circulatory disease (2 sources) History of cerebrovascular accident; Translations: [Personal history of transient ischemic attack (TIA), and cerebral infarction without residual deficits] 03-11-2023 Episodic Other circulatory disease (1 source) Other specified symptoms and signs involving the circulatory and respiratory systems; Translations: [Other specified symptoms and signs involving the circulatory and respiratory systems] Onset: 4 Episodic Other connective tissue disease (2 sources) Swelling of lower limb; Translations: [Other specified soft tissue disorders] Episodic Other connective tissue disease (1 source) Other specified soft tissue disorders; Translations: [Leg swelling] Onset: 4 Episodic Other gastrointestinal disorders (20 sources) Irritable bowel syndrome; Translations: [Irritable bowel syndrome without diarrhea] Onset: 7 11-12-2007 Chronic Other gastrointestinal disorders (20 sources) Constipation; Translations: [Constipation, unspecified] 09-23-2011 Episodic Other gastrointestinal disorders (2 sources) Altered bowel function; Translations: [Change in bowel habit] Episodic Other gastrointestinal disorders (1 source) Constipation, unspecified; Translations: [Constipation, unspecified constipation type] Onset: 4 Episodic Other lower respiratory disease (1 source) Cough; Translations: [Acute cough] Episodic Other nutritional; endocrine; and metabolic disorders (1 source) Obese class I; Translations: [Obesity, unspecified] Chronic Other nutritional; endocrine; and metabolic disorders (2 sources) H/O: diabetes mellitus; Translations: [Personal history of other endocrine, nutritional and metabolic disease] Episodic Other nutritional; endocrine; and metabolic disorders (1 source) Personal history of other endocrine, nutritional and metabolic disease; Translations: [History of diabetes mellitus] Onset: Episodic Other skin disorders (20 sources) Localized scleroderma; Translations: [Localized scleroderma [morphea]] 07-10-2006 Chronic Other skin disorders (20 sources) Vitiligo; Translations: [Vitiligo] 07-10-2006 Episodic Other skin disorders (1 source) Dry skin; Translations: [Xerosis cutis] Episodic Other skin disorders (1 source) Xeroderma; Translations: [Xerosis cutis] 07-28-2023 Episodic Other skin disorders (1 source) Xerosis cutis; Translations: [Dry skin] Onset: Episodic Other skin disorders (1 source) Disorder of pigmentation, unspecified; Translations: [Discoloration of skin of lower leg] Onset: Episodic Other upper respiratory disease (1 source) Allergic rhinitis; Translations: [Other allergic rhinitis] Chronic Other upper respiratory disease (1 source) Seasonal allergy; Translations: [Other seasonal allergic rhinitis] Chronic Other upper respiratory disease (1 source) Nasal sinus problem; Translations: [Other specified disorders of nose and nasal sinuses] 07-28-2023 Episodic Other upper respiratory infections (1 source) Sinusitis; Translations: [Chronic sinusitis, unspecified] 03-11-2023 Chronic Other upper respiratory infections (1 source) Acute maxillary sinusitis; Translations: [Acute maxillary sinusitis, unspecified] 12-05-2022 Episodic Residual codes; unclassified (1 source) Sleep apnea; Translations: [Sleep apnea, unspecified] 02-20-2023 Chronic Residual codes; unclassified (20 sources) Family history of malignant neoplasm of gastrointestinal tract; Translations: [Family history of malignant neoplasm of digestive organs] 06-17-2021 Episodic Residual codes; unclassified (1 source) Deficient knowledge of dietary regimen; Translations: [Other specified health status] Episodic Residual codes; unclassified (1 source) History of noncompliance with medication regimen; Translations: [History of medication noncompliance] 03-11-2023 Episodic Spondylosis; intervertebral disc disorders; other back problems (4 sources) Spinal stenosis, site unspecified; Translations: [Spinal stenosis, lumbar region without neurogenic claudication] Onset: 3 Episodic Systemic lupus erythematosus and connective tissue disorders (1 source) Sicca syndrome, unspecified; Translations: [Sicca syndrome (HCC)] Onset: 3 Chronic Unclassified (1 source) Unknown / UNK(Unknown) Onset: 6 Unclassified (1 source) Acute cough; Translations: [Acute cough] Onset: 3 Urinary tract infections (1 source) Recurrent urinary tract infection; Translations: [Urinary tract infection, site not specified] Episodic Past or Other Problems Problem Classification Problem Date Documented Da te Episodic/Chronic Abdominal pain (5 sources) Generalized abdominal pain; Translations: [Generalized abdominal pain] Onset: 10-03-2022 Episodic Biliary tract disease (3 sources) Biliary sludge; Translations: [Other specified diseases of gallbladder] Onset: 01-16-2023 01-05-2023 Episodic Deficiency and other anemia (1 source) Anemia, unspecified; Translations: [Anemia, unspecified type] Onset: 04-01-2023 Episodic Deficiency and other anemia (1 source) Vitamin B12 deficiency anemia, unspecified; Translations: [Anemia due to vitamin B12 deficiency, unspecified B12 deficiency type] Onset: 12-29-2022 Episodic Genitourinary symptoms and ill-defined conditions (7 sources) Jose M hematuria; Translations: [Gross hematuria] Onset: 03-11-2023 Episodic Nausea and vomiting (3 sources) Nausea; Translations: [Nausea] Onset: 01-16-2023 01-05-2023 Episodic Other bone disease and musculoskeletal deformities (3 sources) Disorder of skeletal system; Translations: [Disorder of bone, unspecified] Onset: 05-15-2010 05-15-2010 Episodic Other circulatory disease (1 source) Personal history of transient ischemic attack (TIA), and cerebral infarction without residual deficits; Translations: [History of CVA (cerebrovascular accident)] Onset: 03-11-2023 Episodic Other diseases of bladder and urethra (20 sources) Urethral stenosis; Translations: [Urethral stenosis] Onset: 07-27-2014 07-27-2014 Episodic Other female genital disorders (1 source) Unspecified condition associated with female genital organs and menstrual cycle; Translations: [Vaginal burning] Onset: 10-02-2022 Episodic Other gastrointestinal disorders (1 source) Change in bowel habit; Translations: [Change in bowel habits] Onset: 10-03-2022 Episodic Other injuries and conditions due to external causes (1 source) Exhaustion due to excessive exertion, initial encounter; Translations: [Fatigue due to excessive exertion, initial encounter] Onset: 01-12-2023 Episodic Other screening for suspected conditions (not mental disorders or infectious disease) (9 sources) Patient encounter status; Translations: [Encounter for screening mammogram for malignant neoplasm of breast] Onset: 12-08-2022 Episodic Other skin disorders (3 sources) Localized swelling, mass and lump, lower limb, bilateral; Translations: [Localized swelling, mass and lump, lower limb, bilateral] Onset: 06-19-2022 Episodic Peritonitis and intestinal abscess (3 sources) Infectious disease of abdomen; Translations: [Peritonitis, unspecified] Onset: 10-03-2022 Episodic Results Test Name Value Interpretation Reference Range Facil ity Vital Signs Date Time Vital Sign Value Performing Clinician Faci lity 07-28-2023 13:35-0500 Body height 149.9 cm Vanessa Nikki ANATOMIC PATHOLOGY MANAGER.SPRAY GUN OPERATOR Work Phone: [facility] 07-28-2023 13:35-0500 Body weight 67.31 kg Vanessa Nikki ANATOMIC PATHOLOGY MANAGER.SPRAY GUN OPERATOR Work Phone: [facility] 07-28-2023 13:35-0500 Diastolic blood pressure 70 mm[Hg] Vanessa Nikki ANATOMIC PATHOLOGY MANAGER.SPRAY GUN OPERATOR Work Phone: [facility] 07-28-2023 13:35-0500 Heart rate 80 /min Vanessa Nikki ANATOMIC PATHOLOGY MANAGER.SPRAY GUN OPERATOR Work Phone: [facility] 07-28-2023 13:35-0500 Respiratory rate 16 /min Vanessa Nikki ANATOMIC PATHOLOGY MANAGER.SPRAY GUN OPERATOR Work Phone: [facility] 07-28-2023 13:35-0500 Systolic blood pressure 108 mm[Hg] Vanessa Nikki ANATOMIC PATHOLOGY MANAGER.SPRAY GUN OPERATOR Work Phone: [facility] 05-19-2023 09:45-0500 Body weight 66.68 kg Dari Older ANATOMIC PATHOLOGY MANAGER.SPRAY GUN OPERATOR Work Phone: [facility] 05-19-2023 09:45-0500 Diastolic blood pressure 90 mm[Hg] Dari Older ANATOMIC PATHOLOGY MANAGER.SPRAY GUN OPERATOR Work Phone: [facility] 05-19-2023 09:45-0500 Heart rate 79 /min Dari Older ANATOMIC PATHOLOGY MANAGER.SPRAY GUN OPERATOR Work Phone: [facility] 05-19-2023 09:45-0500 Respiratory rate 14 /min Dari Older ANATOMIC PATHOLOGY MANAGER.SPRAY GUN OPERATOR Work Phone: [facility] 05-19-2023 09:45-0500 SaO2% (BldA) [Mass fraction] 94 % Dari Older ANATOMIC PATHOLOGY MANAGER.SPRAY GUN OPERATOR Work Phone: [facility] 05-19-2023 09:45-0500 Systolic blood pressure 148 mm[Hg] Dari Older ANATOMIC PATHOLOGY MANAGER.SPRAY GUN OPERATOR Work Phone: [facility] 04-01-2023 09:15-0400 Body height 149.9 cm Juanita Denbow PA-C Work Phone: [facility] 04-01-2023 09:15-0400 Body temperature 98.2 [degF] Juanita Denbow PA-C Work Phone: [facility] 04-01-2023 09:15-0400 Body weight 66.22 kg Juanita Denbow PA-C Work Phone: [facility] 04-01-2023 09:15-0400 Diastolic blood pressure 72 mm[Hg] Juanita Denbow PA-C Work Phone: [facility] 04-01-2023 09:15-0400 Heart rate 71 /min Juanita Denbow PA-C Work Phone: [facility] 04-01-2023 09:15-0400 Respiratory rate 12 /min Juanita Denbow PA-C Work Phone: [facility] 04-01-2023 09:15-0400 SaO2% (BldA) [Mass fraction] 98 % Juanita Denbow PA-C Work Phone: [facility] 04-01-2023 09:15-0400 Systolic blood pressure 146 mm[Hg] Juanita Denbow PA-C Work Phone: [facility] 03-11-2023 10:05-0400 Body height 149.9 cm Juanita Denbow PA-C Work Phone: [facility] 03-11-2023 10:05-0400 Body temperature 98.1 [degF] Juanita Denbow PA-C Work Phone: [facility] 03-11-2023 10:05-0400 Body weight 65.32 kg Juanita Denbow PA-C Work Phone: [facility] 03-11-2023 10:05-0400 Diastolic blood pressure 82 mm[Hg] Juanita Denbow PA-C Work Phone: [facility] 03-11-2023 10:05-0400 Heart rate 74 /min Juanita Denbow PA-C Work Phone: [facility] 03-11-2023 10:05-0400 Respiratory rate 12 /min Juanita Denbow PA-C Work Phone: [facility] 03-11-2023 10:05-0400 SaO2% (BldA) [Mass fraction] 96 % Juanita Denbow PA-C Work Phone: [facility] 03-11-2023 10:05-0400 Systolic blood pressure 138 mm[Hg] Juanita Denbow PA-C Work Phone: [facility] 02-20-2023 09:52-0400 Body weight 66.22 kg Vanessa Nikki ANATOMIC PATHOLOGY MANAGER.SPRAY GUN OPERATOR Work Phone: [facility] 02-20-2023 09:52-0400 Diastolic blood pressure 74 mm[Hg] Vanessa Nikki ANATOMIC PATHOLOGY MANAGER.SPRAY GUN OPERATOR Work Phone: [facility] 02-20-2023 09:52-0400 Heart rate 59 /min Vanessa Nikki ANATOMIC PATHOLOGY MANAGER.SPRAY GUN OPERATOR Work Phone: [facility] 02-20-2023 09:52-0400 SaO2% (BldA) [Mass fraction] 98 % Vanessa Nikki ANATOMIC PATHOLOGY MANAGER.SPRAY GUN OPERATOR Work Phone: [facility] 02-20-2023 09:52-0400 Systolic blood pressure 132 mm[Hg] Vanessa Nikki ANATOMIC PATHOLOGY MANAGER.SPRAY GUN OPERATOR Work Phone: [facility] 02-02-2023 13:45-0400 Body weight 65.32 kg Dheeraj Clark MD Work Phone: [facility] 02-02-2023 13:45-0400 Diastolic blood pressure 70 mm[Hg] Dheeraj Clark MD Work Phone: [facility] 02-02-2023 13:45-0400 Heart rate 72 /min Dheeraj Clark MD Work Phone: [facility] 02-02-2023 13:45-0400 Systolic blood pressure 118 mm[Hg] Dheeraj Clark MD Work Phone: [facility] 12-29-2022 10:08-0400 Body weight 66.22 kg Vanessa Nikki ANATOMIC PATHOLOGY MANAGER.SPRAY GUN OPERATOR Work Phone: [facility] 12-29-2022 10:08-0400 Diastolic blood pressure 62 mm[Hg] Vanessa Nikki ANATOMIC PATHOLOGY MANAGER.SPRAY GUN OPERATOR Work Phone: [facility] 12-29-2022 10:08-0400 Heart rate 64 /min Vanessa Nikki ANATOMIC PATHOLOGY MANAGER.SPRAY GUN OPERATOR Work Phone: [facility] 12-29-2022 10:08-0400 SaO2% (BldA) [Mass fraction] 98 % Vanessa Nikki ANATOMIC PATHOLOGY MANAGER.SPRAY GUN OPERATOR Work Phone: [facility] 12-29-2022 10:08-0400 Systolic blood pressure 104 mm[Hg] Vanessa Nikki ANATOMIC PATHOLOGY MANAGER.SPRAY GUN OPERATOR Work Phone: [facility] 12-05-2022 16:09-0400 Body temperature 97.2 [degF] Ace Lorenzana MD Work Phone: [facility] 12-05-2022 16:09-0400 Body weight 66.22 kg Ace Lorenzana MD Work Phone: [facility] 12-05-2022 16:09-0400 Diastolic blood pressure 78 mm[Hg] Ace Lorenzana MD Work Phone: [facility] 12-05-2022 16:09-0400 Heart rate 75 /min Ace Lorenzana MD Work Phone: [facility] 12-05-2022 16:09-0400 Respiratory rate 18 /min Ace Lorenzana MD Work Phone: [facility] 12-05-2022 16:09-0400 SaO2% (BldA) [Mass fraction] 97 % Ace Lorenzana MD Work Phone: [facility] 12-05-2022 16:09-0400 Systolic blood pressure 118 mm[Hg] Ace Lorenzana MD Work Phone: [facility] 11-19-2022 09:30-0400 Body weight 66.22 kg Vanessa Nikki ANATOMIC PATHOLOGY MANAGER.SPRAY GUN OPERATOR Work Phone: [facility] 11-19-2022 09:30-0400 Diastolic blood pressure 70 mm[Hg] Vanessa Nikki ANATOMIC PATHOLOGY MANAGER.SPRAY GUN OPERATOR Work Phone: [facility] 11-19-2022 09:30-0400 Heart rate 72 /min Vanessa Nikik ANATOMIC PATHOLOGY MANAGER.SPRAY GUN OPERATOR Work Phone: [facility] 11-19-2022 09:30-0400 SaO2% (BldA) [Mass fraction] 96 % Vanessa Nikki ANATOMIC PATHOLOGY MANAGER.SPRAY GUN OPERATOR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 fever without mention of heart involve ment 02/01/2015 documented as of this encounter (statuses as of 10/28/2022) [facility] History of Past illness Narrative* Problem Noted Date Resolved Date 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 Disorder of bone and cartilage, unspecified 04/2307/28/2022 Abdominal Pain, Unspecified Site 11/29/2008 09/09/2012 Abdominal Pain, Other Specified Site 11/08/2008 09/09/2012 Acute gastritis without mention of hemorrhage 02/01/2015 Screening for malignant neoplasm of the rectum 0 12/22/2005 02/01/2015 Other specified disorders of arteries and arteri oles 12/18/2005 07/28/2022 PAIN ABDOMEN GENERALIZED 11/12/2005 013 Other specified hypoglycemia Overview: Postprandial hypoglycemia Atrial fibrillation 07/28/2022 Rheumatic fever without mention of heart involve ment 02/01/2015 documented as of this encounter (statuses as of 10/29/2022) [facility] History of Past illness Narrative* Problem Noted Date Resolved Date 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 Disorder of bone and cartilage, unspecified 04/2307/28/2022 Abdominal Pain, Unspecified Site 11/29/2008 09/09/2012 Abdominal Pain, Other Specified Site 11/08/2008 09/09/2012 Acute gastritis without mention of hemorrhage 02/01/2015 Screening for malignant neoplasm of the rectum 0 12/22/2005 02/01/2015 Other specified disorders of arteries and arteri oles 12/18/2005 07/28/2022 PAIN ABDOMEN GENERALIZED 11/12/2005 013 Other specified hypoglycemia Overview: Postprandial hypoglycemia Atrial fibrillation 07/28/2022 Rheumatic fever without mention of heart involve ment 02/01/2015 documented as of this encounter (statuses as of 10/29/2022) [facility] History of Past illness Narrative* Problem Noted Date Resolved Date 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 Disorder of bone and cartilage, unspecified 04/2307/28/2022 Abdominal Pain, Unspecified Site 11/29/2008 09/09/2012 Abdominal Pain, Other Specified Site 11/08/2008 09/09/2012 Acute gastritis without mention of hemorrhage 02/01/2015 Screening for malignant neoplasm of the rectum 0 12/22/2005 02/01/2015 Other specified disorders of arteries and arteri oles 12/18/2005 07/28/2022 PAIN ABDOMEN GENERALIZED 11/12/2005 013 Other specified hypoglycemia Overview: Postprandial hypoglycemia Atrial fibrillation 07/28/2022 Rheumatic fever without mention of heart involve ment 02/01/2015 documented as of this encounter (statuses as of 10/31/2022) [facility] History of Past illness Narrative* Problem Noted Date Resolved Date 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 Disorder of bone and cartilage, unspecified 04/2307/28/2022 Abdominal Pain, Unspecified Site 11/29/2008 09/09/2012 Abdominal Pain, Other Specified Site 11/08/2008 09/09/2012 Acute gastritis without mention of hemorrhage 02/01/2015 Screening for malignant neoplasm of the rectum 0 12/22/2005 02/01/2015 Other specified disorders of arteries and arteri oles 12/18/2005 07/28/2022 PAIN ABDOMEN GENERALIZED 11/12/2005 013 Other specified hypoglycemia Overview: Postprandial hypoglycemia Atrial fibrillation 07/28/2022 Rheumatic fever without mention of heart involve ment 02/01/2015 documented as of this encounter (statuses as of 11/01/2022) [facility] History of Past illness Narrative* Problem Noted Date Resolved Date 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 Disorder of bone and cartilage, unspecified 04/2307/28/2022 Abdominal Pain, Unspecified Site 11/29/2008 09/09/2012 Abdominal Pain, Other Specified Site 11/08/2008 09/09/2012 Acute gastritis without mention of hemorrhage 02/01/2015 Screening for malignant neoplasm of the rectum 0 12/22/2005 02/01/2015 Other specified disorders of arteries and arteri oles 12/18/2005 07/28/2022 PAIN ABDOMEN GENERALIZED 11/12/2005 013 Other specified hypoglycemia Overview: Postprandial hypoglycemia Atrial fibrillation 07/28/2022 Rheumatic fever without mention of heart involve ment 02/01/2015 documented as of this encounter (statuses as of 11/15/2022) [facility] History of Past illness Narrative* Problem Noted Date Resolved Date 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 Disorder of bone and cartilage, unspecified 04/2307/28/2022 Abdominal Pain, Unspecified Site 11/29/2008 09/09/2012 Abdominal Pain, Other Specified Site 11/08/2008 09/09/2012 Acute gastritis without mention of hemorrhage 02/01/2015 Screening for malignant neoplasm of the rectum 0 12/22/2005 02/01/2015 Other specified disorders of arteries and arteri oles 12/18/2005 07/28/2022 PAIN ABDOMEN GENERALIZED 11/12/2005 013 Other specified hypoglycemia Overview: Postprandial hypoglycemia Atrial fibrillation 07/28/2022 Rheumatic fever without mention of heart involve ment 02/01/2015 documented as of this encounter (statuses as of 11/16/2022) [facility] History of Past illness Narrative* Problem Noted Date Resolved Date 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 Disorder of bone and cartilage, unspecified 04/2307/28/2022 Abdominal Pain, Unspecified Site 11/29/2008 09/09/2012 Abdominal Pain, Other Specified Site 11/08/2008 09/09/2012 Acute gastritis without mention of hemorrhage 02/01/2015 Screening for malignant neoplasm of the rectum 0 12/22/2005 02/01/2015 Other specified disorders of arteries and arteri oles 12/18/2005 07/28/2022 PAIN ABDOMEN GENERALIZED 11/12/2005 013 Other specified hypoglycemia Overview: Postprandial hypoglycemia Atrial fibrillation 07/28/2022 Rheumatic fever without mention of heart involve ment 02/01/2015 documented as of this encounter (statuses as of 11/19/2022) [facility] History of Past illness Narrative* Problem Noted Date Resolved Date 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 Disorder of bone and cartilage, unspecified 04/2307/28/2022 Abdominal Pain, Unspecified Site 11/29/2008 09/09/2012 Abdominal Pain, Other Specified Site 11/08/2008 09/09/2012 Acute gastritis without mention of hemorrhage 02/01/2015 Screening for malignant neoplasm of the rectum 0 12/22/2005 02/01/2015 Other specified disorders of arteries and arteri oles 12/18/2005 07/28/2022 PAIN ABDOMEN GENERALIZED 11/12/2005 013 Other specified hypoglycemia Overview: Postprandial hypoglycemia Atrial fibrillation 07/28/2022 Rheumatic fever without mention of heart involve ment 02/01/2015 documented as of this encounter (statuses as of 12/11/2022) [facility] History of Past illness Narrative* Problem Noted Date Diagnosed Date Resolved Date 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 Disorder of bone and cartilage, unspecified 05/15/2010 07/28/2022 Unspecified essential hypertension 11/29/2008 12/29/2022 Abdominal Pain, Unspecified Site 11/29/2008 09/09/2012 Abdominal Pain, Other Specified Site 11/08/2008 09/09/2012 Acute gastritis without mention of hemorrhage 09/17/19 07 02/01/2015 Screening for malignant neop lasm of the rectum 12/22/2005 02/01/2015 Other specified disorders of arteries and arterioles 12/18/2005 07/28/2022 PAIN ABDOMEN GENERALIZED 11/12/2005 Other specified hypoglycemia 02/01/2015 Overview: Postprandial hypoglycemia Atrial fibrillation 07/28/19 23 Rheumatic fever without ment ion of heart involvement 02/01/2015 Unspecified constipation 03/2023 documented as of this encounter (statuses as of 12/30/2022) [facility] History of Past illness Narrative* Problem Noted Date Diagnosed Date Resolved Date 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 Disorder of bone and cartilage, unspecified 05/15/2010 07/28/2022 Unspecified essential hypertension 11/29/2008 12/29/2022 Abdominal Pain, Unspecified Site 11/29/2008 09/09/2012 Abdominal Pain, Other Specified Site 11/08/2008 09/09/2012 Acute gastritis without mention of hemorrhage 09/17/19 07 02/01/2015 Screening for malignant neop lasm of the rectum 12/22/2005 02/01/2015 Other specified disorders of arteries and arterioles 12/18/2005 07/28/2022 PAIN ABDOMEN GENERALIZED 11/12/2005 Other specified hypoglycemia 02/01/2015 Overview: Postprandial hypoglycemia Atrial fibrillation 07/28/19 23 Rheumatic fever without ment ion of heart involvement 02/01/2015 Unspecified constipation 03/2023 documented as of this encounter (statuses as of 01/02/2023) [facility] History of Past illness Narrative* Problem Noted Date Diagnosed Date Resolved Date 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 Disorder of bone and cartilage, unspecified 05/15/2010 07/28/2022 Unspecified essential hypertension 11/29/2008 12/29/2022 Abdominal Pain, Unspecified Site 11/29/2008 09/09/2012 Abdominal Pain, Other Specified Site 11/08/2008 09/09/2012 Acute gastritis without mention of hemorrhage 09/17/19 07 02/01/2015 Screening for malignant neop lasm of the rectum 12/22/2005 02/01/2015 Other specified disorders of arteries and arterioles 12/18/2005 07/28/2022 PAIN ABDOMEN GENERALIZED 11/12/2005 Other specified hypoglycemia 02/01/2015 Overview: Postprandial hypoglycemia Atrial fibrillation 07/28/19 23 Rheumatic fever without ment ion of heart involvement 02/01/2015 Unspecified constipation 03/2023 documented as of this encounter (statuses as of 01/06/2023) [facility] History of Past illness Narrative* Problem Noted Date Diagnosed Date Resolved Date 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 Disorder of bone and cartilage, unspecified 05/15/2010 07/28/2022 Unspecified essential hypertension 11/29/2008 12/29/2022 Abdominal Pain, Unspecified Site 11/29/2008 09/09/2012 Abdominal Pain, Other Specified Site 11/08/2008 09/09/2012 Acute gastritis without mention of hemorrhage 09/17/19 07 02/01/2015 Screening for malignant neop lasm of the rectum 12/22/2005 02/01/2015 Other specified disorders of arteries and arterioles 12/18/2005 07/28/2022 PAIN ABDOMEN GENERALIZED 11/12/2005 Other specified hypoglycemia 02/01/2015 Overview: Postprandial hypoglycemia Atrial fibrillation 07/28/19 23 Rheumatic fever without ment ion of heart involvement 02/01/2015 Unspecified constipation 03/2023 documented as of this encounter (statuses as of 01/06/2023) [facility] History of Past illness Narrative* Problem Noted Date Diagnosed Date Resolved Date 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 Disorder of bone and cartilage, unspecified 05/15/2010 07/28/2022 Unspecified essential hypertension 11/29/2008 12/29/2022 Abdominal Pain, Unspecified Site 11/29/2008 09/09/2012 Abdominal Pain, Other Specified Site 11/08/2008 09/09/2012 Acute gastritis without mention of hemorrhage 09/17/19 07 02/01/2015 Screening for malignant neop lasm of the rectum 12/22/2005 02/01/2015 Other specified disorders of arteries and arterioles 12/18/2005 07/28/2022 PAIN ABDOMEN GENERALIZED 11/12/2005 Other specified hypoglycemia 02/01/2015 Overview: Postprandial hypoglycemia Atrial fibrillation 07/28/19 23 Rheumatic fever without ment ion of heart involvement 02/01/2015 Unspecified constipation 03/2023 documented as of this encounter (statuses as of 01/16/2023) [facility] History of Past illness Narrative* Problem Noted Date Diagnosed Date Resolved Date 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 Disorder of bone and cartilage, unspecified 05/15/2010 07/28/2022 Unspecified essential hypertension 11/29/2008 12/29/2022 Abdominal Pain, Unspecified Site 11/29/2008 09/09/2012 Abdominal Pain, Other Specified Site 11/08/2008 09/09/2012 Acute gastritis without mention of hemorrhage 09/17/19 07 02/01/2015 Screening for malignant neop lasm of the rectum 12/22/2005 02/01/2015 Other specified disorders of arteries and arterioles 12/18/2005 07/28/2022 PAIN ABDOMEN GENERALIZED 11/12/2005 Other specified hypoglycemia 02/01/2015 Overview: Postprandial hypoglycemia Atrial fibrillation 07/28/19 23 Rheumatic fever without ment ion of heart involvement 02/01/2015 Unspecified constipation 03/2023 documented as of this encounter (statuses as of 01/28/2023) [facility] History of Past illness Narrative* Problem Noted Date Diagnosed Date Resolved Date 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 Disorder of bone and cartilage, unspecified 05/15/2010 07/28/2022 Unspecified essential hypertension 11/29/2008 12/29/2022 Abdominal Pain, Unspecified Site 11/29/2008 09/09/2012 Abdominal Pain, Other Specified Site 11/08/2008 09/09/2012 Acute gastritis without mention of hemorrhage 09/17/19 07 02/01/2015 Screening for malignant neop lasm of the rectum 12/22/2005 02/01/2015 Other specified disorders of arteries and arterioles 12/18/2005 07/28/2022 PAIN ABDOMEN GENERALIZED 11/12/2005 Other specified hypoglycemia 02/01/2015 Overview: Postprandial hypoglycemia Atrial fibrillation 07/28/19 23 Rheumatic fever without ment ion of heart involvement 02/01/2015 Unspecified constipation 03/2023 documented as of this encounter (statuses as of 01/30/2023) [facility] History of Past illness Narrative* Problem Noted Date Diagnosed Date Resolved Date 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 Disorder of bone and cartilage, unspecified 05/15/2010 07/28/2022 Unspecified essential hypertension 11/29/2008 12/29/2022 Abdominal Pain, Unspecified Site 11/29/2008 09/09/2012 Abdominal Pain, Other Specified Site 11/08/2008 09/09/2012 Acute gastritis without mention of hemorrhage 09/17/19 07 02/01/2015 Screening for malignant neop lasm of the rectum 12/22/2005 02/01/2015 Other specified disorders of arteries and arterioles 12/18/2005 07/28/2022 PAIN ABDOMEN GENERALIZED 11/12/2005 Other specified hypoglycemia 02/01/2015 Overview: Postprandial hypoglycemia Atrial fibrillation 07/28/19 23 Rheumatic fever without ment ion of heart involvement 02/01/2015 Unspecified constipation 03/2023 documented as of this encounter (statuses as of 02/03/2023) [facility] History of Past illness Narrative* Problem Noted Date Diagnosed Date Resolved Date 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 Disorder of bone and cartilage, unspecified 05/15/2010 07/28/2022 Unspecified essential hypertension 11/29/2008 12/29/2022 Abdominal Pain, Unspecified Site 11/29/2008 09/09/2012 Abdominal Pain, Other Specified Site 11/08/2008 09/09/2012 Acute gastritis without mention of hemorrhage 09/17/19 07 02/01/2015 Screening for malignant neop lasm of the rectum 12/22/2005 02/01/2015 Other specified disorders of arteries and arterioles 12/18/2005 07/28/2022 PAIN ABDOMEN GENERALIZED 11/12/2005 Other specified hypoglycemia 02/01/2015 Overview: Postprandial hypoglycemia Atrial fibrillation 07/28/19 23 Rheumatic fever without ment ion of heart involvement 02/01/2015 Unspecified constipation 03/2023 documented as of this encounter (statuses as of 02/16/2023) [facility] History of Past illness Narrative* Problem Noted Date Diagnosed Date Resolved Date 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 Disorder of bone and cartilage, unspecified 05/15/2010 07/28/2022 Unspecified essential hypertension 11/29/2008 12/29/2022 Abdominal Pain, Unspecified Site 11/29/2008 09/09/2012 Abdominal Pain, Other Specified Site 11/08/2008 09/09/2012 Acute gastritis without mention of hemorrhage 09/17/19 07 02/01/2015 Screening for malignant neop lasm of the rectum 12/22/2005 02/01/2015 Other specified disorders of arteries and arterioles 12/18/2005 07/28/2022 PAIN ABDOMEN GENERALIZED 11/12/2005 Other specified hypoglycemia 02/01/2015 Overview: Postprandial hypoglycemia Atrial fibrillation 07/28/19 23 Rheumatic fever without ment ion of heart involvement 02/01/2015 Unspecified constipation 03/2023 documented as of this encounter (statuses as of 02/20/2023) [facility] History of Past illness Narrative* Problem Noted Date Diagnosed Date Resolved Date 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 Disorder of bone and cartilage, unspecified 05/15/2010 07/28/2022 Unspecified essential hypertension 11/29/2008 12/29/2022 Abdominal Pain, Unspecified Site 11/29/2008 09/09/2012 Abdominal Pain, Other Specified Site 11/08/2008 09/09/2012 Acute gastritis without mention of hemorrhage 09/17/19 07 02/01/2015 Screening for malignant neop lasm of the rectum 12/22/2005 02/01/2015 Other specified disorders of arteries and arterioles 12/18/2005 07/28/2022 PAIN ABDOMEN GENERALIZED 11/12/2005 Other specified hypoglycemia 02/01/2015 Overview: Postprandial hypoglycemia Atrial fibrillation 07/28/19 23 Rheumatic fever without ment ion of heart involvement 02/01/2015 Unspecified constipation 03/2023 documented as of this encounter (statuses as of 02/26/2023) [facility] History of Past illness Narrative* Problem Noted Date Diagnosed Date Resolved Date 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 Disorder of bone and cartilage, unspecified 05/15/2010 07/28/2022 Unspecified essential hypertension 11/29/2008 12/29/2022 Abdominal Pain, Unspecified Site 11/29/2008 09/09/2012 Abdominal Pain, Other Specified Site 11/08/2008 09/09/2012 Acute gastritis without mention of hemorrhage 09/17/19 07 02/01/2015 Screening for malignant neop lasm of the rectum 12/22/2005 02/01/2015 Other specified disorders of arteries and arterioles 12/18/2005 07/28/2022 PAIN ABDOMEN GENERALIZED 11/12/2005 Other specified hypoglycemia 02/01/2015 Overview: Postprandial hypoglycemia Atrial fibrillation 07/28/19 23 Rheumatic fever without ment ion of heart involvement 02/01/2015 Unspecified constipation 03/2023 documented as of this encounter (statuses as of 03/11/2023) [facility] History of Past illness Narrative* Problem Noted Date Diagnosed Date Resolved Date 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 Disorder of bone and cartilage, unspecified 05/15/2010 07/28/2022 Unspecified essential hypertension 11/29/2008 12/29/2022 Abdominal Pain, Unspecified Site 11/29/2008 09/09/2012 Abdominal Pain, Other Specified Site 11/08/2008 09/09/2012 Acute gastritis without mention of hemorrhage 09/17/19 07 02/01/2015 Screening for malignant neop lasm of the rectum 12/22/2005 02/01/2015 Other specified disorders of arteries and arterioles 12/18/2005 07/28/2022 PAIN ABDOMEN GENERALIZED 11/12/2005 Other specified hypoglycemia 02/01/2015 Overview: Postprandial hypoglycemia Atrial fibrillation 07/28/19 23 Rheumatic fever without ment ion of heart involvement 02/01/2015 Unspecified constipation 03/2023 documented as of this encounter (statuses as of 04/01/2023) [facility] History of Past illness Narrative* Problem Noted Date Diagnosed Date Resolved Date 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 Disorder of bone and cartilage, unspecified 05/15/2010 07/28/2022 Unspecified essential hypertension 11/29/2008 12/29/2022 Abdominal Pain, Unspecified Site 11/29/2008 09/09/2012 Abdominal Pain, Other Specified Site 11/08/2008 09/09/2012 Acute gastritis without mention of hemorrhage 09/17/19 07 02/01/2015 Screening for malignant neop lasm of the rectum 12/22/2005 02/01/2015 Other specified disorders of arteries and arterioles 12/18/2005 07/28/2022 PAIN ABDOMEN GENERALIZED 11/12/2005 Other specified hypoglycemia 02/01/2015 Overview: Postprandial hypoglycemia Atrial fibrillation 07/28/19 23 Rheumatic fever without ment ion of heart involvement 02/01/2015 Unspecified constipation 03/2023 documented as of this encounter (statuses as of 04/26/2023) [facility] History of Past illness Narrative* Problem Noted Date Diagnosed Date Resolved Date 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 Disorder of bone and cartilage, unspecified 05/15/2010 07/28/2022 Unspecified essential hypertension 11/29/2008 12/29/2022 Abdominal Pain, Unspecified Site 11/29/2008 09/09/2012 Abdominal Pain, Other Specified Site 11/08/2008 09/09/2012 Acute gastritis without mention of hemorrhage 09/17/19 07 02/01/2015 Screening for malignant neop lasm of the rectum 12/22/2005 02/01/2015 Other specified disorders of arteries and arterioles 12/18/2005 07/28/2022 PAIN ABDOMEN GENERALIZED 11/12/2005 Other specified hypoglycemia 02/01/2015 Overview: Postprandial hypoglycemia Atrial fibrillation 07/28/19 23 Rheumatic fever without ment ion of heart involvement 02/01/2015 Unspecified constipation 03/2023 documented as of this encounter (statuses as of 04/26/2023) [facility] History of Past illness Narrative* Problem Noted Date Diagnosed Date Resolved Date 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 Disorder of bone and cartilage, unspecified 05/15/2010 07/28/2022 Unspecified essential hypertension 11/29/2008 12/29/2022 Abdominal Pain, Unspecified Site 11/29/2008 09/09/2012 Abdominal Pain, Other Specified Site 11/08/2008 09/09/2012 Acute gastritis without mention of hemorrhage 09/17/19 07 02/01/2015 Screening for malignant neop lasm of the rectum 12/22/2005 02/01/2015 Other specified disorders of arteries and arterioles 12/18/2005 07/28/2022 PAIN ABDOMEN GENERALIZED 11/12/2005 Other specified hypoglycemia 02/01/2015 Overview: Postprandial hypoglycemia Atrial fibrillation 07/28/19 23 Rheumatic fever without ment ion of heart involvement 02/01/2015 Unspecified constipation 03/2023 documented as of this encounter (statuses as of 04/26/2023) [facility] History of Past illness Narrative* Problem Noted Date Diagnosed Date Resolved Date 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 Disorder of bone and cartilage, unspecified 05/15/2010 07/28/2022 Unspecified essential hypertension 11/29/2008 12/29/2022 Abdominal Pain, Unspecified Site 11/29/2008 09/09/2012 Abdominal Pain, Other Specified Site 11/08/2008 09/09/2012 Acute gastritis without mention of hemorrhage 09/17/19 07 02/01/2015 Screening for malignant neop lasm of the rectum 12/22/2005 02/01/2015 Other specified disorders of arteries and arterioles 12/18/2005 07/28/2022 PAIN ABDOMEN GENERALIZED 11/12/2005 Other specified hypoglycemia 02/01/2015 Overview: Postprandial hypoglycemia Atrial fibrillation 07/28/19 23 Rheumatic fever without ment ion of heart involvement 02/01/2015 Unspecified constipation 03/2023 documented as of this encounter (statuses as of 04/26/2023) [facility] History of Past illness Narrative* Problem Noted Date Diagnosed Date Resolved Date 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 Disorder of bone and cartilage, unspecified 05/15/2010 07/28/2022 Unspecified essential hypertension 11/29/2008 12/29/2022 Abdominal Pain, Unspecified Site 11/29/2008 09/09/2012 Abdominal Pain, Other Specified Site 11/08/2008 09/09/2012 Acute gastritis without mention of hemorrhage 09/17/19 07 02/01/2015 Screening for malignant neop lasm of the rectum 12/22/2005 02/01/2015 Other specified disorders of arteries and arterioles 12/18/2005 07/28/2022 PAIN ABDOMEN GENERALIZED 11/12/2005 Other specified hypoglycemia 02/01/2015 Overview: Postprandial hypoglycemia Atrial fibrillation 07/28/19 23 Rheumatic fever without ment ion of heart involvement 02/01/2015 Unspecified constipation 03/2023 documented as of this encounter (statuses as of 05/13/2023) [facility] History of Past illness Narrative* Problem Noted Date Diagnosed Date Resolved Date 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 Disorder of bone and cartilage, unspecified 05/15/2010 07/28/2022 Unspecified essential hypertension 11/29/2008 12/29/2022 Abdominal Pain, Unspecified Site 11/29/2008 09/09/2012 Abdominal Pain, Other Specified Site 11/08/2008 09/09/2012 Acute gastritis without mention of hemorrhage 09/17/19 07 02/01/2015 Screening for malignant neop lasm of the rectum 12/22/2005 02/01/2015 Other specified disorders of arteries and arterioles 12/18/2005 07/28/2022 PAIN ABDOMEN GENERALIZED 11/12/2005 Other specified hypoglycemia 02/01/2015 Overview: Postprandial hypoglycemia Atrial fibrillation 07/28/19 23 Rheumatic fever without ment ion of heart involvement 02/01/2015 Unspecified constipation 03/2023 documented as of this encounter (statuses as of 05/19/2023) [facility] History of Past illness Narrative* Problem Noted Date Diagnosed Date Resolved Date 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 Disorder of bone and cartilage, unspecified 05/15/2010 07/28/2022 Unspecified essential hypertension 11/29/2008 12/29/2022 Abdominal Pain, Unspecified Site 11/29/2008 09/09/2012 Abdominal Pain, Other Specified Site 11/08/2008 09/09/2012 Acute gastritis without mention of hemorrhage 09/17/19 07 02/01/2015 Screening for malignant neop lasm of the rectum 12/22/2005 02/01/2015 Other specified disorders of arteries and arterioles 12/18/2005 07/28/2022 PAIN ABDOMEN GENERALIZED 11/12/2005 Other specified hypoglycemia 02/01/2015 Overview: Postprandial hypoglycemia Atrial fibrillation 07/28/19 23 Rheumatic fever without ment ion of heart involvement 02/01/2015 Unspecified constipation 03/2023 documented as of this encounter (statuses as of 05/21/2023) [facility] History of Past illness Narrative* Problem Noted Date Diagnosed Date Resolved Date 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 Disorder of bone and cartilage, unspecified 05/15/2010 07/28/2022 Unspecified essential hypertension 11/29/2008 12/29/2022 Abdominal Pain, Unspecified Site 11/29/2008 09/09/2012 Abdominal Pain, Other Specified Site 11/08/2008 09/09/2012 Acute gastritis without mention of hemorrhage 09/17/19 07 02/01/2015 Screening for malignant neop lasm of the rectum 12/22/2005 02/01/2015 Other specified disorders of arteries and arterioles 12/18/2005 07/28/2022 PAIN ABDOMEN GENERALIZED 11/12/2005 Other specified hypoglycemia 02/01/2015 Overview: Postprandial hypoglycemia Atrial fibrillation 07/28/19 23 Rheumatic fever without ment ion of heart involvement 02/01/2015 Unspecified constipation 03/2023 documented as of this encounter (statuses as of 07/29/2023) [facility] History of Past illness Narrative* Problem Noted Date Diagnosed Date Resolved Date 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 Disorder of bone and cartilage, unspecified 05/15/2010 07/28/2022 Unspecified essential hypertension 11/29/2008 12/29/2022 Abdominal Pain, Unspecified Site 11/29/2008 09/09/2012 Abdominal Pain, Other Specified Site 11/08/2008 09/09/2012 Acute gastritis without mention of hemorrhage 09/17/19 07 02/01/2015 Screening for malignant neop lasm of the rectum 12/22/2005 02/01/2015 Other specified disorders of arteries and arterioles 12/18/2005 07/28/2022 PAIN ABDOMEN GENERALIZED 11/12/2005 Other specified hypoglycemia 02/01/2015 Overview: Postprandial hypoglycemia Atrial fibrillation 07/28/19 23 Rheumatic fever without ment ion of heart involvement 02/01/2015 Unspecified constipation 03/2023 documented as of this encounter (statuses as of 07/29/2023) [facility] History of Past illness Narrative* Problem Noted Date Diagnosed Date Resolved Date 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 Disorder of bone and cartilage, unspecified 05/15/2010 07/28/2022 Unspecified essential hypertension 11/29/2008 12/29/2022 Abdominal Pain, Unspecified Site 11/29/2008 09/09/2012 Abdominal Pain, Other Specified Site 11/08/2008 09/09/2012 Acute gastritis without mention of hemorrhage 09/17/19 07 02/01/2015 Screening for malignant neop lasm of the rectum 12/22/2005 02/01/2015 Other specified disorders of arteries and arterioles 12/18/2005 07/28/2022 PAIN ABDOMEN GENERALIZED 11/12/2005 Other specified hypoglycemia 02/01/2015 Overview: Postprandial hypoglycemia Atrial fibrillation 07/28/19 23 Rheumatic fever without ment ion of heart involvement 02/01/2015 Unspecified constipation 03/2023 documented as of this encounter (statuses as of 08/06/2023) [facility] History of Past illness Narrative* Problem Noted Date Diagnosed Date Resolved Date 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 Disorder of bone and cartilage, unspecified 05/15/2010 07/28/2022 Unspecified essential hypertension 11/29/2008 12/29/2022 Abdominal Pain, Unspecified Site 11/29/2008 09/09/2012 Abdominal Pain, Other Specified Site 11/08/2008 09/09/2012 Acute gastritis without mention of hemorrhage 09/17/19 07 02/01/2015 Screening for malignant neop lasm of the rectum 12/22/2005 02/01/2015 Other specified disorders of arteries and arterioles 12/18/2005 07/28/2022 PAIN ABDOMEN GENERALIZED 11/12/2005 Other specified hypoglycemia 02/01/2015 Overview: Postprandial hypoglycemia Atrial fibrillation 07/28/19 23 Rheumatic fever without ment ion of heart involvement 02/01/2015 Unspecified constipation 03/2023 documented as of this encounter (statuses as of 08/26/2023) [address]10-2009 History of Past illness Narrative* Problem Noted Date Resolved Date Abdominal Pain, Unspecified Site 11/29/2008 09/09/2012 Abdominal Pain, Other Specified Site 11/08/2008 09/09/2012 Acute gastritis without mention of hemorrhage 02/01/2015 Screening for malignant neoplasm of the rectum 0 12/22/2005 02/01/2015 PAIN ABDOMEN GENERALIZED 11/12/2005 013 Other specified hypoglycemia Overview: Postprandial hypoglycemia Rheumatic fever without mention of heart involve ment 02/01/2015 documented as of this encounter (statuses as of 11/23/2021) [facility] History of Past illness Narrative* Problem Noted Date Resolved Date Abdominal Pain, Unspecified Site 11/29/2008 09/09/2012 Abdominal Pain, Other Specified Site 11/08/2008 09/09/2012 Acute gastritis without mention of hemorrhage 02/01/2015 Screening for malignant neoplasm of the rectum 0 12/22/2005 02/01/2015 PAIN ABDOMEN GENERALIZED 11/12/2005 013 Other specified hypoglycemia Overview: Postprandial hypoglycemia Rheumatic fever without mention of heart involve ment 02/01/2015 documented as of this encounter (statuses as of 11/26/2021) [facility] History of Past illness Narrative* Problem Noted Date Resolved Date Abdominal Pain, Unspecified Site 11/29/2008 09/09/2012 Abdominal Pain, Other Specified Site 11/08/2008 09/09/2012 Acute gastritis without mention of hemorrhage 02/01/2015 Screening for malignant neoplasm of the rectum 0 12/22/2005 02/01/2015 PAIN ABDOMEN GENERALIZED 11/12/2005 013 Other specified hypoglycemia Overview: Postprandial hypoglycemia Rheumatic fever without mention of heart involve ment 02/01/2015 documented as of this encounter (statuses as of 06/27/2022) [facility] note* Diagnosis Encounter for screening mammogram for malignant neoplasm of breast Other screening mammogram [facility] Diagnosis Encounter for screening mammogram for malignant neoplasm of breast- Primary Other screening mammogram [facility] this [facility]* Diagnosis Hyperlipidemia, unspecified hyperlipidemia type- Primary Knowledge deficit about therapeutic diet Anticoagulant long-term use Long-term (current) use of anticoagulants History of diabetes mellitus Personal history of other endocrine, metabolic, and immunity disorders Obesity, Class I, BMI 30.0-34.9 (see actual BMI) Obesity, unspecified documented in this encounter [facility] note* Diagnosis Anticoagulant long-term use- Primary Long-term (current) use of anticoagulants PAF (paroxysmal atrial fibrillation) (HCC) Atrial fibrillation [facility]* Diagnosis Non-seasonal allergic rhinitis, unspecified trigger Mild intermittent asthma without status asthmaticus without complication documented [facility] this [facility]* Diagnosis LPRD (laryngopharyngeal reflux disease)- Primary Other diseases of larynx Financial problems Inadequate material resources PAF (paroxysmal atrial fibrillation) (HCC) Atrial fibrillation Anticoagulant long-term use Long-term (current) use of anticoagulants Mild intermittent asthma without status asthmaticus without complication Dry skin Other specified disease of sebaceous glands Dry mouth Disturbance of salivary secretion [facility] this [facility]* Diagnosis Change in bowel habits- Primary Other symptoms involving digestive system Generalized abdominal pain Abdominal pain, generalized Infection in abdomen (HCC) Unspecified peritonitis [facility] Diagnosis Chronic bronchitis, unspecified chronic bronchitis type (HCC)- Primary Recurrent UTI Urinary tract infection, site not specified Gross hematuria Anticoagulant long-term use Long-term (current) use of anticoagulants Generalized abdominal pain Abdominal pain, generalized Primary hypertension Unspecified essential hypertension [facility] Diagnosis Generalized abdominal pain- Primary Abdominal pain, generalized [facility] Diagnosis Chronic bronchitis, unspecified chronic bronchitis type (HCC)- Primary [facility] Diagnosis Acute cough- Primary Fatigue, unspecified type [facility] Diagnosis Leg swelling- Primary Swelling of limb Seasonal allergies Allergic rhinitis, cause unspecified Other fatigue PAF (paroxysmal atrial fibrillation) (HCC) Atrial fibrillation Primary hypertension Unspecified essential hypertension Gross hematuria [facility]* Diagnosis Other fatigue- Primary Anemia due to vitamin B12 deficiency, unspecified B12 deficiency type Vitamin D deficiency Unspecified vitamin D deficiency History of diabetes mellitus Personal history of other endocrine, metabolic, and immunity disorders Encounter for therapeutic drug monitoring documented [facility] this [facility]* Diagnosis Elevated LFTs- Primary Other abnormal blood chemistry [facility] this [facility]* Diagnosis Nausea- Primary Nausea alone Gallbladder sludge Other specified disorder of gallbladder PAF (paroxysmal atrial fibrillation) (HCC)- Primary Atrial fibrillation documented in this encounter [facility] note* Diagnosis Subacute maxillary sinusitis- Primary Acute maxillary sinusitis Other fatigue Vitamin D deficiency Unspecified vitamin D deficiency PAF (paroxysmal atrial fibrillation) (HCC)- Primary Atrial fibrillation documented in this encounter [facility] note* Diagnosis PAF (paroxysmal atrial fibrillation) (HCC)- Primary Atrial fibrillation Primary hypertension Unspecified essential hypertension Mixed hyperlipidemia Bilateral carotid artery stenosis Occlusion and stenosis of carotid artery without mention of cerebral infarction documented in this encounter [facility] note* Diagnosis Other fatigue- Primary Sleep apnea, unspecified type PAF (paroxysmal atrial fibrillation) (HCC) Atrial fibrillation Primary hypertension Unspecified essential hypertension documented in this encounter [facility] note* Diagnosis PAF (paroxysmal atrial fibrillation) (HCC)- Primary Atrial fibrillation Primary hypertension Unspecified essential hypertension Hyperlipidemia, unspecified hyperlipidemia type History of CVA (cerebrovascular accident) Transient ischemic attack (TIA), and cerebral infarction without residual deficits History of medication noncompliance Personal history of noncompliance with medical treatment, presenting hazards to health Leukopenia, unspecified type Hematuria, unspecified type Sinusitis, unspecified chronicity, unspecified location [facility] this [facility]* Diagnosis Other fatigue- Primary Hyperlipidemia, unspecified hyperlipidemia type History of CVA (cerebrovascular accident) Transient ischemic attack (TIA), and cerebral infarction without residual deficits PAF (paroxysmal atrial fibrillation) (HCC) Atrial fibrillation Vitamin D deficiency Unspecified vitamin D deficiency Anemia, unspecified type documented [facility] this [facility]* Diagnosis Encounter for screening mammogram for malignant neoplasm of breast Other screening mammogram [facility] Diagnosis Nausea Nausea alone Gallbladder sludge Other specified disorder of gallbladder documented in this [facility]* Diagnosis Elevated LFTs Other abnormal blood chemistry [facility] Diagnosis Change in bowel habits Other symptoms involving digestive system Generalized abdominal pain Abdominal pain, generalized Infection in abdomen (HCC) Unspecified peritonitis [facility] Diagnosis Dysuria- Primary Urinary frequency Nocturia [facility] Diagnosis Dry skin- Primary Other specified disease of sebaceous glands Other fatigue Leg swelling Swelling of limb Sinus drainage Other diseases of nasal cavity and sinuses Encounter for therapeutic drug monitoring documented in this encounter [facility] for referral (narrative)* Diagnostic Procedure Only (Routine) - Closed Specialty Diagnoses / Procedures Referred By Miguelina nye Referred To Contact [facility] Diagnoses Encounter for screening mammogram for malignant neoplasm of breast Procedures BARBIE SCREENING W CHRIS SCREENING DIGITAL BREAST TOMOSYNTHESIS BI SCREENING MAMMOGRAPHY BI 2-VIEW BREAST INC CAD Lilliana Delaney MD [address] [place] [address] [facility] [address] [place] [address] Referral ID Status Reason Start Date Expiration Date V isits Requested Visits Authorized [id number] Closed Auto-Generate d Referral 09/03/2021 10/03/2022 1 1 [facility] for referral (narrative)* Diagnostic Procedure Only (Routine) - Authorized Specialty Diagnoses / Procedures Referred By Miguelina nye Referred To Contact [facility] Diagnoses Encounter for screening mammogram for malignant neoplasm of breast Procedures BARBIE SCREENING W CHRIS SCREENING DIGITAL BREAST TOMOSYNTHESIS BI SCREENING MAMMOGRAPHY BI 2-VIEW BREAST INC Lilliana Smallwood MD [address] [place] [address] [facility] [id number] [employer] [place] [address] Referral ID Status Reason Start Date Expiration Date Visits Requested Visits Authorized [id number] Authorized Auto-Generat ed Referral 06/25/2022 07/25/2023 1 1 [facility] for referral (narrative)* Diagnostic Procedure Only (Routine) - Authorized Specialty Diagnoses / Procedures Referred By Miguelina nye Referred To Contact [facility] Diagnoses Elevated LFTs Procedures US ABD RIGHT UPPER QUADRANT US ABDOMINAL REAL TIME W/IMAGE LIMITED Vanessa Ortega APRN.CNP [address] [place] [address] [facility] Referral ID Status Reason Start Date Expiration Date Visits Requested Visits Authorized [id number] Authorized Auto-Generat ed Referral 12/31/2022 01/30/2024 1 1 [facility] for referral (narrative)* Diagnostic Procedure Only (Routine) - Authorized Specialty Diagnoses / Procedures Referred By Miguelina nye Referred To Contact [facility] Diagnoses Nausea Gallbladder sludge Procedures NM HEPATOBILIARY W EF AND/OR RX HEPATOBIL SYST IMAG INC GB W/PHARMA INTERVENJ Vanessa Ortega APRN.[employer]AY G[employer] OPERATOR [address] [place] [id number] [facility] [address] [place] [address] Referral ID Status Reason Start Date Expiration Date Visits Requested Visits Authorized [id number] Authorized Auto-Generat ed Referral 01/05/2023 02/04/2024 1 1 [facility] for referral (narrative)* Diagnostic Procedure Only (Routine) - Authorized Specialty Diagnoses / Procedures Referred By Miguelina nye Referred To [facility] Diagnoses Other fatigue PAF (paroxysmal atrial fibrillation) (HCC) Primary hypertension Sleep apnea, unspecified type Procedures HOME SLEEP APNEA TEST (HSAT) SLEEP STD AIRFLOW HRT RATE&O2 SAT EFFORT UNATT Vanessa Ortega APRN.SPRAY GUN OPERATOR [address] [place] [address] [facility] [place] [address] [place] [address] Referral ID Status Reason Start Date Expiration Date Visits Requested Visits Authorized [id number] Authorized Auto-Generat ed Referral 02/20/2023 02/20/2024 1 1 * Outpatient Procedure (Routine) - Authorized Specialty Diagnoses / Procedures Referred By Miguelina nye Referred To Contact [facility] [place] Diagnoses Other fatigue PAF (paroxysmal atrial fibrillation) (HCC) Primary hypertension Procedures ECHO ECHO TTHRC R-T 2D W/WOM-MODE COMPL SPEC&COLR D Vanessa Ortega APRN.CNP [address] [place] [address] [address] Referral ID Status Reason Start Date Expiration Date Visits Requested Visits Authorized [id number] Authorized Auto-Generat ed Referral 02/20/2023 02/20/2024 1 1 [facility] for referral (narrative)* Outpatient Procedure (Routine) - Pending Review Specialty Diagnoses / Procedures Referred By Miguelina nye Referred To Contact [facility] [place] Diagnoses Other fatigue PAF (paroxysmal atrial fibrillation) (HCC) Procedures ECG COMPLETE ECG ROUTINE ECG W/LEAST 12 LDS W/I&R Juanita Cao PA-C [address] [place] [address] [address] Referral ID Status Reason Start Date Expiration Date Visits Requested Visits Authorized [id number] Pending Review Auto-Generat ed Referral 3 03/31/2024 1 1 [facility] for referral (narrative)* Diagnostic Procedure Only (Routine) - Closed Specialty Diagnoses / Procedures Referred By Miguelina nye Referred To Contact [facility] Diagnoses Encounter for screening mammogram for malignant neoplasm of breast Procedures BARBIE SCREENING W CHRIS SCREENING DIGITAL BREAST TOMOSYNTHESIS BI SCREENING MAMMOGRAPHY BI 2-VIEW BREAST INC CAD Lilliana Delaney MD [address] [place] [address] [facility] [address] [place] [address] Referral ID Status Reason Start Date Expiration Date V isits Requested Visits Authorized [id number] Closed Auto-Generate d Referral 06/25/2022 07/25/2023 1 1 [facility] for referral (narrative)* Diagnostic Procedure Only (Routine) - Closed Specialty Diagnoses / Procedures Referred By Contac t Referred To Contact [facility] Diagnoses Nausea Gallbladder sludge Procedures NM HEPATOBILIARY W EF AND/OR RX HEPATOBIL SYST IMAG INC GB W/PHARMA INTERVENJ Vanessa Ortega APRN.SPRAY GUN OPERATOR [address] [place] [id number] [facility] [address] [place] [address] Referral ID Status Reason Start Date Expiration Date V isits Requested Visits Authorized [id number] Closed Auto-Generate d Referral 01/05/2023 02/04/2024 1 1 [facility] for referral (narrative)* Diagnostic Procedure Only (Routine) - Closed Specialty Diagnoses / Procedures Referred By Miguelina nye Referred To Contact US IMAGING Diagnoses Elevated LFTs Procedures US ABD RIGHT UPPER QUADRANT US ABDOMINAL REAL TIME W/IMAGE LIMITED Vanessa Ortega APRN.SPRAY GUN OPERATOR [address] [place] [address] [facility] [place] [address] Referral ID Status Reason Start Date Expiration Date V isits Requested Visits Authorized [id number] Closed Auto-Generate d Referral 12/31/2022 01/30/2024 1 1 [facility] for visit Narrative* Diagnostic Procedure Only (Routine) - Closed Specialty Diagnoses / Procedures Referred By Miguelina nye Referred To Contact BR IMAGING Diagnoses Encounter for screening mammogram for malignant neoplasm of breast Procedures BARBIE SCREENING W CHRIS SCREENING DIGITAL BREAST TOMOSYNTHESIS BI SCREENING MAMMOGRAPHY BI 2-VIEW BREAST INC CAD Lilliana Delaney MD [address] [place] [address] [facility] [address] [place] [address] Referral ID Status Reason Start Date Expiration Date V isits Requested Visits Authorized [id number] Closed Auto-Generate d Referral 09/03/2021 10/03/2022 [facility] Procedure Only (Routine) - Closed Specialty Diagnoses / Procedures Referred By Miguelina nye Referred To Contact BR IMAGING Diagnoses Encounter for screening mammogram for malignant neoplasm of breast Procedures BARBIE SCREENING W CHRIS SCREENING DIGITAL BREAST TOMOSYNTHESIS BI SCREENING MAMMOGRAPHY BI 2-VIEW BREAST INC CAD Lilliana Delaney MD [address] [place] [address] [facility] [id number] [employer] [place] [address] Referral ID Status Reason Start Date Expiration Date V isits Requested Visits Authorized [id number] Closed Auto-Generate d Referral 06/25/2022 07/25/2023 1 1 [facility] Summary Purpose Family History No Family History Records FoundNo Family History Records FoundNo Family History Records FoundNo Family History Records FoundNo Family History Records Found Advance Directives No Advanced Directives Records FoundNo Advanced Directives Records FoundNo Advanced Directives Records FoundNo Advanced Directives Records FoundNo Advanced Directives Records Found Reason for Referral Specialty Diagnoses / Procedures Referred By Miguelina nye Referred To Contact Nutrition Diagnoses Hyperlipidemia, unspecified hyperlipidemia type Knowledge deficit about therapeutic diet Anticoagulant long-term use History of diabetes mellitus Obesity, Class I, BMI 30.0-34.9 (see actual BMI) Procedures CONSULT TO NUTRITION THERAPY OFFICE/OUTPATIENT [facility] 60-74 MINUTES Vanessa Ortega APRN.SPRAY GUN OPERATOR [address] [place] [address] Referral ID Status Reason Start Date Expiration Date Visits Requested Visits Authorized [id number] Authorized PCP Requested Referral 07/30/2022 07/30/2023 1 1 Specialty Diagnoses / Procedures Referred By Miguelina nye Referred To Contact CT IMAGING Diagnoses Infection in abdomen (HCC) Procedures CT ABD/PEL W IVCON CT ABD & PELVIS W/CONTRAST Taqueria Velez MD [address] [facility] [place] [address] Ct Imaging Referral ID Status Reason Start Date Expiration Date Visits Requested Visits Authorized [id number] Authorized Auto-Generat ed Referral 10/03/2022 11/02/2023 1 1 Specialty Diagnoses / Procedures Referred By Contac t Referred To Contact Diagnoses PAF (paroxysmal atrial fibrillation) (HCC) Procedures CONSULT TO ELECTROPHYSIOLOGY Dheeraj Clark MD [address] [place] [address] Keri Roman MD [address] [facility] [address] [place] [address] Referral ID Status Reason Start Date Expiration Date Visits Requested Visits Authorized [id number] Ref Not Required PCP Requested Referral 02/02/2023 05/03/2023 3 3 Specialty Diagnoses / Procedures Referred By Contac t Referred To Contact CT IMAGING Diagnoses Change in bowel habits Generalized abdominal pain Infection in abdomen (HCC) Procedures CT ABD/PEL WO IVCON CT ABD & PELVIS W/O CONTRAST Taqueria Velez MD [address] [place] [address] [place] [address] Referral ID Status Reason Start Date Expiration Date V isits Requested Visits Authorized [id number] Closed Auto-Generate d Referral 10/07/2022 11/06/2023 1 1 Specialty Diagnoses / Procedures Referred By Contac t Referred To Contact Ent - Otolaryngology Diagnoses Sinus drainage Procedures CONSULT TO ENT OFFICE/OUTPATIENT [facility] 60 MINUTES Vanessa Ortega APRN.SPRAY GUN OPERATOR [address] [place] [address] Referral ID Status Reason Start Date Expiration Date Visits Requested Visits Authorized [id number] Authorized PCP Requested Referral 07/28/2023 07/27/2024 1 1 Additional Source Comments INFORMATION SOURCE (unrecogn ized section and content) DATE CREATED AUTHOR AUTHOR'S ORGANIZ ATION 02/20/2023 [facility] DATE CREATED AUTHOR AUTHOR'S ORGANIZ ATION 06/25/2023 [facility] DATE CREATED AUTHOR AUTHOR'S ORGANIZ ATION 07/22/2023 [facility] DATE CREATED AUTHOR AUTHOR'S ORGANIZ ATION 08/27/2023 [facility] Source Comments (unrecognize d section and content) In the event this informatio n is protected by the Federal Confidentiality of Alcohol and Drug Abuse Patient Records regulations: The Federal rules restrict any use of the information to criminally investigate or prosecute any alcohol or drug abuse patient.[facility] the event this information is protected by the Federal Confidentiality of Alcohol and Drug Abuse Patient Records regulations: The Federal rules restrict any use of the information to criminally investigate or prosecute any alcohol or drug abuse patient.[facility] Hospital[facility] the event this information is protected by the Federal Confidentiality of Alcohol and Drug Abuse Patient Records regulations: The Federal rules restrict any use of the information to criminally investigate or prosecute any alcohol or drug abuse patient.[facility] Hospital[facility] the event this information is protected by the Federal Confidentiality of Alcohol and Drug Abuse Patient Records regulations: The Federal rules restrict any use of the information to criminally investigate or prosecute any alcohol or drug abuse patient.[facility] HospitalIn the event this information is protected by the Federal Confidentiality of Alcohol and Drug Abuse Patient Records regulations: The Federal rules restrict any use of the information to criminally investigate or prosecute any alcohol or drug abuse patient.[facility] Hospital[facility] the event this information is protected by the Federal Confidentiality of Alcohol and Drug Abuse Patient Records regulations: The Federal rules restrict any use of the information to criminally investigate or prosecute any alcohol or drug abuse patient.[facility] Hospital[facility] the event this information is protected by the Federal Confidentiality of Alcohol and Drug Abuse Patient Records regulations: The Federal rules restrict any use of the information to criminally investigate or prosecute any alcohol or drug abuse patient.[facility] Hospital[facility] the event this information is protected by the Federal Confidentiality of Alcohol and Drug Abuse Patient Records regulations: The Federal rules restrict any use of the information to criminally investigate or prosecute any alcohol or drug abuse patient.[facility] Hospital[facility] the event this information is protected by the Federal Confidentiality of Alcohol and Drug Abuse Patient Records regulations: The Federal rules restrict any use of the information to criminally investigate or prosecute any alcohol or drug abuse patient.[facility] HospitalIn the event this information is protected by the Federal Confidentiality of Alcohol and Drug Abuse Patient Records regulations: The Federal rules restrict any use of the information to criminally investigate or prosecute any alcohol or drug abuse patient.[facility] Hospital[facility] the event this information is protected by the Federal Confidentiality of Alcohol and Drug Abuse Patient Records regulations: The Federal rules restrict any use of the information to criminally investigate or prosecute any alcohol or drug abuse patient.[facility] HospitalIn the event this information is protected by the Federal Confidentiality of Alcohol and Drug Abuse Patient Records regulations: The Federal rules restrict any use of the information to criminally investigate or prosecute any alcohol or drug abuse patient.[facility] HospitalIn the event this information is protected by the Federal Confidentiality of Alcohol and Drug Abuse Patient Records regulations: The Federal rules restrict any use of the information to criminally investigate or prosecute any alcohol or drug abuse patient.[facility] HospitalIn the event this information is protected by the Federal Confidentiality of Alcohol and Drug Abuse Patient Records regulations: The Federal rules restrict any use of the information to criminally investigate or prosecute any alcohol or drug abuse patient.[facility] HospitalIn the event this information is protected by the Federal Confidentiality of Alcohol and Drug Abuse Patient Records regulations: The Federal rules restrict any use of the information to criminally investigate or prosecute any alcohol or drug abuse patient.[facility] HospitalIn the event this information is protected by the Federal Confidentiality of Alcohol and Drug Abuse Patient Records regulations: The Federal rules restrict any use of the information to criminally investigate or prosecute any alcohol or drug abuse patient.[facility] HospitalIn the event this information is protected by the Federal Confidentiality of Alcohol and Drug Abuse Patient Records regulations: The Federal rules restrict any use of the information to criminally investigate or prosecute any alcohol or drug abuse patient.[facility] HospitalIn the event this information is protected by the Federal Confidentiality of Alcohol and Drug Abuse Patient Records regulations: The Federal rules restrict any use of the information to criminally investigate or prosecute any alcohol or drug abuse patient.[facility] HospitalIn the event this information is protected by the Federal Confidentiality of Alcohol and Drug Abuse Patient Records regulations: The Federal rules restrict any use of the information to criminally investigate or prosecute any alcohol or drug abuse patient.[facility] HospitalIn the event this information is protected by the Federal Confidentiality of Alcohol and Drug Abuse Patient Records regulations: The Federal rules restrict any use of the information to criminally investigate or prosecute any alcohol or drug abuse patient.[facility] HospitalIn the event this information is protected by the Federal Confidentiality of Alcohol and Drug Abuse Patient Records regulations: The Federal rules restrict any use of the information to criminally investigate or prosecute any alcohol or drug abuse patient.[facility] HospitalIn the event this information is protected by the Federal Confidentiality of Alcohol and Drug Abuse Patient Records regulations: The Federal rules restrict any use of the information to criminally investigate or prosecute any alcohol or drug abuse patient.[facility] HospitalIn the event this information is protected by the Federal Confidentiality of Alcohol and Drug Abuse Patient Records regulations: The Federal rules restrict any use of the information to criminally investigate or prosecute any alcohol or drug abuse patient.[facility] HospitalIn the event this information is protected by the Federal Confidentiality of Alcohol and Drug Abuse Patient Records regulations: The Federal rules restrict any use of the information to criminally investigate or prosecute any alcohol or drug abuse patient.[facility] HospitalIn the event this information is protected by the Federal Confidentiality of Alcohol and Drug Abuse Patient Records regulations: The Federal rules restrict any use of the information to criminally investigate or prosecute any alcohol or drug abuse patient.[facility] HospitalIn the event this information is protected by the Federal Confidentiality of Alcohol and Drug Abuse Patient Records regulations: The Federal rules restrict any use of the information to criminally investigate or prosecute any alcohol or drug abuse patient.[facility] HospitalIn the event this information is protected by the Federal Confidentiality of Alcohol and Drug Abuse Patient Records regulations: The Federal rules restrict any use of the information to criminally investigate or prosecute any alcohol or drug abuse patient.[facility] HospitalIn the event this information is protected by the Federal Confidentiality of Alcohol and Drug Abuse Patient Records regulations: The Federal rules restrict any use of the information to criminally investigate or prosecute any alcohol or drug abuse patient.[facility] HospitalIn the event this information is protected by the Federal Confidentiality of Alcohol and Drug Abuse Patient Records regulations: The Federal rules restrict any use of the information to criminally investigate or prosecute any alcohol or drug abuse patient.[facility] HospitalIn the event this information is protected by the Federal Confidentiality of Alcohol and Drug Abuse Patient Records regulations: The Federal rules restrict any use of the information to criminally investigate or prosecute any alcohol or drug abuse patient.[facility] HospitalIn the event this information is protected by the Federal Confidentiality of Alcohol and Drug Abuse Patient Records regulations: The Federal rules restrict any use of the information to criminally investigate or prosecute any alcohol or drug abuse patient.[facility] the event this information is protected by the Federal Confidentiality of Alcohol and Drug Abuse Patient Records regulations: The Federal rules restrict any use of the information to criminally investigate or prosecute any alcohol or drug abuse patient.[facility] HospitalIn the event this information is protected by the Federal Confidentiality of Alcohol and Drug Abuse Patient Records regulations: The Federal rules restrict any use of the information to criminally investigate or prosecute any alcohol or drug abuse patient.[facility] HospitalIn the event this information is protected by the Federal Confidentiality of Alcohol and Drug Abuse Patient Records regulations: The Federal rules restrict any use of the information to criminally investigate or prosecute any alcohol or drug abuse patient.[facility] the event this information is protected by the Federal Confidentiality of Alcohol and Drug Abuse Patient Records regulations: The Federal rules restrict any use of the information to criminally investigate or prosecute any alcohol or drug abuse patient.[facility] HospitalIn the event this information is protected by the Federal Confidentiality of Alcohol and Drug Abuse Patient Records regulations: The Federal rules restrict any use of the information to criminally investigate or prosecute any alcohol or drug abuse patient.[facility] HospitalIn the event this information is protected by the Federal Confidentiality of Alcohol and Drug Abuse Patient Records regulations: The Federal rules restrict any use of the information to criminally investigate or prosecute any alcohol or drug abuse patient.[facility] HospitalIn the event this information is protected by the Federal Confidentiality of Alcohol and Drug Abuse Patient Records regulations: The Federal rules restrict any use of the information to criminally investigate or prosecute any alcohol or drug abuse patient.[facility] HospitalIn the event this information is protected by the Federal Confidentiality of Alcohol and Drug Abuse Patient Records regulations: The Federal rules restrict any use of the information to criminally investigate or prosecute any alcohol or drug abuse patient.[facility] HospitalIn the event this information is protected by the Federal Confidentiality of Alcohol and Drug Abuse Patient Records regulations: The Federal rules restrict any use of the information to criminally investigate or prosecute any alcohol or drug abuse patient.[facility] HospitalIn the event this information is protected by the Federal Confidentiality of Alcohol and Drug Abuse Patient Records regulations: The Federal rules restrict any use of the information to criminally investigate or prosecute any alcohol or drug abuse patient.[facility] HospitalIn the event this information is protected by the Federal Confidentiality of Alcohol and Drug Abuse Patient Records regulations: The Federal rules restrict any use of the information to criminally investigate or prosecute any alcohol or drug abuse patient.[facility] HospitalIn the event this information is protected by the Federal Confidentiality of Alcohol and Drug Abuse Patient Records regulations: The Federal rules restrict any use of the information to criminally investigate or prosecute any alcohol or drug abuse patient.[facility] HospitalIn the event this information is protected by the Federal Confidentiality of Alcohol and Drug Abuse Patient Records regulations: The Federal rules restrict any use of the information to criminally investigate or prosecute any alcohol or drug abuse patient.[facility] HospitalIn the event this information is protected by the Federal Confidentiality of Alcohol and Drug Abuse Patient Records regulations: The Federal rules restrict any use of the information to criminally investigate or prosecute any alcohol or drug abuse patient.[facility] HospitalIn the event this information is protected by the Federal Confidentiality of Alcohol and Drug Abuse Patient Records regulations: The Federal rules restrict any use of the information to criminally investigate or prosecute any alcohol or drug abuse patient.[facility] Care Teams (unrecognized sec tion and content) Health Safety Manager Relationship Specialty Start Date End Date Shaun Busch MD [address] [place] [address] PCP - General Family Practice 06/05/17 Health Safety Manager Relationship Specialty Start Date End Date Shaun Busch MD [address] [place] [address] PCP - General Family Medicine 06/05/17 Health Safety Manager Relationship Specialty Start Date End Date Ace Lorenzana MD [address] [place] [address] PCP - General Internal Medicine 07/28/22 Health Safety Manager Relationship Specialty Start Date End Date Ace Lorenzana MD [address] [place] [address] [place] [address] PCP - General Internal Medicine 07/28/22 Health Safety Manager Relationship Specialty Start Date End Date Ace Lorenzana MD [address] [place] [address] [place] [address] PCP - General Internal Medicine 07/28/22 Health Safety Manager Relationship Specialty Start Date End Date Ace Lorenzana MD [address] [place] [address], [place] [address] PCP - General Internal Medicine 07/28/22 Health Safety Manager Relationship Specialty Start Date End Date Ace Lorenzana MD [address] [place] [address], [place] [address] PCP - General Internal Medicine 07/28/22 Health Safety Manager Relationship Specialty Start Date End Date Ace Lorenzana MD [address] [place] [address], [place] [address] PCP - General Internal Medicine 07/28/22 Health Safety Manager Relationship Specialty Start Date End Date Ace Lorenzana MD [address] [place] [address], [place] [address] PCP - General Internal Medicine 07/28/22 Health Safety Manager Relationship Specialty Start Date End Date Ace Lorenzana MD [address] [place] [address], [place] [address] PCP - General Internal Medicine 07/28/22 Health Safety Manager Relationship Specialty Start Date End Date Ace Lorenzana MD [address] [place] [address], [place] [address] PCP - General Internal Medicine 07/28/22 Health Safety Manager Relationship Specialty Start Date End Date Ace Lorenzana MD [address] [place] [address], [place] [address] PCP - General Internal Medicine 07/28/22 Health Safety Manager Relationship Specialty Start Date End Date Ace Lorenzana MD [address] [place] [address], [place] [address] PCP - General Internal Medicine 07/28/22 Health Safety Manager Relationship Specialty Start Date End Date Ace Lorenzana MD [address] [place] [address], [place] [address] PCP - General Internal Medicine 07/28/22 Health Safety Manager Relationship Specialty Start Date End Date Ace Lorenzana MD [address] [place] [address], [place] [address] PCP - General Internal Medicine 07/28/22 Health Safety Manager Relationship Specialty Start Date End Date Ace Lorenzana MD [address] [place] [address] [place] [address] PCP - General Internal Medicine 07/28/22 Health Safety Manager Relationship Specialty Start Date End Date Ace Lorenzana MD [address] [facility] [place] [address] PCP - General Internal Medicine 07/28/22 Health Safety Manager Relationship Specialty Start Date End Date Ace Lorenzana MD [address] [place] [address] PCP - General Internal Medicine 07/28/22 Health Safety Manager Relationship Specialty Start Date End Date Ace Lorenzana MD [address] [place] [address] PCP - General Internal Medicine 07/28/22 Health Safety Manager Relationship Specialty Start Date End Date Ace Lorenzana MD [address] [place] [address] PCP - General Internal Medicine 07/28/22 Health Safety Manager Relationship Specialty Start Date End Date Ace Lorenzana MD [address] [place] [address] PCP - General Internal Medicine 07/28/22 Health Safety Manager Relationship Specialty Start Date End Date Ace Lorenzana MD [address] [place] [address] PCP - General Internal Medicine 07/28/22 Health Safety Manager Relationship Specialty Start Date End Date Ace Lorenzana MD [address] [place] [address] PCP - General Internal Medicine 07/28/22 Health Safety Manager Relationship Specialty Start Date End Date Ace Lorenzana MD [address] [place] [address] PCP - General Internal Medicine 07/28/22 Health Safety Manager Relationship Specialty Start Date End Date Ace Lorenzana MD [address] [place] [address] PCP - General Internal Medicine 07/28/22 Health Safety Manager Relationship Specialty Start Date End Date Ace Lorenzana MD [address] [place] [place] [address] PCP - General Internal Medicine 07/28/22 Health Safety Manager Relationship Specialty Start Date End Date Ace Lorenzana MD [address] [place] [place] [address] PCP - General Internal Medicine 07/28/22 Health Safety Manager Relationship Specialty Start Date End Date Ace Lorenzana MD [address] [place] [place] [address] PCP - General Internal Medicine 07/28/22 Health Safety Manager Relationship Specialty Start Date End Date Ace Lorenzana MD [address] [place] [place] [address] PCP - General Internal Medicine 07/28/22 Health Safety Manager Relationship Specialty Start Date End Date Ace Lorenzana MD [address] [facility] [place] [address] PCP - General Internal Medicine 07/28/22 Health Safety Manager Relationship Specialty Start Date End Date Ace Lorenzana MD [address] [place] [place] [address] PCP - General Internal Medicine 07/28/22 Health Safety Manager Relationship Specialty Start Date End Date Ace Lorenzana MD [address] [place] [place] [address] PCP - General Internal Medicine 07/28/22 Health Safety Manager Relationship Specialty Start Date End Date Ace Lorenzana MD [address] [place] [address] PCP - General Internal Medicine 07/28/22 Health Safety Manager Relationship Specialty Start Date End Date Ace Lorenzana MD [address] [place] [address] PCP - General Internal Medicine 07/28/22 Health Safety Manager Relationship Specialty Start Date End Date Ace Lorenzana MD [address] [place] [place] [address] PCP - General Internal Medicine 07/28/22 Health Safety Manager Relationship Specialty Start Date End Date Ace Lorenzana MD [address] [place] [place] [address] PCP - General Internal Medicine 07/28/22 Health Safety Manager Relationship Specialty Start Date End Date Ace Lorenzana MD [address] [place] [place] [address] PCP - General Internal Medicine 07/28/22 Health Safety Manager Relationship Specialty Start Date End Date Ace Lorenzana MD [address] [place] [place] [address] PCP - General Internal Medicine 07/28/22 Health Safety Manager Relationship Specialty Start Date End Date Ace Lorenzana MD [address] [place] [place] [address] PCP - General Internal Medicine 07/28/22 Reason for Visit (unrecogniz ed section and content) Reason Comments Orders Reason Comments Results Reason Comments Medication Request Reason Comments Refill Request Reason Comments follow up 4 week Reason Comments Patient Assistance Reason Comments Consult Hernia mesh issues Reason Comments Results Reason Comments Recheck URI on going for weeks n ruy congestion and cough moist productive at times Derm Problem dry skin with lips c racked Reason Comments Follow Up Review CT scan, [facility] 10/12/22 Reason Comments need for atb Reason Comments Patient Update Reason Comments Patient Question Patient Update Reason Comments Flu Like Symptoms Feels like she has t he flu and her right side of lung feels swelled and fatigue Reason Comments Chest Pain described it as swol zeinab feeling and feels unable to cough it uphas been having feelings of passing out States did talk with [facility] and was told to discontinue all medications Edema in lower legs since stopping all medication Reason Comments Recheck states having severe fatigue feels like I haven't slept last two days Last B12 injection was about 3 months ago. Last B12 level was in normal range. Reason Comments Established Patient Reason Comments Medication Problem Reason Comments Established Patient Follow-Up Reason Comments Fatigue Reason Comments Same Day Appointment dizziness x 2 weeks , seen chiropractor dx with canal lithiasis, patient d/c'd all blood pressure meds due to bruising on arms and legs, tx'd for sinus infection [facility] Reason Comments Follow Up rash improved from m ed reaction Specialty Diagnoses / Procedures Referred By Miguelina nye Referred To Contact CT IMAGING Diagnoses Infection in abdomen (HCC) Procedures CT ABD/PEL W IVCON CT ABD & PELVIS W/CONTRAST Taqueria Velez MD [address] [place] [address] [place] [address] Referral ID Status Reason Start Date Expiration Date V isits Requested Visits Authorized [id number] Closed Auto-Generate d Referral 10/03/2022 11/02/2023 1 1 Reason Comments Radiology NM Specialty Diagnoses / Procedures Referred By Miguelina t Referred To Contact MOLECULAR & FUNCTIONAL IMAGING Diagnoses Nausea Gallbladder sludge Procedures NM HEPATOBILIARY W EF AND/OR RX HEPATOBIL SYST IMAG INC GB W/PHARMA INTERVENJ Vanessa Ortega APRN.SPRAY GUN OPERATOR [address] [place] [address] Molecular & Functional Imaging [address] [id number] Referral ID Status Reason Start Date Expiration Date V isits Requested Visits Authorized [id number] Closed Auto-Generate d Referral 01/05/2023 02/04/2024 1 1 Reason Comments Radiology US Specialty Diagnoses / Procedures Referred By Contac t Referred To Contact US IMAGING Diagnoses Elevated LFTs Procedures US ABD RIGHT UPPER QUADRANT US ABDOMINAL REAL TIME W/IMAGE LIMITED Vanessa Ortega APRN.SPRAY GUN OPERATOR [address] [place] [address] [place] [address] Referral ID Status Reason Start Date Expiration Date V isits Requested Visits Authorized [id number] Closed Auto-Generate d Referral 12/31/2022 01/30/2024 [address] Specialty Diagnoses / Procedures Referred By Contac t Referred To Contact CT IMAGING Diagnoses Change in bowel habits Generalized abdominal pain Infection in abdomen (HCC) Procedures CT ABD/PEL WO IVCON CT ABD & PELVIS W/O CONTRAST Taqueria Velez MD [address] [place] [address] [place] [address] Referral ID Status Reason Start Date Expiration Date V isits Requested Visits Authorized [id number] Closed Auto-Generate d Referral 10/07/2022 11/06/2023 1 1 Reason Comments UTI Reason Comments 4 week follow up Review testing resul ts and medication Reason Comments Consult FOR RECORDS PERTAINING TO PATIENTS WHO ARE OR HAVE BEEN ENROLLED IN A CHEMICAL DEPENDENCY/SUBSTANCEABUSE PROGRAM, SOME INFORMATION MAY BE OMITTED. This clinical summary was aggregated from multiple sources. Caution should be exercised in using it in the provision of clinical care. This summary normalizes information from multiple sources, and as a consequence, information in this document may materially change the coding, format and clinical context of patient data. In addition, data may be omitted in some cases. CLINICAL DECISIONS SHOULD BE BASED ON THE PRIMARY CLINICAL RECORDS. [email or web address] provides no warranty or guarantee of the accuracy or completeness of information in this document.
== END | disposition home or self-care (01) ==
LOC: US 11:54
PROVIDERS: PCP Internal Medicine; Referring Provider Internal Medicine Gastroenterology; Visit Provider Internal Medicine Gastroenterology
DX: N81.6 Rectocele (principal)
CPT/HCPCS: 76856

== ENCOUNTER → 2023-10-15 | Outpatient (CLI) | payer MEDICARE, OTHER, SELFPAY ==
--- NOTE | 2023-10-15 09:10 | EKG12_ITS ---
Test Reason : PRE-OP Blood Pressure : / mmHG Vent. Rate : 071 BPM Atrial Rate : 071 BPM P-R Int : 192 ms QRS Dur : 060 ms QT Int : 392 ms P-R-T Axes : 051 -02 002 degrees QTc Int : 425 ms Normal sinus rhythm Nonspecific ST abnormality Abnormal ECG Confirmed by CANDELARIO BHATTI, SARAH ([id number]), index editor PAGE HERNANDEZ ([id number]) on 10/19/2023 10:19:35 AM Referred By: Marck Beach Confirmed By:ROSALINDA PALOMINO MD
--- NOTE | 2023-10-15 09:20 | RAD_ITS ---
EXAM: XR CHEST, 2 VIEWS CLINICAL INDICATION: PRE OP WASC TECHNIQUE: Frontal and lateral views of the chest. COMPARISON: No relevant prior studies available. FINDINGS: LUNGS AND PLEURAL SPACES: Emphysema. Pleural parenchymal scarring suggested at the left base peripherally. No consolidation. No pleural effusion or pneumothorax. HEART: Unremarkable. Cardiac silhouette not enlarged. MEDIASTINUM: Central airways and mediastinal contour are unremarkable. BONES/JOINTS: Degenerative changes of the spine. No acute fracture. SOFT TISSUES: Unremarkable. VASCULATURE: Atherosclerotic calcifications of the nonenlarged thoracic aortic arch. RAD/Chest PA and Lateral IMPRESSION: No acute cardiopulmonary disease. Electronically Signed: Jay Avelar MD at 21:19 EDT ,
--- NOTE | 2023-10-15 10:12 | CT_ITS ---
EXAM: CT ABDOMEN AND PELVIS WITHOUT INTRAVENOUS CONTRAST CLINICAL INDICATION: constipation and diarrhea TECHNIQUE: Helically acquired images were obtained of the abdomen and pelvis without intravenous contrast. This CT exam was performed using one or more of the following dose reduction techniques: automated exposure control, adjustment of the mA and/or kV according to patient size, and/or use of iterative reconstruction technique. CONTRAST: Oral Gastrografin COMPARISON: No relevant prior studies available. FINDINGS: LOWER THORAX: Unremarkable. Lung bases are clear. No cardiomegaly. No significant pericardial effusion. ABDOMEN: LIVER: Unremarkable. Homogeneous. GALLBLADDER AND BILE DUCTS: Unremarkable. No calcified gallstones. No gallbladder distention or wall edema. No intra- or extrahepatic biliary ductal dilation. PANCREAS: Unremarkable. No focal cystic mass. SPLEEN: Unremarkable. Normal size without focal cystic or solid mass. ADRENALS: Unremarkable. No nodules. KIDNEYS AND URETERS: Unremarkable. Normal renal size and position. No hydronephrosis. STOMACH AND BOWEL: There is moderate stool in the mid to distal colon. No stomach or bowel distention. No focal inflammatory change. PELVIS: APPENDIX: No evidence of acute appendicitis. BLADDER: Unremarkable. REPRODUCTIVE: The patient is status post hysterectomy. ABDOMEN and PELVIS: INTRAPERITONEAL SPACE: Unremarkable. No ascites or other fluid collection. No free air. BONES/JOINTS: Unremarkable. No suspicious lytic or blastic abnormality. SOFT TISSUES: Unremarkable. No discrete abdominal or pelvic wall hernia. VASCULATURE: Unremarkable. Abdominal aorta is non-dilated. LYMPH NODES: Unremarkable. No enlarged lymph nodes. CT/Abdomen/Pel W ORAL Cont Only IMPRESSION: Moderate stool in the mid to distal colon which may represent developing constipation. No other abnormalities are identified. Electronically Signed: Hakan Eubanks MD at 20:55 EDT ,
== END | disposition home or self-care (01) ==
PROVIDERS: PCP Internal Medicine; Referring Provider Orthopaedic Surgery; Visit Provider Orthopaedic Surgery
DX: Z01.818 Encounter for other preprocedural examination (principal); M17.11 Unilateral primary osteoarthritis, right knee; Z01.811 Encounter for preprocedural respiratory examination; Z01.810 Encounter for preprocedural cardiovascular examination
CPT/HCPCS: 71046; 74176; 93005

== ENCOUNTER 2023-10-22 09:05 | Day surgery (SDC) | payer MEDICARE, OTHER, SELFPAY ==
[2023-10-22] VITALS (7 sets, daily range): BP systolic 119–131; BP diastolic 75–86; PULSE 54–72; RESP 16; TEMP 36.2–36.6; O2SAT 97–99; BMI 28.9
--- NOTE | 2023-10-22 | COLBX_PTH ---
PATIENT: UMBERTO ARREDONDO LOC: EN U#:[id number] AGE/SX: 78/F ROOM: RE10/22/[address]: Dr. Walter Cavanaugh DO : 1945 BED: DIS: 10/22/2023 SPEC #: [id number] RECD: 10/22/23 13:38 STATUS: DYLAN REMarty #: [id number] JOHN: 10/22/23 00:[address]: Walter Cavanaugh DEPT: SURGICAL PATHOLOGY RECD BY: Tyler Gastelum ENTERED: 10/22/23 13:38 SP TYPE: COLON BX OTHR DR: Dr. Ana Paula Lorenzana MD Tissues: Cecum, NOS Procedures: Surgery Specimen Level IV HEADER OPERATION: Colonoscopy with polyp biopsy PRE-OP DIAGNOSIS: Constipation TISSUE SUBMITTED: Cecal polyp MICROSCOPIC DIAGNOSIS Cecal polyp, biopsy: Fragments of tubular adenoma. AM/mr 10/23/23 MICROSCOPIC DESCRIPTION Slides are reviewed. GROSS DESCRIPTION Received in fixative is one container labeled with the patient's name and designated Cecal polyp. The specimen consists of multiple irregular fragments of light ayala soft tissue that in aggregate measure 1.0 x 0.5 x 0.1 cm. The specimen is totally submitted in one cassette. AM/ 10/22/23 TC:5 CPT:75181
[2023-10-22] MEDS: Lactated Ringers 1,000 ML 15 ML IV (09:40)
--- NOTE | 2023-10-22 09:44 | HP.PCM_ITS ---
History and Physical Date of Admission: 10/22/23 77 F who presents to the office today for Prior workup: ? Modified Barium 08.09.20 mild oropharyngeal dysphagia *BGI established 04.12.21 with dysphagia; Reflux medication not used as she does not like SE profile. Constipation also an issue which she uses rectal suppositories successfully. ? EGD/colonoscopy 09.10.21 EGD LA Grade A esophagitis; two moderate intrinsic stenoses, Savary 54F; duodenitis, Mike gland hyperplasia. Metaplasia neg ? Colonoscopy hemorrhoids; sigmoid stenosis, traversed; severe melanosis coli; TI congestion. No path changes OV 4.5.22 dysphagia has resolved. Continues to avoid reflux medication. Constipation improved in consistency though caliber still decreased; suppository use has significantly reduced, Miralax continues but is also reduced OV 9..22 constipation has worsened and miralax has lost effectiveness though mineral oil is helpful. ? EGD/colonoscopy recommended and cancelled. ? CT abd/pel without contrast (flank pain/hematuria, ED) 4.. colonic diverticulosis; moderate fecal retention; atherosclerosis OV 3.5.24 Pt reports she is still having constipation. Did do a bowel cleanse this last weekend and did not clear everything out. Has also tried suppositories and enemas and will get small clumps out. Has been having lower abdominal spasms and cramping. ROS Const Constitutional: No fatigue ENT ENT: No difficulty swallowing Gastro GI: No abdominal pain, belching, bloating, change in bowel habits, change in stool character, coffee ground emesis, constipation, cramping, diarrhea, heartburn, difficulty swallowing, feeling full early, excessive flatus, incontinent of stools, Vomiting blood/hematemesis, Blood in stool, loose stools, Black,tarry stools, nausea/dyspepsia, pain with swallowing, vomiting or other Musc Musculoskeletal: Positive for joint pain, joint swelling, stiffness and Arthritis Skin Skin: No yellowing of the eye or itchy eyes Psych Psychiatric: No anxiety and No depression Endo Endocrine: No fatigue Aller/Imm Allergy/Immunologic: No itchy eyes Joe/Lymp Hematologic/Lymphatic: No easy bleeding or easy bruising Exam Const General: cooperative and healthy appearing Resp Effort & Inspection: normal respiratory effort Auscultation: Bilateral: Clear to Auscultation Cardio Rate: regular rate Rhythm: regular rhythm GI Auscultation: normal bowel sounds General: No CVA tenderness Psych Appearance: grossly normal Mental Status: mental status grossly normal Quality Reporting Tobacco Screening ([facility] 138) Smoking Status: Never smoker Assessment and Plan Assessment and Plan (1) Constipation: Status: Chronic Plan: Recommend she continue mineral oil +/-Miralax as needed for her constipation, since it is effective and safe to use. As long as she has a bowel movement then she can prevent epigastric pressure which mimics atrial fibrillation for her. She has many concerns about non-GI issues which I encouraged her to discuss with her primary care and other specialists. We had a long conversation regarding her constipation issues. I recommended that she see a colorectal surgeon for what is mild rectal prolapse but possible rectocele and possible bladder prolapse. She will need to be seen by urologist for bladder prolapse. We will get defecography with double contrast barium enema with a pelvic MRI to further assess what I feel is pelvic floor issues. I have examined the patient and the H&P has been reviewed. There are no clinical changes since date of exam.
--- NOTE | 2023-10-22 10:22 | OP.CCLET_ITS ---
10/22/2023 Ana Paula Lorenzana [address] [place] [address] Re : Colonoscopy procedure for Emma Hall Dear Dr. Lorenzana This procedure was performed on October. My impressions and recommendations are as follows: Impressions : - Diverticulosis in the recto-sigmoid colon and in the sigmoid colon. Biopsied. - Stricture in the recto-sigmoid colon. Recommendations : - Discharge patient to home. - Resume previous diet. - Continue present medications. - Await pathology results. - Repeat colonoscopy is not recommended due to current age of 78 My findings are described in the full procedure note, which is enclosed. If I can be of further assistance, please feel free to contact me at . Sincerely, Walter Cavanaugh, 10/22/2023 10:21:53 AM This report has been signed electronically.
--- NOTE | 2023-10-22 10:22 | OP.COLON_ITS ---
Patient Name: Emma Hall Procedure Date: 10/22/2023 9:45 AM Date of : 1945 Age: 78 Procedure: Colonoscopy Indications: Abdominal pain in the left lower quadrant, Periumbilical abdominal pain, Pelvic pain, Change in bowel habits, Change in stool caliber, Constipation Providers: Walter Cavanaugh DO Referring MD: Ana Paula Lorenzana Medicines: Monitored Anesthesia Care Patient Profile: This is a 78 year old female. Refer to note in patient chart for documentation of history and physical. Last Colonoscopy: date unknown. Unable to locate last colonoscopy report. Complications: No immediate complications. Procedure: Pre-Anesthesia Assessment: - Prior to the procedure, a History and Physical was performed, and patient medications and allergies were reviewed. The patient is competent. The risks and benefits of the procedure and the sedation options and risks were discussed with the patient. All questions were answered and informed consent was obtained. Patient identification and proposed procedure were verified by the physician in the pre-procedure area. Mental Status Examination: alert and oriented. Airway Examination: normal oropharyngeal airway and neck mobility. Respiratory Examination: clear to auscultation. CV Examination: normal. Prophylactic Antibiotics: The patient does not require prophylactic antibiotics. Prior Anticoagulants: The patient has taken no anticoagulant or antiplatelet agents. ASA Grade Assessment: II - A patient with mild systemic disease. After reviewing the risks and benefits, the patient was deemed in satisfactory condition to undergo the procedure. The anesthesia plan was to use monitored anesthesia care (MAC). Immediately prior to administration of medications, the patient was re-assessed for adequacy to receive sedatives. The heart rate, respiratory rate, oxygen saturations, blood pressure, adequacy of pulmonary ventilation, and response to care were monitored throughout the procedure. The physical status of the patient was re-assessed after the procedure. After I obtained informed consent, the scope was passed under direct vision. Throughout the procedure, the patient's blood pressure, pulse, and oxygen saturations were monitored continuously. The pediatric colonoscope was introduced through the anus and advanced to the cecum, identified by appendiceal orifice and ileocecal valve. The colonoscopy was performed without difficulty. The patient tolerated the procedure well. The quality of the bowel preparation was adequate. The ileocecal valve, appendiceal orifice, and rectum were photographed. Scope In: 9:51:04 AM Scope Withdrawal Time 0 hours 7 minutes 49 seconds Scope Out: 10:15:03 AM Total Procedure Duration Time 0 hours 23 minutes 59 seconds Findings: The perianal and digital rectal examinations were normal. A single small-mouthed diverticulum was found in the recto-sigmoid colon and sigmoid colon. Biopsies were taken with a cold forceps for histology. Verification of patient identification for the specimen was done. Estimated blood loss was minimal. A benign-appearing, intrinsic severe stenosis measuring 3 cm (in length) was found in the recto-sigmoid colon and was traversed. No other significant abnormalities were identified in a careful examination of the remainder of the colon. Impression: - Diverticulosis in the recto-sigmoid colon and in the sigmoid colon. Biopsied. - Stricture in the recto-sigmoid colon. Recommendation: - Discharge patient to home. - Resume previous diet. - Continue present medications. - Await pathology results. - Repeat colonoscopy is not recommended due to current age of 78 Procedure Code(s): --- Professional --- 87378, Colonoscopy, flexible; with biopsy, single or multiple CPT copyright 2021 [employer]. All rights reserved. The codes documented in this report are preliminary and upon machinist 2nd shift review may be revised to meet current compliance requirements. Walter Cavanaugh DO 10/22/2023 10:21:53 AM This report has been signed electronically. Number of Addenda: 0 Note Initiated On: 10/22/2023 9:45 AM
== END 2023-10-22 11:31 | disposition home or self-care (01) ==
LOC: EN 09:05 → AC 09:07
PROVIDERS: PCP Internal Medicine; Referring Provider Internal Medicine; Visit Provider Internal Medicine Gastroenterology
PROC: 0DJD8ZZ Inspection of Lower Intestinal Tract, Via Natural or Artificial Opening Endoscopic (ICD-10-PCS; CPT 45378; principal; 2023-10-22 10:10)
DX: D12.0 Benign neoplasm of cecum (principal); K56.699 Other intestinal obstruction unspecified as to partial versus complete obstruction; I48.0 Paroxysmal atrial fibrillation; K57.30 Diverticulosis of large intestine without perforation or abscess without bleeding; K21.9 Gastro-esophageal reflux disease without esophagitis; I10 Essential (primary) hypertension; E78.5 Hyperlipidemia, unspecified; Z79.01 Long term (current) use of anticoagulants; Z79.899 Other long term (current) drug therapy
CPT/HCPCS: 45380; 88305; J7120

== ENCOUNTER → 2023-11-20 | Outpatient (CLI) | payer MEDICARE, OTHER, SELFPAY ==
--- NOTE | 2023-11-20 | KNEE_PTH ---
PATIENT: UMBERTO ARREDONDO LOC: [facility] U#:[id number] AGE/SX: 78/F ROOM: RE11/20/[address]: Dr. Marck Beach MD : 1945 BED: DIS: 11/20/2023 SPEC #: [id number] RECD: 11/20/23 15:33 STATUS: DYLAN DEAN #: [id number] JOHN: 11/20/23 00:[address]: Marck Beach DEPT: SURGICAL PATHOLOGY RECD BY: Chetna Richmond ENTERED: 11/23/23 08:02 SP TYPE: TOTAL KNEE OTHR DR: Dr. Ana Paula Lorenzana MD [facility] Tissues: Knee, NOS Procedures: Decalcification bone/plaque Surgery Specimen Level IV HEADER OPERATION: Right total knee replacement PRE-OP DIAGNOSIS: Unilateral primary osteoarthritis, right knee TISSUE SUBMITTED: Right knee- bone and tissue MICROSCOPIC DIAGNOSIS Bone and soft tissue, right knee, total knee replacement/resection: Pieces of bone with degenerative osteoarthritic changes. Fibroadipose tissue, fibroconnective tissue and reactive synovial tissue. SJ: 11/26/2023 MICROSCOPIC DESCRIPTION Slides are reviewed. GROSS DESCRIPTION Received is one container designated bone and soft tissue right knee. The specimen consists of multiple fragments of ayala-yellow bone measuring in aggregate 11.0 x 10.0 x 3.0 cm. Also present in the specimen container are multiple fragments of yellow-white soft tissue measuring in aggregate 7.0 x 5.0 x 2.0 cm. A number of bony fragments contain articular surfaces consistent with tibial plateau and femoral condyle and displaying prominent osteophyte formation, eburnation and bone erosion. Instructional Support Specialist sections are submitted in two cassettes as follows: 1 - soft tissue, 2 - bone after decalcification. / ISAAC/mr 11/23/23 TC:5 CPT: 83016, 33114
== END | disposition home or self-care (01) ==
LOC: LABSPEC 16:03
PROVIDERS: PCP Internal Medicine; Referring Provider Orthopaedic Surgery; Visit Provider Orthopaedic Surgery
DX: M17.11 Unilateral primary osteoarthritis, right knee (principal)
CPT/HCPCS: 88305; 88311

== ENCOUNTER → 2023-12-22 | Outpatient (CLI) | payer MEDICARE, OTHER, SELFPAY ==
[2023-12-22 09:38] LABS: Bacteria 0 SEEN /hpf (None Seen); Mucous, Urine 0 SEEN /hpf (<or=2+); Red Blood Cells-Urine 0 SEEN /hpf (0-5); Squamous Epithelial Cells - UA 0 SEEN /hpf (5-10); White Blood Cells 0 SEEN /hpf (0-5)
[2023-12-22 10:17] LABS: Absolute Lymphocyte Count 1.25 X10^3/uL (0.83-4.51); Absolute Neutrophil Count 2.4 X10^3/uL (2.0-7.7); Basophil# 0.06 X10^3/uL; Basophil% 1.4 % (0-1); Eosinophil# 0.06 X10^3/uL; Eosinophils% 1.4 % (0-5); Hematocrit 39.2 % (37-47); Hemoglobin 12.8 g/dL (12.0-15.0); Lymphocyte # 1.25 X10^3/ul (0.83-4.51); Lymphocyte % 28.8 % (19-41); Mean Corp Hgb Conc 32.7 g/dL (32-36); Mean Corpuscular Hgb 32.3 pg (27.0-32.0); Mean Platelet Vol. 10.3 fl (6.2-12.0); Monocyte# 0.56 X10^3/uL; Monocyte% 12.9 % (0-10); NRBC Flagged by Analyzer 0 % (0-5); Neutrophil % 55.3 % (47-70); Platelet Count 232 K/mm3 (150-450); RBC Distribution Width CV 13.3 % (11.6-14.6); RBC Distribution Width SD 48.6 fl (35.1-43.9); Red Blood Count 3.96 M/mm3 (4.2-5.4); White Blood Count 4.3 K/mm3 (4.4-11.0)
[2023-12-22 10:26] LABS: Color, Urine Yellow (Yellow); Glucose, Dipstick Normal (Normal); Ketone-Dipstick Negative (Negative); Leukocyte Esterase-Dipstick Negative /ul (Negative); Nitrite-Dipstick Negative (Negative); Occult Blood-Urine Negative /ul (Negative); Protein-Dipstick Negative (Negative); Urine Bilirubin Dipstick Negative (Negative); Urine Clarity Clear (Clear); Urine Urobilinogen Normal (Normal)
== END | disposition home or self-care (01) ==
LOC: LAB 09:20
PROVIDERS: PCP Internal Medicine; Referring Provider Internal Medicine Gastroenterology; Visit Provider Internal Medicine Gastroenterology
DX: R19.7 Diarrhea, unspecified (principal)
CPT/HCPCS: 36415; 81001; 85025; 87040

== ENCOUNTER → 2023-12-25 | Outpatient (CLI) | payer MEDICARE, OTHER, SELFPAY ==
[2023-12-31 17:08] LABS: Pancreatic Elastase, Fecal 174 (>200)
== END | disposition home or self-care (01) ==
PROVIDERS: PCP Internal Medicine; Referring Provider Internal Medicine Gastroenterology; Visit Provider Internal Medicine Gastroenterology
DX: K58.0 Irritable bowel syndrome with diarrhea (principal)
CPT/HCPCS: 82274; 82653; 82705; 83630; 83993; 87177; 87209; 87329; 87493; 87506

== ENCOUNTER → 2024-01-05 | Outpatient (CLI) | payer MEDICARE, OTHER, SELFPAY | END | disposition home or self-care (01) | LOC: LABSPEC 11:59 | PROVIDERS: PCP Internal Medicine; Referring Provider Urology; Visit Provider Urology | DX: N39.0 Urinary tract infection, site not specified (principal) | CPT/HCPCS: 87086 ==

== ENCOUNTER 2024-04-30 01:48 | Emergency (ER) | payer MEDICARE, OTHER, SELFPAY ==
[2024-04-30 01:48] VITALS: BP 194/97; PULSE 87; RESP 18; TEMP 36.8; O2SAT 98; BMI 29.6
== END 2024-04-30 02:22 | disposition home or self-care (01) ==
LOC: ED 02:17
PROVIDERS: Emergency Provider Emergency Medicine; PCP Internal Medicine; Visit Provider Emergency Medicine
DX: R19.7 Diarrhea, unspecified (principal); E11.9 Type 2 diabetes mellitus without complications; I10 Essential (primary) hypertension; E78.5 Hyperlipidemia, unspecified; M79.7 Fibromyalgia; K21.9 Gastro-esophageal reflux disease without esophagitis
CPT/HCPCS: 99282

== ENCOUNTER 2024-08-28 13:09 | Emergency (ER) | payer MEDICARE, OTHER, SELFPAY ==
[2024-08-28 13:10] VITALS: BP 120/90; PULSE 68; RESP 15; TEMP 36.4; O2SAT 98; BMI 29.2
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
== END 2024-08-28 14:12 | disposition home or self-care (01) ==
LOC: ED 13:32
PROVIDERS: Emergency Provider Emergency Medicine; PCP Internal Medicine; Visit Provider Emergency Medicine
DX: S80.01XA Contusion of right knee, initial encounter (principal); J42 Unspecified chronic bronchitis; E11.9 Type 2 diabetes mellitus without complications; S80.02XA Contusion of left knee, initial encounter; V47.6XXA Car passenger injured in collision with fixed or stationary object in traffic accident, initial encounter; Y92.410 Unspecified street and highway as the place of occurrence of the external cause; M17.12 Unilateral primary osteoarthritis, left knee; I10 Essential (primary) hypertension; E78.5 Hyperlipidemia, unspecified; Z79.899 Other long term (current) drug therapy; Z96.651 Presence of right artificial knee joint
CPT/HCPCS: 73564; 99282

== ENCOUNTER → 2024-09-02 | Outpatient (CLI) | payer MEDICARE, OTHER, SELFPAY ==
--- NOTE | 2024-09-02 09:40 | CDU_ITS ---
Reason For Study Reason For Study: S/P Right CEA Rt. Velocities/BP Lt. Velocities/BP Prox CCA 96.1/11.4 cm/sec. Prox CCA 93.1/14.3 cm/sec. Mid CCA 85.1/13.9 cm/sec. Mid CCA 91.9/11.5 cm/sec. Dist CCA 42.8/8.8 cm/sec. Dist CCA 84.6/11.5 cm/sec. Prox ICA 53.2/15.4 cm/sec. Prox ICA 68.5/15.7 cm/sec. Mid ICA 62.6/17.3 cm/sec. Mid ICA 70.7/15.7 cm/sec. Dist ICA 47.5/13.5 cm/sec. Dist ICA 64.1/17.9 cm/sec. Rt. ICA/CCA = 0.74. Lt. ICA/CCA = 0.77. Prox ECA 93.8/10.7 cm/sec. Prox ECA 112/6 cm/sec. Rt. Vert. 48.5/12.6 cm/sec. Lt. Vert. 26.5/8.8 cm/sec. Right Extracranial There is homogeneous, smooth atherosclerotic plaque noted in the right common carotid artery. There is homogeneous, smooth atherosclerotic plaque noted in the right internal carotid artery. There is intimal thickening but no significant atherosclerotic plaque noted in the right external carotid artery. Antegrade flow is noted in the right vertebral artery. Left Extracranial There is homogeneous, smooth atherosclerotic plaque noted in the left common carotid artery. There is heterogeneous, irregular atherosclerotic plaque noted in the left internal carotid artery. There is heterogeneous, irregular atherosclerotic plaque noted in the left external carotid artery. Antegrade flow is noted in the left vertebral artery. Procedure This is a Carotid Duplex examination using B-mode, color flow and specral Doppler. Carotid Duplex [id number]. Exam performed in department. VL/Carotid Duplex Ultrasound Interpretation Summary Mild (<50%) stenosis right extracranial internal carotid. Mild (<50%) stenosis left extracranial internal carotid. Patent and antegrade vertebrals bilaterally. Ordering Physician: Shell Gutierrez Referring Physician: Ana Paula Lorenzana M.D. Performed By: Purvi Brooks RVT
== END | disposition home or self-care (01) ==
LOC: CVS 09:37
PROVIDERS: PCP Internal Medicine; Referring Provider Physician Assistant; Visit Provider Physician Assistant
DX: I65.23 Occlusion and stenosis of bilateral carotid arteries (principal)
CPT/HCPCS: 93880

== ENCOUNTER → 2024-09-08 | Outpatient (CLI) | payer MEDICARE, OTHER, SELFPAY ==
--- NOTE | 2024-09-08 07:28 | MRI_ITS ---
PROCEDURE: SPINE LUMBAR (ROUTINE) (MRISPL), 09/08/2024 REASON FOR EXAM: PAIN TECHNIQUE: Multisequence multiplanar MR of the lumbar spine was performed without IV contrast. COMPARISON: 08/30/2024 FINDINGS: Vertebral body heights are preserved. Degenerative type marrow signal changes at T12-L1, new from 02/08/2019. Degenerative type marrow signal changes previously seen at L1-L2 have essentially resolved. Questionable bilateral L5-S1 pars defects versus stress reaction, without associated spondylolisthesis. Degenerative marrow signal changes along the S1 superior articular facets, new from previous MRI. Trace to mild thoracolumbar levoscoliosis on dot compliance manager imaging. Grade 1 retrolisthesis at T12-L1 and L1-L2, increased from 02/08/2019, grossly similar to 08/30/2024. Grade 1/2 anterolisthesis at L4-L5, unchanged from 02/11/2019. Conus medullaris terminates normally at the L1-L2 disc level. Crowding of the cauda equina related to the below, otherwise unremarkable appearance. Diffuse disc desiccation. Additional level by level findings as below: T12-L1: Retrolisthesis with disc uncovering as above. Diffuse disc bulging, asymmetric to the RIGHT with prominent loss of disc height and degenerative marrow changes as above. Anterior disc/osteophyte complex. Mild ligamentum flavum hypertrophy. Minimal facet arthropathy. Mild focal spinal canal stenosis. Mild RIGHT foraminal stenosis. L1-2: Retrolisthesis with disc uncovering as above. Disc height loss with diffuse disc bulging and minute posterior central annular fissure. Narrowing of the LEFT lateral recess. Ligamentum flavum hypertrophy and minimal facet arthropathy. Moderate spinal canal stenosis with incomplete effacement of CSF. Mild bilateral foraminal stenoses. L2-3: Diffuse disc bulging with superimposed LEFT foraminal/lateral disc protrusion. Minimal facet arthropathy. Moderate spinal canal stenosis with incomplete effacement of CSF. Mild bilateral foraminal stenoses.. L3-4: Diffuse disc bulging with disc height loss. Mild ligamentum flavum hypertrophy. Mild/moderate focal spinal canal stenosis. Mild facet arthropathy. Mild bilateral foraminal stenoses. L4-5: Anterolisthesis as above with disc uncovering. Ligamentum flavum hypertrophy. [id number] focal spinal canal stenosis with incomplete effacement of CSF. Facet arthropathy. Narrowing of the [id number]-[id number]-[id number]-LEFT lateral recess. Mild bilateral foraminal stenoses. L5-S1: Diffuse disc bulging. Facet arthropathy with bilateral facet joint effusions and a small synovial cysts on the LEFT with largest 8 mm and projecting anteriorly, contributing to narrowing of the LEFT lateral recess. Narrowing of the RIGHT lateral recess also present. Mild focal spinal canal stenosis. Ligamentum flavum hypertrophy. Mild QYII-[id number]-RIGHT foraminal stenoses. Other: Cervical and thoracic spondylosis on the dot compliance manager, not well evaluated. Diverticulosis. Hysterectomy. Presumed thoracic vertebral body hemangioma in the absence of known malignancy, not well evaluated.. MRI/Spine Lumbar (Routine) IMPRESSION: 1. Multilevel spondylosis as above. Spinal canal stenoses up to [id number] janki at L4-L5. No high-grade foraminal stenosis identified, however there is multilevel narrowing of the lateral recesses, grea test at L5-S1. 2. Additional description as above. Reading Location: [id number]
== END | disposition home or self-care (01) ==
LOC: MRI 07:20
PROVIDERS: PCP Internal Medicine; Referring Provider Student in an Organized Health Care Education/Training Program; Visit Provider Student in an Organized Health Care Education/Training Program
DX: M51.369 Other intervertebral disc degeneration, lumbar region without mention of lumbar back pain or lower extremity pain (principal)
CPT/HCPCS: 72148

== ENCOUNTER 2024-09-19 10:00 | Outpatient (RCR) | payer MEDICARE, OTHER, SELFPAY ==
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
--- NOTE | 2025-02-27 18:20 | HP.PT.NRP ---
Patient Information Patient Information: UMBERTO ARREDONDO was seen in my office for initial evaluation on 09/05/24. The following Plan of Care was established for this patient: POC Established Initial Frequency: 2x /Week Initial Duration: 4 Weeks Anticipated Interventions Patient/Client Instruction: Educate patient on: Condition and Plan of Care For the Purpose of:: To decrease pain, To increase ROM, To improve muscle performance and motor function, To improve ability to perform ADL's, To increase tolerance to activity/condition/position, To improve ability of physical actions for home/community/work/leisure, To improve health of tissue, To decrease soft tissue restriction, To increase flexibility/ROM, To improve health and function, To foster healthy habits and To improve tolerance to ADL's Therapeutic Exercise to Include: Strength training, Body mechanics, Postural training, Flexibilty training and Dynamic Lumbar Stabilization For the Purpose of:: To decrease pain, To increase ROM, To improve muscle performance and motor function, To improve ability to perform ADL's, To increase tolerance to activity/condition/position, To improve ability of physical actions for home/community/work/leisure, To improve health of tissue, To decrease soft tissue restriction and To increase flexibility/ROM TENS: Yes IF ES: Yes Cryotherapy (ice pack, ice massage): Yes Thermo therapy (hot pack): Yes Ultrasound (thermal/non thermal): Yes Comment: PRN For the Purpose of:: To decrease pain, To increase ROM, To improve health of tissue and To decrease soft tissue restriction Last Seen Last Seen: This patient was last seen in our office . Pertinent comments regarding their Physical therapy will appear below: Patient was seen for PT for lumbar pain thus d/c At this point I will be discontinuing this patient from physical therapy. I would be happy to see this patient again in the future if found appropriate by the physician. Thank you! Ramez Asif, PT, Cert MDT, OCS Balance/Gait/Functional tests Balance/Special Test Scores Oswestry Low Back Score: 23
== END 2024-09-19 19:00 | disposition home or self-care (01) ==
LOC: PT 10:00
PROVIDERS: PCP Internal Medicine; Referring Provider Student in an Organized Health Care Education/Training Program; Visit Provider Student in an Organized Health Care Education/Training Program
DX: M51.369 Other intervertebral disc degeneration, lumbar region without mention of lumbar back pain or lower extremity pain (principal)
CPT/HCPCS: 97014; 97110; 97162; G0283

== ENCOUNTER → 2025-05-23 | Outpatient (CLI) | payer MEDICARE, OTHER, SELFPAY ==
--- NOTE | 2025-05-23 12:42 | US_ITS ---
PROCEDURE: BREAST LIMITED UNILATERAL 05/23/2025 REASON FOR EXAM: F, Age 79 y/o , ABN MAMM COMPARISON: Prior mammogram done earlier in the day.. TECHNIQUE: Procedure Code: USBRSTLIMIT Modality: US Procedure: BREAST LIMITED UNILATERAL FINDINGS: There is a 3 mm x 3 mm x 3 mm hypoechoic nodular density at the 2 o'clock position of the breast at 3 cm from the nipple. This is unchanged as compared to prior sonogram from outside institution dated November 29, 2024. This may represent a complicated cyst. Tissue sampling recommended. US/Breast Limited Unilateral IMPRESSION: Stable sonogram. Tissue diagnosis recommended. BI-RADS 4: SUSPICIOUS RECOMMENDATION: Biopsy Recommended Reading Location: [facility]
--- NOTE | 2025-05-23 12:42 | BI_ITS ---
EXAM: DIAG MAMM W/CAD, UNILAT N/A CLINICAL HISTORY: F, Age 79 y/o , ABN MAMM. Abnormal screening mammogram from outside institution. TECHNIQUE: Procedure Code: [id number] Modality: MG Procedure: DIAG MAMM W/CAD, UNILAT. COMPARISON: Prior exam(s) dated November 29, 2024.. FINDINGS: TISSUE DENSITY: There are scattered areas of fibroglandular density. Bilateral Breast Mammographic Findings: No significant masses, calcifications or other abnormalities are identified. No suspicious masses, areas of developing architectural distortion, or suspicious calcifications. There has been no significant interval change. BI/DIAG MAMM W/CAD, UNILAT IMPRESSION: Stable bilateral screening mammogram. Targeted sonographic correlation recomme nded. OVERALL FINAL ASSESSMENT BI-RADS 0: INCOMPLETE - NEED ADDITIONAL IMAGING EVALUATION. RECOMMENDATION: Ultrasound Recommended Additional Recommendation none A letter with findings and recommendations will be mailed to the patient. Reading Location: [id number]
== END | disposition home or self-care (01) ==
LOC: OPBI 12:31
PROVIDERS: PCP Internal Medicine; Referring Provider Internal Medicine; Visit Provider Internal Medicine
DX: N64.4 Mastodynia (principal); R92.8 Other abnormal and inconclusive findings on diagnostic imaging of breast
CPT/HCPCS: 76642; 77061; 77065; G0279